=== PATIENT | female | born 1955 | race African-American/Black ===

== ENCOUNTER 2018-01-26 07:42 | Emergency (ER) | payer MEDICAID, SELFPAY ==
[2018-01-26 07:47] VITALS: BP 123/52; PULSE 59; RESP 13; TEMP 36.6; BMI 27.9
--- NOTE | 2018-01-26 07:59 | CT_ITS ---
STUDY: CT BRAIN WITHOUT CONTRAST REASON FOR EXAM: Female, 62 years old. Right-sided weakness. RADIATION DOSAGE (If Supplied By Facility): CTDIvol = ( 60.81 ) mGy, DLP = ( 998.67 ) mGycm TECHNIQUE: Transaxial CT imaging of the brain was performed without administration of intravenous contrast material. Individualized dose optimization techniques were used for this CT. COMPARISON: None. FINDINGS: Normal soft tissue structures. Normal calvarium. Normal size ventricles and extra-axial spaces for the patient's age. There are areas of decreased attenuation within the white matter tracts of the supratentorial brain, consistent with microvascular disease changes. I cannot exclude periventricular white matter nodular densities. A repeat CT scan following intravenous contrast administration is suggested. Decreased attenuation in the insular cortex of both temporal lobes. Normal brainstem. Normal cerebellum. There is no intracranial hemorrhage. There are no findings of an acute ischemic infarction. Normal visualized paranasal sinuses. CT/Brain/Head without Contrast IMPRESSION: Decreased attenuation in the periventricular white matter. Questionable nodular densities at the lee-white matter junction. A repeat CT scan following IV contrast is recommended. Electronically Signed: Alexandre Tapia MD at 9:29 EST Tel [phone], Service support ,
--- NOTE | 2018-01-26 07:59 | EKG12_ITS ---
Test Reason : NEURO Blood Pressure : / mmHG Vent. Rate : 058 BPM Atrial Rate : 058 BPM P-R Int : 154 ms QRS Dur : 096 ms QT Int : 454 ms P-R-T Axes : 023 -01 011 degrees QTc Int : 445 ms Sinus bradycardia Otherwise normal ECG Confirmed by SIMONE OCONNELL, LAKESHIA ([id number]), acquisitions editor MARY DOVE ([id number] on 01/29/2018 2:24:56 PM Referred By: HATTIE Confirmed By:LAKESHIA NICHOLS MD
--- NOTE | 2018-01-26 08:11 | RAD_ITS ---
STUDY: X-RAY CHEST REASON FOR EXAM: Female, 62 years old. Cough. TECHNIQUE: Single AP portable view of the chest. COMPARISON: None. FINDINGS: EKG electrodes are seen. The lungs are clear and expanded. There is no demonstrated pleural abnormality. Normal size heart. Normal mediastinum and marily. Normal visualized pulmonary arteries. There is atherosclerotic calcification of the aortic arch with tortuosity. Normal visualized thoracic spine. Normal visualized ribs, clavicles, and shoulders. There is no demonstrated abnormality of the visualized soft tissue structures of the upper abdomen. RAD/Chest 1 View IMPRESSION: Normal x-ray examination of the chest. Electronically Signed: Alexandre Tapia MD at 8:24 EST Tel [phone], Service support ,
[2018-01-26 08:21] LABS: Absolute Lymphocyte Count 1.27 X10^3/ul (0.83-4.51); Absolute Neutrophil Count 2.6 X10^3/uL (2.0-7.7); Basophil# 0.05 X10^3/uL; Basophil% 1.2 % (0-1); Eosinophil# 0.14 X10^3/uL; Eosinophils% 3.3 % (0-5); Hematocrit 26.9 % (37-47); Hemoglobin 8.4 g/dl (12.0-15.0); Lymphocyte # 1.27 X10^3/ul (4.0); Mean Corp Hgb Conc 31.2 g/gl (32-36); Mean Corpuscular Hgb 23.1 pg (27.0-32.0); Mean Corpuscular Volume 73.9 fL (81-99); Mean Platelet Vol. 10.8 fl (6.2-12.0); Monocyte# 0.21 X10^3/uL; Neutrophil # 2.55 X10^3/uL (2.7-7.7); Neutrophil % 60.3 % (47-70); POSITIVE COUNT NO; POSITIVE DIFFERENTIAL NO; POSITIVE MORPHOLOGY NO; Platelet Count 292 K/mm3 (150-450); RBC Distribution Width CV 18.5 % (11.6-14.6); RBC Distribution Width SD 47.4 fl (35.1-43.9); Red Blood Count 3.64 M/mm3 (4.2-5.4); White Blood Count 4.2 K/mm3 (4.4-11.0)
[2018-01-26 08:28] VITALS: BP 111/62; PULSE 55; RESP 12; O2SAT 100
[2018-01-26 08:34] LABS: Partial Thromboplast Time 37.2 Seconds (24.1-36.2)
[2018-01-26] MEDS: 0.9% Normal Saline 1,000 ML 100 ML IV (08:34)
[2018-01-26 08:38] LABS: Anion Gap 7 (5-15); BUN 9 mg/dL (7-18); BUN/Creat Ratio 13.3 RATIO (10-20); Calcium,Total 8.6 mg/dL (8.5-10.1); Chloride 107 mmol/L (98-107); Creatinine, Serum 0.68 mg/dL (0.55-1.02); EST Glomerular Filtration Rate 93 mL/min (>60); Est Glom Filt Rate - Afr Amer 112 mL/min (>60); Estimated Creatinine Clearance 78.24 ml/min; Glucose 78 mg/dL (74-106); Potassium 3.7 mmol/L (3.5-5.1); Sodium Level 140 mmol/L (136-145)
[2018-01-26 09:37] VITALS: BP 122/63; PULSE 65; RESP 28; O2SAT 97
--- NOTE | 2018-01-26 09:40 | MRI_ITS ---
STUDY: MRI BRAIN WITHOUT CONTRAST REASON FOR EXAM: Female, 62 years old. Right paresthesias. TECHNIQUE: Standardized multiplanar fat and water weighted pulse sequences were obtained. COMPARISON: None. FINDINGS: There is no restricted diffusion. There is no evidence of chronic blood degradation products on T2 GRE sequence. Normal size of the ventricles and extra-axial spaces for the patient's age. There is severe discrete and confluent T2 and FLAIR hyperintensity within supratentorial white matter bilaterally. Normal bilateral basal ganglia. Normal thalami. There is no extra-axial fluid accumulation. Normal flow voids within the major intracranial circulation suggesting patency by spin echo criteria. Normal sella turcica, pituitary gland, infundibular stalk, optic chiasm and hypothalamus. Normal tectal plate and pineal gland. Normal midbrain, jordan and medulla. Normal cerebellum. Normal basal cisterns. Normal bilateral temporal bones. Normal bilateral internal auditory canals. No demonstrated orbital abnormality, within the constraints of a routine brain study. There is mild nonspecific T2 hyperintensity marginating the right maxillary sinus. There is multifocal T2 hyperintensity within a few right mastoid air cells. There is no paranasal sinus air-fluid level. Normal calvarium and skull base. Normal visualized soft tissue structures. Normal visualized upper cervical spine. MRI/Brain without Contrast IMPRESSION: No restricted diffusion to suggest acute ischemia/edema. No evidence of chronic blood degradation products on the T2 GRE sequence. No mass or mass effect. Severe supratentorial white matter T2 and FLAIR hyperintensities may all simply represent a manifestation of severe chronic small vessel ischemia. However, foci of demyelination secondary to various processes (including autoimmune process or inflammatory process) can also present in this fashion. Consider evaluation with contrast to evaluate for evidence of active demyelinating disease. Nonspecific right maxillary sinus and right mastoid air cell disease. Again, no paranasal sinus air-fluid levels to suggest an acute process. Electronically Signed: Yony Back MD at 13:59 EST , Service support ,
[2018-01-26 11:00] VITALS: BP 112/57; PULSE 83; RESP 13
--- NOTE | 2018-01-26 11:02 | ED.RN ---
Entered to inform pt of time for MRI. Found her sleeping with no distress.
[2018-01-26] MEDS: LORazepam 2 MG/ML Syringe 1 MG IV (11:49)
[2018-01-26 13:34] VITALS: BP 129/67; PULSE 54; RESP 14; O2SAT 100
--- NOTE | 2018-01-26 14:15 | CM.ED ---
Addendum entered by Donna Barnett 01/26/18 14:29: Social Work Note Pt is discharged. Placed call to pt's insurance who states that they cannot provide transport that is not scheduled 2 days prior to the needed transport. Placed call to [facility] van service and spoke with Laureen. The can provide transport between [phone]. Nursing notified. ELLIE Escobar LISW Original Note: Social Work Note Referral from Kevan Bryson RN, stating concerns of homelessness. Face to face with the pt. States that she has an apartment in [place] that she should be able to move into within the next day or two. Reports that she wanted to take a vacation to [place]. She was briefly hospitalized there. States that she intends on going to [facility] [place] [employer]. Explore if there are any friends or family she can stay with and she reports no. Believe that we can get her transportation through insurance upon discharge. Nursing updated. SW to continue to follow and assist as needed. PLAN: [facility] ELLIE Escobar LISW
--- NOTE | 2018-01-26 14:19 | ED.VISSUMM ---
- ER Visit Summary Date of Service: 01/26/18 Chief Complaint: [Paresthesias to right side of body and left leg pain] History of Present Illness: The patient is a 62 F [presents the emergency department with initial complaint of pain in her left foot and leg. Patient states that she was at a bus stop and had a hard time walking on her left foot because of pain. EMS was called and brings patient to the emergency department where she tells nursing staff that she has had numbness to the right side of her body and some weakness. Patient initially stated that the numbness and weakness was new and then later stated that it has actually been going on for at least several weeks. Patient fell 2 weeks ago apparently and fractured her left foot and at the same time hurt her neck. Patient's had recent MRI apparently that showed herniated disks in her neck. Patient is concerned that she might be having a stroke because she does have a history of TIAs and the numbness and the weakness on the right side of her body was more pronounced today. Patient denies any falls or head injuries. Patient apparently was in [place] and was seen on 01 23 there and admitted overnight. Patient was discharged and then came back complaining of pain in her left foot. Patient had x-rays of her foot and had venous Dopplers that were negative for DVT. On 01/22 patient was also seen in [place] at [facility]. Patient had a myriad of different complaints during her visits. Patient is from the [place] area but states that she is currently homeless and staying with friends.] Physical Examination: [HEENT-PERRLA, EOMI. Cranial nerves II through XII grossly intact. TMs clear. Mucous membranes moist. No adenopathy. Cardiovascular-regular rate and rhythm without murmur or ectopy Lungs-clear to auscultation, chest wall stable without crepitus or subcu emphysema Abdomen-normoactive bowel sounds, soft, nontender, no rebound or rigidity, no peritoneal signs. Neuro jzfv-qotbea-fhzl and heel martinez testing within normal limits, negative Romberg, negative pronator drift. NIH stroke scale was a 1 for decreased sensation to the right side. I do not appreciate any focal weakness. Extremities-intact ?4, normal range of motion, normal pulses, atraumatic] Test Results: [CT scan of the brain without contrast showed chronic involutional changes as well as some abnormal findings at the lee/white matter interface and recommended obtaining CT scan with IV contrast. Otherwise nothing acute. EKG obtained arrival shows sinus bradycardia with a rate of 50 bpm with no acute ST segment changes. CBC with differential showed a white blood cell count of 4.2, hemoglobin 8.4, hematocrit 27, platelets 292. Chemistries unremarkable. INR was 1.0. Troponin was less than 0.015.] I reviewed patient's visits by obtaining medical records from patient's visit to [place] as well as [facility]. Emergency Department Course and Treatment: [I discussed case with radiologist who felt that MRI would be reasonable test to evaluate his concerns on CT. An MRI of the brain was obtained and did not show any evidence of restricted diffusion to suggest acute ischemia. Patient had severe supratentorial white matter T2 and flair hyperintensities which may simply represent infestation of severe chronic small vessel ischemia however foci of demyelination secondary to various processes including autoimmune process or inflammatory process also present in this fashion and consider evaluation with contrast to evaluate for evidence of active demyelinating disease.] Treatment Plan: [Patient was advised to follow-up with her primary care physicians and her plan is to go back to [place].] Disposition: [Discharged home in stable condition] Impression: [Left foot pain acute on chronic Paresthesias-etiology uncertain] This note was generated with Br[employer] dictation software. It may contain incorrect words, spelling, and punctuation that were not noted in review of the chart prior to signing ED Disposition - Plan for ED Patient: Chief Complaint: Neuro S/Sx Referrals: Care Physician,No Primary [Primary Care Provider] -
--- NOTE | 2018-01-26 14:25 | ED.DCSUM_ITS ---
- ER Visit Summary Date of Service: 01/26/18 Chief Complaint: [Paresthesias to right side of body and left leg pain] History of Present Illness: The patient is a 62 F [presents the emergency department with initial complaint of pain in her left foot and leg. Patient states that she was at a bus stop and had a hard time walking on her left foot because of pain. EMS was called and brings patient to the emergency department where she tells nursing staff that she has had numbness to the right side of her body and some weakness. Patient initially stated that the numbness and weakness was new and then later stated that it has actually been going on for at least several weeks. Patient fell 2 weeks ago apparently and fractured her left foot and at the same time hurt her neck. Patient's had recent MRI apparently that showed herniated disks in her neck. Patient is concerned that she might be having a stroke because she does have a history of TIAs and the numbness and the weakness on the right side of her body was more pronounced today. Patient denies any falls or head injuries. Patient apparently was in [place] and was seen on 01 23 there and admitted overnight. Patient was discharged and then came back complaining of pain in her left foot. Patient had x-rays of her foot and had venous Dopplers that were negative for DVT. On 01/22 patient was also seen in [place] at [facility]. Patient had a myriad of different complaints during her visits. Patient is from the [place] area but states that she is currently homeless and staying with friends.] Physical Examination: [HEENT-PERRLA, EOMI. Cranial nerves II through XII grossly intact. TMs clear. Mucous membranes moist. No adenopathy. Cardiovascular-regular rate and rhythm without murmur or ectopy Lungs-clear to auscultation, chest wall stable without crepitus or subcu emphysema Abdomen-normoactive bowel sounds, soft, nontender, no rebound or rigidity, no peritoneal signs. Neuro pfco-esgebe-diwv and heel martinez testing within normal limits, negative Romberg, negative pronator drift. NIH stroke scale was a 1 for decreased sensation to the right side. I do not appreciate any focal weakness. Extremities-intact ?4, normal range of motion, normal pulses, atraumatic] Test Results: [CT scan of the brain without contrast showed chronic involutional changes as well as some abnormal findings at the lee/white matter interface and recommended obtaining CT scan with IV contrast. Otherwise nothing acute. EKG obtained arrival shows sinus bradycardia with a rate of 50 bpm with no acute ST segment changes. CBC with differential showed a white blood cell count of 4.2, hemoglobin 8.4, hematocrit 27, platelets 292. Chemistries unremarkable. INR was 1.0. Troponin was less than 0.015.] I reviewed patient's visits by obtaining medical records from patient's visit to [place] as well as [facility]. Emergency Department Course and Treatment: [I discussed case with radiologist who felt that MRI would be reasonable test to evaluate his concerns on CT. An MRI of the brain was obtained and did not show any evidence of restricted diffusion to suggest acute ischemia. Patient had severe supratentorial white matter T2 and flair hyperintensities which may simply represent infestation of severe chronic small vessel ischemia however foci of demyelination secondary to various processes including autoimmune process or inflammatory process also present in this fashion and consider evaluation with contrast to evaluate for evidence of active demyelinating disease.] Treatment Plan: [Patient was advised to follow-up with her primary care physicians and her plan is to go back to [place].] Disposition: [Discharged home in stable condition] Impression: [Left foot pain acute on chronic Paresthesias-etiology uncertain] This note was generated with [employer] dictation software. It may contain incorrect words, spelling, and punctuation that were not noted in review of the chart prior to signing ED Disposition - Plan for ED Patient: Chief Complaint: Neuro S/Sx Referrals: Care Physician,No Primary [Primary Care Provider] -
--- NOTE | 2018-01-26 14:25 | ED.DEP ---
ED Disposition - Plan for ED Patient: Chief Complaint: Neuro S/Sx Instructions: ED Paraesthesias Prescriptions: Ibuprofen [Motrin] 600 mg PO TID PRN PRN #20 tab PRN Reason: Pain Referrals: Care Physician,No Primary [Primary Care Provider] - 3-5 Days
[2018-01-26 14:38] VITALS: BP 113/88; PULSE 71; RESP 16; O2SAT 100
--- NOTE | 2018-01-26 14:39 | ED.RN ---
Pt christian heated meal in ED and ride is enroute to transport pt to [facility]. Pt refused several offers to help dress.
== END 2018-01-26 14:41 | disposition home or self-care (01) ==
LOC: ED 08:04
PROVIDERS: Emergency Provider Emergency Medicine
DX: M79.672 Pain in left foot (principal); G89.29 Other chronic pain; R20.2 Paresthesia of skin; M06.9 Rheumatoid arthritis, unspecified; G47.30 Sleep apnea, unspecified; Z72.0 Tobacco use; Z79.82 Long term (current) use of aspirin; Z79.899 Other long term (current) drug therapy; Z86.73 Personal history of transient ischemic attack (TIA), and cerebral infarction without residual deficits; Z86.711 Personal history of pulmonary embolism
CPT/HCPCS: 70450; 70551; 71045; 80048; 84484; 85025; 85610; 85730; 93005; 96361; 96374; 96375; 99285; J7030; A4216

== ENCOUNTER 2018-02-02 00:12 | Emergency (ER) | payer MEDICAID, SELFPAY ==
[2018-02-02 00:14] VITALS: BP 125/76; PULSE 85; RESP 17; TEMP 36.9; O2SAT 99; BMI 29.5
--- NOTE | 2018-02-02 00:39 | EKG12_ITS ---
Test Reason : N/V Blood Pressure : / mmHG Vent. Rate : 083 BPM Atrial Rate : 083 BPM P-R Int : 148 ms QRS Dur : 082 ms QT Int : 378 ms P-R-T Axes : 045 -15 036 degrees QTc Int : 444 ms Normal sinus rhythm Normal ECG Confirmed by SIMONE OCONNELL, LAKESHIA ([id number]), communications editor MARY DOVE ([id number]) on 02/05/2018 9:59:44 AM Referred By: Confirmed By:LAKESHIA NICHOLS MD
[2018-02-02] MEDS: Ondansetron 4 MG/2 ML Vial IV (00:48)
[2018-02-02] MEDS: 0.9% Normal Saline 1,000 ML 1000 ML IV (00:48)
[2018-02-02 00:57] LABS: Absolute Lymphocyte Count 2.27 X10^3/ul (0.83-4.51); Absolute Neutrophil Count 2.8 X10^3/uL (2.0-7.7); Basophil# 0.05 X10^3/uL; Basophil% 0.9 % (0-1); Differential Indicated SCAN CRITERIA MET; Eosinophil# 0.13 X10^3/uL; Eosinophils% 2.3 % (0-5); Hematocrit 24.8 % (37-47); Hemoglobin 7.7 g/dl (12.0-15.0); Lymphocyte # 2.27 X10^3/ul (4.0); Lymphocyte % 39.4 % (19-41); Mean Corpuscular Hgb 22.8 pg (27.0-32.0); Mean Corpuscular Volume 73.4 fL (81-99); Monocyte# 0.47 X10^3/uL; Monocyte% 8.2 % (0-10); Neutrophil # 2.83 X10^3/uL (2.7-7.7); POSITIVE COUNT NO; POSITIVE DIFFERENTIAL NO; POSITIVE MORPHOLOGY YES; Platelet Count 241 K/mm3 (150-450); RBC Distribution Width CV 17.5 % (11.6-14.6); RBC Distribution Width SD 47.6 fl (35.1-43.9); Red Blood Count 3.38 M/mm3 (4.2-5.4); White Blood Count 5.8 K/mm3 (4.4-11.0)
[2018-02-02 00:59] LABS: Anion Gap 4 (5-15); BUN 14 mg/dL (7-18); BUN/Creat Ratio 12.2 RATIO (10-20); Calcium,Total 8.3 mg/dL (8.5-10.1); Chloride 106 mmol/L (98-107); Creatinine, Serum 1.15 mg/dL (0.55-1.02); EST Glomerular Filtration Rate 50 mL/min (>60); Est Glom Filt Rate - Afr Amer 61 mL/min (>60); Estimated Creatinine Clearance 42.68 ml/min; Glucose 115 mg/dL (74-106); Lipase 308 U/L (73-393); Potassium 4.1 mmol/L (3.5-5.1); Sodium Level 138 mmol/L (136-145)
--- NOTE | 2018-02-02 01:09 | ED.VISSUMM ---
- ER Visit Summary Date of Service: 02/02/18 Chief Complaint: Vomiting History of Present Illness: The patient is a 62 F presenting with vomiting. She states this started 1 hour prior to arrival. She had 4 episodes of emesis. She states she ate beef with gravy for dinner. She is unsure if other people that ate the same food became ill. She is currently staying at the [facility]. She denies blood in her emesis. Denies diarrhea. Denies fever. Denies abdominal pain. Denies other complaints. Physical Examination: Vitals are stable. Patient is afebrile. Alert no acute distress. HEENT exam is unremarkable. Neck is supple. Lungs are clear and equal bilaterally. Heart is regular rate and rhythm. Abdomen is soft nontender nondistended. No guarding or rebound. Extremities are unremarkable. Skin is warm and dry. No focal neurologic deficit. Remainder of exam is unremarkable. Emergency Department Course and Treatment: Patient was given IV fluids, Zofran. EKG is sinus rate of 83 with no acute ischemic changes. CBC shows hemoglobin 7.7. Patient has a history of chronic anemia. Chemistries unremarkable other than creatinine 1.15. Lipase is normal. On reevaluation, patient is feeling improved. Her abdomen continues to be soft and nontender with no rebound or guarding. She is able to tolerate p.o. in the emergency department. Advised to follow-up with primary care physician. Advised to return to the ED for worsening complaints. Disposition: Discharge home Impression: Vomiting, resolved This note was generated with Cokonnect dictation software. It may contain incorrect words, spelling, and punctuation that were not noted in review of the chart prior to signing ED Disposition - Plan for ED Patient: Chief Complaint: Nausea/Vomiting Instructions: ED Nausea Vomiting Prescriptions: Ondansetron [Zofran Odt] 4 mg PO Q8H PRN PRN #10 tablet PRN Reason: Nausea Referrals: Kandis Liu [NON-STAFF] -
[2018-02-02 01:27] LABS: Differential Comment SCANNED; Hypochromasia 2+; Platelet Estimate ADEQUATE (ADEQ); Target Cells 1+
[2018-02-02 02:45] VITALS: BP 139/72; PULSE 77; RESP 17; O2SAT 98
--- NOTE | 2018-02-02 03:18 | ED.DEP ---
ED Disposition - Plan for ED Patient: Chief Complaint: Nausea/Vomiting Instructions: ED Nausea Vomiting Prescriptions: Ondansetron [Zofran Odt] 4 mg PO Q8H PRN PRN #10 tablet PRN Reason: Nausea Referrals: Kandis Liu [NON-STAFF] -
[2018-02-02 05:58] VITALS: BP 141/89; PULSE 79; RESP 16; O2SAT 100
--- OUTSIDE RECORDS SUMMARY | 2018-03-21 03:50 | XMS RPT_ITS | Summary of Care ---
:1955 Author Organization [facility] Address [address] [place] [address] Care Team Providers Name Role Phone Unavailable Primary Care Provider Unavailable Encounter Details Date Type Department Care Team Description 01/23/2018 Hospital Encounter [facility] [address] [facility] [address] [place] [address] [phone] [place] [address] Social History Tobacco Use Types Packs/Day Years Used Date Never Assessed Sex Assigned at Date Recorded Not on file as of this encounter Plan of Treatment Not on fileas of this encounter Procedures Procedure Name Priority Date/Time Associated Comments Diagnosis [facility] - ED CARDIAC STAT 01/23/2018 11:40 Results for this TROPONIN-I PM EST procedure are in the results section. D-DIMER, QUANTITATIVE STAT 01/23/2018 11:40 Results for this PM EST procedure are in the results section. CBC AND DIFFERENTIAL STAT 01/23/2018 11:40 Results for this PM EST procedure are in the results section. LIPASE STAT 01/23/2018 11:40 Results for this PM EST procedure are in the results section. COMPREHENSIVE STAT 01/23/2018 11:40 Results for this METABOLIC PANEL PM EST procedure are in the results section. URINALYSIS STAT 01/23/2018 11:00 Results for this PM EST procedure are in the results section. in this encounter Results Lipase (01/23/2018 11:40 PM) Lipase 246 73 - 393 U/L [facility] Specimen Blood Performing Organization Address City/State/Zipcode Phone Number [facility] [address] [place] [address] Comprehensive Metabolic Panel (01/23/2018 11:40 PM) Glucose 88 70 - 99 mg/dL [facility] Comment: HOSPITAL This test result might be falsely depressed or falsely elevated on samples drawn from patients taking Sulfasalazine and Sulfapyridine. Venipuncture should occur prior to taking either of these drugs. BUN 13 8 - 25 mg/dL [facility] Creatinine 0.60 0.60 - 1.20 mg/dL [facility] eGFR >=60 ml/min/1.73sq.m [facility] Comment: [facility] Non- GFR Calc eGFR is an estimated Glomerular Filtration Rate based on the value of the patient's serum creatinine. In outpatients, eGFR should be used as a helpful tool in screening for CKD. In inpatients or patients with acute renal failure, eGFR represents the GFR at the moment of the draw and should be used with caution. eGFR >=60Comment: ml/min/1.73sq.m [facility] Chilean GFR Calc [facility]OSPITAL Calcium 8.5 8.4 - 10.2 mg/dL [facility] Sodium 136 135 - 145 mmol/L [facility] Potassium 3.9 3.5 - 5.1 mmol/L [facility] Chloride 106 98 - 108 mmol/L [facility] CO2 25 21 - 32 mmol/L [facility] AST 164 (H) 0 - 45 U/L [facility] Comment: [facility] This test result might be falsely depressed or falsely elevated on samples drawn from patients taking Sulfasalazine and Sulfapyridine. Venipuncture should occur prior to taking either of these drugs. ALT 127 (H) 14 - 65 U/L [facility] Comment: [facility] This test result might be falsely depressed or falsely elevated on samples drawn from patients taking Sulfasalazine and Sulfapyridine. Venipuncture should occur prior to taking either of these drugs. Alkaline Phosphatase 610 (H) 40 - 150 U/L [facility] Bilirubin, Total 1.1 0.3 - 1.2 mg/dL [facility] Total Protein 9.2 (H) 6.0 - 8.0 g/dL [facility] Albumin 2.5 (L) 3.2 - 5.2 g/dL [facility] Specimen Blood Performing Organization Address City/State/Zipcode Phone Number [facility] [address] [place] [address] ED Cardiac Troponin-I (01/23/2018 11:40 PM) ED Cardiac Troponin-I < 15 <45 ng/L [facility] Comment: HOSPITAL Elevation of troponin indicates some degree of myocardial necrosis but unless there is a significant rise and/or fall (if elevated) identified, it unlikely that an acute event has taken place Samples from patients routinely receiving high dose biotin therapy (100-300 mg/day) may show falsely decreased results. Please correlate clinically. Specimen Blood Performing Organization Address City/State/Zipcode Phone Number [facility] [address] [place] [address] CBC AND DIFFERENTIAL (01/23/2018 11:40 PM) WBC 6.1 3.4 - 10.6 K/[facility] RBC 3.30 (L) 3.7 - 5.0 M/[facility] Hemoglobin 7.7 (L) 11.6 - 15.4 g/dL [facility] Hematocrit 24.7 (L) 34.4 - 44.8 % [facility] MCV 74.8 (L) 82.6 - 98.9 [facility] MCH 23.2 (L) 27.9 - 33.9 pg [facility] MCHC 31.0 (L) 33.1 - 35.1 g/dL [facility] RDW 18.6 (H) 10.0 - 14.4 % [facility] Platelets 220 162 - 402 [facility] MPV 10.9 (H) 7.0 - 10.6 [facility] Absolute Neutrophils 3.5 1.2 - 6.9 [facility] Absolute Lymphocytes 2.0 1.0 - 3.7 [facility] Absolute Monocytes 0.5 0.1 - 0.6 [facility] Absolute Eosinophils 0.2 0 - 0.5 [facility] Absolute Basophils 0.0 0 - 0.2 [facility] Segmented Neut 57.0Comment: Manual % [facility] differential performed. HOSPITAL Lymphocytes 32.0 % [facility] Monocytes 8.0 % [facility] Eosinophils 3.0 % [facility] Basophils 0.0 % [facility] Anisocytosis 1+ (A) None Seen [facility] Microcytosis 2+ (A) None Seen [facility] Hypochromasia 3+ (A) None Seen [facility] Target Cells 2+ (A) None Seen [facility] Specimen Blood Performing Organization Address [facility] Phone Number [facility] [address] [place] [address] D-DIMER, QUANTITATIVE (01/23/2018 11:40 PM) D-Dimer 1.80 (H) <0.5 mcg/ml (FEU) [facility] Comment: HOSPITAL This test is intended for use in conjunction with a clinical pretest probability (PTP) assessment model to exclude pulmonary embolism (PE) and deep vein thrombosis (DVT) in outpatients suspected of PE or DVT. Specimen Blood Performing Organization Address [facility] Phone Number [facility] [address] [place] [address] URINALYSIS (01/23/2018 11:00 PM) Color, Urine Yellow [facility] Character Hazy [facility] Specific [place] 1.014 1.003 - 1.029 [facility] pH, Urine 7.0 4.5 - 8.0 [facility] Glucose, Urine Negative NEG;NEGATIVE mg/dL [facility] Ketones, Urine Negative NEG;NEGATIVE mg/dL [facility] Protein, Urine Negative NEG;NEGATIVE mg/dL [facility] Blood, Urine Negative NEG;NEGATIVE [facility] Nitrite, Urine Negative NEG;NEGATIVE [facility] Bilirubin, Urine Negative NEG;NEGATIVE [facility] Urobilinogen, Urine NormalComment: mg/dL [facility] Urobilinogen, Urine [facility]OSPITAL Reference Range: <2.0 mg/dL Leukocyte Esterase, Trace (A) Negative [facility] WBCs, Urine 1 0 - 5 /HPF [facility] Squamous Epithelial 2 0 - 40 /HPF [facility] Specimen Urine Performing Organization Address [facility] Cent[facility] Phone Number [facility] [address] [place] [address] in this encounter
--- OUTSIDE RECORDS SUMMARY | 2018-03-21 03:52 | XMS RPT_ITS ---
:1955 Author Organization OHIP Support Name Relationship Address Phone D Unavailable Unavailable Unavailable OLDSS, GUANAKITO Unavailable Unavailable + MORALES, MARIVEL Unavailable Unavailable + D Unavailable Unavailable Unavailable OLDSS, GUANAKITO Unavailable Unavailable + MORALES, MARIVEL Unavailable Unavailable + D Unavailable Unavailable Unavailable OLDSS, GUANAKITO Unavailable Unavailable + MORALES, MARIVEL Unavailable Unavailable + D Unavailable Unavailable Unavailable OLDSS, GUANAKITO Unavailable Unavailable + MORALES, MARIVEL Unavailable Unavailable + OLDS, GUANAKITO Unavailable Unavailable + OLDS MORALES, CELINA Unavailable Unavailable + OLDS, GUANAKITO Unavailable Unavailable + OLDS MORALES, CELINA Unavailable Unavailable + OLDS, GUANAKITO Unavailable Unavailable + MORALES, CELINA Unavailable Unavailable + OLDS, GUANAKITO Unavailable Unavailable + MORALES, CELINA Unavailable Unavailable + OLDS, GUANAKITO Unavailable Unavailable + MORALES, CELINA Unavailable Unavailable + OLDS, GUANAKITO Unavailable Unavailable + MORALES, CELINA Unavailable Unavailable + OLDS, GUANAKITO Unavailable Unavailable + MORALES, CELINA Unavailable Unavailable + OLDS, GUANAKITO Unavailable Unavailable + MORALES, CELINA Unavailable Unavailable + OLDS, GUANAKITO Unavailable Unavailable + NIELSEN, CELINA Unavailable Unavailable + OLDS, GUANAKITO Unavailable Unavailable + NIELSEN, CELINA Unavailable Unavailable + OLDS, GUANAKITO Unavailable Unavailable + NIELSEN, CELINA Unavailable Unavailable + OLDS, GUANAKITO Unavailable Unavailable + NIELSEN, CELINA Unavailable Unavailable + OLDS, GUANAKITO Unavailable Unavailable + NIELSEN, CELINA Unavailable Unavailable + OLDS, GUANAKITO Unavailable Unavailable + NIELSEN, CELINA Unavailable Unavailable + OLDS, GUANAKITO Unavailable Unavailable + NIELSEN, CELINA Unavailable Unavailable + OLDS, GUANAKITO Unavailable [address] [place] [address] + OLDS, GUANAKITO Unavailable Unavailable + NIELSEN, CELINA Unavailable Unavailable + OLDS, GUANAKITO Unavailable Unavailable + NIELSEN, CELINA Unavailable Unavailable + OLDS, GUANAKITO Unavailable Unavailable + NIELSEN, CELINA Unavailable Unavailable + OLDS, GUANAKITO Unavailable Unavailable + NIELSEN, CELINA Unavailable Unavailable + OLDS, GUANAKITO Unavailable Unavailable + NIELSEN, CELINA Unavailable Unavailable + OLDS, GUANAKITO Unavailable Unavailable + NIELSEN, CELINA Unavailable Unavailable + OLDS, GUANAKITO Unavailable Unavailable + NIELSEN, CELINA Unavailable Unavailable + OLDS, GUANAKITO Unavailable Unavailable + NIELSEN, CELINA Unavailable Unavailable + OLDS, GUANAKITO Unavailable Unavailable + NIELSEN, CELINA Unavailable Unavailable + OLDS, GUANAKITO Unavailable Unavailable + NIELSEN, CELINA Unavailable Unavailable + OLDS, GUANAKITO Unavailable Unavailable + NIELSEN, CELINA Unavailable Unavailable + OLDS, GUANAKITO Unavailable Unavailable + NIELSEN, CELINA Unavailable Unavailable + OLDS, GUANAKITO Unavailable Unavailable + NIELSEN, CELINA Unavailable Unavailable + OLDS, GUANAKITO Unavailable Unavailable + NIELSEN, CELINA Unavailable Unavailable + OLDS, GUANAKITO Unavailable Unavailable + NIELSEN, CELINA Unavailable Unavailable + OLDS, GUANAKITO Unavailable Unavailable + NIELSEN, CELINA Unavailable Unavailable + OLDS, GUANAKITO Unavailable Unavailable + NIELSEN, CELINA Unavailable Unavailable + OLDS, GUANAKITO Unavailable Unavailable + NIELSEN, CELINA Unavailable Unavailable + OLDS, GUANAKITO Unavailable Unavailable + NIELSEN, CELNIA Unavailable Unavailable + OLDS, GUANAKITO Unavailable Unavailable + NIELSEN, CELINA Unavailable Unavailable + OLDS, GUANAKITO Unavailable Unavailable + NIELSEN, CELINA Unavailable Unavailable + OLDS, GUANAKITO Unavailable Unavailable + NIELSEN, CELINA Unavailable Unavailable + OLDS, GUANAKITO Unavailable Unavailable + NIELSEN, CELINA Unavailable Unavailable + OLDS, GUANAKITO Unavailable Unavailable + NIELSEN, CELINA Unavailable Unavailable + OLDS, GUANAKITO Unavailable Unavailable + NIELSEN, CELINA Unavailable Unavailable + OLDS, GUANAKITO Unavailable Unavailable + NIELSEN, CELINA Unavailable Unavailable + OLDS, GUANAKITO Unavailable Unavailable + NIELSEN, CELINA Unavailable Unavailable + OLDS, GUANAKITO Unavailable Unavailable + NIELSEN, CELINA Unavailable Unavailable + OLDS, GUANAKITO Unavailable Unavailable + NIELSEN, CELINA Unavailable Unavailable + OLDS, GUANAKITO Unavailable Unavailable + NIELSEN, CELINA Unavailable Unavailable + OLDS, GUANAKITO Unavailable Unavailable + NIELSEN, CELINA Unavailable Unavailable + OLDS, GUANAKITO Unavailable Unavailable + NIELSEN, CELINA Unavailable Unavailable + OLDS, GUANAKITO Unavailable Unavailable + NIELSEN, CELINA Unavailable Unavailable + OLDS, GUANAKITO Unavailable Unavailable + NIELSEN, CELINA Unavailable Unavailable + OLDS, GUANAKITO Unavailable Unavailable + NIELSEN, CELINA Unavailable Unavailable + OLDS, GUANAKITO Unavailable Unavailable + NIELSEN, CELINA Unavailable Unavailable + OLDS, GUANAKITO Unavailable Unavailable + NIELSEN, CELINA Unavailable Unavailable + OLDS, GUANAKITO Unavailable Unavailable + NIELSEN, CELINA Unavailable Unavailable + OLDS, GUANAKITO Unavailable Unavailable + NIELSEN, CELINA Unavailable Unavailable + OLDS, GUANAKITO Unavailable Unavailable + NIELSEN, CELINA Unavailable Unavailable + OLDS, GUANAKITO Unavailable Unavailable + NIELSEN, CELINA Unavailable Unavailable + OLDS, GUANAKITO Unavailable Unavailable + NIELSEN, CELINA Unavailable Unavailable + OLDS, GUANAKITO Unavailable Unavailable + NIELSEN, CELINA Unavailable Unavailable + OLDS, GUANAKITO Unavailable Unavailable + NIELSEN, CELINA Unavailable Unavailable + OLDS, GUANAKITO Unavailable Unavailable + NIELSEN, CELINA Unavailable Unavailable + OLDS, GUANAKITO Unavailable Unavailable + NIELSEN, CELINA Unavailable Unavailable + OLDS, GUANAKITO Unavailable Unavailable + NIELSEN, CELINA Unavailable Unavailable + OLDS, GUANAKITO Unavailable Unavailable + NIELSEN, CELINA Unavailable Unavailable + OLDS, GUANAKITO Unavailable Unavailable + NIELSEN, CELINA Unavailable Unavailable + OLDS, GUANAKITO Unavailable Unavailable + NIELSEN, CELINA Unavailable Unavailable + OLDS, GUANAKITO Unavailable [address] [place] [address] + OLDS, GUANAKITO Unavailable Unavailable + NIELSEN, CELINA Unavailable Unavailable + OLDS, GUANAKITO Unavailable Unavailable + NIELSEN, CELINA Unavailable Unavailable + OLDS, GUANAKITO Unavailable Unavailable + NIELSEN, CELINA Unavailable Unavailable + OLDS, GUANAKITO Unavailable Unavailable + NIELSEN, CELINA Unavailable Unavailable + OLDS, GUANAKITO Unavailable Unavailable + NIELSEN, CELINA Unavailable Unavailable + OLDS, GUANAKITO Unavailable Unavailable + NIELSEN, CELINA Unavailable Unavailable + OLDS, GUANAKITO Unavailable Unavailable + NIELSEN, CELINA Unavailable Unavailable + OLDS, GUANAKITO Unavailable Unavailable + NIELSEN, CELINA Unavailable Unavailable + OLDS, GUANAKITO Unavailable Unavailable + NIELSEN, CELINA Unavailable Unavailable + OLDS, GUANAKITO Unavailable Unavailable + NIELSEN, CELINA Unavailable Unavailable + OLDS, GUANAKITO Unavailable Unavailable + NIELSEN, CELINA Unavailable Unavailable + OLDS, GUANAKITO Unavailable Unavailable + NIELSEN, CELINA Unavailable Unavailable + OLDS, GUANAKITO Unavailable Unavailable Unavailable OLDS, GUANAKITO Unavailable Unavailable Unavailable OLDS, GUANAKITO Unavailable Unavailable + NIELSEN, CELINA Unavailable Unavailable + OLDS, GUANAKITO Unavailable Unavailable Unavailable OLDS, GUANAKITO Unavailable Unavailable Unavailable OLDS, GUANAKITO Unavailable Unavailable Unavailable OLDS, GUANAKITO Unavailable Unavailable Unavailable OLDS, GUANAKITO Unavailable Unavailable Unavailable OLDS, GUANAKITO Unavailable Unavailable Unavailable OLDS, GUANAKITO Unavailable Unavailable Unavailable OLDS, GUANAKITO Unavailable Unavailable Unavailable OLDS, GUANAKITO Unavailable Unavailable Unavailable OLDS, GUANAKITO Unavailable Unavailable Unavailable OLDS, GUANAKITO Unavailable Unavailable Unavailable OLDS, GUANAKITO Unavailable Unavailable + OLDS NIELSEN, CELINA Unavailable Unavailable + OLDS, GUANAKITO Unavailable Unavailable + OLDS NIELSEN, CELINA Unavailable Unavailable + OLDS, GUANAKITO Unavailable Unavailable + OLDS NIELSEN, CELINA Unavailable Unavailable + OLDS, GUANAKITO Unavailable Unavailable + OLDS NIELSEN, CELINA Unavailable Unavailable + OLDS, GUANAKITO Unavailable Unavailable + OLDS NIELSEN, CELINA Unavailable Unavailable + Care Team Providers Name Role Phone Delgado, Dr. Manfred Potter Attending Unavailable Atwater, Dr. Manfred Potter Admitting Unavailable Mireya, Dr. Amber Sampson Admitting Unavailable Mireya, Dr. Amber Sampson Attending Unavailable Chris, Dr. Douglas Núñez Attending Unavailable Chris, Dr. Douglas Núñez Admitting Unavailable Chris, Dr. Douglas Núñez Attending Unavailable Chris, Dr. Douglas Núñez Admitting Unavailable Marker, Dr. Adeline Leo Admitting Unavailable Marker, Dr. Adeline Leo Attending Unavailable Creasap, Dr. Clint Coates Admitting Unavailable Creasap, Dr. Clint Coates Attending Unavailable Ximena, Dr. Lowry Admitting Unavailable Ximena, Dr. Lowry Attending Unavailable Primay Care Physicia, No Primary Care Unavailable Lashell Lynn Attending Unavailable UngTiny lira Attending Unavailable Primay Care Physicia, No Primary Care Unavailable Primay Care Physicia, No Primary Care Unavailable Saulo Covington Attending Unavailable Primay Care Physicia, No Primary Care Unavailable Leroy Luevano Attending Unavailable WE[place] E[place]ADA Attending Unavailable [place] Attending Unavailable HAI LION Attending Unavailable PROVIDER, UNKNOWN Admitting Unavailable EDUARDO NORTON Attending Unavailable NON EPICCARE, PROVIDER Primary Care Unavailable PROVIDER, UNKNOWN Admitting Unavailable HUBER DELA CRUZ Attending Unavailable NON EPICCARE, PROVIDER Primary Care Unavailable PROVIDER, UNKNOWN Admitting Unavailable PROVIDER, UNKNOWN Attending Unavailable NON EPICCARE, PROVIDER Primary Care Unavailable PROVIDER, UNKNOWN Admitting Unavailable NON EPICCARE, PROVIDER Primary Care Unavailable KORIN RIVAS Attending Unavailable PROVIDER, UNKNOWN Admitting Unavailable PROVIDER, UNKNOWN Attending Unavailable NON EPICCARE, PROVIDER Primary Care Unavailable PROVIDER, UNKNOWN Admitting Unavailable NON EPICCARE, PROVIDER Primary Care Unavailable WAQAS LOUIS Attending Unavailable PROVIDER, UNKNOWN Admitting Unavailable NON EPICCARE, PROVIDER Primary Care Unavailable BRENTON CHAVEZ Attending Unavailable NON EPICCARE, PROVIDER Primary Care Unavailable STEPHIE HERNANDEZ Admitting Unavailable STEPHIE HERNANDEZ Attending Unavailable TAMIE MCKINNEY Referring Unavailable PROVIDER, UNKNOWN Admitting Unavailable PROVIDER, UNKNOWN Attending Unavailable NON EPICCARE, PROVIDER Primary Care Unavailable PROVIDER, UNKNOWN Admitting Unavailable NON EPICCARE, PROVIDER Primary Care Unavailable YOSSI JOSEPH Attending Unavailable PROVIDER, UNKNOWN Admitting Unavailable NON EPICCARE, PROVIDER Primary Care Unavailable JACKIE PECK Attending Unavailable PROVIDER, UNKNOWN Admitting Unavailable PROVIDER, UNKNOWN Attending Unavailable NON EPICCARE, PROVIDER Primary Care Unavailable PROVIDER, UNKNOWN Admitting Unavailable NON EPICCARE, PROVIDER Primary Care Unavailable OBDULIA VELASQUEZ Attending Unavailable PROVIDER, UNKNOWN Admitting Unavailable PROVIDER, UNKNOWN Attending Unavailable NON EPICCARE, PROVIDER Primary Care Unavailable PROVIDER, UNKNOWN Admitting Unavailable PROVIDER, UNKNOWN Attending Unavailable NON EPICCARE, PROVIDER Primary Care Unavailable PROVIDER, UNKNOWN Admitting Unavailable NON EPICCARE, PROVIDER Primary Care Unavailable VICENTA CARTWRIGHT Attending Unavailable PROVIDER, UNKNOWN Admitting Unavailable PROVIDER, UNKNOWN Attending Unavailable NON EPICCARE, PROVIDER Primary Care Unavailable PROVIDER, UNKNOWN Admitting Unavailable PROVIDER, UNKNOWN Attending Unavailable NON EPICCARE, PROVIDER Primary Care Unavailable PROVIDER, UNKNOWN Admitting Unavailable NON EPICCARE, PROVIDER Primary Care Unavailable YOSSI JOSEPH Attending Unavailable PROVIDER, UNKNOWN Admitting Unavailable PROVIDER, UNKNOWN Attending Unavailable NON EPICCARE, PROVIDER Primary Care Unavailable PROVIDER, UNKNOWN Admitting Unavailable PROVIDER, UNKNOWN Attending Unavailable NON EPICCARE, PROVIDER Primary Care Unavailable PROVIDER, UNKNOWN Admitting Unavailable NON EPICCARE, PROVIDER Primary Care Unavailable EDUARDO NORTON Attending Unavailable PROVIDER, UNKNOWN Admitting Unavailable PROVIDER, UNKNOWN Attending Unavailable NON EPICCARE, PROVIDER Primary Care Unavailable PROVIDER, UNKNOWN Admitting Unavailable PROVIDER, UNKNOWN Attending Unavailable NON EPICCARE, PROVIDER Primary Care Unavailable PROVIDER, UNKNOWN Admitting Unavailable NON EPICCARE, PROVIDER Primary Care Unavailable SHANNA BARTH Attending Unavailable PROVIDER, UNKNOWN Admitting Unavailable PROVIDER, UNKNOWN Attending Unavailable NON EPICCARE, PROVIDER Primary Care Unavailable PROVIDER, UNKNOWN Admitting Unavailable NON EPICCARE, PROVIDER Primary Care Unavailable JANAE CRAIN Attending Unavailable PROVIDER, UNKNOWN Admitting Unavailable NON EPICCARE, PROVIDER Primary Care Unavailable ROWENA SYKES Attending Unavailable PROVIDER, UNKNOWN Admitting Unavailable NON EPICCARE, PROVIDER Primary Care Unavailable ZOEY AVERY Attending Unavailable PROVIDER, UNKNOWN Admitting Unavailable NON EPICCARE, PROVIDER Primary Care Unavailable NICO NOBLES Attending Unavailable PROVIDER, UNKNOWN Admitting Unavailable PROVIDER, UNKNOWN Attending Unavailable NON EPICCARE, PROVIDER Primary Care Unavailable PROVIDER, UNKNOWN Admitting Unavailable PROVIDER, UNKNOWN Attending Unavailable NON EPICCARE, PROVIDER Primary Care Unavailable PROVIDER, UNKNOWN Admitting Unavailable NON EPICCARE, PROVIDER Primary Care Unavailable ARIANNA BOWLES Attending Unavailable PROVIDER, UNKNOWN Admitting Unavailable PROVIDER, UNKNOWN Attending Unavailable NON EPICCARE, PROVIDER Primary Care Unavailable PROVIDER, UNKNOWN Admitting Unavailable PROVIDER, UNKNOWN Attending Unavailable NON EPICCARE, PROVIDER Primary Care Unavailable PROVIDER, UNKNOWN Admitting Unavailable NON EPICCARE, PROVIDER Primary Care Unavailable NICO NOBLES Attending Unavailable CONSULT, IP GASTROENTEROLOGY Consulting Unavailable PROVIDER, UNKNOWN Admitting Unavailable PROVIDER, UNKNOWN Attending Unavailable NON EPICCARE, PROVIDER Primary Care Unavailable NON EPICCARE, PROVIDER Primary Care Unavailable KIRBY AZAR Admitting Unavailable SAMM KNOX Attending Unavailable CONSULT, IP GASTROENTEROLOGY Consulting Unavailable PROVIDER, UNKNOWN Admitting Unavailable PROVIDER, UNKNOWN Attending Unavailable NON EPICCARE, PROVIDER Primary Care Unavailable PROVIDER, UNKNOWN Admitting Unavailable PROVIDER, UNKNOWN Attending Unavailable NON EPICCARE, PROVIDER Primary Care Unavailable PROVIDER, UNKNOWN Admitting Unavailable NON EPICCARE, PROVIDER Primary Care Unavailable KORIN RIVAS Attending Unavailable PROVIDER, UNKNOWN Admitting Unavailable NON EPICCARE, PROVIDER Primary Care Unavailable SARITA LINARES Attending Unavailable PROVIDER, UNKNOWN Admitting Unavailable NON EPICCARE, PROVIDER Primary Care Unavailable SHANNA BARTH Attending Unavailable PROVIDER, UNKNOWN Admitting Unavailable NON EPICCARE, PROVIDER Primary Care Unavailable VICENTA CARTWRIGHT Attending Unavailable PROVIDER, UNKNOWN Admitting Unavailable NON EPICCARE, PROVIDER Primary Care Unavailable ROWENA SYKES Attending Unavailable PROVIDER, UNKNOWN Admitting Unavailable NON EPICCARE, PROVIDER Primary Care Unavailable TAMIE MCKINNEY Attending Unavailable PROVIDER, UNKNOWN Admitting Unavailable PROVIDER, UNKNOWN Attending Unavailable NON EPICCARE, PROVIDER Primary Care Unavailable PROVIDER, UNKNOWN Admitting Unavailable NON EPICCARE, PROVIDER Primary Care Unavailable VICENTA CARTWRIGHT Attending Unavailable PROVIDER, UNKNOWN Admitting Unavailable NON EPICCARE, PROVIDER Primary Care Unavailable ZOEY AVERY Attending Unavailable PROVIDER, UNKNOWN Admitting Unavailable PROVIDER, UNKNOWN Attending Unavailable NON EPICCARE, PROVIDER Primary Care Unavailable PROVIDER, UNKNOWN Admitting Unavailable NON EPICCARE, PROVIDER Primary Care Unavailable EDUARDO NORTON Attending Unavailable PROVIDER, UNKNOWN Admitting Unavailable NON EPICCARE, PROVIDER Primary Care Unavailable VICENTA ARECHIGA Attending Unavailable PROVIDER, UNKNOWN Admitting Unavailable PROVIDER, UNKNOWN Attending Unavailable NON EPICCARE, PROVIDER Primary Care Unavailable PROVIDER, UNKNOWN Admitting Unavailable NON EPICCARE, PROVIDER Primary Care Unavailable KAHLIL KONG Attending Unavailable PROVIDER, UNKNOWN Admitting Unavailable PROVIDER, UNKNOWN Attending Unavailable NON EPICCARE, PROVIDER Primary Care Unavailable PROVIDER, UNKNOWN Admitting Unavailable NON EPICCARE, PROVIDER Primary Care Unavailable KIRBY AZAR Attending Unavailable PROVIDER, UNKNOWN Admitting Unavailable PROVIDER, UNKNOWN Attending Unavailable NON EPICCARE, PROVIDER Primary Care Unavailable PROVIDER, UNKNOWN Admitting Unavailable NON EPICCARE, PROVIDER Primary Care Unavailable BRENTON CHAVEZ Attending Unavailable NON EPICCARE, PROVIDER Primary Care Unavailable ZACKARY ALVARADO Admitting Unavailable SCREEN, IP POSITIVE NUTRITION Consulting Unavailable ASHLEY BOONE Attending Unavailable ZACKARY ALVARADO Referring Unavailable REQUEST, IP PHYSICAL THERAPY SERVICE Consulting Unavailable REQUEST, IP OCCUPATIONAL THERAPY SERVICE Consulting Unavailable PROVIDER, UNKNOWN Admitting Unavailable PROVIDER, UNKNOWN Attending Unavailable NON EPICCARE, PROVIDER Primary Care Unavailable PROVIDER, UNKNOWN Admitting Unavailable PROVIDER, UNKNOWN Attending Unavailable NON EPICCARE, PROVIDER Primary Care Unavailable PROVIDER, UNKNOWN Admitting Unavailable PROVIDER, UNKNOWN Attending Unavailable NON EPICCARE, PROVIDER Primary Care Unavailable PROVIDER, UNKNOWN Admitting Unavailable PROVIDER, UNKNOWN Attending Unavailable NON EPICCARE, PROVIDER Primary Care Unavailable PROVIDER, UNKNOWN Admitting Unavailable PROVIDER, UNKNOWN Attending Unavailable NON EPICCARE, PROVIDER Primary Care Unavailable PROVIDER, UNKNOWN Admitting Unavailable NON EPICCARE, PROVIDER Primary Care Unavailable JACKIE PECK Attending Unavailable PROVIDER, UNKNOWN Admitting Unavailable PROVIDER, UNKNOWN Attending Unavailable NON EPICCARE, PROVIDER Primary Care Unavailable PROVIDER, UNKNOWN Admitting Unavailable NON EPICCARE, PROVIDER Primary Care Unavailable SARITA DESIR Attending Unavailable PROVIDER, UNKNOWN Admitting Unavailable VICENTA CARTWRIGHT Attending Unavailable NON EPICCARE, PROVIDER Primary Care Unavailable PROVIDER, UNKNOWN Admitting Unavailable NON EPICCARE, PROVIDER Primary Care Unavailable CRYSATL STEVENSON Attending Unavailable PROVIDER, UNKNOWN Admitting Unavailable PROVIDER, UNKNOWN Attending Unavailable NON EPICCARE, PROVIDER Primary Care Unavailable PROVIDER, UNKNOWN Admitting Unavailable NON EPICCARE, PROVIDER Primary Care Unavailable ZOEY AVERY Attending Unavailable PROVIDER, UNKNOWN Admitting Unavailable NON EPICCARE, PROVIDER Primary Care Unavailable ZOEY AVERY Attending Unavailable PROVIDER, UNKNOWN Admitting Unavailable NON EPICCARE, PROVIDER Primary Care Unavailable JACKIE PECK Attending Unavailable PROVIDER, UNKNOWN Admitting Unavailable NON EPICCARE, PROVIDER Primary Care Unavailable KAHLIL KONG Attending Unavailable PROVIDER, UNKNOWN Admitting Unavailable NON EPICCARE, PROVIDER Primary Care Unavailable BRENTON CHAVEZ Attending Unavailable PROVIDER, UNKNOWN Admitting Unavailable PROVIDER, UNKNOWN Attending Unavailable NON EPICCARE, PROVIDER Primary Care Unavailable PROVIDER, UNKNOWN Admitting Unavailable NON EPICCARE, PROVIDER Primary Care Unavailable ROWENA SYKES Attending Unavailable PROVIDER, UNKNOWN Admitting Unavailable NON EPICCARE, PROVIDER Primary Care Unavailable VICENTA ARECHIGA Attending Unavailable PROVIDER, UNKNOWN Admitting Unavailable PROVIDER, UNKNOWN Attending Unavailable NON EPICCARE, PROVIDER Primary Care Unavailable PROVIDER, UNKNOWN Admitting Unavailable NON EPICCARE, PROVIDER Primary Care Unavailable SHANNA BARTH Attending Unavailable PROVIDER, UNKNOWN Admitting Unavailable PROVIDER, UNKNOWN Attending Unavailable NON EPICCARE, PROVIDER Primary Care Unavailable PROVIDER, UNKNOWN Admitting Unavailable PROVIDER, UNKNOWN Attending Unavailable NON EPICCARE, PROVIDER Primary Care Unavailable PROVIDER, UNKNOWN Admitting Unavailable NON EPICCARE, PROVIDER Primary Care Unavailable CRYSTAL STEVENSON Attending Unavailable PROVIDER, UNKNOWN Admitting Unavailable NON EPICCARE, PROVIDER Primary Care Unavailable TAB, SHANNA Attending Unavailable PROVIDER, UNKNOWN Admitting Unavailable NON EPICCARE, PROVIDER Primary Care Unavailable TAB, RAHI Attending Unavailable PROVIDER, UNKNOWN Admitting Unavailable NON EPICCARE, PROVIDER Primary Care Unavailable BRANDO GRAHAM Attending Unavailable PROVIDER, UNKNOWN Admitting Unavailable PROVIDER, UNKNOWN Attending Unavailable NON EPICCARE, PROVIDER Primary Care Unavailable PROVIDER, UNKNOWN Admitting Unavailable NON EPICCARE, PROVIDER Primary Care Unavailable SARITA DESIR Attending Unavailable PROVIDER, UNKNOWN Admitting Unavailable NON EPICCARE, PROVIDER Primary Care Unavailable EDUARDO NORTON Attending Unavailable Yuri Sanchez Attending Unavailable Unavailable, Family Physician Primary Care Unavailable Unavailable, Family Physician Consulting Unavailable Unavailable, Family Physician Primary Care Unavailable Unavailable, Family Physician Consulting Unavailable Octavia Norton Attending Unavailable PROBLEMS PROBLEMS DATE TYPE CONDITION / CODE ATTENDING STATUS SOURCE 08/27/2017 Active Problem related to JOHNATHANAN, Active [facility] unspecified HAI J Other [place] psychosocial Repository circumstances / Z65.9(ICD-10) 08/27/2017 Active Dizziness and [place] Active [facility] giddiness / T Other [place] R42(ICD-10) Repository PROCEDURES PROCEDURES DATE CODE DESCRIPTION STATUS SOURCE 01/22/2018 ED103(C4) DISCHARGE PATIENT Completed [facility] Repository 01/20/2018 41612(C4) COMPLETE BLOOD COUNT Completed [facility] Rep[facility] 01/20/2018 93170(C4) BASIC METABOLIC PANEL Completed [facility] 01/20/2018 00452(C4) HEPATIC FUNCTION PANEL Completed [facility] 01/20/2018 48228(C4) LIPASE Completed [facility] Rep[facility] 01/20/2018 ED103(C4) DISCHARGE PATIENT Completed [facility] Rep[facility] 01/19/2018 61474(C4) XR CHEST PA+LAT Completed [facility] Rep[facility] 01/19/2018 ED103(C4) DISCHARGE PATIENT Completed [facility] Rep[facility] 01/17/2018 11582(C4) COMPLETE BLOOD COUNT Completed [facility] 01/17/2018 74221(C4) BASIC METABOLIC PANEL Completed [facility] Rep[facility] 01/16/2018 ED103(C4) DISCHARGE PATIENT Completed [facility] Rep[facility] 01/15/2018 69021(C4) COMPLETE BLOOD COUNT Completed [facility] Rep[facility] 01/15/2018 89947(C4) BASIC METABOLIC PANEL Completed [facility] 01/15/2018 78393(C4) LIPASE Completed [facility] 01/15/2018 66146(C4) URINALYSIS Completed [facility] 01/15/2018 51699(C4) URINALYSIS,AUTO-IN OFFICE Completed [facility] Repository 01/15/2018 84167(C4) POTASSIUM, WHOLE BLOOD Completed [facility] 01/15/2018 [id number](C4 WAM MORPHOLOGY REFLEX Completed [facility] 01/15/2018 ED103(C4) DISCHARGE PATIENT Completed [facility] Rep[facility] 01/13/2018 87620(C4) COMPLETE BLOOD COUNT Completed [facility] 01/13/2018 75458(C4) BASIC METABOLIC PANEL Completed [facility] 01/13/2018 11520(C4) HEPATIC FUNCTION PANEL Completed [facility] 01/13/2018 49431(C4) URINALYSIS Completed [facility] 01/13/2018 27585(C4) URINALYSIS,AUTO-IN OFFICE Completed [facility] Rep[facility] 01/13/2018 40881(C4) I-STAT TROPONIN, ED Completed [facility] Repository 01/13/2018 83338(C4) XR CHEST PA+LAT Completed [facility] Repository 01/13/2018 36910(C4) LIPASE Completed [facility] Repository 01/13/2018 37705(C4) CT ABD/PELVIS ED I/V Completed [facility] SEE W/ CONTRAST System Repository 01/13/2018 [id number](C4) GASTROENTEROLOGY SERVICE Completed [facility] REQUEST System Repository 01/13/2018 09617(C4) EKG 12 LEAD - PERFORM Completed [facility] Repository 01/12/2018 15617(C4) COMPLETE BLOOD COUNT Completed [facility] W/DIFF System Repository 01/12/2018 38975(C4) BASIC METABOLIC PANEL Completed [facility] Repository 01/12/2018 34838(C4) XR CHEST AP OR PA 1 VIEW Completed [facility] Repository 01/12/2018 20353(C4) B TYPE NATRIURETIC Completed [facility] PEPTIDE System Repository 01/12/2018 32564(C4) I-STAT TROPONIN, ED Completed [facility] Repository 01/12/2018 10246(C4) TROPONIN I Completed [facility] Repository 01/12/2018 89696(C4) POTASSIUM, WHOLE BLOOD Completed [facility] Repository 01/12/2018 08089(C4) TROPONIN I Completed [facility] Repository 01/12/2018 44931(C4) EKG 12 LEAD - PERFORM Completed [facility] Repository 01/10/2018 68727(C4) BASIC METABOLIC PANEL Completed [facility] Repository 01/10/2018 73871(C4) HEPATIC FUNCTION PANEL Completed [facility] Repository 01/10/2018 50410(C4) COMPLETE BLOOD COUNT Completed [facility] W/DIFF System Repository 01/10/2018 77654(C4) PROTHROMBIN TIME AND INR Completed [facility] Repository 01/10/2018 48772(C4) URINALYSIS Completed [facility] Repository 01/10/2018 52826(C4) URINALYSIS,AUTO-IN OFFICE Completed [facility] Repository 01/10/2018 ED103(C4) DISCHARGE PATIENT Completed [facility] Repository 01/07/2018 61671(C4) US LEG BILAT VENOUS + Completed [facility] DOPPLER System Repository 01/06/2018 ED103(C4) DISCHARGE PATIENT Completed [facility] Repository 01/06/2018 ED103(C4) DISCHARGE PATIENT Completed [facility] Repository 01/05/2018 ED103(C4) DISCHARGE PATIENT Completed [facility] Repository 01/05/2018 ED103(C4) DISCHARGE PATIENT Completed [facility] Repository 01/03/2018 61071(C4) XR FOOT LEFT Completed [facility] Repository 01/01/2018 ED103(C4) DISCHARGE PATIENT Completed [facility] Repository 12/28/2017 79429(C4) XR FOOT LEFT Completed [facility] Repository 12/28/2017 [id number](C4) APPLY AND MAINTAIN Completed [facility] WALKING BOOT TO FOOT System Repository 12/28/2017 ED103(C4) DISCHARGE PATIENT Completed [facility] Repository 12/27/2017 34015(C4) COMPLETE BLOOD COUNT Completed [facility] W/DIFF System Repository 12/27/2017 26689(C4) BASIC METABOLIC PANEL Completed [facility] Repository 12/27/2017 09021(C4) MAGNESIUM Completed [facility] Repository 12/27/2017 71323(C4) HEPATIC FUNCTION PANEL Completed [facility] Repository 12/27/2017 18994(C4) PROTHROMBIN TIME AND INR Completed [facility] Repository 12/27/2017 59857(C4) I-STAT TROPONIN, ED Completed [facility] Repository 12/27/2017 ED119(C4) BED REQUEST FOR 6C Completed [facility] Repository 12/27/2017 68561(C4) XR CHEST PA+LAT Completed [facility] Repository 12/27/2017 84676(C4) CT HEAD W/O CONTRAST Completed [facility] Repository 12/27/2017 76904(C4) B TYPE NATRIURETIC Completed [facility] PEPTIDE System Repository 12/27/2017 [id number](C4) ADMIT TO FLOOR Completed [facility] Repository 12/27/2017 [id number](C4) MEASURE WEIGHT Completed [facility] Repository 12/27/2017 [id number](C4) RECORD HEIGHT Completed [facility] Repository 12/27/2017 27050(C4) CREATINE KINASE Completed [facility] Repository 12/27/2017 13601(C4) GAMMA GLUTAMYL Completed [facility] TRANSPEPTIDASE System Repository 12/27/2017 [id number](C4) CHECK ORTHOSTATIC VITAL Completed [facility] SIGNS System Repository 12/27/2017 [id number](C4) IP PHYSICAL THERAPY Completed [facility] SERVICE REQUEST System Repository 12/27/2017 [id number](C4) IP OCCUPATIONAL THERAPY Completed [facility] SERVICE REQUEST System Repository 12/27/2017 12138(C4) EKG 12 LEAD - PERFORM Completed [facility] Repository 12/26/2017 97719(C4) HIV1 HIV2 AGAB SCRN Completed [facility] Repository 12/26/2017 ED103(C4) DISCHARGE PATIENT Completed [facility] Repository 12/23/2017 ED103(C4) DISCHARGE PATIENT Completed [facility] Repository 12/20/2017 85872(C4) COMPLETE BLOOD COUNT Completed [facility] W/DIFF System Repository 12/20/2017 80482(C4) BASIC METABOLIC PANEL Completed [facility] Repository 12/20/2017 ED103(C4) DISCHARGE PATIENT Completed [facility] Repository 12/19/2017 04669(C4) XR CHEST PA+LAT Completed [facility] Repository 12/18/2017 70539(C4) URINALYSIS Completed [facility] Repository 12/18/2017 10458(C4) URINALYSIS,AUTO-IN OFFICE Completed [facility] Repository 12/18/2017 ED103(C4) DISCHARGE PATIENT Completed [facility] Repository 12/15/2017 55300(C4) ED RN ADULT CHEST PAIN Completed [facility] Repository 12/15/2017 12694(C4) EKG 12 LEAD - PERFORM Completed [facility] Repository 12/15/2017 [id number](C4) APPLY CONTINUOUS Completed [facility] CARDIORESPIRATORY MONITOR System Repository 12/15/2017 HAD5418(C4) INSERT PERIPHERAL IV Completed [facility] ACCESS System Repository 12/15/2017 TVQ104(C4) NPO Completed [facility] Repository 12/15/2017 72185(C4) COMPLETE BLOOD COUNT Completed [facility] W/DIFF System Repository 12/15/2017 13221(C4) I-STAT TROPONIN, ED Completed [facility] Repository 12/15/2017 64612(C4) XR CHEST PA+LAT Completed [facility] Repository 12/15/2017 46980(C4) BASIC METABOLIC PANEL Completed [facility] Repository 12/15/2017 00250(C4) HEPATIC FUNCTION PANEL Completed [facility] Repository 12/15/2017 91213(C4) LIPASE Completed [facility] Repository 12/15/2017 32219(C4) URINALYSIS Completed [facility] Repository 12/15/2017 57792(C4) URINALYSIS,AUTO-IN OFFICE Completed [facility] Repository 12/15/2017 54301(C4) URINALYSIS,AUTO-IN OFFICE Completed [facility] Repository 12/15/2017 ED103(C4) DISCHARGE PATIENT Completed [facility] Repository 12/13/2017 41965(C4) URINALYSIS Completed [facility] Repository 12/13/2017 31540(C4) URINALYSIS,AUTO-IN OFFICE Completed [facility] Repository 12/05/2017 88118(C4) ED RN ADULT CHEST PAIN Completed [facility] Repository 12/05/2017 84610(C4) EKG 12 LEAD - PERFORM Completed [facility] Repository 12/05/2017 [id number](C4) APPLY CONTINUOUS Completed [facility] CARDIORESPIRATORY MONITOR System Repository 12/05/2017 [id number](C4) INSERT PERIPHERAL IV Completed [facility] ACCESS System Repository 12/05/2017 76442(C4) COMPLETE BLOOD COUNT Completed [facility] W/DIFF System Repository 12/05/2017 38473(C4) BASIC METABOLIC PANEL Completed [facility] Repository 12/05/2017 69481(C4) I-STAT TROPONIN, ED Completed [facility] Repository 12/05/2017 22530(C4) XR CHEST PA+LAT Completed [facility] Repository 12/05/2017 [id number](C4 WAM NRBC REFLEX Completed [facility] ) [facility] Repository 12/05/2017 ED103(C4) DISCHARGE PATIENT Completed [facility] Repository 11/30/2017 48061(C4) INFLUENZA/RSV,RAPID PCR Completed [facility] Repository 11/28/2017 ED103(C4) DISCHARGE PATIENT Completed [facility] Repository 11/26/2017 ED103(C4) DISCHARGE PATIENT Completed [facility] Repository 11/24/2017 ED103(C4) DISCHARGE PATIENT Completed [facility] Repository 11/22/2017 75940(C4) EKG 12 LEAD - PERFORM Completed [facility] Repository 11/22/2017 ED103(C4) DISCHARGE PATIENT Completed [facility] Repository 11/22/2017 96339(C4) EKG 12 LEAD - PERFORM Completed [facility] Repository 11/17/2017 21587(C4) BASIC METABOLIC PANEL Completed [facility] Repository 11/17/2017 18443(C4) HEPATIC FUNCTION PANEL Completed [facility] Repository 11/17/2017 41329(C4) MAGNESIUM Completed [facility] Repository 11/17/2017 69146(C4) LIPASE Completed [facility] Repository 11/17/2017 32194(C4) COMPLETE [facility]LOOD COUNT [facility] 11/17/2017 00738(C4) UR[facility]ALYSIS [facility] 11/17/2017 21693(C4) URINALYSIS,AUTO-IN OFFICE Completed [facility] 11/17/2017 61580(C4) PROTHROMBIN TIME AND INR Completed [facility] Repository 11/17/2017 42065(C4) PARTIAL THROMBOPLASTIN [facility] 11/17/2017 95957(C4) XR CHEST PA+LAT Completed [facility] Repository 11/17/2017 [id number](C4 WAM NRBC REFLEX Completed [facility] [employer] [facility] ) System Repository 11/17/2017 ED119(C4) BED REQUEST FOR 6C Completed [facility] Repository 11/17/2017 YHD046(C4) ADMIT TO FLOOR Completed [facility] Repository 11/17/2017 ACM834(C4) UPDATE TREATMENT TEAM [facility] 11/17/2017 HOS738(C4) UPDATE ATTENDING [facility] Rep[facility] 11/17/2017 [id number](C4) MEASURE WEIGHT [facility] 11/17/2017 [id number](C4) RECORD HEIGHT Completed [facility] Repository 11/17/2017 [id number](C4) MEASURE VITAL SIGNS WITH Completed [facility] PULSE OXIMETRY System Repository 11/17/2017 [id number](C4) NOTIFY MD Completed [facility] Repository 11/17/2017 [id number](C4) INSERT PERIPHERAL IV Completed [facility] ACCESS System Repository 11/17/2017 CODE1(C4) FULL CODE Completed [facility] Repository 11/17/2017 [id number](C4) [id number] Completed [facility] Repository 11/17/2017 [id number](C4) UP AD SPIKE Completed [facility] Repository 11/17/2017 [id number](C4) APPLY Completed [facility] Repository 11/17/2017 [id number](C4) IP GASTROENTEROLOGY Completed [facility] CONSULT System Repository 11/17/2017 YVB906(C4) GASTROENTEROLOGY SERVICE Completed [facility] REQUEST System Repository 11/17/2017 SIC975(C4) DISCHARGE PATIENT Completed [facility] Repository 11/17/2017 UKK728(C4) ADMIT TO FLOOR Completed [facility] Repository 11/13/2017 18636(C4) URINALYSIS Completed [facility] Repository 11/13/2017 72034(C4) URINALYSIS,AUTO-IN OFFICE Completed [facility] Repository 11/13/2017 88942(C4) COMPLETE BLOOD COUNT Completed [facility] W/DIFF System Repository 11/13/2017 32402(C4) BASIC METABOLIC PANEL Completed [facility] Repository 11/13/2017 87261(C4) MAGNESIUM Completed [facility] Repository 11/13/2017 77298(C4) HEPATIC FUNCTION PANEL Completed [facility] Repository 11/13/2017 89128(C4) LIPASE Completed [facility] Repository 11/13/2017 36972(C4) XR ABDOMEN AP Completed [facility] Repository 11/13/2017 24021(C4) SALICYLATE Completed [facility] Repository 11/13/2017 [id number](C4) DISCHARGE PATIENT Completed [facility] Repository 11/13/2017 27261(C4) HAPTOGLOBIN Completed [facility] Repository 11/12/2017 [id number](C4) BED REQUEST FOR THE FLOOR Completed [facility] Repository 11/12/2017 GK3589(C4) BED REQUEST FOR THE FLOOR Completed [facility] Repository 11/12/2017 HFK577(C4) ADMIT TO FLOOR Completed [facility] Repository 11/12/2017 [id number](C4) MEASURE VITAL SIGNS WITH Completed [facility] PULSE OXIMETRY System Repository 11/12/2017 [id number](C4) INSERT PERIPHERAL IV Completed [facility] ACCESS System Repository 11/12/2017 87959(C4) B TYPE NATRIURETIC Completed [facility] PEPTIDE System Repository 11/12/2017 49252(C4) BASIC METABOLIC PANEL Completed [facility] Repository 11/12/2017 93229(C4) COMPLETE BLOOD COUNT Completed [facility] Repository 11/12/2017 19871(C4) HEPATIC FUNCTION PANEL Completed [facility] Repository 11/12/2017 48810(C4) LACTIC ACID Completed [facility] Repository 11/12/2017 52317(C4) POTASSIUM, WHOLE BLOOD Completed [facility] Repository 11/12/2017 MKV998(C4) DISCHARGE PATIENT Completed [facility] Repository 11/11/2017 83214(C4) COMPLETE BLOOD COUNT Completed [facility] W/DIFF System Repository 11/11/2017 07482(C4) BASIC METABOLIC PANEL Completed [facility] Repository 11/11/2017 41744(C4) LIPASE Completed [facility] Repository 11/11/2017 34800(C4) HEPATIC FUNCTION PANEL Completed [facility] Repository 11/11/2017 83816(C4) URINALYSIS Completed [facility] Repository 11/11/2017 34838(C4) URINALYSIS,AUTO-IN OFFICE Completed [facility] Repository 11/11/2017 WWM979(C4) ADMIT TO FLOOR Completed [facility] Repository 11/11/2017 CU9789(C4) BED REQUEST FOR THE FLOOR Completed [facility] Repository 11/11/2017 54818(C4) US LIVER/GALL Completed [facility] BLADDER/PANCREAS System Repository 11/11/2017 02351(C4) ACETAMINOPHEN Completed [facility] Repository 11/11/2017 72961(C4) PROTHROMBIN TIME AND INR Completed [facility] Repository 11/11/2017 79844(C4) GAMMA GLUTAMYL Completed [facility] TRANSPEPTIDASE System Repository 11/11/2017 25729(C4) B TYPE NATRIURETIC Completed [facility] PEPTIDE System Repository 11/11/2017 51780(C4) US HEP PORT SPLEN VEIN + Completed [facility] DOPPLER System Repository 11/11/2017 07024(C4) HEMOGLOBIN A1C Completed [facility] Repository 11/11/2017 58655(C4) FERRITIN Completed [facility] Repository 11/11/2017 66298(C4) IRON AND TIBC Completed [facility] Repository 11/11/2017 38777(C4) LKM IGG ANTIBODY Completed [facility] Repository 11/11/2017 75493(C4) AUTOIMMUNE PANEL Completed [facility] Repository 11/11/2017 39884(C4) ETHANOL, SERUM Completed [facility] Repository 11/11/2017 ZQV392(C4) DISCHARGE PATIENT Completed [facility] Repository 11/06/2017 68434(C4) COMPLETE BLOOD COUNT Completed [facility] W/DIFF System Repository 11/06/2017 57915(C4) BASIC METABOLIC PANEL Completed [facility] Repository 11/06/2017 56914(C4) HEPATIC FUNCTION PANEL Completed [facility] Repository 11/06/2017 ED103(C4) DISCHARGE PATIENT Completed [facility] Repository 11/01/2017 42759(C4) XR KNEE RIGHT AP+LAT Completed [facility] Repository 11/01/2017 ED103(C4) DISCHARGE PATIENT Completed [facility] Repository 11/01/2017 58115(C4) COMPLETE BLOOD COUNT Completed [facility] W/DIFF System Repository 11/01/2017 85003(C4) BASIC METABOLIC PANEL Completed [facility] Repository 11/01/2017 20983(C4) HEPATIC FUNCTION PANEL Completed [facility] Repository 11/01/2017 31579(C4) LIPASE Completed [facility] Repository 11/01/2017 79292(C4) LACTIC ACID Completed [facility] Repository 11/01/2017 46047(C4) URINALYSIS Completed [facility] Repository 11/01/2017 80177(C4) URINALYSIS,AUTO-IN OFFICE Completed [facility] Repository 11/01/2017 03154(C4) POTASSIUM, WHOLE BLOOD Completed [facility] Repository 11/01/2017 ED103(C4) DISCHARGE PATIENT Completed [facility] Repository 10/17/2017 56045(C4) COMPLETE BLOOD COUNT Completed [facility] W/DIFF System Repository 10/17/2017 55998(C4) BASIC METABOLIC PANEL Completed [facility] Repository 10/17/2017 15947(C4) HEPATIC FUNCTION PANEL Completed [facility] Repository 10/17/2017 02031(C4) LIPASE Completed [facility] Repository 10/17/2017 31657(C4) URINALYSIS Completed [facility] Repository 10/17/2017 37202(C4) URINALYSIS,AUTO-IN OFFICE Completed [facility] Repository 10/17/2017 00191(C4) CT ABD/PELVIS ED I/V Completed [facility] SEE W/ CONTRAST System Repository 10/17/2017 MDJ883(C4) GASTROENTEROLOGY SERVICE Completed [facility] REQUEST System Repository 10/13/2017 CTSPZ04(C4) CT T-SPINE/L-SPINE W/O Completed [facility] CONTRAST System Repository 10/13/2017 ED103(C4) DISCHARGE PATIENT Completed [facility] Repository 10/07/2017 82112(C4) COMPLETE BLOOD COUNT Completed [facility] W/DIFF System Repository 10/07/2017 34747(C4) BASIC METABOLIC PANEL Completed [facility] Repository 10/07/2017 52371(C4) PROTHROMBIN TIME AND INR Completed [facility] Repository 10/07/2017 11368(C4) HEPATIC FUNCTION PANEL Completed [facility] Repository 10/07/2017 61802(C4) POTASSIUM, WHOLE BLOOD Completed [facility] Repository 10/07/2017 58754(C4) URINALYSIS Completed [facility] Repository 10/07/2017 57146(C4) URINALYSIS,AUTO-IN OFFICE Completed [facility] Repository 10/07/2017 00558(C4) XR CHEST PA+LAT Completed [facility] Repository 10/07/2017 34162(C4) HEPATITIS A TOTAL Completed [facility] ANTIBODY [facility] Repository 10/07/2017 87075(C4) HEPATITIS B SURFACE Completed [facility] ANTIGEN [facility] Repository 10/07/2017 00131(C4) HEPATITIS B CORE ANTIBODY Completed [facility] Rep[facility] 10/07/2017 16225(C4) HEPATITIS B SURFACE Completed [facility] 10/07/2017 42070(C4) HEPATITIS C ANTIBODY Completed [facility] Repository 10/06/2017 59511(C4) COMPLETE BLOOD COUNT Completed [facility] W/DIFF System Repository 10/06/2017 33108(C4) BASIC METABOLIC PANEL Completed [facility] Repository 10/06/2017 12836(C4) HEPATIC FUNCTION PANEL Completed [facility] Repository 10/06/2017 52886(C4) LIPASE Completed [facility] Repository 10/06/2017 TS(C4) TYPE AND SCREEN Completed [facility] Repository 10/06/2017 47413(C4) CT ABD/PELVIS ED I/V Completed [facility] SEE W/ CONTRAST System Repository 10/06/2017 24808(C4) PROTHROMBIN TIME AND INR Completed [facility] Repository 10/06/2017 34998(C4) PARTIAL THROMBOPLASTIN Completed [facility] TIME System Repository 10/06/2017 751984885(C4 WAM MORPHOLOGY REFLEX Completed [facility] Repository 10/06/2017 66691(C4) POTASSIUM, WHOLE BLOOD Completed [facility] Repository 10/06/2017 24514(C4) HEPATIC FUNCTION PANEL Completed [facility] Repository 10/06/2017 [id number](C4) IP SURGERY GENERAL Completed [facility] CONSULT [facility] Repository 10/05/2017 83786(C4) URINALYSIS Completed [facility] Repository 10/05/2017 56854(C4) URINALYSIS,AUTO-IN OFFICE Completed [facility] Repository 10/05/2017 04025(C4) COMPLETE BLOOD COUNT Completed [facility] W/DIFF System Repository 10/05/2017 63273(C4) BASIC METABOLIC PANEL Completed [facility] Repository 10/05/2017 64834(C4) HEPATIC FUNCTION PANEL Completed [facility] Repository 10/05/2017 15982(C4) LIPASE Completed [facility] Repository 10/05/2017 19096(C4) PROTHROMBIN TIME AND INR Completed [facility] Repository 10/01/2017 18245(C4) XR CHEST PA+LAT Completed [facility] Repository 09/27/2017 ED103(C4) DISCHARGE PATIENT Completed [facility] Repository 09/27/2017 33087(C4) HEPATITIS C ANTIBODY Completed [facility] Repository 09/27/2017 36352(C4) ED RN ADULT CHEST PAIN Completed [facility] Repository 09/27/2017 95616(C4) EKG 12 LEAD - PERFORM Completed [facility] Repository 09/27/2017 [id number](C4) APPLY CONTINUOUS Completed [facility] CARDIORESPIRATORY MONITOR System Repository 09/27/2017 [id number](C4) INSERT PERIPHERAL IV Completed [facility] ACCESS [facility] Repository 09/27/2017 45794(C4) COMPLETE BLOOD COUNT Completed [facility] W/DIFF System Repository 09/27/2017 80633(C4) BASIC METABOLIC PANEL Completed [facility] Repository 09/27/2017 91120(C4) I-STAT TROPONIN, ED Completed [facility] Repository 09/27/2017 43092(C4) XR CHEST PA+LAT Completed [facility] Repository 09/27/2017 57049(C4) HEPATIC FUNCTION PANEL Completed [facility] Repository 09/27/2017 30783(C4) LIPASE Completed [facility] Repository 09/27/2017 73049(C4) HEMOCCULT-IN OFFICE Completed [facility] Repository 09/27/2017 60241(C4) POTASSIUM, WHOLE BLOOD Completed [facility] Repository 09/27/2017 ED119(C4) BED REQUEST FOR 6C Completed [facility] Repository 09/27/2017 OYC811(C4) ADMIT TO FLOOR Completed [facility] Repository 09/27/2017 [id number](C4) MEASURE WEIGHT Completed [facility] Repository 09/27/2017 WWE0822(C4) RECORD HEIGHT Completed [facility] Repository 09/27/2017 53244(C4) TOXICOLOGY SCREEN, Completed [facility] UNCONFIRMED System Repository 09/27/2017 86688(C4) COMPLETE BLOOD COUNT Completed [facility] Repository 09/27/2017 TS(C4) TYPE AND SCREEN Completed [facility] Repository 09/27/2017 05528(C4) PROTHROMBIN TIME AND INR Completed [facility] Repository 09/24/2017 [id number](C4) WOUND CARE ED Completed [facility] Repository 09/24/2017 ED103(C4) DISCHARGE PATIENT Completed [facility] Repository 09/17/2017 ED103(C4) DISCHARGE PATIENT Completed [facility] Repository 09/10/2017 72926(C4) COMPLETE BLOOD COUNT Completed [facility] W/DIFF System Repository 09/10/2017 11780(C4) BASIC METABOLIC PANEL Completed [facility] Repository 09/10/2017 31187(C4) TSH, HIGH SENSITIVITY Completed [facility] Repository 09/10/2017 47956(C4) I-STAT TROPONIN, ED Completed [facility] Repository 09/10/2017 66009(C4) B TYPE NATRIURETIC Completed [facility] PEPTIDE System Repository 09/10/2017 00921(C4) XR CHEST PA+LAT Completed [facility] Repository 09/10/2017 08351(C4) PROTHROMBIN TIME AND INR Completed [facility] Repository 09/10/2017 [id number](C4) FALL PRECAUTIONS Completed [facility] Repository 09/10/2017 42885(C4) EKG 12 LEAD - PERFORM Completed [facility] Repository 09/01/2017 ED103(C4) DISCHARGE PATIENT Completed [facility] Repository 09/01/2017 64256(C4) EKG 12 LEAD - PERFORM Completed [facility] Repository 08/28/2017 86398(C4) GLUCOSE, FINGERSTICK-IN Completed [facility] OFFICE System Repository 08/28/2017 AJG373(C4) FALL PRECAUTIONS Completed [facility] Repository RESULTS RESULTS 12 LEAD ELECTROCARDIOGRAM Observed: 03/01/2018 Status: F Source: HOBBS 1:19 PM [facility] Cardiovascular Services [address] [place] [id number] 12 Lead EKG 02/15/18 1028 MR#: [id number] Acct: [id number] Name: JESSE BLAIR Rep #: [id number] : 1955 62 From: Benson Ziegler MD Attending Dr: Status: DEP ER Ordering Dr: Saulo Covington MD Date: 02/15/18 Location: ED Sex: F AA Admitted: Test Reason : SOB Blood Pressure : / mmHG Vent. Rate : 072 BPM Atrial Rate : 072 BPM P-R Int : 154 ms QRS Dur : 086 ms QT Int : 396 ms P-R-T Axes : 047 -04 026 degrees QTc Int : 433 ms Normal sinus rhythm Normal ECG Confirmed by BENSON ZIEGLER ([id number]), development editor MARY DOVE ([id number]) on 03/01/2018 1:19:18 PM Referred By: MAAME Confirmed By:BENSON ZIEGLER 03/01/18 1319 Date Benson Ziegler MD CC: No Primary Care Physician; Saulo Covington Signed EMERGENCY DEPARTMENT Observed: 02/15/2018 Status: F Source: LEONOR SUMMARY 4:48 PM [facility] Medical Records Department [address] [place] [address] Emergency Department Summary 02/15/18 1352 MR#: [id number] Acct: [id number] Name: JESSE BLIAR Rep #: [id number] : 1955 62 From: Saulo Covington MD PCP: Care Physician, No Primary Status: DEP ER - ER Visit Summary Date of Service: 02/15/18 Chief Complaint: Shortness of breath History of Present Illness: The patient is a 62 F presenting for evaluation secondary to shortness of breath. Patient reports that she has a underlying history of COPD as well as pulmonary emboli. She reports that her most recent pulmonary embolus was a couple months ago, but she is not currently on blood thinners. She reports that they put her on prednisone for her blood clots. Patient states that since yesterday she has been having intermittent episodes where she feels like she cannot breathe. She denies chest pain with this. She does endorse nausea denies fever cough vomiting or diarrhea. Review of systems otherwise negative. Physical Examination: Vital signs are within normal limits, patient is afebrile. General: Patient is well-nourished well-developed and in no acute distress. Head: Normocephalic, atraumatic Eyes: Pupils equal round and reactive bilaterally, extra occular motion intact bialterally ENT: Moist mucous membranes Neck: Supple, no lymphadenopathy, no JVD, no meningismus CVS: Heart regular rate and rhythm, no murmurs, rubs or gallops, radial pulses 2+ bilaterally Resp: Respirations nondistressed, lung sounds clear bilaterally Abdomen: Soft, nontender, nondistended, no palpable masses, normal bowel sounds Back: Nontender Extremities: Nontender, atraumatic, active full range of motion, no peripheral edema Skin: warm, no rashes, no petechia Neuro: Alert and oriented x 4, CN 2-12 intact, no lateralizing neurological defecits Psyc: Normal affect Test Results: EKG demonstrates sinus rhythm [address] segments normal T waves. CBC, chemistry, troponin unremarkable. D-dimer found to be positive. Chest x-ray unremarkable per radiologist. CT angiogram of the chest shows emphysematous changes but no evidence of pulmonary embolus. Emergency Department Course and Treatment: Patient presented secondary to feeling short of breath. Workup was negative as noted above. Patient does have an underlying history of COPD which I believe likely to be the etiology of her shortness of breath. Given the patient's limited access to care, patient was given Decadron for its longer half-life, will be dispensed a albuterol inhaler from the emergency department. She was given the [facility] for follow-up. Patient has been in the emergency department 5 times this month since she moved from [place]. I did contact care management to develop a care plan for the patient Disposition: Discharge Impression: 1. COPD exacerbation This note was generated with INCIDE dictation software. It may contain incorrect words, spelling, and punctuation that were not noted in review of the chart prior to signing ED Disposition - Plan for ED Patient: Disposition: Home or Assisted Living Chief Complaint: Shortness of Breath Diagnosis: COPD exacerbation Instructions: ED COPD Flare Referrals: Kandis Liu [NON-STAFF] - As soon as possible What to do if you have Problems For any increased pain, shortness of breath, bleeding, nausea or vomiting, chest pain, or any unexpected problems, contact your Primary Care Provider. Call [facility] ([phone]) or report to the closest Emergency Room. Call 911 if necessary. 02/15/18 1648 <Electronically signed by Saulo Covington MD> Date Saulo Covington MD Cosigner Signature (If Indicated): Date CC: No Primary Care Physician CTA CHEST W/WO Observed: 02/15/2018 Status: F Source: [place]ONOR CONTRAST 12:25 PM [facility] Imaging Services [address] [place] [address] CTA Chest W/WO Contrast MR#: [id number] Acct: [id number] Name: JESSE BLAIR Rep #: [id number] : 1955 F 62 From: Wallace Beauchamp MD PCP: Care Physician, No Primary Status: REG ER Study: CTA Chest W/WO Contrast Date of Exam: 02/15/18 Exam# [id number] Ordering Dr: Saulo Covington MD STUDY: CTA CHEST REASON FOR EXAM: Female, 62 years old. Shortness of breath. Elevated d-dimer. COPD RADIATION DOSAGE (If Supplied By Facility): CTDIvol = ( 10.26 ) mGy, DLP = ( 265.11 ) mGycm TECHNIQUE: The examination was performed with the intravenous administration of 75 ml of Isovue 300 contrast material. Post-processing of the angiographic images was performed, with multiplanar reformation and 3D reconstruction. Individualized dose optimization techniques were used for this CT. COMPARISON: Chest x-ray. FINDINGS: Normal enhancement of the main pulmonary artery and right and left pulmonary arteries. There is limited enhancement of the bilateral peripheral pulmonary arteries. There is no demonstrated pulmonary embolism. There is atherosclerotic calcification of the aortic arch with tortuosity. There is no demonstrated aortic dissection. Normal heart and pericardium. Normal mediastinum. Normal hilar regions. Normal visualized trachea and bronchi. The lungs are well expanded. There is emphysema in the upper chest. There are mildly increased diffuse interstitial parenchymal markings. Normal pleura. Normal chest wall structures. There are degenerative changes of thoracic spine. There is hepatomegaly with diffuse hepatic enlargement. CT/CTA Chest W/WO Contrast IMPRESSION: CTA chest examination, without a demonstrated pulmonary embolism or arterial dissection. Emphysema and fibrotic densities. Electronically Signed: Wallace Beauchamp MD at 13:34 EST , Service support , CC: No Primary Care Physician; Saulo Covington [employer] Seat Cover Installer: Signed D-DIMER QUANTITATIVE Collected: 02/15/2018 Status: F Source: LEONOR (DVT/PE) 11:50 AM [facility] TYPE CODE TESTS RESULT OUT OF RANGE REFERENCE UNITS LAB L300.8000 0.27-0.49 FEU/ug/m High alert D-DIMER 1.79 QUANT Result Comment: CRITICAL VALUE VERIFIED. CALLED TO MICHELE GARCIA IN ED 02/15/18 1221 Annabelle Rosales. RESULTS READ BACK BY SAME . D-Dimer ELEVATED (>0.49): Additional studies and clinical assessments are indicated to conclude diagnosis of: Deep Vein Thrombosis (DVT) or Pulmonary Embolism (PE) Performed By: #### L300.8000 #### [facility] [address] [place], [address] CBC W/DIFF, AUTOMATED Collected: 02/15/2018 Status: F Source: LEONOR 11:50 AM [facility] TYPE CODE TESTS RESULT OUT OF RANGE REFERENCE UNITS LAB L100.1000 4.4-11.0 K/mm3 Low WBC 3.8 LAB L100.1200 4.2-5.4 M/mm3 Normal RBC 4.60 LAB L100.1300 12.0-15.0 g/dl Low HGB 10.3 LAB L100.1400 37-47 % Low HCT 33.5 LAB L100.1500 81-99 fL Low MCV 72.8 LAB L100.1600 27.0-32.0 pg Low MCH 22.4 LAB L100.1700 32-36 g/gl Low MCHC 30.7 LAB L100.1810 11.6-14.6 % High RDW CV 18.0 LAB L100.1820 35.1-43.9 fl High RDW SD 47.5 LAB L100.1900 150-450 K/mm3 Normal PLT 174 LAB L100.2100 47-70 % Low NEUT% 44.7 LAB L100.2200 19-41 % High LY% 47.0 LAB L100.2300 0-10 % Normal MONO% 5.3 LAB L100.2400 0-5 % Normal EO% 1.6 LAB L100.2500 0-1 % High BASO% 1.1 LAB L100.2550 0.0-0.9 % Normal IM GRAN % 0.300 Result Comment: IG% - Immature Granulocytes (promyelocytes, myelocytes and metamyelocytes) > 1% indicates that a LEFT SHIFT is Present. LAB L100.2620 2.0-7.7 X10 3/uL Low Absolute Neut 1.7 LAB L100.2720 0.83-4.51 X10 3/ul Normal Absolute Lymph 1.78 LAB L100.4500 Normal SMEAR COMMENT COMMENT Result Comment: SLIDE SCANNED - 1+ TARGET CELLS, 1+ HYPOCHROMIA, 1+ LARGE PLTS. Performed By: #### L100.0100 #### [facility] [address] [place], [place], [address] BASIC METABOLIC Collected: 02/15/2018 Status: F Source: HOBBS PROFILE (BMP) 11:50 AM [facility] TYPE CODE TESTS RESULT OUT OF RANGE REFERENCE UNITS LAB L501.0100 74-106 mg/dL Normal GLU 94 Result Comment: Please note revised GLUCOSE reference range effective 2017. LAB L501.1000 7-18 mg/dL Normal BUN 12 LAB L501.1100 0.55-1.02 mg/dL Normal CREAT,SERUM 0.65 Result Comment: The validity of the calculated GFR AND GFRAA in patients over 70 years has not been determined. Clinical correlation is essential. LAB L501.1110 >60 mL/min Normal EST GFR 97 Result Comment: Non- GFR Calc LAB L501.1115 >60 mL/min Normal EST GFR - AA 117 Result Comment: GFR Calc LAB L501.1255 ml/min Normal Estimated CRCL 81.85 LAB L501.1300 10-20 RATIO Normal BUN/CRE 18.4 LAB L501.2200 8.5-10 mg/dL Normal .1 CA 8.5 LAB L501.5300 136-14 mmol/L Normal 5 NA 139 LAB L501.5600 3.5-5. mmol/L Normal 1 K 3.8 LAB L501.5900 98-107 mmol/L Normal CL 106 LAB L501.6100 21.0-3 mmol/L Normal 2.0 CO2 24.0 LAB L501.6200 5-15 Normal GAP 9 Performed By: #### L500.2500, L501.4010 #### [facility] [address] [place], [address] TROPONIN-I Collected: 02/15/2018 Status: F Source: HOBBS 11:50 AM [facility] [place] TYPE CODE TESTS RESULT OUT OF RANGE REFERENCE UNITS LAB L501.4010 <0.045 ng/mL Normal < 0.015 TROPONIN-I Result Comment: TROPONIN-I EXPECTED VALUES <0.045 Negative 0.045 - 0.590 Consistent with Cardiac Damage > OR = 0.600 Critical Value Not every elevated troponin is indicative of WI. These values should be used with clinical judgement in examining the patient's clinical picture for diagnosis. To establish a diagnosis of WI versus myocardial injury, there must be a demonstrated rise and/or fall in the troponin values, in addition to ischemic symptoms, EKG changes, new regional wall motion abnormality, and/or angiographical evidence. PLEASE NOTE: REFERENCE RANGES EDITED 17 Performed By: #### L500.2500, L501.4010 #### [facility] [address] [place], [address] CHEST PA AND LATERAL Observed: 02/15/2018 Status: F Source: HOBBS 10:23 AM [facility] Imaging Services [address] [place] [address] Chest PA and Lateral MR#: [id number] Acct: [id number] Name: JESSE BLAIR Rep #: [id number] : 1955 F 62 From: Brando Michel MD PCP: Care Physician, No Primary Status: REG ER Study: Chest PA and Lateral Date of Exam: 02/15/18 Exam# [id number] Ordering Dr: Saulo Covington MD STUDY: X-RAY CHEST REASON FOR EXAM: Female, 62 years old. Shortness of breath with exertion. TECHNIQUE: Frontal and lateral views of the chest. COMPARISON: January 26, 2018 FINDINGS: There is stable mild hyperexpansion. There is no demonstrated pleural abnormality. Normal size heart. Normal mediastinum and marily. Normal visualized pulmonary arteries. Normal visualized aortic arch and descending thoracic aorta. Normal visualized thoracic spine. Normal visualized ribs, clavicles, and shoulders. There is no demonstrated abnormality of the visualized soft tissue structures of the upper abdomen. RAD/Chest PA and Lateral IMPRESSION: Stable mild hyperexpansion with no acute pathology. Electronically Signed: Brando Michel MD at 11:41 EST , Service support , CC: No Primary Care Physician; Saulo Covington Autom[employer] Seat Cover Installer: Signed DISCHARGE INSTRUCTION Observed: 02/08/2018 Status: F Source: HOBBS 3:20 PM [facility] Medical Records Department [address] [place] [address] Discharge Instruction 02/08/18 1519 MR#: [id number] Acct: [id number] Name: JESSE BLAIR Rep #: [id number] : 1955 62 From: Leroy Luevano MD PCP: Yong Robbins, No Primary Status: REG ER ED Disposition - Plan for ED Patient: Disposition: Home or Assisted Living Chief Complaint: Abd Pain Instructions: ED Constipation Prescriptions: Polyethylene Glycol 3350 [Miralax] 17 gm PO DAILY #20 packet Referrals: Care Physician,No Primary [Primary Care Provider] - What to do if you have Problems For any increased pain, shortness of breath, bleeding, nausea or vomiting, chest pain, or any unexpected problems, contact your Primary Care Provider. Call [facility] ([phone]) or report to the closest Emergency Room. Call 911 if necessary. 02/08/18 1520 <Electronically signed by Leroy Luevano MD> Date Leroy Luevano MD Cosigner Signature (If Indicated): Date CC: No Primary Care Physician EMERGENCY DEPARTMENT Observed: 02/08/2018 Status: F Source: LEONOR SUMMARY 3:19 PM [facility] Medical Records Department [address] [place] [address] Emergency Department Summary 02/08/18 1408 MR#: [id number] Acct: [id number] Name: JESSE BLAIR Rep #: [id number] : 1955 62 From: Leroy Luevano MD PCP: Care Physician, No Primary Status: REG ER - ER Visit Summary Date of Service: 02/08/18 Chief Complaint: Abdominal pain I think my enlarged liver History of Present Illness: The patient is a 62 F who says she has had abdominal pain nausea vomiting that started today. The pain is diffuse and sharp. It does not localize in any specific area. Food makes it worse. She has had multiple episodes of vomiting today. She took antiemetics without any relief. She denies diarrhea. She states that she has a enlarged liver. She does not know the etiology of this. No fevers but she has felt hot and cold. Patient was seen here a couple of days ago for nausea and vomiting. She had a negative workup and was discharged home. Physical Examination: Vital signs reviewed. HEENT exam unremarkable. Her mucous membranes are moist. Heart is regular rate and rhythm without murmurs. Lungs are clear to auscultation. Abdomen is soft with diffuse tenderness. No guarding or rebound tenderness. Extremities reveal no edema. Skin exam normal. Neurologic exam normal. Test Results: Laboratory studies reveal hemoglobin of 7.6 which is baseline. Chloride 109. Total bilirubin 0.72, alkaline phosphatase 571, ALT 87, AST 116 Emergency Department Course and Treatment: She also had a CAT scan which reveals moderate fecal matter. There is also lung scarring. Patient was given morphine and Zofran. Constipation is likely the cause of her symptoms. There is no evidence of any enlarged liver. She does have nonspecific elevation of her liver enzymes. She has already had a cholecystectomy. I will treat her with MiraLAX at home. She will follow-up with her PCP. Treatment Plan: [] Disposition: Discharge Impression: Abdominal pain, constipation This note was generated with INCIDE dictation software. It may contain incorrect words, spelling, and punctuation that were not noted in review of the chart prior to signing ED Disposition - Plan for ED Patient: Chief Complaint: Abd Pain Referrals: Care Physician,No Primary [Primary Care Provider] - What to do if you have Problems For any increased pain, shortness of breath, bleeding, nausea or vomiting, chest pain, or any unexpected problems, contact your Primary Care Provider. Call [facility] ([phone]) or report to the closest Emergency Room. Call 911 if necessary. 02/08/18 1519 <Electronically signed by Leroy Luevano MD> Date Leroy Luevano MD Cosigner Signature (If Indicated): Date CC: No Primary Care Physician CBC W/DIFF, AUTOMATED Collected: 02/08/2018 Status: F Source: LEONOR 2:10 PM [facility] [place] TYPE CODE TESTS RESULT OUT OF RANGE REFERENCE UNITS LAB L100.1000 4.4-11.0 K/mm3 Normal WBC 4.8 LAB L100.1200 4.2-5.4 M/mm3 Low RBC 3.35 LAB L100.1300 12.0-15.0 g/dl Low HGB 7.6 LAB L100.1400 37-47 % Low HCT 24.6 LAB L100.1500 81-99 fL Low MCV 73.4 LAB L100.1600 27.0-32.0 pg Low MCH 22.7 LAB L100.1700 32-36 g/gl Low MCHC 30.9 LAB L100.1810 11.6-14.6 % High RDW CV 17.9 LAB L100.1820 35.1-43.9 fl High RDW SD 48.3 LAB L100.1900 150-450 K/mm3 Normal PLT 273 LAB L100.2000 6.2-12.0 fl Normal MPV 10.4 LAB L100.2100 47-70 % Normal NEUT% 47.1 LAB L100.2200 19-41 % High LY% 43.2 LAB L100.2300 0-10 % Normal MONO% 6.4 LAB L100.2400 0-5 % Normal EO% 2.3 LAB L100.2500 0-1 % Normal BASO% 0.6 LAB L100.2550 0.0-0.9 % Normal IM GRAN % 0.400 Result Comment: IG% - Immature Granulocytes (promyelocytes, myelocytes and metamyelocytes) > 1% indicates that a LEFT SHIFT is Present. LAB L100.2620 2.0-7.7 X10 3/uL Absolute Neut Normal 2.3 LAB L100.2720 0.83-4.51 X10 3/ul Absolute Lymph Normal 2.08 LAB L100.5500 ADEQ PLT EST Normal ADEQUATE LAB L100.7300 ANISO Normal RARE LAB L100.7600 HYPOCHROMASIA Normal 3+ LAB L100.7700 MICROCYTES Normal 1+ LAB L100.8600 TARGET CELLS Normal 2+ Performed By: #### L100.0100 #### [facility] [address] [place], [place], [address] BASIC METABOLIC Collected: 02/08/2018 Status: F Source: HOBBS PROFILE (BMP) 2:10 PM [facility] [place] TYPE CODE TESTS RESULT OUT OF RANGE REFERENCE UNITS LAB L501.0100 74-106 mg/dL High GLU 114 Result Comment: Fasting Glucose result from 100 to 125 mg/dL suggests IMPAIRED HOMEOSTASIS per A.D.A. criteria. Please note revised GLUCOSE reference range effective 2017. LAB L501.1000 7-18 mg/dL Normal BUN 13 LAB L501.1100 0.55-1.02 mg/dL Normal CREAT,SERUM 0.63 Result Comment: The validity of the calculated GFR AND GFRAA in patients over 70 years has not been determined. Clinical correlation is essential. LAB L501.1110 >60 mL/min Normal EST GFR 101 Result Comment: Non- GFR Calc LAB L501.1115 >60 mL/min Normal EST GFR - AA 122 Result Comment: GFR Calc LAB L501.1255 ml/min Normal Estimated CRCL 84.45 LAB L501.1300 10-20 RATIO High BUN/CRE 20.6 LAB L501.2200 8.5-10 mg/dL Low .1 CA 8.1 LAB L501.5300 136-14 mmol/L Normal 5 NA 140 LAB L501.5600 3.5-5. mmol/L Normal 1 K 3.5 LAB L501.5900 98-107 mmol/L High CL 109 LAB L501.6100 21.0-3 mmol/L Normal 2.0 CO2 25.0 LAB L501.6200 5-15 Normal GAP 6 Performed By: #### L500.2500, L500.3400, L501.2450 #### [facility] [address] [facility] [place], [place], [id number] LIVER PROFILE Collected: 02/08/2018 Status: F Source: HOBBS 2:10 PM [facility] [place] TYPE CODE TESTS RESULT OUT OF RANGE REFERENCE UNITS LAB L501.1500 6.4-8.2 g/dL High T PROT 9.3 LAB L501.1800 3.2-5.0 g/dL Low ALB 2.4 LAB L501.1950 2.2-4.2 g/dL High GLOB 6.9 LAB L501.4100 15-37 U/L High AST 116 LAB L501.4305 45-117 U/L High ALK P 571 LAB L501.4405 13-56 U/L High ALT 87 LAB L501.4600 0.20-1.00 mg/dL Normal T BILI 0.90 LAB L501.4700 0.00-0.30 mg/dL High D BILI 0.72 Performed By: #### L500.2500, L500.3400, L501.2450 #### [facility] [address] [place], [address] LIPASE Collected: 02/08/2018 Status: F Source: HOBBS 2:10 PM [facility] [place] TYPE CODE TESTS RESULT OUT OF RANGE REFERENCE UNITS LAB L501.2450 73-393 U/L Normal LIPASE 208 Performed By: #### L500.2500, L500.3400, L501.2450 #### [facility] [address] [place], [address] ABDOMEN/PELVIS WITHOUT Observed: 02/08/2018 Status: F Source: LEONOR CONT 1:49 PM [facility] Imaging Services [address] [place] [address] Abdomen/Pelvis without Cont MR#: [id number] Acct: [id number] Name: JESSE BLAIR Rep #: [id number] : 1955 F 62 From: Alexandre Tapia MD PCP: Care Physician, No Primary Status: REG ER Study: Abdomen/Pelvis without Cont Date of Exam: 02/08/18 Exam# [id number] Ordering Dr: Leroy Luevano MD STUDY: CT ABDOMEN AND PELVIS WITHOUT CONTRAST REASON FOR EXAM: Female, 62 years old. Abdominal pain. RADIATION DOSAGE (If Supplied By Facility): CTDIvol = ( 9.51 ) mGy, DLP = ( 427.63 ) mGycm TECHNIQUE: Transaxial images were obtained from the dome of the diaphragm to the symphysis pubis without oral contrast, and without intravenous contrast. Sagittal and coronal images were reconstructed. Individualized dose optimization techniques were used for this CT. COMPARISON: None. FINDINGS: Minimal increased markings at the lung bases suggestive of atelectasis and/or scarring. Linear reticular nodular density in the peripheral aspect of the right middle lobe suggestive of focal scarring. The visualized portions of the heart are within normal limits. Normal liver. There are surgical clips in the gallbladder fossa consistent with a prior cholecystectomy. Normal spleen. Normal pancreas. Normal bilateral adrenal glands. Punctate calculus in the lower pole calyx of the right kidney. There is a 2 mm nonobstructive calculus in the lower pole calyx of the left kidney. Normal visualized stomach. Normal small intestine. Moderate amount of fecal material is seen in the colon. The appendix is visualized and appears normal. There is scattered atherosclerotic calcification of the abdominal aorta, without a demonstrated aneurysm. Normal inferior vena cava. Normal retroperitoneum. Normal urinary bladder. Normal abdominal wall. Loss of height of the superior endplate of the L1 vertebrae. CT/Abdomen/Pelvis without Cont IMPRESSION: Moderate amount of fecal material is seen in the colon. Findings suggestive of scarring in both lower lobes. Electronically Signed: Alexandre Tapia MD at 14:47 EST Tel [phone], Service support , CC: No Primary Care Physician; Leroy Luevano MD Automobile Seat Cover Installer: Signed 12 LEAD ELECTROCARDIOGRAM Observed: 02/05/2018 Status: F Source: LEONOR 10:00 AM [facility] Cardiovascular Services [address] [place] [address] 12 Lead EKG 02/02/18 0048 MR#: [id number] Acct: [id number] Name: JESSE BLAIR Rep #: [id number] : 1955 62 From: Jeanmarie Virgen MD Attending Dr: Status: DEP ER Ordering Dr: Lashell Lynn MD Date: 02/02/18 Location: ED Sex: F AA Admitted: Test Reason : N/V Blood Pressure : / mmHG Vent. Rate : 083 BPM Atrial Rate : 083 BPM P-R Int : 148 ms QRS Dur : 082 ms QT Int : 378 ms P-R-T Axes : 045 -15 036 degrees QTc Int : 444 ms Normal sinus rhythm Normal ECG Confirmed by JEANMARIE VIRGEN MD ([id number]), development editor MARY DOVE ([id number]) on 02/05/2018 9:59:44 AM Referred By: Confirmed By:JEANMARIE VIRGEN MD 02/05/18 0959 Date Jeanmarie Virgen MD CC: No Primary Care Physician; Lashell Lynn MD Signed EMERGENCY DEPARTMENT Observed: 02/02/2018 Status: F Source: LEONOR SUMMARY 3:48 AM [facility] Medical Records Department [address] [place] [address] Emergency Department Summary 02/02/18 0109 MR#: [id number] Acct: [id number] Name: JESSE BLAIR Rep #: [id number] : 1955 62 From: Lashell Lynn MD PCP: Care Physician, No Primary Status: REG ER - ER Visit Summary Date of Service: 02/02/18 Chief Complaint: Vomiting History of Present Illness: The patient is a 62 F presenting with vomiting. She states this started 1 hour prior to arrival. She had 4 episodes of emesis. She states she ate beef with gravy for dinner. She is unsure if other people that ate the same food became ill. She is currently staying at the [facility]. She denies blood in her emesis. Denies diarrhea. Denies fever. Denies abdominal pain. Denies other complaints. Physical Examination: Vitals are stable. Patient is afebrile. Alert no acute distress. HEENT exam is unremarkable. Neck is supple. Lungs are clear and equal bilaterally. Heart is regular rate and rhythm. Abdomen is soft nontender nondistended. No guarding or rebound. Extremities are unremarkable. Skin is warm and dry. No focal neurologic deficit. Remainder of exam is unremarkable. Emergency Department Course and Treatment: Patient was given IV fluids, Zofran. EKG is sinus rate of 83 with no acute ischemic changes. CBC shows hemoglobin 7.7. Patient has a history of chronic anemia. Chemistries unremarkable other than creatinine 1.15. Lipase is normal. On reevaluation, patient is feeling improved. Her abdomen continues to be soft and nontender with no rebound or guarding. She is able to tolerate p.o. in the emergency department. Advised to follow-up with primary care physician. Advised to return to the ED for worsening complaints. Disposition: Discharge home Impression: Vomiting, resolved This note was generated with INCIDE dictation software. It may contain incorrect words, spelling, and punctuation that were not noted in review of the chart prior to signing ED Disposition - Plan for ED Patient: Chief Complaint: Nausea/Vomiting Instructions: ED Nausea Vomiting Prescriptions: Ondansetron [Zofran Odt] 4 mg PO Q8H PRN PRN #10 tablet PRN Reason: Nausea Referrals: Kandis Liu [NON-STAFF] - What to do if you have Problems For any increased pain, shortness of breath, bleeding, nausea or vomiting, chest pain, or any unexpected problems, contact your Primary Care Provider. Call [facility] ([phone]) or report to the closest Emergency Room. Call 911 if necessary. 02/02/18347 <Electronically signed by Lashell Lynn MD> Date Lashell Lynn MD Cosigner Signature (If Indicated): Date CC: No Primary Care Physician DISCHARGE INSTRUCTION Observed: 02/02/2018 Status: F Source: LEONOR 3:20 AM [facility] Medical Records Department [address] [place] [address] [place] [address] Discharge Instruction 02/02/18317 MR#: [id number] Acct: [id number] Name: JESSE BLAIR Rep #: [id number] : 1955 62 From: Lashell Lynn MD PCP: Care Physician, No Primary Status: REG ER ED Disposition - Plan for ED Patient: Chief Complaint: Nausea/Vomiting Instructions: ED Nausea Vomiting Prescriptions: Ondansetron [Zofran Odt] 4 mg PO Q8H PRN PRN #10 tablet PRN Reason: Nausea Referrals: Kandis Liu [NON-STAFF] - What to do if you have Problems For any increased pain, shortness of breath, bleeding, nausea or vomiting, chest pain, or any unexpected problems, contact your Primary Care Provider. Call [facility] ([phone]) or report to the closest Emergency Room. Call 911 if necessary. 02/02/18319 <Electronically signed by Lashell Lynn MD> Date Lashell Lynn MD Cosigner Signature (If Indicated): Date CC: No Primary Care Physician CBC W/DIFF, AUTOMATED Collected: 02/02/2018 Status: F Source: LEONOR 12:20 AM [facility] TYPE CODE TESTS RESULT OUT OF RANGE REFERENCE UNITS LAB L100.1000 4.4-11.0 K/mm3 Normal WBC 5.8 LAB L100.1200 4.2-5.4 M/mm3 Low RBC 3.38 LAB L100.1300 12.0-15.0 g/dl Low HGB 7.7 LAB L100.1400 37-47 % Low HCT 24.8 LAB L100.1500 81-99 fL Low MCV 73.4 LAB L100.1600 27.0-32.0 pg Low MCH 22.8 LAB L100.1700 32-36 g/gl Low MCHC 31.0 LAB L100.1810 11.6-14.6 % High RDW CV 17.5 LAB L100.1820 35.1-43.9 fl High RDW SD 47.6 LAB L100.1900 150-450 K/mm3 Normal PLT 241 LAB L100.2000 6.2-12.0 fl Normal MPV 11.0 LAB L100.2100 47-70 % Normal NEUT% 49.0 LAB L100.2200 19-41 % Normal LY% 39.4 LAB L100.2300 0-10 % Normal MONO% 8.2 LAB L100.2400 0-5 % Normal EO% 2.3 LAB L100.2500 0-1 % Normal BASO% 0.9 LAB L100.2550 0.0-0.9 % Normal IM GRAN % 0.200 Result Comment: IG% - Immature Granulocytes (promyelocytes, myelocytes and metamyelocytes) > 1% indicates that a LEFT SHIFT is Present. LAB L100.2620 2.0-7.7 X10 3/uL Normal Absolute Neut 2.8 LAB L100.2720 0.83-4.51 X10 3/ul Normal Absolute Lymph 2.27 LAB L100.4500 Normal SMEAR COMMENT SCANNED Result Comment: RARE LARGE PLATELETS NOTED LAB L100.5500 ADEQ PLT EST Normal ADEQUATE LAB L100.7600 HYPOCHROMASIA 2+ Normal LAB L100.8600 TARGET CELLS 1+ Normal Performed By: #### L100.0100 #### [facility] [address] [facility] [place], [place], [address] BASIC METABOLIC Collected: 02/02/2018 Status: F Source: HOBBS PROFILE (BMP) 12:20 AM [facility] [place] TYPE CODE TESTS RESULT OUT OF RANGE REFERENCE UNITS LAB L501.0100 74-106 mg/dL High GLU 115 Result Comment: Fasting Glucose result from 100 to 125 mg/dL suggests IMPAIRED HOMEOSTASIS per A.D.A. criteria. Please note revised GLUCOSE reference range effective 2017. LAB L501.1000 7-18 mg/dL Normal BUN 14 LAB L501.1100 0.55-1.02 mg/dL High CREAT,SERUM 1.15 Result Comment: The validity of the calculated GFR AND GFRAA in patients over 70 years has not been determined. Clinical correlation is essential. LAB L501.1110 >60 mL/min Low EST GFR 50 Result Comment: Non- GFR Calc LAB L501.1115 >60 mL/min Normal EST GFR - AA 61 Result Comment: GFR Calc LAB L501.1255 ml/min Normal Estimated CRCL 42.68 LAB L501.1300 10-20 RATIO Normal BUN/CRE 12.2 LAB L501.2200 8.5-10 mg/dL Low .1 CA 8.3 LAB L501.5300 136-14 mmol/L Normal 5 NA 138 LAB L501.5600 3.5-5. mmol/L Normal 1 K 4.1 LAB L501.5900 98-107 mmol/L Normal CL 106 LAB L501.6100 21.0-3 mmol/L Normal 2.0 CO2 28.0 LAB L501.6200 5-15 Low GAP 4 Performed By: #### L500.2500, L501.2450 #### [facility] [address] [place], [place], [address] LIPASE Collected: 02/02/2018 Status: F Source: HOBBS 12:20 AM [facility] [place] TYPE CODE TESTS RESULT OUT OF RANGE REFERENCE UNITS LAB L501.2450 73-393 U/L Normal LIPASE 308 Performed By: #### L500.2500, L501.2450 #### [facility] [address] [place], [address] 12 LEAD ELECTROCARDIOGRAM Observed: 01/29/2018 Status: F Source: LEONOR 2:25 PM [facility] Cardiovascular Services [address] [place] [address] 12 Lead EKG 01/26/18 0834 MR#: [id number] Acct: [id number] Name: JESSE BLAIR Rep #: [id number] : 1955 62 From: Jeanmarie Virgen MD Attending Dr: Status: DEP ER Ordering Dr: Tiny Herrera DO Date: 01/26/18 Location: ED Sex: F AA Admitted: Test Reason : NEURO Blood Pressure : / mmHG Vent. Rate : 058 BPM Atrial Rate : 058 BPM P-R Int : 154 ms QRS Dur : 096 ms QT Int : 454 ms P-R-T Axes : 023 -01 011 degrees QTc Int : 445 ms Sinus bradycardia Otherwise normal ECG Confirmed by SIMONE OCONNELL, JEANMARIE ([id number]), development editor MARY DOVE ([id number]) on 01/29/2018 2:24:56 PM Referred By: HATTIE Confirmed By:JEANMARIE VIRGEN MD 01/29/181424 Date Jeanmarie Virgen MD CC: No Primary Care Physician; Tiny Herrera DO Signed DISCHARGE INSTRUCTION Observed: 01/26/2018 Status: F Source: LEONOR 2:27 PM [facility] Medical Records Department [address] [place] [address] Discharge Instruction 01/26/18 1425 MR#: [id number] Acct: [id number] Name: JESSE BLAIR Rep #: [id number] : 1955 62 From: Tiny Herrera DO PCP: Care Physician, No Primary Status: REG ER ED Disposition - Plan for ED Patient: Chief Complaint: Neuro S/Sx Instructions: ED Paraesthesias Prescriptions: Ibuprofen [Motrin] 600 mg PO TID PRN PRN #20 tab PRN Reason: Pain Referrals: Care Physician,No Primary [Primary Care Provider] - 3-5 Days What to do if you have Problems For any increased pain, shortness of breath, bleeding, nausea or vomiting, chest pain, or any unexpected problems, contact your Primary Care Provider. Call [facility] ([phone]) or report to the closest Emergency Room. Call 911 if necessary. 01/26/18 1427 <Electronically signed by Tiny Herrera DO> Date Tiny Herrera DO Cosigner Signature (If Indicated): Date CC: No Primary Care Physician EMERGENCY DEPARTMENT Observed: 01/26/2018 Status: F Source: HOBBS SUMMARY 2:25 PM [facility] Medical Records Department [address] [place] [address] Emergency Department Summary 01/26/18 1419 MR#: [id number] Acct: [id number] Name: JESSE BLAIR Rep #: [id number] : 1955 62 From: Tiny Herrera DO PCP: Care Physician, No Primary Status: REG ER - ER Visit Summary Date of Service: 01/26/18 Chief Complaint: [Paresthesias to right side of body and left leg pain] History of Present Illness: The patient is a 62 F [presents the emergency department with initial complaint of pain in her left foot and leg. Patient states that she was at a bus stop and had a hard time walking on her left foot because of pain. EMS was called and brings patient to the emergency department where she tells nursing staff that she has had numbness to the right side of her body and some weakness. Patient initially stated that the numbness and weakness was new and then later stated that it has actually been going on for at least several weeks. Patient fell 2 weeks ago apparently and fractured her left foot and at the same time hurt her neck. Patient's had recent MRI apparently that showed herniated disks in her neck. Patient is concerned that she might be having a stroke because she does have a history of TIAs and the numbness and the weakness on the right side of her body was more pronounced today. Patient denies any falls or head injuries. Patient apparently was in [place] and was seen on 01 23 there and admitted overnight. Patient was discharged and then came back complaining of pain in her left foot. Patient had x-rays of her foot and had venous Dopplers that were negative for DVT. On 01/22 patient was also seen in [place] at [facility]. Patient had a myriad of different complaints during her visits. Patient is from the [place] area but states that she is currently homeless and staying with friends.] Physical Examination: [HESOFIA-PERRLA, EOMI. Cranial nerves II through XII grossly intact. TMs clear. Mucous membranes moist. No adenopathy. Cardiovascular-regular rate and rhythm without murmur or ectopy Lungs-clear to auscultation, chest wall stable without crepitus or subcu emphysema Abdomen-normoactive bowel sounds, soft, nontender, no rebound or rigidity, no peritoneal signs. Neuro rwgb-dbjyrj-dfkj and heel martinez testing within normal limits, negative Romberg, negative pronator drift. NIH stroke scale was a 1 for decreased sensation to the right side. I do not appreciate any focal weakness. Extremities-intact 4, normal range of motion, normal pulses, atraumatic] Test Results: [CT scan of the brain without contrast showed chronic involutional changes as well as some abnormal findings at the lee/white matter interface and recommended obtaining CT scan with IV contrast. Otherwise nothing acute. EKG obtained arrival shows sinus bradycardia with a rate of 50 bpm with no acute ST segment changes. CBC with differential showed a white blood cell count of 4.2, hemoglobin 8.4, hematocrit 27, platelets 292. Chemistries unremarkable. INR was 1.0. Troponin was less than 0.015.] I reviewed patient's visits by obtaining medical records from patient's visit to [place] as well as [facility]. Emergency Department Course and Treatment: [I discussed case with radiologist who felt that MRI would be reasonable test to evaluate his concerns on CT. An MRI of the brain was obtained and did not show any evidence of restricted diffusion to suggest acute ischemia. Patient had severe supratentorial white matter T2 and flair hyperintensities which may simply represent infestation of severe chronic small vessel ischemia however foci of demyelination secondary to various processes including autoimmune process or inflammatory process also present in this fashion and consider evaluation with contrast to evaluate for evidence of active demyelinating disease.] Treatment Plan: [Patient was advised to follow-up with her primary care physicians and her plan is to go back to [place].] Disposition: [Discharged home in stable condition] Impression: [Left foot pain acute on chronic Paresthesias-etiology uncertain] This note was generated with [employer] software. It may contain incorrect words, spelling, and punctuation that were not noted in review of the chart prior to signing ED Disposition - Plan for ED Patient: Chief Complaint: Neuro S/Sx Referrals: Care Physician,No Primary [Primary Care Provider] - What to do if you have Problems For any increased pain, shortness of breath, bleeding, nausea or vomiting, chest pain, or any unexpected problems, contact your Primary Care Provider. Call [facility] ([phone]) or report to the closest Emergency Room. Call 911 if necessary. 01/26/18 1425 <Electronically signed by Tiny Herrera DO> Date Tiny Herrera DO Cosigner Signature (If Indicated): Date CC: No Primary Care Physician BRAIN WITHOUT Observed: 01/26/2018 Status: F Source: LEONOR CONTRAST 9:41 AM [facility] [place] Imaging Services [address] [place] [address] Brain without Contrast MR#: [id number] Acct: [id number] Name: JESSE BLAIR Rep #: [id number] : 1955 F 62 From: Yony Back MD PCP: Care Physician, No Primary Status: REG ER Study: Brain without Contrast Date of Exam: 01/26/18 Exam# [id number] Ordering Dr: Tiny Herrera DO STUDY: MRI BRAIN WITHOUT CONTRAST REASON FOR EXAM: Female, 62 years old. Right paresthesias. TECHNIQUE: Standardized multiplanar fat and water weighted pulse sequences were obtained. COMPARISON: None. FINDINGS: There is no restricted diffusion. There is no evidence of chronic blood degradation products on T2 GRE sequence. Normal size of the ventricles and extra-axial spaces for the patient's age. There is severe discrete and confluent T2 and FLAIR hyperintensity within supratentorial white matter bilaterally. Normal bilateral basal ganglia. Normal thalami. There is no extra-axial fluid accumulation. Normal flow voids within the major intracranial circulation suggesting patency by spin echo criteria. Normal sella turcica, pituitary gland, infundibular stalk, optic chiasm and hypothalamus. Normal tectal plate and pineal gland. Normal midbrain, jordan and medulla. Normal cerebellum. Normal basal cisterns. Normal bilateral temporal bones. Normal bilateral internal auditory canals. No demonstrated orbital abnormality, within the constraints of a routine brain study. There is mild nonspecific T2 hyperintensity marginating the right maxillary sinus. There is multifocal T2 hyperintensity within a few right mastoid air cells. There is no paranasal sinus air- fluid level. Normal calvarium and skull base. Normal visualized soft tissue structures. Normal visualized upper cervical spine. MRI/Brain without Contrast IMPRESSION: No restricted diffusion to suggest acute ischemia/edema. No evidence of chronic blood degradation products on the T2 GRE sequence. No mass or mass effect. Severe supratentorial white matter T2 and FLAIR hyperintensities may all simply represent a manifestation of severe chronic small vessel ischemia. However, foci of demyelination secondary to various processes (including autoimmune process or inflammatory process) can also present in this fashion. Consider evaluation with contrast to evaluate for evidence of active demyelinating disease. Nonspecific right maxillary sinus and right mastoid air cell disease. Again, no paranasal sinus air-fluid levels to suggest an acute process. Electronically Signed: Yony Back MD at 13:59 EST , Service support , CC: No Primary Care Physician; Tiny Herrera DO Automobile Seat Cover Installer: Signed CBC W/DIFF, AUTOMATED Collected: 01/26/2018 Status: F Source: LEONOR 8:12 AM [facility] [place] TYPE CODE TESTS RESULT OUT OF RANGE REFERENCE UNITS LAB L100.1000 4.4-11.0 K/mm3 Low WBC 4.2 LAB L100.1200 4.2-5.4 M/mm3 Low RBC 3.64 LAB L100.1300 12.0-15.0 g/dl Low HGB 8.4 LAB L100.1400 37-47 % Low HCT 26.9 LAB L100.1500 81-99 fL Low MCV 73.9 LAB L100.1600 27.0-32.0 pg Low MCH 23.1 LAB L100.1700 32-36 g/gl Low MCHC 31.2 LAB L100.1810 11.6-14.6 % High RDW CV 18.5 LAB L100.1820 35.1-43.9 fl High RDW SD 47.4 LAB L100.1900 150-450 K/mm3 Normal PLT 292 LAB L100.2000 6.2-12.0 fl Normal MPV 10.8 LAB L100.2100 47-70 % Normal NEUT% 60.3 LAB L100.2200 19-41 % Normal LY% 30.0 LAB L100.2300 0-10 % Normal MONO% 5.0 LAB L100.2400 0-5 % Normal EO% 3.3 LAB L100.2500 0-1 % High BASO% 1.2 LAB L100.2550 0.0-0.9 % Normal IM GRAN % 0.200 Result Comment: IG% - Immature Granulocytes (promyelocytes, myelocytes and metamyelocytes) > 1% indicates that a LEFT SHIFT is Present. LAB L100.2620 2.0-7.7 X10 3/uL Normal Absolute Neut 2.6 LAB L100.2720 0.83-4.51 X10 3/ul Normal Absolute Lymph 1.27 Performed By: #### L100.0100 #### [facility] [address] [place], [place], [address] BASIC METABOLIC Collected: 01/26/2018 Status: F Source: LEONOR PROFILE (BMP) 8:12 AM [facility] [place] TYPE CODE TESTS RESULT OUT OF RANGE REFERENCE UNITS LAB L501.0100 74-106 mg/dL Normal GLU 78 Result Comment: Please note revised GLUCOSE reference range effective 2017. LAB L501.1000 7-18 mg/dL Normal BUN 9 LAB L501.1100 0.55-1.02 mg/dL Normal CREAT,SERUM 0.68 Result Comment: The validity of the calculated GFR AND GFRAA in patients over 70 years has not been determined. Clinical correlation is essential. LAB L501.1110 >60 mL/min Normal EST GFR 93 Result Comment: Non- GFR Calc LAB L501.1115 >60 mL/min Normal EST GFR - AA 112 Result Comment: GFR Calc LAB L501.1255 ml/min Normal Estimated CRCL 78.24 LAB L501.1300 10-20 RATIO Normal BUN/CRE 13.3 LAB L501.2200 8.5-10 mg/dL Normal .1 CA 8.6 LAB L501.5300 136-14 mmol/L Normal 5 NA 140 LAB L501.5600 3.5-5. mmol/L Normal 1 K 3.7 LAB L501.5900 98-107 mmol/L Normal CL 107 LAB L501.6100 21.0-3 mmol/L Normal 2.0 CO2 26.0 LAB L501.6200 5-15 Normal GAP 7 Performed By: #### L500.2500, L501.4010 #### [facility] [address] [place], [address] TROPONIN-I Collected: 01/26/2018 Status: F Source: LEONOR 8:12 AM [facility] [place] TYPE CODE TESTS RESULT OUT OF RANGE REFERENCE UNITS LAB L501.4010 <0.045 ng/mL Normal < 0.015 TROPONIN-I Result Comment: TROPONIN-I EXPECTED VALUES <0.045 Negative 0.045 - 0.590 Consistent with Cardiac Damage > OR = 0.600 Critical Value Not every elevated troponin is indicative of WI. These values should be used with clinical judgement in examining the patient's clinical picture for diagnosis. To establish a diagnosis of WI versus myocardial injury, there must be a demonstrated rise and/or fall in the troponin values, in addition to ischemic symptoms, EKG changes, new regional wall motion abnormality, and/or angiographical evidence. PLEASE NOTE: REFERENCE RANGES EDITED 17 Performed By: #### L500.2500, L501.4010 #### [facility] [address] [place], [address] PROTHROMBIN TIME W/INR Collected: 01/26/2018 Status: F Source: HOBBS 8:12 AM [facility] [place] TYPE CODE TESTS RESULT OUT OF RANGE REFERENCE UNITS LAB L300.4150 11.7-14.9 SECONDS Normal PROTIME 13.0 LAB L300.4200 Normal INR 1.0 Performed By: #### L300.3900, L300.4310 #### [facility] [address] [place], [address] PARTIAL THROMBOPLAST Collected: 01/26/2018 Status: F Source: HOBBS TIME 8:12 AM [facility] [place] TYPE CODE TESTS RESULT OUT OF REFERENCE UNITS RANGE LAB L300.4310 24.1-36.2 Seconds High PTT 37.2 Performed By: #### L300.3900, L300.4310 #### [facility] [address] [place], [address] CHEST 1 VIEW Observed: 01/26/2018 Status: F Source: HOBBS 8:01 AM [facility] [place] Imaging Services [address] [place] [address] Chest 1 View MR#: [id number] Acct: [id number] Name: JESSE BLAIR Rep #: [id number] : 1955 F 62 From: Alexandre Tapia MD PCP: Care Physician, No Primary Status: REG ER Study: Chest 1 View Date of Exam: 01/26/18 Exam# [id number] Ordering Dr: Tiny Herrera DO STUDY: X-RAY CHEST REASON FOR EXAM: Female, 62 years old. Cough. TECHNIQUE: Single AP portable view of the chest. COMPARISON: None. FINDINGS: EKG electrodes are seen. The lungs are clear and expanded. There is no demonstrated pleural abnormality. Normal size heart. Normal mediastinum and marily. Normal visualized pulmonary arteries. There is atherosclerotic calcification of the aortic arch with tortuosity. Normal visualized thoracic spine. Normal visualized ribs, clavicles, and shoulders. There is no demonstrated abnormality of the visualized soft tissue structures of the upper abdomen. RAD/Chest 1 View IMPRESSION: Normal x-ray examination of the chest. Electronically Signed: Alexandre Tapia MD at 8:24 EST Tel [phone], Service support , CC: No Primary Care Physician; Tiny Herrera DO Automobile Seat Cover Installer: Signed BRAIN/HEAD WITHOUT Observed: 01/26/2018 Status: F Source: LEONOR CONTRAST 8:01 AM [facility] [place] Imaging Services [address] [place] [address] Brain/Head without Contrast MR#: [id number] Acct: [id number] Name: JESSE BLAIR Rep #: [id number] : 1955 F 62 From: Alexandre Tapia MD PCP: Care Physician, No Primary Status: REG ER Study: Brain/Head without Contrast Date of Exam: 01/26/18 Exam# [id number] Ordering Dr: Tiny Herrera DO STUDY: CT BRAIN WITHOUT CONTRAST REASON FOR EXAM: Female, 62 years old. Right-sided weakness. RADIATION DOSAGE (If Supplied By Facility): CTDIvol = ( 60.81 ) mGy, DLP = ( 998.67 ) mGycm TECHNIQUE: Transaxial CT imaging of the brain was performed without administration of intravenous contrast material. Individualized dose optimization techniques were used for this CT. COMPARISON: None. FINDINGS: Normal soft tissue structures. Normal calvarium. Normal size ventricles and extra-axial spaces for the patient's age. There are areas of decreased attenuation within the white matter tracts of the supratentorial brain, consistent with microvascular disease changes. I cannot exclude periventricular white matter nodular densities. A repeat CT scan following intravenous contrast administration is suggested. Decreased attenuation in the insular cortex of both temporal lobes. Normal brainstem. Normal cerebellum. There is no intracranial hemorrhage. There are no findings of an acute ischemic infarction. Normal visualized paranasal sinuses. CT/Brain/Head without Contrast IMPRESSION: Decreased attenuation in the periventricular white matter. Questionable nodular densities at the lee-white matter junction. A repeat CT scan following IV contrast is recommended. Electronically Signed: Alexandre Tapia MD at 9:29 EST Tel [phone], Service support , CC: No Primary Care Physician; Tiny Herrera DO Automobile Seat Cover Installer: Signed FOOT Observed: 01/24/2018 Status: F Source: [facility] 4:33 PM [facility] REPOSITORY Final Report Accession No: [id number] Performed: Jan 24 2018 4:33PM Examination: LEFT FOOT EXAM: FOOT LEFT REASON FOR EXAM: Female, 62 years, Pain/No Trauma. TECHNIQUE: 3 views of the left foot are performed. COMPARISON: 01/23/2018. 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 No definite bony erosion to the distal first metatarsal. Postoperative changes are seen in the subtalar joint. There is pes planus. Degenerative changes seen within the calcaneal cuboid joint. IMPRESSION: Operative changes of great toe amputation. No definite findings to suggest osteomyelitis. Again, as recommended on yesterday's examination, there is a high clinical suspicion of osteomyelitis, an MRI or nuclear medicine bone scan can be performed. Interpreting Physician: KORIN VICKERS D.O. Trans: n/a : cc: PARTIAL THROMBOPLASTIN Collected: 01/24/2018 Status: F Source: [facility] TIME 5:51 AM [facility] REPOSITORY TYPE CODE TESTS RESULT OUT OF REFERENCE UNITS RANGE LAB PTT 23.0-34.0 Seconds Partial Normal Thromboplastin Time 34 Result Comment: Suggested therapeutic range for PTT is 68-104 sec. Performed By: #### PT, PTT #### Unless otherwise noted, all testing performed by [address] [address] CLIA: [id number] Wine Pasteurizer: Eduardo Philip M.D. PROTIME Collected: 01/24/2018 Status: F Source: [facility] 5:51 AM [facility] TYPE CODE TESTS RESULT OUT OF RANGE REFERENCE UNITS LAB PT. 11.8-14.3 Seconds Normal Protime 12.6 LAB INR Normal INR 0.98 Result Comment: The [employer] recommended therapeutic range for Warfarin (Coumadin) therapy goals: PROPHYLAXIS/TREATMENT of: INR Venous Thrombosis, Pulmonary Embolism 2.0-3.0 Prevention of VTE (Orthopedic Surgery) 2.0-3.0 Atrial Fibrillation 2.0-3.0 Myocardial Infarction 2.0-3.0 Mechanical Prosthetic Heart Valves (Aortic position) 2.0-3.0 Mechanical Prosthetic Heart Valves (Mitral Position) 2.5-3.5 [employer] evidence-based clinical practice guidelines. CHEST. 2012 (9th ed) Performed By: #### PT, PTT #### Unless otherwise noted, all testing performed by [address] [address] CLIA: [id number] Wine Pasteurizer: Eduardo Philip M.D. CT ABDO,PELVIS IV Observed: 01/24/2018 Status: F Source: [facility] CONTRAST ONLY 1:30 AM [facility] REPOSITORY Final Report Accession No: [id number] Performed: Jan 24 2018 1:30AM Examination: CT ABDO,PELVIS IV CONTRAST ONLY CLINICAL HISTORY: Shortness of breath. Abdominal pain. CT PULMONARY ANGIOGRAM, ENHANCED CT SCAN OF THE ABDOMEN AND PELVIS: 01/24/2018. COMPARISON: Portable chest 01/23/2018. TECHNIQUE: 3 mm axial images from thoracic inlet through ischial tuberosities following the administration of intravenous contrast were obtained. No oral contrast was utilized. Sagittal and coronal MIP (maximum intensity projection) images were also obtained. Dose reduction techniques were achieved by using automated exposure control and/or adjustment of mA and/or kV according to patient size and/or use of iterative reconstruction technique. FINDINGS: CT CHEST: There are no filling defects within the visualized superior vena cava, main, left, right pulmonary arteries, lobar, segmental branches. Visualized thyroid, great vessels, aorta seem normal except for mild atherosclerotic changes of the aorta. The pericardium, cardiomediastinal structures are normal. There is no significant axillary, hilar, or mediastinal adenopathy. Images on lung windows demonstrate there are mild emphysematous changes. There are some dependent atelectatic changes at both lung bases. CT ABDOMEN: Liver, spleen, pancreas, adrenal glands, kidneys appear normal. The abdominal aorta is mildly atherosclerotic. There is no aneurysm. The patient has undergone previous cholecystectomy. There are no abnormally dilated loops of small or large bowel. CT PELVIS: Normal appendix is not seen with confidence. There are scattered diverticula throughout colon. The bladder, uterus, and ovaries appear normal. There is no pelvic or retroperitoneal adenopathy. No focal fluid collections. Bone window images demonstrate there is probably a Schmorl's node along the superior endplate of L1. IMPRESSION: 1. No convincing evidence to suggest pulmonary embolic disease. 2. No dissection, aneurysm of the thoracic or the abdominal aorta. 3. Except for minimal emphysematous changes as well as the dependent atelectatic changes the lung bases no acute process involving the lungs. 4. Previous cholecystectomy. 5. Diverticulosis without diverticulitis. 6. No acute process in the abdomen or pelvis to explain patient's symptoms. Interpreting Physician: PERNELL FISHER M.D. Trans: cwion : cc: CT CHEST PE PROTOCOL Observed: 01/24/2018 Status: F Source: [facility] 1:29 AM [facility] REPOSITORY Final Report Accession No: [id number] Performed: Jan 24 2018 1:29AM Examination: CT CHEST PE PROTOCOL CLINICAL HISTORY: Shortness of breath. Abdominal pain. CT PULMONARY ANGIOGRAM, ENHANCED CT SCAN OF THE ABDOMEN AND PELVIS: 01/24/2018. COMPARISON: Portable chest 01/23/2018. TECHNIQUE: 3 mm axial images from thoracic inlet through ischial tuberosities following the administration of intravenous contrast were obtained. No oral contrast was utilized. Sagittal and coronal MIP (maximum intensity projection) images were also obtained. Dose reduction techniques were achieved by using automated exposure control and/or adjustment of mA and/or kV according to patient size and/or use of iterative reconstruction technique. FINDINGS: CT CHEST: There are no filling defects within the visualized superior vena cava, main, left, right pulmonary arteries, lobar, segmental branches. Visualized thyroid, great vessels, aorta seem normal except for mild atherosclerotic changes of the aorta. The pericardium, cardiomediastinal structures are normal. There is no significant axillary, hilar, or mediastinal adenopathy. Images on lung windows demonstrate there are mild emphysematous changes. There are some dependent atelectatic changes at both lung bases. CT ABDOMEN: Liver, spleen, pancreas, adrenal glands, kidneys appear normal. The abdominal aorta is mildly atherosclerotic. There is no aneurysm. The patient has undergone previous cholecystectomy. There are no abnormally dilated loops of small or large bowel. CT PELVIS: Normal appendix is not seen with confidence. There are scattered diverticula throughout colon. The bladder, uterus, and ovaries appear normal. There is no pelvic or retroperitoneal adenopathy. No focal fluid collections. Bone window images demonstrate there is probably a Schmorl's node along the superior endplate of L1. IMPRESSION: 1. No convincing evidence to suggest pulmonary embolic disease. 2. No dissection, aneurysm of the thoracic or the abdominal aorta. 3. Except for minimal emphysematous changes as well as the dependent atelectatic changes the lung bases no acute process involving the lungs. 4. Previous cholecystectomy. 5. Diverticulosis without diverticulitis. 6. No acute process in the abdomen or pelvis to explain patient's symptoms. Interpreting Physician: PERNELL FISHER M.D. Trans: cwion : cc: D-DIMER Collected: 01/23/2018 Status: F Source: [facility] 11:40 PM [facility] REPOSITORY TYPE CODE TESTS RESULT OUT OF REFERENCE UNITS RANGE LAB DDIMR < .5 mcg/ml (FEU) High D-Dimer 1.80 Result Comment: This test is intended for use in conjunction with a clinical pretest probability (PTP) assessment model to exclude pulmonary embolism (PE) and deep vein thrombosis (DVT) in outpatients suspected of PE or DVT. Performed By: #### EDCTNI, CBCDIF, CMET, DDIMR, LIPASE #### Unless otherwise noted, all testing performed by [facility] [address] [place], [place] [address] CLIA: [id number] Wine Pasteurizer: Eduardo Philip M.D. CBC WITH DIFF Collected: 01/23/2018 Status: F Source: [facility] 11:40 PM [facility] REPOSITORY TYPE CODE TESTS RESULT OUT OF RANGE REFERENCE UNITS LAB WBC 3.4-10.6 K/mcL WBC Normal 6.1 LAB RBC 3.7-5.0 M/mcL Low RBC 3.30 LAB HGB 11.6-15.4 g/dL Low Hemoglobin 7.7 LAB HCT 34.4-44.8 % Low Hematocrit 24.7 LAB MCV 82.6-98.9 FL Low MCV 74.8 LAB MCH 27.9-33.9 pg Low MCH 23.2 LAB MCHC 33.1-35.1 g/dL Low MCHC 31.0 LAB RDW 10.0-14.4 % High RDW 18.6 LAB PLT 162-402 K/mcL Platelet Normal Count 220 LAB MPV 7.0-10.6 FL High MPV 10.9 LAB NEUT# 1.2-6.9 K/mcL Normal Neutrophil # 3.5 LAB LYMPH# 1.0-3.7 K/mcL Normal Lymphocyte # 2.0 LAB MONO# 0.1-0.6 K/mcL Monocyte Normal # 0.5 LAB EOS# 0-0.5 K/mcL Normal Eosinophil # 0.2 LAB BASO# 0-0.2 K/mcL Basophil Normal # 0.0 LAB SEGNEU% % Normal Segmented Neut % 57.0 Result Comment: Manual differential performed. LAB LYMP% % Normal Lymphocyte% 32.0 LAB MO% % Normal Monocyte % 8.0 LAB EO% % Normal Eosinophil % 3.0 LAB BA% % Normal Basophil % 0.0 LAB ANISO None Seen Abnormal Anisocytosis 1+ LAB MICRO None Seen Abnormal Microcytosis 2+ LAB HYPO None Seen Abnormal Hypochromasia 3+ LAB TARGET None Seen Abnormal Target Cells 2+ Performed By: #### EDCTNI, CBCDIF, CMET, DDIMR, LIPASE #### Unless otherwise noted, all testing performed by [place] [address] CLIA: [id number] Wine Pasteurizer: Eduardo Philip M.D. ED CARDIAC TROPONIN-I Collected: 01/23/2018 Status: F Source: [facility] 11:40 PM [facility] REPOSITORY TYPE CODE TESTS RESULT OUT OF RANGE REFERENCE UNITS LAB EDCTNI < 45 ng/L Normal ED Cardiac < 15 Troponin-I Result Comment: Elevation of troponin indicates some degree of myocardial necrosis but unless there is a significant rise and/or fall (if elevated) identified, it unlikely that an acute event has taken place Samples from patients routinely receiving high dose biotin therapy (100-300 mg/day) may show falsely decreased results. Please correlate clinically. Performed By: #### EDCTNI, CBCDIF, CMET, DDIMR, LIPASE #### Unless otherwise noted, all testing performed by [address] [address] CLIA: [id number] Wine Pasteurizer: Eduardo Philip M.D. COMPREHENSIVE METABOLIC Collected: 01/23/2018 Status: F Source: [facility] 11:40 PM [facility] REPOSITORY TYPE CODE TESTS RESULT OUT OF RANGE REFERENCE UNITS LAB GLU 70-99 mg/dL Normal Glucose 88 Result Comment: This test result might be falsely depressed or falsely elevated on samples drawn from patients taking Sulfasalazine and Sulfapyridine. Venipuncture should occur prior to taking either of these drugs. LAB BUN 8-25 mg/dL Normal BUN 13 LAB CREA 0.60-1.20 mg/dL Normal Creatinine 0.60 LAB eGFR ml/min/1.73s Normal q.m eGFR,NonAfrican-A merican >=60 Result Comment: Non- GFR Calc eGFR is an estimated Glomerular Filtration Rate based on the value of the patient's serum creatinine. In outpatients, eGFR should be used as a helpful tool in screening for CKD. In inpatients or patients with acute renal failure, eGFR represents the GFR at the moment of the draw and should be used with caution. LAB eGFRB ml/min/1.73sq.m eGFR, Normal -Syrian >=60 Result Comment: GFR Calc LAB CALCM 8.4-10.2 mg/dL Calcium Normal 8.5 LAB NA 135-145 mmol/L Sodium Normal 136 LAB K 3.5-5.1 mmol/L Normal Potassium 3.9 LAB CL 98-108 mmol/L Chloride Normal 106 LAB CO2 21-32 mmol/L CO2 Normal 25 LAB AST 0-45 U/L High AST (SGOT) 164 Result Comment: This test result might be falsely depressed or falsely elevated on samples drawn from patients taking Sulfasalazine and Sulfapyridine. Venipuncture should occur prior to taking either of these drugs. LAB ALT 14-65 U/L High ALT (SGPT) 127 Result Comment: This test result might be falsely depressed or falsely elevated on samples drawn from patients taking Sulfasalazine and Sulfapyridine. Venipuncture should occur prior to taking either of these drugs. LAB ALKP 40-150 U/L High Alkaline Phosphatase 610 LAB BILIT 0.3-1.2 mg/dL Normal Bilirubin,Total 1.1 LAB PROT 6.0-8.0 g/dL High Protein, Total 9.2 LAB ALB 3.2-5.2 g/dL Low Albumin 2.5 Performed By: #### EDCTNI, CBCDIF, CMET, DDIMR, LIPASE #### Unless otherwise noted, all testing performed by [place] [address] CLIA: [id number] Wine Pasteurizer: Eduardo Philip M.D. LIPASE Collected: 01/23/2018 Status: F Source: [facility] 11:40 PM [facility] REPOSITORY TYPE CODE TESTS RESULT OUT OF RANGE REFERENCE UNITS LAB LIPASE 73-393 U/L Normal Lipase 246 Performed By: #### EDCTNI, CBCDIF, CMET, DDIMR, LIPASE #### Unless otherwise noted, all testing performed by [place] [address] CLIA: [id number] Wine Pasteurizer: Eduardo Philip M.D. FOOT Observed: 01/23/2018 Status: F Source: [facility] 11:26 PM [facility] REPOSITORY Final Report Accession No: [id number] Performed: Jan 23 2018 11:26PM Examination: LEFT FOOT IMAGES REVIEWED: FOOT LEFT COMPARISON: None available. CLINICAL INDICATION: Left foot pain and edema. FINDINGS/IMPRESSION: Status post resection of the first phalanges. Possible subtle cortical irregularity in the medial aspect of the first distal phalanx, however no significant bony erosive/destructive change adjacent to an area of deep ulceration to definitely suggest osteomyelitis. If continued clinical concern, MRI could be obtained. Marked diffuse soft tissue swelling, worst about the dorsal aspect of the foot. No definite soft tissue gas collection. Diffuse osteopenia. Flatfoot deformity with suggestion of subtalar fusion/coalition. Moderate degenerative changes of the calcaneocuboid joint. Interpreting Physician: JOHN LAND M.D. Trans: n/a : cc: CHEST (ONE VIEW Observed: 01/23/2018 Status: F Source: [facility] ONLY) 11:26 PM [facility] REPOSITORY Final Report Accession No: [id number] Performed: Jan 23 2018 11:26PM Examination: CHEST (ONE VIEW ONLY) IMAGES REVIEWED: CHEST (ONE VIEW ONLY) COMPARISON: Chest radiographs dated 07/27/2017. CLINICAL INDICATION: Edema. FINDINGS: The cardiac silhouette is stable in size. There appears to be mild central vascular congestion. There is no significant pneumothorax or pleural effusion. No acute osseous abnormality is seen. IMPRESSION: There appears to be mild central vascular congestion with otherwise clear lungs. Interpreting Physician: DARVIN MOISE M.D. Trans: lcoope : cc: URINALYSIS, ROUTINE Collected: 01/23/2018 Status: F Source: [facility] 11:00 PM [facility] REPOSITORY TYPE CODE TESTS RESULT OUT OF RANGE REFERENCE UNITS LAB COLOR Normal Color, Urine Yellow LAB CHAUR Normal Character Hazy LAB SPGRUR 1.003-1.029 Normal Specific 1.014 Stella,Urine LAB PHUR 4.5-8.0 Normal pH,Urine 7.0 LAB GLUCUR NEG;NEGATIVE mg/dL Normal Glucose,Urine Negative LAB KETUR NEG;NEGATIVE mg/dL Normal Ketone,Urine Negative LAB PROTUR NEG;NEGATIVE mg/dL Normal Protein,Urine Negative LAB BLDUR NEG;NEGATIVE Normal Blood,Urine Negative LAB NITUR NEG;NEGATIVE Normal Nitrite,Urine Negative LAB BILIUR NEG;NEGATIVE Normal Bilirubin,Urin Negative e LAB UROUR mg/dL Unknown Urobilinogen,U Normal rine Result Comment: Urobilinogen, Urine Reference Range: <2.0 mg/dL LAB LEUESTUR Negative Leuk.Esterase,Urine Abnormal Trace LAB WBCUR 0-5 /HPF Normal WBC,Urine 1 LAB SQEPI 0-40 /HPF Normal Squamous Epithelial 2 Performed By: #### UA #### Unless otherwise noted, all testing performed by [facility] [address] [place], [place] [address] CLIA: [id number] Wine Pasteurizer: Eduardo Philip M.D. COMPLETE BLOOD COUNT Collected: 01/20/2018 Status: F Source: THE [facility] W/DIFF 8:47 PM SYSTEM REPOSITORY TYPE CODE TESTS RESULT OUT OF RANGE REFERENCE UNITS LAB WBC 4.5-11.5 K/uL WBC 5.2 LAB RBC 4.00-5.20 M/uL Low RBC 3.61 LAB HGB 12.0-15.0 g/dL Low HGB 8.4 LAB HCT 36.0-46.0 % Low HCT 27.2 LAB MCV 80-100 fL Low MCV 75 LAB MCH 26.0-34.0 pg Low MCH 23.3 LAB MCHC 32.0-35.9 g/dL Low MCHC 30.9 LAB PLT 150-400 K/uL PLT 233 LAB RDW 11.5-14.5 % High RDW-CV 18.1 LAB MPV 8.5-11.5 MPV Result Comment: Not Measured LAB CPnT 31.0-76.0 % NEUTROPHILS 53.6 LAB CPIY 24.0-44.0 % LYMPHOCYTES 36.1 LAB CPmO 2.0-11.0 % MONOCYTES 6.2 LAB CPeO 0.1-4.0 % EOSINOPHIL 2.9 LAB CPbA <=1.9 % BASOPHILS 1.2 LAB nt 1.50-8.00 K/uL NEUTROPHIL # 2.76 LAB ly 1.00-4.80 K/uL LYMPHOCYTES # 1.86 LAB mo 0.20-1.00 K/uL MONOCYTE # 0.32 LAB eo 0.00-0.70 K/uL EOSINOPHIL # 0.15 LAB ba 0.00-0.20 K/uL BASOPHIL # 0.06 Performed By: #### CBCD #### S [facility] LAB[facility] [address] [place] [address], BASIC METABOLIC PANEL Collected: 01/20/2018 Status: F Source: [facility] 8:47 PM SYSTEM REPOSITORY TYPE CODE TESTS RESULT OUT OF REFERENCE UNITS RANGE LAB GLU 80-116 mg/dL GLU 97 LAB NA3 135-148 mmol/L NA 136 LAB POT 3.3-5.3 mmol/L K 4.2 LAB CO2 21-30 mmol/L CO2 25 LAB CHLOR 97-111 mmol/L CL 106 LAB BUN 8-22 mg/dL BUN 11 LAB CREAT 0.50-1.10 mg/dL CREAT 0.59 LAB CA 8.4-10.4 mg/dL CA 8.9 LAB ANION GAP 5-13 ANION GAP 9 LAB eGFR >=60 mL/min/1.73 sqm ESTIMATED GFR 112 (CKD-EPI) Performed By: #### CH8, LIP, HEPATIC #### [facility] [email or web address]] PATHOLOGY LABORATORY [address] [place] [address], LIPASE Collected: 01/20/2018 Status: F Source: [facility] 8:47 PM SYSTEM REPOSITORY TYPE CODE TESTS RESULT OUT OF RANGE REFERENCE UNITS LAB LIP <128 IU/L LIP 81 Performed By: #### CH8, LIP, HEPATIC #### [facility] [email or web address]] PATHOLOGY LABORATORY [address] [place] [address], HEPATIC FUNCTION Collected: 01/20/2018 Status: F Source: [facility] PANEL 8:47 PM SYSTEM REPOSITORY TYPE CODE TESTS RESULT OUT OF REFERENCE UNITS RANGE LAB ALB 3.4-5.1 g/dL Low ALB 2.9 LAB DBILI 0.10-0.30 mg/dL High DBIL 0.60 LAB TBILI 0.1-1.5 mg/dL TBIL 1.2 LAB ALKPHOS 40-200 IU/L High ALK 553 LAB ALT2 7-40 IU/L High ALT 118 LAB AST2 7-40 IU/L High AST 156 LAB tp 5.7-8.1 g/dL High TP 9.0 Performed By: #### CH8, LIP, HEPATIC #### [facility] [address] [place] [address], XR CHEST PA+LAT Observed: 01/19/2018 Status: F [facility] 8:41 PM SYSTEM REPOSITORY EXAMINATION: XR CHEST 2 VIEW PA+LATED CLINICAL HISTORY: Cough TECHNOLOGISTS NOTE: COMPARISON: January 13, 2018 FINDINGS: Cardiomediastinal silhouette: Normal heart size. Partially calcified aortic knob. Trachea: No deviation Lungs/Pleura: Stable increased interstitial lung markings, likely chronic changes. No focal pulmonary consolidation, effusion or pneumothorax. Musculoskeletal: Unremarkable IMPRESSION: No acute findings, or significant interval change. MACRO: None BASIC METABOLIC PANEL Collected: 01/17/2018 Status: F Source: THE [facility] 8:15 PM SYSTEM REPOSITORY TYPE CODE TESTS RESULT OUT OF REFERENCE UNITS RANGE LAB GLU 80-116 mg/dL GLU 109 LAB NA3 135-148 mmol/L Low NA 134 LAB POT 3.3-5.3 mmol/L K 3.9 LAB CO2 21-30 mmol/L CO2 24 LAB CHLOR 97-111 mmol/L CL 105 LAB BUN 8-22 mg/dL BUN 9 LAB CREAT 0.50-1.10 mg/dL CREAT 0.59 LAB CA 8.4-10.4 mg/dL CA 8.4 LAB ANION GAP 5-13 ANION GAP 9 LAB eGFR >=60 mL/min/1.73 sqm ESTIMATED GFR 112 (CKD-EPI) Performed By: #### CH8 #### [facility] [address] [place] [address], COMPLETE BLOOD COUNT Collected: 01/17/2018 Status: F [facility]: [facility] 8:15 PM SYSTEM REPOSITORY TYPE CODE TESTS RESULT OUT OF RANGE REFERENCE UNITS LAB WBC 4.5-11.5 K/uL WBC 4.9 LAB RBC 4.00-5.20 M/uL Low RBC 3.47 LAB HGB 12.0-15.0 g/dL Low HGB 8.3 LAB HCT 36.0-46.0 % Low HCT 25.5 LAB MCV 80-100 fL Low MCV 74 LAB MCH 26.0-34.0 pg Low MCH 23.9 LAB MCHC 32.0-35.9 g/dL MCHC 32.5 LAB PLT 150-400 K/uL PLT 231 LAB RDW 11.5-14.5 % High RDW-CV 17.8 LAB MPV 8.5-11.5 MPV Result Comment: Not Measured Performed By: #### CBC #### [facility] [address] [place] [address], URINALYSIS,AUTO-IN OFFICE Collected: Status: F Source: THE 01/15/2018 9:42 PM [facility] REPOSITORY Order Comment: TEST PERFORMED AT: [facility] [address] [place] [address] [place] [address] TYPE CODE TESTS RESULT OUT OF RANGE REFERENCE UNITS LAB Color, Urine COLOR, POC Yellow LAB CLARITY CLARITY, POC Clear LAB Ph,urine 5.0-8.0 PH, URINE POC 7.0 LAB SPECIFIC GRAVITY 1.005 - 1.030 SPECIFIC 1.020 GRAVITY, POC LAB PROTEIN Negative PROTEIN, Negative URINE POC LAB GLUCOSE Negative GLUCOSE, Negative URINE POC LAB KETONES Negative Abnormal KETONES, Trace URINE POC LAB BILIRUBIN Negative BILIRUBIN, Negative URINE POC LAB UROBILINOGEN 0.2 - 1.0 Abnormal UROBILINOGEN, 2.0 URINE POC LAB BLOOD Negative BLOOD, URINE Negative POC LAB LEUKOCYTES Negative Abnormal LEUKOCYTES, Small URINE POC LAB NITRITES Negative NITRITES, Negative URINE POC Performed By: #### [id number] #### [facility] Path[facility] [address] [place] [address] POTASSIUM, WHOLE BLOOD Collected: 01/15/2018 Status: F Source: THE 9:04 PM [facility] REPOSITORY TYPE CODE TESTS RESULT OUT OF REFERENCE UNITS RANGE LAB POTWB 3.3-5.3 mmol/L 4.6 POTASSIUM, WHOLE BLOOD Performed By: #### CR K #### [facility] [address] [place] [address], LIPASE Collected: 01/15/2018 Status: F Source: [facility] 8:11 PM SYSTEM REPOSITORY TYPE CODE TESTS RESULT OUT OF RANGE REFERENCE UNITS LAB LIP <128 IU/L LIP 68 Performed By: #### LIP, CH8 #### S [facility] [address] [place] [address], BASIC METABOLIC PANEL Collected: 01/15/2018 Status: F Source: [facility] 8:11 PM SYSTEM REPOSITORY TYPE CODE TESTS RESULT OUT OF RANGE REFERENCE UNITS LAB GLU 80-116 mg/dL GLU 97 LAB NA3 135-148 mmol/L Low NA 132 LAB POT 3.3-5.3 mmol/L High Alert K 8.1 Result Comment: Hemolysis present LAB CO2 21-30 mmol/L CO2 22 LAB CHLOR 97-111 mmol/L CL 104 LAB BUN 8-22 mg/dL BUN 14 LAB CREAT 0.50-1.10 mg/dL CREAT 0.53 LAB CA 8.4-10.4 mg/dL Low CA 8.3 LAB ANION GAP 5-13 ANION High GAP 14 LAB eGFR >=60 mL/min/1.73sq m ESTIMATED GFR (CKD-EPI) 116 Performed By: #### LIP, CH8 #### [facility] [address] [place], [address] COMPLETE BLOOD COUNT Collected: 01/15/2018 Status: F Source: THE [facility] W/DIFF 8:11 PM SYSTEM REPOSITORY TYPE CODE TESTS RESULT OUT OF RANGE REFERENCE UNITS LAB WBC 4.5-11.5 K/uL WBC 5.3 LAB RBC 4.00-5.20 M/uL Low RBC 3.62 LAB HGB 12.0-15.0 g/dL Low HGB 8.3 LAB HCT 36.0-46.0 % Low HCT 27.0 LAB MCV 80-100 fL Low MCV 75 LAB MCH 26.0-34.0 pg Low MCH 22.9 LAB MCHC 32.0-35.9 g/dL Low MCHC 30.7 LAB PLT 150-400 K/uL PLT 228 LAB RDW 11.5-14.5 % High RDW-CV 18.4 LAB MPV 8.5-11.5 MPV Result Comment: Not Measured LAB CPnT 31.0-76.0 % NEUTROPHILS 50.9 LAB CPIY 24.0-44.0 % LYMPHOCYTES 38.6 LAB CPmO 2.0-11.0 % MONOCYTES 5.7 LAB CPeO 0.1-4.0 % EOSINOPHIL High 4.2 LAB CPbA <=1.9 % BASOPHILS 0.6 LAB nt 1.50-8.00 K/uL NEUTROPHIL # 2.70 LAB ly 1.00-4.80 K/uL LYMPHOCYTES # 2.04 LAB mo 0.20-1.00 K/uL MONOCYTE # 0.30 LAB eo 0.00-0.70 K/uL EOSINOPHIL # 0.22 LAB ba 0.00-0.20 K/uL BASOPHIL # 0.03 LAB Uq LARGE PLATELETS Present LAB QJ RBC MORPHOLOGY See Below LAB cn ANISOCYTOSIS Slight LAB bp MICROCYTOSIS Slight LAB HY HYPOCHROMASIA Moderate LAB POLYC POLYCHROMASIA Slight LAB bw SPHEROCYTES Few LAB by TARGET CELLS Moderate Performed By: #### CBCD #### [facility] [address] [place] [address], URINALYSIS Collected: 01/15/2018 Status: F Source: THE 8:11 PM [facility] SYSTEM REPOSITORY Order Comment: A negative leukocyte esterase AND negative nitrite test or absence of pyuria (urine WBC count <= 5-10) make a UTI (urinary tract infection) very unlikely in a non-neutropenic adult (<=5% likelihood in many studies). A positive leukocyte esterase, nitrite and/or pyuria is a nonspecific result. This can be seen in conditions other than a UTI e.g. asymptomatic bacteriuria, gynecologic infections, sexually transmitted infections, and noninfectious conditions (positive predictive value for UTI around 50%) TYPE CODE TESTS RESULT OUT OF RANGE REFERENCE UNITS LAB UCOLOR Yellow U COLOR Janet LAB UAPP Clear U APPEAR Hazy LAB U PH 5.0-8.0 U PH 6.0 LAB USG U SG 1.025 LAB UPROTEIN Negative mg/dL U Abnormal PROTEIN 30 LAB U BLOOD Negative U BLOOD Negative LAB URINBILI Negative U BILI Negative LAB U UROBILI 0.1 - 1.0 mg/dL U Abnormal UROBILI 4.0 LAB UKETONE Negative mg/dL U KETONE Negative LAB U LEUK Negative U Abnormal LEUK Moderate LAB UNITR Negative U NITRITE Negative LAB UGLU Negative mg/dL GLUCOSE, URINE Negative LAB U WBC 0-2 /HPF U WBC Abnormal 3-5 LAB U RBC 0-2 /HPF U RBC 0-2 LAB U BACTERIA /HPF U BACTERIA Few LAB ay 0-10 /HPF Abnormal SQUAMOUS 11-30 EPITHELIAL LAB U HY CAST /HPF U HY CAST 0-2 Performed By: #### UAC #### [facility] [address] [place] [address], URINALYSIS,AUTO-IN OFFICE Collected: Status: F Source: THE 01/13/2018 11:02 PM [facility] SYSTEM REPOSITORY Order Comment: TEST PERFORMED AT: Emergency [facility] [address] [place] [address] [place], [place] [address] TYPE CODE TESTS RESULT OUT OF RANGE REFERENCE UNITS LAB Color, Urine COLOR, POC Yellow LAB CLARITY CLARITY, POC Clear LAB Ph,urine 5.0-8.0 PH, URINE POC 7.5 LAB SPECIFIC GRAVITY 1.005 - 1.030 SPECIFIC 1.020 GRAVITY, POC LAB PROTEIN Negative PROTEIN, Negative URINE POC LAB GLUCOSE Negative Abnormal GLUCOSE, 100 URINE POC LAB KETONES Negative KETONES, Negative URINE POC LAB BILIRUBIN Negative BILIRUBIN, Negative URINE POC LAB UROBILINOGEN 0.2 - 1.0 UROBILINOGEN, 1.0 URINE POC LAB BLOOD Negative BLOOD, URINE Negative POC LAB LEUKOCYTES Negative LEUKOCYTES, Negative URINE POC LAB NITRITES Negative NITRITES, Negative URINE POC Performed By: #### [id number] #### [facility] [address] [facility] [address] [place], [place] [address] XR CHEST PA+LAT Observed: 01/13/2018 Status: F [facility] REPOSITORY EXAMINATION: XR CHEST 2 VIEW PA+LATED CLINICAL HISTORY: Chest pain TECHNOLOGISTS NOTE: COMPARISON: Chest radiograph 01/12/2018 FINDINGS: Cardiomediastinal silhouette: Calcifications within the aortic arch. Trachea: No deviation Lungs/Pleura: No focal pulmonary consolidation, effusion or pneumothorax. Musculoskeletal: Unremarkable IMPRESSION: No significant interval change to suggest an acute cardiopulmonary process. MACRO: None CT ABD/PELVIS ED I/V Observed: 01/13/2018 Status: F Source: THE SEE W/ CONTRAST 10:03 PM [facility] REPOSITORY EXAMINATION: CT ABD/PELVIS ED I/V SEE W/ED CLINICAL HISTORY: diffuse abd pain. hx cirrhosis and enlarged liver TECHNOLOGISTS NOTE: COMPARISON: CT abdomen and pelvis 10/18/2017 TECHNIQUE: Contiguous axial images were obtained through the abdomen and pelvis from the level of the diaphragmatic domes through the pubic symphysis following bolus administration of intravenous contrast. MPR sagittal and coronal reconstructions were obtained from the axial data. Before infusion of intravenous contrast, radiology personnel investigated the possibility of an allergic history and of any history of reaction to iodinated contrast material. Contrast Protocol: Omnipaque 350 [>or =100lb] 100 ml [<100 lb] 1 ml per 1 lb. INTRA-PROCEDURE MEDS: Contrast Agent [id number] 100ml Bottle 100 milliliter 01/13/2018 INTRAVENOUS FINDINGS: Included images of the lower thorax: Linear opacities in the lung bases suggestive of scarring and atelectasis. Hepatobiliary: Mild biliary dilation evident. Status post cholecystectomy. Pancreas: Unremarkable. Spleen: Unremarkable. Adrenal Glands: Unremarkable. Kidneys, ureters, and bladder: No hydroureteronephrosis. 2 mm nonobstructing left renal calculus. The bladder is distended. Abdominal and pelvic vasculature: Calcified atherosclerotic disease involving the aorta and its major branches. 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 Moderate amount of stool within the colon most pronounced in the cecum. The appendix is within normal limits Peritoneum and retroperitoneum: No free fluid or free air is noted. Lymph Nodes: Scattered lymph nodes most pronounced in the evi hepatis and portacaval region. Female Uterus and adnexa: Unremarkable. Visualized musculoskeletal structures: Multilevel degenerative changes. Schmorl's node at L1. IMPRESSION: Distended bladder. Suggest correlation with liver laboratory values and if clinical concern persists further evaluation with ultrasound. MACRO: None LIPASE Collected: 01/13/2018 Status: F Source: THE [facility] 7:34 PM SYSTEM REPOSITORY TYPE CODE TESTS RESULT OUT OF RANGE REFERENCE UNITS LAB LIP <128 IU/L LIP 68 Performed By: #### LIP #### [facility] [address] [place] [address], BASIC METABOLIC PANEL Collected: 01/13/2018 Status: F Source: THE [facility] 7:03 PM SYSTEM REPOSITORY TYPE CODE TESTS RESULT OUT OF REFERENCE UNITS RANGE LAB GLU 80-116 mg/dL Low GLU 76 LAB NA3 135-148 mmol/L Low NA 134 LAB POT 3.3-5.3 mmol/L K 4.6 LAB CO2 21-30 mmol/L CO2 24 LAB CHLOR 97-111 mmol/L CL 105 LAB BUN 8-22 mg/dL BUN 11 LAB CREAT 0.50-1.10 mg/dL CREAT 0.62 LAB CA 8.4-10.4 mg/dL CA 9.0 LAB ANION GAP 5-13 ANION GAP 10 LAB eGFR >=60 mL/min/1.73 sqm ESTIMATED GFR 110 (CKD-EPI) Performed By: #### CH8, HEPATIC #### [facility] [address] [place] [address], HEPATIC FUNCTION Collected: 01/13/2018 Status: F Source: THE [facility] PANEL 7:03 PM SYSTEM REPOSITORY TYPE CODE TESTS RESULT OUT OF REFERENCE UNITS RANGE LAB ALB 3.4-5.1 g/dL Low ALB 2.8 LAB DBILI 0.10-0.30 mg/dL High DBIL 0.70 LAB TBILI 0.1-1.5 mg/dL TBIL 1.2 LAB ALKPHOS 40-200 IU/L High ALK 588 LAB ALT2 7-40 IU/L High ALT 122 LAB AST2 7-40 IU/L High AST 161 LAB tp 5.7-8.1 g/dL High TP 8.9 Performed By: #### CH8, HEPATIC #### [facility] [address] [place] [address], COMPLETE BLOOD COUNT Collected: 01/13/2018 Status: F Source: THE [facility] 7:03 PM SYSTEM REPOSITORY TYPE CODE TESTS RESULT OUT OF RANGE REFERENCE UNITS LAB WBC 4.5-11.5 K/uL WBC 5.2 LAB RBC 4.00-5.20 M/uL Low RBC 3.82 LAB HGB 12.0-15.0 g/dL Low HGB 8.8 LAB HCT 36.0-46.0 % Low HCT 28.9 LAB MCV 80-100 fL Low MCV 76 LAB MCH 26.0-34.0 pg Low MCH 23.0 LAB MCHC 32.0-35.9 g/dL Low MCHC 30.4 LAB PLT 150-400 K/uL PLT 182 LAB RDW 11.5-14.5 % High RDW-CV 18.2 LAB MPV 8.5-11.5 MPV Result Comment: Not Measured Performed By: #### CBC #### [facility] [address] [place] [address], URINALYSIS Collected: 01/13/2018 Status: F Source: THE 7:03 PM [facility] SYSTEM REPOSITORY Order Comment: A negative leukocyte esterase AND negative nitrite test or absence of pyuria (urine WBC count <= 5-10) make a UTI (urinary tract infection) very unlikely in a non-neutropenic adult (<=5% likelihood in many studies). A positive leukocyte esterase, nitrite and/or pyuria is a nonspecific result. This can be seen in conditions other than a UTI e.g. asymptomatic bacteriuria, gynecologic infections, sexually transmitted infections, and noninfectious conditions (positive predictive value for UTI around 50%) TYPE CODE TESTS RESULT OUT OF RANGE REFERENCE UNITS LAB UCOLOR Yellow U COLOR Yellow LAB UAPP Clear U APPEAR Clear LAB U PH 5.0-8.0 U PH 7.0 LAB USG U SG 1.020 LAB UPROTEIN Negative mg/dL U PROTEIN Negative LAB U BLOOD Negative U BLOOD Negative LAB URINBILI Negative U BILI Negative LAB U UROBILI 0.1 - 1.0 mg/dL Abnormal U UROBILI 4.0 LAB UKETONE Negative mg/dL U KETONE Negative LAB U LEUK Negative U LEUK Negative LAB UNITR Negative U NITRITE Negative LAB UGLU Negative mg/dL GLUCOSE, Negative URINE Performed By: #### UAC #### [facility] [address] [place] [address], TROPONIN I Collected: 01/13/2018 Status: F Source: [facility] [employer] 1:21 AM SYSTEM REPOSITORY TYPE CODE TESTS RESULT OUT OF RANGE REFERENCE UNITS LAB TROP I <0.120 ng/mL TROP I 0.010 Result Comment: NPV: 96-99% of patients with cTnI values < 0.04 ng/mL were associated with conditions other than myocardial infarction (non-[place]). PPV: 65-73% of patients with cTnI values >= 0.04 ng/mL were diagnosed with [place]. Performed By: #### TROP I #### [facility] [address] [place] [address], POTASSIUM, WHOLE BLOOD Collected: 01/12/2018 Status: F Source: THE 11:13 PM [facility] SYSTEM REPOSITORY TYPE CODE TESTS RESULT OUT OF REFERENCE UNITS RANGE LAB POTWB 3.3-5.3 mmol/L 4.1 POTASSIUM, WHOLE BLOOD Performed By: #### CR K #### [facility] [address] [place] [address], XR CHEST AP OR PA Observed: 01/12/2018 Status: F Source: [facility] [employer] 1 VIEW 9:09 PM SYSTEM REPOSITORY EXAMINATION: XR CHEST 1 VIEW AP OR PA 01/12/2018 9:09 PM CLINICAL HISTORY: eval for fluid overload TECHNOLOGISTS NOTE: COMPARISON: Chest radiograph 12/27/17 FINDINGS: Lines, tubes, and devices: None Lungs and pleura: No consolidation, effusion or pneumothorax. Cardiomediastinal silhouette: Normal cardiomediastinal silhouette Musculoskeletal: Unremarkable IMPRESSION: No significant interval change to suggest an acute cardiopulmonary process. MACRO: None BASIC METABOLIC PANEL Collected: 01/12/2018 Status: F Source: [facility] [employer] 8:36 PM SYSTEM REPOSITORY TYPE CODE TESTS RESULT OUT OF RANGE REFERENCE UNITS LAB GLU 80-116 mg/dL GLU 108 LAB NA3 135-148 mmol/L NA 135 LAB POT 3.3-5.3 mmol/L K 4.4 Result Comment: Hemolysis present LAB CO2 21-30 mmol/L CO2 23 LAB CHLOR 97-111 mmol/L CL 106 LAB BUN 8-22 mg/dL BUN 16 LAB CREAT 0.50-1.10 mg/dL CREAT 0.71 LAB CA 8.4-10.4 mg/dL CA 8.6 LAB ANION GAP 5-13 ANION GAP 10 LAB eGFR >=60 mL/min/1.73sq m ESTIMATED GFR (CKD-EPI) 104 Performed By: #### CH8, TROP I #### [facility] [address] [place] [address], [id number] COMPLETE BLOOD COUNT Collected: 01/12/2018 Status: F Source: [facility] W/DIFF 8:36 PM SYSTEM REPOSITORY TYPE CODE TESTS RESULT OUT OF RANGE REFERENCE UNITS LAB WBC 4.5-11.5 K/uL WBC 5.0 LAB RBC 4.00-5.20 M/uL Low RBC 3.49 LAB HGB 12.0-15.0 g/dL Low HGB 8.1 LAB HCT 36.0-46.0 % Low HCT 25.9 LAB MCV 80-100 fL Low MCV 74 LAB MCH 26.0-34.0 pg Low MCH 23.2 LAB MCHC 32.0-35.9 g/dL Low MCHC 31.3 LAB PLT 150-400 K/uL PLT 207 LAB RDW 11.5-14.5 % High RDW-CV 17.9 LAB MPV 8.5-11.5 MPV Result Comment: Not Measured LAB CPnT 31.0-76.0 % NEUTROPHILS 51.0 LAB CPIY 24.0-44.0 % LYMPHOCYTES 36.9 LAB CPmO 2.0-11.0 % MONOCYTES 7.5 LAB CPeO 0.1-4.0 % EOSINOPHIL 3.8 LAB CPbA <=1.9 % BASOPHILS 0.8 LAB nt 1.50-8.00 K/uL NEUTROPHIL # 2.53 LAB ly 1.00-4.80 K/uL LYMPHOCYTES # 1.83 LAB mo 0.20-1.00 K/uL MONOCYTE # 0.37 LAB eo 0.00-0.70 K/uL EOSINOPHIL # 0.19 LAB ba 0.00-0.20 K/uL BASOPHIL # 0.04 Performed By: #### CBCD #### [facility] [address] [place] [address], B TYPE NATRIURETIC Collected: 01/12/2018 Status: F Source: THE [facility] 8:36 PM [facility] SYSTEM REPOSITORY TYPE CODE TESTS RESULT OUT OF RANGE REFERENCE UNITS LAB BNP <100.0 pg/mL BNP 70.0 Performed By: #### BPL #### [facility] [address] [place] [address], TROPONIN I Collected: 01/12/2018 Status: F Source: THE [facility] 8:36 PM SYSTEM REPOSITORY TYPE CODE TESTS RESULT OUT OF RANGE REFERENCE UNITS LAB TROP I <0.120 ng/mL TROP I 0.003 Result Comment: NPV: 96-99% of patients with cTnI values < 0.04 ng/mL were associated with conditions other than myocardial infarction (non-[place]). PPV: 65-73% of patients with cTnI values >= 0.04 ng/mL were diagnosed with [place]. Performed By: #### CH8, TROP I #### [email or web address] [address] [place] [address], URINALYSIS,AUTO-IN OFFICE Collected: Status: F Source: THE 01/10/2018 10:27 PM [facility] SYSTEM REPOSITORY Order Comment: TEST PERFORMED AT: [facility] [address] [place] [id number] TYPE CODE TESTS RESULT OUT OF RANGE REFERENCE UNITS LAB Color, Urine COLOR, POC Yellow LAB CLARITY CLARITY, POC Clear LAB Ph,urine 5.0-8.0 PH, URINE POC 6.0 LAB SPECIFIC GRAVITY 1.005 - 1.030 SPECIFIC 1.010 GRAVITY, POC LAB PROTEIN Negative PROTEIN, Negative URINE POC LAB GLUCOSE Negative GLUCOSE, Negative URINE POC LAB KETONES Negative KETONES, Negative URINE POC LAB BILIRUBIN Negative BILIRUBIN, Negative URINE POC LAB UROBILINOGEN 0.2 - 1.0 UROBILINOGEN, 1.0 URINE POC LAB BLOOD Negative BLOOD, URINE Negative POC LAB LEUKOCYTES Negative Abnormal LEUKOCYTES, Small URINE POC LAB NITRITES Negative NITRITES, Negative URINE POC Performed By: #### [id number] #### [facility] [address] [place] [address] PROTHROMBIN TIME AND Collected: 01/10/2018 Status: F Source: THE INR 9:22 PM [facility] SYSTEM REPOSITORY TYPE CODE TESTS RESULT OUT OF REFERENCE UNITS RANGE LAB PT PAT 10.0-12.6 sec PROTIME 11.1 LAB INR 0.90-1.10 INR 0.98 Performed By: #### PT #### [facility] [address] [place] [address], URINALYSIS Collected: 01/10/2018 Status: F Source: THE 9:22 PM [facility] SYSTEM REPOSITORY Order Comment: A negative leukocyte esterase AND negative nitrite test or absence of pyuria (urine WBC count <= 5-10) make a UTI (urinary tract infection) very unlikely in a non-neutropenic adult (<=5% likelihood in many studies). A positive leukocyte esterase, nitrite and/or pyuria is a nonspecific result. This can be seen in conditions other than a UTI e.g. asymptomatic bacteriuria, gynecologic infections, sexually transmitted infections, and noninfectious conditions (positive predictive value for UTI around 50%) TYPE CODE TESTS RESULT OUT OF RANGE REFERENCE UNITS LAB UCOLOR Yellow U COLOR Yellow LAB UAPP Clear U APPEAR Hazy LAB U PH 5.0-8.0 U PH 6.0 LAB USG U SG 1.012 LAB UPROTEIN Negative mg/dL U PROTEIN Negative LAB U BLOOD Negative U BLOOD Negative LAB URINBILI Negative U BILI Negative LAB U UROBILI 0.1 - 1.0 mg/dL U Abnormal UROBILI 2.0 LAB UKETONE Negative mg/dL U KETONE Negative LAB U LEUK Negative U Abnormal LEUK Small LAB UNITR Negative U NITRITE Negative LAB UGLU Negative mg/dL GLUCOSE, URINE Negative LAB U WBC 0-2 /HPF U WBC Abnormal 3-5 LAB U RBC 0-2 /HPF U RBC 0-2 LAB U BACTERIA /HPF U BACTERIA Few LAB U MUCOUS U MUCOUS Present LAB ay 0-10 /HPF SQUAMOUS 6-10 EPITHELIAL Performed By: #### UAC #### [facility] [address] [place] [address], BASIC METABOLIC PANEL Collected: 01/10/2018 Status: F Source: THE [facility] 9:22 PM SYSTEM REPOSITORY TYPE CODE TESTS RESULT OUT OF REFERENCE UNITS RANGE LAB GLU 80-116 mg/dL GLU 106 LAB NA3 135-148 mmol/L Low NA 133 LAB POT 3.3-5.3 mmol/L K 4.3 LAB CO2 21-30 mmol/L CO2 22 LAB CHLOR 97-111 mmol/L CL 108 LAB BUN 8-22 mg/dL BUN 12 LAB CREAT 0.50-1.10 mg/dL CREAT 0.65 LAB CA 8.4-10.4 mg/dL CA 8.8 LAB ANION GAP 5-13 ANION GAP 7 LAB eGFR >=60 mL/min/1.73 sqm ESTIMATED GFR 109 (CKD-EPI) Performed By: #### CH8, HEPATIC #### [facility] [address] [place] [address], HEPATIC FUNCTION Collected: 01/10/2018 Status: F Source: THE [facility] PANEL 9:22 PM SYSTEM REPOSITORY TYPE CODE TESTS RESULT OUT OF REFERENCE UNITS RANGE LAB ALB 3.4-5.1 g/dL Low ALB 2.6 LAB DBILI 0.10-0.30 mg/dL High DBIL 0.70 LAB TBILI 0.1-1.5 mg/dL TBIL 1.2 LAB ALKPHOS 40-200 IU/L High ALK 559 LAB ALT2 7-40 IU/L High ALT 115 LAB AST2 7-40 IU/L High AST 159 LAB tp 5.7-8.1 g/dL TP 7.8 Performed By: #### CH8, HEPATIC #### [facility] [address] [place] [address], COMPLETE BLOOD COUNT Collected: 01/10/2018 Status: F Source: THE [facility] W/DIFF 9:22 PM SYSTEM REPOSITORY TYPE CODE TESTS RESULT OUT OF RANGE REFERENCE UNITS LAB WBC 4.5-11.5 K/uL WBC 4.7 LAB RBC 4.00-5.20 M/uL Low RBC 3.41 LAB HGB 12.0-15.0 g/dL Low HGB 8.1 LAB HCT 36.0-46.0 % Low HCT 25.1 LAB MCV 80-100 fL Low MCV 74 LAB MCH 26.0-34.0 pg Low MCH 23.8 LAB MCHC 32.0-35.9 g/dL MCHC 32.3 LAB PLT 150-400 K/uL PLT 236 LAB RDW 11.5-14.5 % High RDW-CV 17.5 LAB MPV 8.5-11.5 MPV Result Comment: Not Measured LAB CPnT 31.0-76.0 % NEUTROPHILS 46.3 LAB CPIY 24.0-44.0 % LYMPHOCYTES 40.8 LAB CPmO 2.0-11.0 % MONOCYTES 6.0 LAB CPeO 0.1-4.0 % EOSINOPHIL High 6.0 LAB CPbA <=1.9 % BASOPHILS 0.9 LAB nt 1.50-8.00 K/uL NEUTROPHIL # 2.17 LAB ly 1.00-4.80 K/uL LYMPHOCYTES # 1.91 LAB mo 0.20-1.00 K/uL MONOCYTE # 0.28 LAB eo 0.00-0.70 K/uL EOSINOPHIL # 0.28 LAB ba 0.00-0.20 K/uL BASOPHIL # 0.04 Performed By: #### CBCD #### [facility] [address] [place] [address], [id number] UA COMPLETE Collected: 01/09/2018 Status: F Source: [facility] 12:10 AM [facility] REPOSITORY Order Comment: CONSERVATION TYPE CODE TESTS RESULT OUT OF RANGE REFERENCE UNITS LAB L600.76576 YELLOW COLOR Abnormal JANET alert LAB L600.26115 CLEAR Normal APPEARANCE CLEAR LAB L600.48581 1.005-1.030 Normal SPEC GRAV 1.029 LAB L600.68049 5.0-8.0 Normal UA PH 5.0 LAB L600.33389 NEGATIVE Normal GLUCOSE NEGATIVE LAB L600.02321 NEGATIVE Normal KETONE NEGATIVE LAB L600.45503 NEGATIVE Abnormal BILIRUBIN 2.0 mg/dL alert LAB L600.43895 NORMAL Abnormal UROBIL 4.0 mg/dL alert LAB L600.62197 NEGATIVE Normal PROTEIN NEGATIVE LAB L600.24340 NEGATIVE Normal BLOOD NEGATIVE LAB L600.27900 mg/dL Normal UA ASC ACID NEGATIVE LAB L600.09291 NEGATIVE Normal NITRITE NEGATIVE LAB L600.51416 NEGATIVE LEUK Abnormal ESTERASE 250 Kevin/uL alert LAB L600.99964 0-5 /HPF WBC Abnormal 6-10 alert LAB L600.69788 0-3 /HPF Normal RBC 0-2 LAB L600.23515 0-10 /HPF EPITH Abnormal CELLS 16-20 alert LAB L600.24953 /LPF Normal MUCUS Trace LAB L600.05072 /HPF Normal CA OXALATE CRY Trace Performed By: #### L600.74851 #### Test performed at: [facility] [address] [address] US LEG BILAT VENOUS Observed: 01/07/2018 Status: F Source: THE [facility] + DOPPLER 9:51 PM SYSTEM REPOSITORY EXAMINATION: US LEG BILAT VENOUS DUPLEXED CLINICAL HISTORY: bilateral leg pain and swelling x1day TECHNOLOGISTS NOTE: rt leg no dvt lt pop fossa echogenic non obstructing strand seen bilat calf vns subvis due to edema COMPARISON: None TECHNIQUE: Ultrasound real time scan with image documentation using a combination of pulse Doppler, color Doppler, and compression B scale techniques, the deep venous system of the bilateral lower extremities were studied from the external iliacs through, to, and including the popliteal and calf veins. FINDINGS: Small amount of echogenic material within the left popliteal vein which is compressible suggestive of chronic deep venous thrombosis. No evidence of deep venous thrombosis is seen in the remainder of the vessels examined bilaterally. Evaluation of the calf vasculature is limited by edema. IMPRESSION: Small amount of echogenic material within the left popliteal vein which is compressible suggestive of chronic deep venous thrombosis. MACRO: None I have reviewed the study and interpretation with the resident and agree with the findings. XR FOOT LEFT Observed: 01/03/2018 Status: F Source: THE [facility] 5:56 PM SYSTEM REPOSITORY EXAMINATION: XR FOOT LEFT 3 VIEWSED CLINICAL HISTORY: recent toe fracture. Someone stepped on foot while wearing post-op shoe and now with pain to all digits and distal metatarsals TECHNOLOGISTS NOTE: COMPARISON: December 28, 2017 FINDINGS: There is evidence of amputation through the first metatarsophalangeal articulation. No significant interval change in position fifth toe. No evidence of recent fracture or dislocation. Slight deformity of proximal phalanx of fifth toe remains unchanged probably from remote trauma. Generalized osteoporosis is noted. Soft tissue swelling of the foot has progressed. IMPRESSION: Progression of soft tissue swelling of the foot. No evidence of recent fracture. MACRO: None XR FOOT LEFT Observed: 12/28/2017 Status: F Source: THE [facility] 11:09 PM SYSTEM REPOSITORY EXAMINATION: XR FOOT LEFT 3 VIEWSED CLINICAL HISTORY: ttp along 4th -5th metatarsals TECHNOLOGISTS NOTE: COMPARISON: None FINDINGS: Minimally displaced fracture at the base of the distal phalanx of the fifth digit with intra-articular extension. Amputation of the phalanges of the first digit. IMPRESSION: Minimally displaced fracture at the base of the distal phalanx of the fifth digit with intra-articular extension. Amputation of the phalanges of the first digit. MACRO: None CT HEAD W/O CONTRAST Observed: 12/27/2017 Status: F Source: THE [facility] 4:23 PM SYSTEM REPOSITORY EXAMINATION: CT HEAD W/OED CLINICAL HISTORY: syncopal episode. hit back of head TECHNOLOGISTS NOTE: COMPARISON: None TECHNIQUE: Thin axial imaging of the head was performed without intravenous contrast. FINDINGS: Acute Findings: No evidence of acute hemorrhage, mass, or infarct. Chronic Changes: There is extensive confluent hypoattenuation in the supratentorial white matter, predominantly in a subcortical distribution. Ventricles and sulci: Mild generalized brain parenchymal volume loss with normal caliber ventricles. Other: The skull, included paranasal sinuses and orbits are unremarkable. IMPRESSION: No acute intracranial injuries. Extensive chronic supratentorial white matter disease. The subcortical-predominant pattern of involvement is atypical for chronic microvascular ischemic disease, and likely the result of other remote insults such as toxic/metabolic injury or demyelination. MACRO: None XR CHEST PA+LAT Observed: 12/27/2017 Status: F Source: THE [facility] 4:21 PM SYSTEM REPOSITORY EXAMINATION: XR CHEST 2 VIEW PA+LATED CLINICAL HISTORY: syncopal episode TECHNOLOGISTS NOTE: COMPARISON: 12/19/2017 FINDINGS: Cardiomediastinal silhouette: Within normal limits of size. Atherosclerotic calcifications are present in the vasculature. Trachea: No deviation Lungs/Pleura: There are increased pulmonary markings at the lung bases, similar to the previous exam. No pneumothorax, pleural effusions or pulmonary edema. Musculoskeletal: The osseus structures are unremarkable. IMPRESSION: Slightly increased pulmonary markings at the lung bases, similar to the previous exam which may be secondary to atelectasis. Cannot exclude infection. MACRO: None PROTHROMBIN TIME AND Collected: 12/27/2017 Status: F Source: THE INR 3:42 PM [facility] SYSTEM REPOSITORY TYPE CODE TESTS RESULT OUT OF REFERENCE UNITS RANGE LAB PT PAT 10.0-12.6 sec PROTIME 11.1 LAB INR 0.90-1.10 INR 0.98 Performed By: #### PT #### [facility] [address] [place] [address], COMPLETE BLOOD COUNT Collected: 12/27/2017 Status: F Source: THE [facility] W/DIFF 3:42 PM SYSTEM REPOSITORY TYPE CODE TESTS RESULT OUT OF RANGE REFERENCE UNITS LAB WBC 4.5-11.5 K/uL WBC 5.8 LAB RBC 4.00-5.20 M/uL Low RBC 3.58 LAB HGB 12.0-15.0 g/dL Low HGB 8.7 LAB HCT 36.0-46.0 % Low HCT 26.9 LAB MCV 80-100 fL Low MCV 75 LAB MCH 26.0-34.0 pg Low MCH 24.3 LAB MCHC 32.0-35.9 g/dL MCHC 32.3 LAB PLT 150-400 K/uL PLT 268 LAB RDW 11.5-14.5 % High RDW-CV 17.7 LAB MPV 8.5-11.5 MPV Result Comment: Not Measured LAB CPnT 31.0-76.0 % NEUTROPHILS 53.9 LAB CPIY 24.0-44.0 % LYMPHOCYTES 32.9 LAB CPmO 2.0-11.0 % MONOCYTES 4.9 LAB CPeO 0.1-4.0 % EOSINOPHIL High 7.1 LAB CPbA <=1.9 % BASOPHILS 1.2 LAB nt 1.50-8.00 K/uL NEUTROPHIL # 3.10 LAB ly 1.00-4.80 K/uL LYMPHOCYTES # 1.89 LAB mo 0.20-1.00 K/uL MONOCYTE # 0.28 LAB eo 0.00-0.70 K/uL EOSINOPHIL # 0.41 LAB ba 0.00-0.20 K/uL BASOPHIL # 0.07 Performed By: #### CBCD, BPL #### [facility] [address] [place], [place], BASIC METABOLIC PANEL Collected: 12/27/2017 Status: F Source: [facility] 3:42 PM SYSTEM REPOSITORY TYPE CODE TESTS RESULT OUT OF REFERENCE UNITS RANGE LAB GLU 80-116 mg/dL GLU 83 LAB NA3 135-148 mmol/L NA 135 LAB POT 3.3-5.3 mmol/L K 3.5 LAB CO2 21-30 mmol/L CO2 26 LAB CHLOR 97-111 mmol/L CL 105 LAB BUN 8-22 mg/dL BUN 12 LAB CREAT 0.50-1.10 mg/dL CREAT 0.63 LAB CA 8.4-10.4 mg/dL CA 8.7 LAB ANION GAP 5-13 ANION GAP 8 LAB eGFR >=60 mL/min/1.73 sqm ESTIMATED GFR 110 (CKD-EPI) Performed By: #### CH8, HEPATIC, MG, CK, GGT #### [facility] [address] [place] [address], HEPATIC FUNCTION Collected: 12/27/2017 Status: F Source: THE [facility] PANEL 3:42 PM SYSTEM REPOSITORY TYPE CODE TESTS RESULT OUT OF REFERENCE UNITS RANGE LAB ALB 3.4-5.1 g/dL Low ALB 2.8 LAB DBILI 0.10-0.30 mg/dL High DBIL 0.70 LAB TBILI 0.1-1.5 mg/dL TBIL 1.3 LAB ALKPHOS 40-200 IU/L High ALK 618 LAB ALT2 7-40 IU/L High ALT 103 LAB AST2 7-40 IU/L High AST 146 LAB tp 5.7-8.1 g/dL High TP 8.9 Performed By: #### CH8, HEPATIC, MG, CK, GGT #### [facility] [address] [place] [address], MAGNESIUM Collected: 12/27/2017 Status: F Source: [facility] 3:42 PM SYSTEM REPOSITORY TYPE CODE TESTS RESULT OUT OF RANGE REFERENCE UNITS LAB mag 1.6-2.8 mg/dL MG 1.8 Performed By: #### CH8, HEPATIC, MG, CK, GGT #### [facility] [address] [place] [address], B TYPE NATRIURETIC Collected: 12/27/2017 Status: F Source: THE [place] 3:42 PM [facility] REPOSITORY TYPE CODE TESTS RESULT OUT OF RANGE REFERENCE UNITS LAB BNP <100.0 pg/mL BNP 36.0 Performed By: #### CBCD, BPL #### [facility] [address] [place] [address], CREATINE KINASE Collected: 12/27/2017 Status: F [facility] REPOS[facility]ORY TYPE CODE TESTS RESULT OUT OF REFERENCE UNITS RANGE LAB dC 57-374 IU/L CREATINE 93 KINASE Performed By: #### CH8, HEPATIC, MG, CK, GGT #### [facility] [address] [place], [id number] GAMMA GLUTAMYL Collected: 12/27/2017 Status: F Source: THE TRANSPEPTIDASE 3:42 PM [facility] REPOSITORY TYPE CODE TESTS RESULT OUT OF RANGE REFERENCE UNITS LAB GGT 3-30 IU/L High GGT 652 Performed By: #### CH8, HEPATIC, MG, CK, GGT #### [facility] [address] [place], [id number] COMPLETE BLOOD COUNT Collected: 12/20/2017 Status: F Source: THE [facility] W/DIFF 10:33 PM SYSTEM REPOSITORY TYPE CODE TESTS RESULT OUT OF REFERENCE UNITS RANGE LAB WBC 4.5-11.5 K/uL WBC 5.9 LAB RBC 4.00-5.20 M/uL Low RBC 3.31 LAB HGB 12.0-15.0 g/dL Low HGB 8.0 LAB HCT 36.0-46.0 % Low HCT 24.8 LAB MCV 80-100 fL Low MCV 75 LAB MCH 26.0-34.0 pg Low MCH 24.2 LAB MCHC 32.0-35.9 g/dL MCHC 32.3 LAB PLT 150-400 K/uL PLT 284 LAB RDW 11.5-14.5 % RDW-CV High 17.4 LAB MPV 8.5-11.5 fL MPV 10.2 LAB CPnT 31.0-76.0 % NEUTROPHILS 47.1 LAB CPIY 24.0-44.0 % LYMPHOCYTES 42.6 LAB CPmO 2.0-11.0 % MONOCYTES 7.1 LAB CPeO 0.1-4.0 % EOSINOPHIL 2.9 LAB CPbA <=1.9 % BASOPHILS 0.3 LAB nt 1.50-8.00 K/uL NEUTROPHIL # 2.80 LAB ly 1.00-4.80 K/uL LYMPHOCYTES # 2.53 LAB mo 0.20-1.00 K/uL MONOCYTE # 0.42 LAB eo 0.00-0.70 K/uL EOSINOPHIL # 0.17 LAB ba 0.00-0.20 K/uL BASOPHIL # 0.02 Performed By: #### CBCD #### [facility] [address], [place], BASIC METABOLIC PANEL Collected: 12/20/2017 Status: F Source: [facility] 10:33 PM SYSTEM REPOSITORY TYPE CODE TESTS RESULT OUT OF REFERENCE UNITS RANGE LAB GLU 80-116 mg/dL GLU 98 LAB NA3 135-148 mmol/L Low NA 134 LAB POT 3.3-5.3 mmol/L K 4.0 LAB CO2 21-30 mmol/L CO2 22 LAB CHLOR 97-111 mmol/L CL 107 LAB BUN 8-22 mg/dL BUN 15 LAB CREAT 0.50-1.10 mg/dL Low CREAT 0.47 LAB CA 8.4-10.4 mg/dL CA 8.6 LAB ANION GAP 5-13 ANION GAP 9 LAB eGFR >=60 mL/min/1.73 sqm ESTIMATED GFR 121 (CKD-EPI) Performed By: #### CH8 #### [facility] [address] [place] [address], XR CHEST PA+LAT Observed: 12/19/2017 Status: F Source: [facility] 8:23 PM SYSTEM REPOSITORY EXAMINATION: XR CHEST 2 VIEW PA+LATED 12/19/2017 8:23 PM Accession number(s) [id number] December 19, 2017 2009 hours Female 62 years TECHNOLOGISTS NOTE: 2 Additional clinical history obtained: None CLINICAL HISTORY: SOB COMPARISON: December 15, 2017 2057 hours CORRELATION: None Presented on 12/19/2017 9:15 PM EDT FINDINGS: PA and lateral chest radiographs are presented. The trachea, mediastinum and heart appear within normal limits. There is minimal right basilar atelectasis and/or infiltrate. No gross evidence of pneumothorax. Calcifications are seen in the aortic arch. The skeletal structures appear unchanged. IMPRESSION: Minimal right basilar atelectasis and/or infiltrate. Clinical correlation and follow-up suggested. MACRO: None I have reviewed the study and interpretation with the resident and agree with the findings. URINALYSIS,AUTO-IN OFFICE Collected: Status: F Source: THE 12/18/2017 5:29 AM [facility] [employer] SYSTEM REPOSITORY Order Comment: TEST PERFORMED AT: [facility] [address] [place] [address] [place], [place] [address] TYPE CODE TESTS RESULT OUT OF RANGE REFERENCE UNITS LAB Color, Urine COLOR, POC Yellow LAB CLARITY CLARITY, POC Clear LAB Ph,urine 5.0-8.0 PH, URINE POC 5.5 LAB SPECIFIC GRAVITY 1.005 - 1.030 SPECIFIC >=1.030 GRAVITY, POC LAB PROTEIN Negative PROTEIN, Negative URINE POC LAB GLUCOSE Negative GLUCOSE, Negative URINE POC LAB KETONES Negative Abnormal KETONES, Trace URINE POC LAB BILIRUBIN Negative Abnormal BILIRUBIN, Positive URINE POC LAB UROBILINOGEN 0.2 - 1.0 Abnormal UROBILINOGEN, 2.0 URINE POC LAB BLOOD Negative BLOOD, URINE Negative POC LAB LEUKOCYTES Negative LEUKOCYTES, Negative URINE POC LAB NITRITES Negative NITRITES, Negative URINE POC Performed By: #### [id number] #### [facility] [address] [place] [address] URINALYSIS Collected: 12/18/2017 Status: F Source: THE 4:36 AM [employer] SYSTEM REPOSITORY Order Comment: A negative leukocyte esterase AND negative nitrite test or absence of pyuria (urine WBC count <= 5-10) make a UTI (urinary tract infection) very unlikely in a non-neutropenic adult (<=5% likelihood in many studies). A positive leukocyte esterase, nitrite and/or pyuria is a nonspecific result. This can be seen in conditions other than a UTI e.g. asymptomatic bacteriuria, gynecologic infections, sexually transmitted infections, and noninfectious conditions (positive predictive value for UTI around 50%) TYPE CODE TESTS RESULT OUT OF RANGE REFERENCE UNITS LAB UCOLOR Yellow U COLOR Janet LAB UAPP Clear U APPEAR Clear LAB U PH 5.0-8.0 U PH 5.0 LAB USG U SG 1.029 LAB UPROTEIN Negative mg/dL U PROTEIN Negative LAB U BLOOD Negative U BLOOD Negative LAB URINBILI Negative U BILI Negative LAB U UROBILI 0.1 - 1.0 mg/dL Abnormal U UROBILI 4.0 LAB UKETONE Negative mg/dL U KETONE Negative LAB U LEUK Negative U LEUK Negative LAB UNITR Negative U NITRITE Negative LAB UGLU Negative mg/dL GLUCOSE, Negative URINE Performed By: #### UAC #### [facility] [address] [place] [address], URINALYSIS,AUTO-IN OFFICE Collected: Status: F Source: THE 12/16/2017 3:00 AM [employer] SYSTEM REPOSITORY Order Comment: TEST PERFORMED AT: [facility] [address] [place] [address] [place], [place] [address] TYPE CODE TESTS RESULT OUT OF RANGE REFERENCE UNITS LAB Color, Urine COLOR, POC Yellow LAB CLARITY CLARITY, POC Clear LAB Ph,urine 5.0-8.0 PH, URINE POC 7.0 LAB SPECIFIC GRAVITY 1.005 - 1.030 SPECIFIC 1.015 GRAVITY, POC LAB PROTEIN Negative PROTEIN, Negative URINE POC LAB GLUCOSE Negative GLUCOSE, Negative URINE POC LAB KETONES Negative KETONES, Negative URINE POC LAB BILIRUBIN Negative BILIRUBIN, Negative URINE POC LAB UROBILINOGEN 0.2 - 1.0 UROBILINOGEN, 0.2 URINE POC LAB BLOOD Negative BLOOD, URINE Negative POC LAB LEUKOCYTES Negative Abnormal LEUKOCYTES, Trace URINE POC LAB NITRITES Negative NITRITES, Negative URINE POC Performed By: #### [id number] #### [facility] [address] [facility] [address] [place], [place] [address] URINALYSIS Collected: 12/15/2017 Status: F Source: THE 10:04 PM [facility] SYSTEM REPOSITORY Order Comment: A negative leukocyte esterase AND negative nitrite test or absence of pyuria (urine WBC count <= 5-10) make a UTI (urinary tract infection) very unlikely in a non-neutropenic adult (<=5% likelihood in many studies). A positive leukocyte esterase, nitrite and/or pyuria is a nonspecific result. This can be seen in conditions other than a UTI e.g. asymptomatic bacteriuria, gynecologic infections, sexually transmitted infections, and noninfectious conditions (positive predictive value for UTI around 50%) TYPE CODE TESTS RESULT OUT OF RANGE REFERENCE UNITS LAB UCOLOR Yellow U COLOR Yellow LAB UAPP Clear U APPEAR Hazy LAB U PH 5.0-8.0 U PH 7.0 LAB USG U SG 1.005 LAB UPROTEIN Negative mg/dL U PROTEIN Negative LAB U BLOOD Negative U BLOOD Negative LAB URINBILI Negative U BILI Negative LAB U UROBILI 0.1 - 1.0 mg/dL U UROBILI Negative LAB UKETONE Negative mg/dL U KETONE Negative LAB U LEUK Negative U Abnormal LEUK Trace LAB UNITR Negative U NITRITE Negative LAB UGLU Negative mg/dL GLUCOSE, URINE Negative LAB U WBC 0-2 /HPF U WBC 0-2 LAB U RBC 0-2 /HPF U RBC 0-2 LAB U BACTERIA /HPF U BACTERIA Few LAB ay 0-10 /HPF SQUAMOUS 3-5 EPITHELIAL Performed By: #### UAC #### [facility] [address] [place] [address], XR CHEST PA+LAT Observed: 12/15/2017 Status: F Source: THE [employer] 9:07 PM SYSTEM REPOSITORY EXAMINATION: XR CHEST 2 VIEW PA+LATED CLINICAL HISTORY: Chest pain TECHNOLOGISTS NOTE: COMPARISON: Chest radiograph 12/05/2017 FINDINGS: Cardiomediastinal silhouette: Calcifications within the aortic arch. Trachea: No deviation Lungs/Pleura: No focal pulmonary consolidation, effusion or pneumothorax. Musculoskeletal: The osseus structures are unremarkable. IMPRESSION: No acute cardiopulmonary process. MACRO: None BASIC METABOLIC PANEL Collected: 12/15/2017 Status: F Source: THE [employer] 8:40 PM SYSTEM REPOSITORY TYPE CODE TESTS RESULT OUT OF REFERENCE UNITS RANGE LAB GLU 80-116 mg/dL GLU 88 LAB NA3 135-148 mmol/L Low NA 131 LAB POT 3.3-5.3 mmol/L K 4.1 LAB CO2 21-30 mmol/L CO2 23 LAB CHLOR 97-111 mmol/L CL 103 LAB BUN 8-22 mg/dL BUN 8 LAB CREAT 0.50-1.10 mg/dL CREAT 0.58 LAB CA 8.4-10.4 mg/dL CA 8.7 LAB ANION GAP 5-13 ANION GAP 9 LAB eGFR >=60 mL/min/1.73 sqm ESTIMATED GFR 113 (CKD-EPI) Performed By: #### CH8, LIP, HEPATIC #### [facility] [address] [place] [address], LIPASE Collected: 12/15/2017 Status: F Source: THE [employer] 8:40 PM SYSTEM REPOSITORY TYPE CODE TESTS RESULT OUT OF RANGE REFERENCE UNITS LAB LIP <128 IU/L LIP 75 Performed By: #### CH8, LIP, HEPATIC #### [facility] [address] [place] [address], HEPATIC FUNCTION Collected: 12/15/2017 Status: F Source: THE [employer] 8:40 PM SYSTEM REPOSITORY TYPE CODE TESTS RESULT OUT OF REFERENCE UNITS RANGE LAB ALB 3.4-5.1 g/dL Low ALB 3.0 LAB DBILI 0.10-0.30 mg/dL High DBIL 0.80 LAB TBILI 0.1-1.5 mg/dL TBIL 1.5 LAB ALKPHOS 40-200 IU/L High ALK 727 LAB ALT2 7-40 IU/L High ALT 145 LAB AST2 7-40 IU/L High AST 176 LAB tp 5.7-8.1 g/dL High TP 9.5 Performed By: #### CH8, LIP, HEPATIC #### [facility] [address] [place], [address] COMPLETE BLOOD COUNT Collected: 12/15/2017 Status: C Source: [facility] W/DIFF 8:34 PM SYSTEM REPOSITORY TYPE CODE TESTS RESULT OUT OF REFERENCE UNITS RANGE LAB WBC 4.5-11.5 K/uL WBC 5.8 LAB RBC 4.00-5.20 M/uL Low RBC 3.93 LAB HGB 12.0-15.0 g/dL Low HGB 9.6 LAB HCT 36.0-46.0 % Low HCT 29.8 LAB MCV 80-100 fL Low MCV 76 LAB MCH 26.0-34.0 pg Low MCH 24.4 LAB MCHC 32.0-35.9 g/dL MCHC 32.2 LAB PLT 150-400 K/uL PLT 295 LAB RDW 11.5-14.5 % RDW-CV High 17.2 LAB MPV 8.5-11.5 fL MPV High 11.8 LAB CPnT 31.0-76.0 % NEUTROPHILS 49.5 LAB CPIY 24.0-44.0 % LYMPHOCYTES 40.3 LAB CPmO 2.0-11.0 % MONOCYTES 5.7 LAB CPeO 0.1-4.0 % EOSINOPHIL 3.6 LAB CPbA <=1.9 % BASOPHILS 0.9 LAB nt 1.50-8.00 K/uL NEUTROPHIL # 2.89 LAB ly 1.00-4.80 K/uL LYMPHOCYTES # 2.35 LAB mo 0.20-1.00 K/uL MONOCYTE # 0.33 LAB eo 0.00-0.70 K/uL EOSINOPHIL # 0.21 LAB ba 0.00-0.20 K/uL BASOPHIL # 0.05 LAB de AGRANULAR PLATELETS Present Result Comment: This is a corrected result. Previous result on 12/15/2017 at 2132 EDT was <null> LAB QJ RBC MORPHOLOGY See Below Result Comment: This is a corrected result. Previous result on 12/15/2017 at 2132 EDT was <null> LAB HY HYPOCHROMASIA Slight Result Comment: This is a corrected result. Previous result on 12/15/2017 at 213 EDT was <null> LAB POLYC POLYCHROMASIA Slight Result Comment: This is a corrected result. Previous result on 12/15/2017 at 2131 EDT was <null> LAB by [employer] Few Result Comment: This is a corrected result. Previous result on 12/15/2017 at 2131 EDT was <null> Performed By: #### CBCD #### [facility] [address] [place], [address] XR CHEST PA+LAT Observed: 12/05/2017 Status: F Source: THE [employer] 8:05 PM SYSTEM REPOSITORY EXAMINATION: XR CHEST 2 VIEW PA+LATED 12/05/2017 8:05 PM Accession number(s) [id number] December 05, 2017 1957 hours Female 62 years TECHNOLOGISTS NOTE: 2 Additional clinical history obtained: None CLINICAL HISTORY: Chest pain COMPARISON: November 16, 2017 2330 hours CORRELATION: None Presented on 12/05/2017 9:02 PM EDT FINDINGS: PA and lateral chest radiographs are presented. Less rotated to the right. The trachea, mediastinum and heart appear within normal limits. The lungs are clear of acute infiltrates. Minimal atelectasis or scarring remains at the right lower lung field in the region of the right middle lobe. No gross evidence of pneumothorax. Calcifications are seen in the aortic arch. The skeletal structures are grossly intact and unchanged. IMPRESSION: No acute disease. No significant change. MACRO: None I have reviewed the study and interpretation with the resident and agree with the findings. BASIC METABOLIC PANEL Collected: 12/05/2017 Status: F Source: THE [employer] 7:33 PM SYSTEM REPOSITORY TYPE CODE TESTS RESULT OUT OF RANGE REFERENCE UNITS LAB GLU 80-116 mg/dL Low GLU 77 LAB NA3 135-148 mmol/L Low NA 133 LAB POT 3.3-5.3 mmol/L K 4.7 Result Comment: Hemolysis present LAB CO2 21-30 mmol/L CO2 26 LAB CHLOR 97-111 mmol/L CL 103 LAB BUN 8-22 mg/dL BUN 11 LAB CREAT 0.50-1.10 mg/dL CREAT 0.54 LAB CA 8.4-10.4 mg/dL CA 8.9 LAB ANION GAP 5-13 ANION GAP 9 LAB eGFR >=60 mL/min/1.73sq m ESTIMATED GFR (CKD-EPI) 115 Performed By: #### CH8 #### [facility] [address] [place] [address], COMPLETE BLOOD COUNT Collected: 12/05/2017 Status: F Source: [facility] W/DIFF 7:33 PM SYSTEM REPOSITORY TYPE CODE TESTS RESULT OUT OF RANGE REFERENCE UNITS LAB WBC 4.5-11.5 K/uL WBC 6.0 LAB RBC 4.00-5.20 M/uL Low RBC 3.86 LAB HGB 12.0-15.0 g/dL Low HGB 9.4 LAB HCT 36.0-46.0 % Low HCT 29.4 LAB MCV 80-100 fL Low MCV 76 LAB MCH 26.0-34.0 pg Low MCH 24.4 LAB MCHC 32.0-35.9 g/dL MCHC 32.0 LAB PLT 150-400 K/uL PLT 271 LAB RDW 11.5-14.5 % High RDW-CV 17.4 LAB MPV 8.5-11.5 MPV Result Comment: Not Measured LAB CPnT 31.0-76.0 % NEUTROPHILS 57.1 LAB CPIY 24.0-44.0 % LYMPHOCYTES 32.4 LAB CPmO 2.0-11.0 % MONOCYTES 6.5 LAB CPeO 0.1-4.0 % EOSINOPHIL 3.2 LAB CPbA <=1.9 % BASOPHILS 0.8 LAB nt 1.50-8.00 K/uL NEUTROPHIL # 3.43 LAB ly 1.00-4.80 K/uL LYMPHOCYTES # 1.95 LAB mo 0.20-1.00 K/uL MONOCYTE # 0.39 LAB eo 0.00-0.70 K/uL EOSINOPHIL # 0.19 LAB ba 0.00-0.20 K/uL BASOPHIL # 0.05 LAB CPnR NUCLEATED RBC 0 LAB NRBCCNT K/uL NUCLEATED RBC # 0.00 Performed By: #### CBCD #### [facility] [address], [place], INFLUENZA/RSV,RAPID PCR Collected: Status: F Source: THE 11/30/2017 10:59 PM [facility] REPOSIT[facility] Order Comment: A Not Detected result does not preclude Influenza A, Influenza B, or RSV infection and should not be used as the sole basis for treatment or other patient management decisions. Results should be interp reted in conjunction with other laboratory and clinical data. TYPE CODE TESTS RESULT OUT OF REFERENCE UNITS RANGE LAB INFLUENZAA Not Detected INFLUENZA A Not Detected LAB INFLUENZAB Not Detected INFLUENZA B Not Detected LAB RSVV Not Detected RSV Not Detected Performed By: #### FLRSV #### [facility] [address], [place], URINALYSIS,AUTO-IN OFFICE Collected: Status: F Source: THE 11/17/2017 2:19 AM [employer] SYSTEM REPOSITORY Order Comment: TEST PERFORMED AT: [facility] [address] [place] [address] [place] [address] TYPE CODE TESTS RESULT OUT OF RANGE REFERENCE UNITS LAB Color, Urine COLOR, POC Yellow LAB CLARITY CLARITY, POC Clear LAB Ph,urine 5.0-8.0 PH, URINE POC 6.5 LAB SPECIFIC GRAVITY 1.005 - 1.030 SPECIFIC 1.020 GRAVITY, POC LAB PROTEIN Negative PROTEIN, Negative URINE POC LAB GLUCOSE Negative GLUCOSE, Negative URINE POC LAB KETONES Negative KETONES, Negative URINE POC LAB BILIRUBIN Negative BILIRUBIN, Negative URINE POC LAB UROBILINOGEN 0.2 - 1.0 UROBILINOGEN, 1.0 URINE POC LAB BLOOD Negative Abnormal BLOOD, URINE Trace POC LAB LEUKOCYTES Negative Abnormal LEUKOCYTES, Trace URINE POC LAB NITRITES Negative NITRITES, Negative URINE POC Performed By: #### [id number] #### [facility] [address] [place] [address] [place], [place] XR CHEST PA+LAT Observed: 11/16/2017 Status: F Source: THE [employer] 11:36 PM SYSTEM REPOSITORY EXAMINATION: XR CHEST 2 VIEW PA+LATED CLINICAL HISTORY: cough TECHNOLOGISTS NOTE: COMPARISON: Multiple prior studies, the most recent of which are dated October 07, 2017, October 18, 2017 FINDINGS: Mild atherosclerotic vascular calcification is seen. The cardiac silhouette is unremarkable. Mild atelectasis is noted in the right lung base. No confluent infiltrate, pleural effusion, or pneumothorax. The osseous structures are unchanged. Surgical clips overlie the right upper quadrant.. IMPRESSION: Mild atelectasis in the right lung base. MACRO: None PROTHROMBIN TIME AND Collected: 11/16/2017 Status: F Source: THE INR 10:56 PM [facility] REPOSITORY TYPE CODE TESTS RESULT OUT OF REFERENCE UNITS RANGE LAB PT PAT 10.0-12.6 sec PROTIME 11.0 LAB INR 0.90-1.10 INR 0.97 Performed By: #### PT, APTT #### [facility] [address], [place], PARTIAL THROMBOPLASTIN Collected: 11/16/2017 Status: F Source: THE TIME 10:56 PM [facility] RE[facility] TYPE CODE TESTS RESULT OUT OF RANGE REFERENCE UNITS LAB APTT 24-37 sec APTT 34 Performed By: #### PT, APTT #### [facility] [address], [place], COMPLETE BLOOD COUNT Collected: 11/16/2017 Status: F Source: [facility] W/DIFF 10:56 PM SYSTEM REPOSITORY TYPE CODE TESTS RESULT OUT OF REFERENCE UNITS RANGE LAB WBC 4.5-11.5 K/uL WBC 5.8 LAB RBC 4.00-5.20 M/uL RBC Low 3.35 LAB HGB 12.0-15.0 g/dL HGB Low 8.3 LAB HCT 36.0-46.0 % HCT Low 25.5 LAB MCV 80-100 fL MCV Low 76 LAB MCH 26.0-34.0 pg MCH Low 24.8 LAB MCHC 32.0-35.9 g/dL MCHC 32.5 LAB PLT 150-400 K/uL PLT 291 LAB RDW 11.5-14.5 % RDW-CV High 18.8 LAB MPV 8.5-11.5 fL MPV High 12.0 LAB CPnT 31.0-76.0 % NEUTROPHILS 51.0 LAB CPIY 24.0-44.0 % LYMPHOCYTES 38.4 LAB CPmO 2.0-11.0 % MONOCYTES 7.0 LAB CPeO 0.1-4.0 % EOSINOPHIL 3.1 LAB CPbA <=1.9 % BASOPHILS 0.5 LAB nt 1.50-8.00 K/uL NEUTROPHIL # 2.98 LAB ly 1.00-4.80 K/uL LYMPHOCYTES # 2.24 LAB mo 0.20-1.00 K/uL MONOCYTE # 0.41 LAB eo 0.00-0.70 K/uL EOSINOPHIL # 0.18 LAB ba 0.00-0.20 K/uL BASOPHIL # 0.03 LAB CPnR NUCLEATED RBC 0 LAB NRBCCNT K/uL NUCLEATED RBC # 0.00 Performed By: #### CBCD #### [facility] [address] [place] [address], BASIC METABOLIC PANEL Collected: 11/16/2017 Status: F Source: [facility] 10:56 PM SYSTEM REPOSITORY TYPE CODE TESTS RESULT OUT OF RANGE REFERENCE UNITS LAB GLU 80-116 mg/dL High GLU 117 LAB NA3 135-148 mmol/L NA 137 LAB POT 3.3-5.3 mmol/L High K 5.5 Result Comment: Hemolysis present LAB CO2 21-30 mmol/L CO2 24 LAB CHLOR 97-111 mmol/L CL 107 LAB BUN 8-22 mg/dL BUN 8 LAB CREAT 0.50-1.10 mg/dL CREAT 0.56 LAB CA 8.4-10.4 mg/dL CA 8.6 LAB ANION GAP 5-13 ANION GAP 12 LAB eGFR >=60 mL/min/1.73sq m ESTIMATED GFR (CKD-EPI) 114 Performed By: #### CH8, HEPATIC, LIP, MG #### [facility] [address] [place] [address], HEPATIC FUNCTION Collected: 11/16/2017 Status: F Source: [facility] PANEL 10:56 PM SYSTEM REPOSITORY TYPE CODE TESTS RESULT OUT OF REFERENCE UNITS RANGE LAB ALB 3.4-5.1 g/dL Low ALB 2.9 LAB DBILI 0.10-0.30 mg/dL High DBIL 1.20 LAB TBILI 0.1-1.5 mg/dL High TBIL 2.4 LAB ALKPHOS 40-200 IU/L High ALK 664 LAB ALT2 7-40 IU/L High ALT 116 LAB AST2 7-40 IU/L High AST 160 Result Comment: Hemolysis present LAB tp 5.7-8.1 g/dL TP 8.1 Performed By: #### CH8, HEPATIC, LIP, MG #### [facility] [address] [place] [address], LIPASE Collected: 11/16/2017 Status: F Source: [facility] 10:56 PM SYSTEM REPOSITORY TYPE CODE TESTS RESULT OUT OF RANGE REFERENCE UNITS LAB LIP <128 IU/L LIP 67 Performed By: #### CH8, HEPATIC, LIP, MG #### [facility] [address], [place], MAGNESIUM Collected: 11/16/2017 Status: F Source: [facility] 10:56 PM SYSTEM REPOSITORY TYPE CODE TESTS RESULT OUT OF RANGE REFERENCE UNITS LAB mag 1.6-2.8 mg/dL MG 2.1 Result Comment: Hemolysis present Performed By: #### CH8, HEPATIC, LIP, MG #### [facility] [address], [place], URINALYSIS Collected: 11/16/2017 Status: F Source: THE 10:56 PM [facility] SYSTEM REPOSITORY Order Comment: A negative leukocyte esterase AND negative nitrite test or absence of pyuria (urine WBC count <= 5-10) make a UTI (urinary tract infection) very unlikely in a non-neutropenic adult (<=5% likelihood in many studies). A positive leukocyte esterase, nitrite and/or pyuria is a nonspecific result. This can be seen in conditions other than a UTI e.g. asymptomatic bacteriuria, gynecologic infections, sexually transmitted infections, and noninfectious conditions (positive predictive value for UTI around 50%) TYPE CODE TESTS RESULT OUT OF RANGE REFERENCE UNITS LAB UCOLOR Yellow U COLOR Yellow LAB UAPP Clear U APPEAR Hazy LAB U PH 5.0-8.0 U PH 6.0 LAB USG U SG 1.014 LAB UPROTEIN Negative mg/dL U PROTEIN Negative LAB U BLOOD Negative U BLOOD Negative LAB URINBILI Negative U BILI Negative LAB U UROBILI 0.1 - 1.0 mg/dL U Abnormal UROBILI 4.0 LAB UKETONE Negative mg/dL U KETONE Negative LAB U LEUK Negative U Abnormal LEUK Trace LAB UNITR Negative U NITRITE Negative LAB UGLU Negative mg/dL GLUCOSE, URINE Negative LAB U WBC 0-2 /HPF U WBC 0-2 LAB U RBC 0-2 /HPF U RBC Abnormal 3-5 LAB U BACTERIA /HPF U BACTERIA Few LAB ay 0-10 /HPF SQUAMOUS 0-2 EPITHELIAL Performed By: #### UAC #### [facility] [address], [place], XR ABDOMEN AP Observed: 11/14/2017 Status: F Source: [facility] 5:27 AM SYSTEM REPOSITORY EXAMINATION: XR ABDOMEN 1 VIEW APED CLINICAL HISTORY: Abdominal Pain/Constipation TECHNOLOGISTS NOTE: COMPARISON: CT abdomen and pelvis October 18, 2017 FINDINGS: Stool is present throughout the most of the colon including a large amount of stool in the descending and sigmoid colon. No abnormally dilated small bowel loops are visible. No pneumatosis is identified. Right upper quadrant cholecystectomy clips are noted. The osseous structures are unremarkable. Pelvic phleboliths are present. The lung bases are clear. IMPRESSION: Moderate to large amount stool in the colon suspicious for constipation. MACRO: None I have reviewed the study and interpretation with the resident and agree with the findings. COMPLETE BLOOD COUNT Collected: 11/14/2017 Status: F Source: [facility] W/DIFF 3:11 AM SYSTEM REPOSITORY TYPE CODE TESTS RESULT OUT OF REFERENCE UNITS RANGE LAB WBC 4.5-11.5 K/uL WBC 6.0 LAB RBC 4.00-5.20 M/uL Low RBC 3.69 LAB HGB 12.0-15.0 g/dL Low HGB 9.0 LAB HCT 36.0-46.0 % Low HCT 28.3 LAB MCV 80-100 fL Low MCV 77 LAB MCH 26.0-34.0 pg Low MCH 24.4 LAB MCHC 32.0-35.9 g/dL Low MCHC 31.8 LAB PLT 150-400 K/uL PLT 332 LAB RDW 11.5-14.5 % RDW-CV High 18.1 LAB MPV 8.5-11.5 fL MPV 11.1 LAB CPnT 31.0-76.0 % NEUTROPHILS 44.4 LAB CPIY 24.0-44.0 % LYMPHOCYTES 43.9 LAB CPmO 2.0-11.0 % MONOCYTES 7.0 LAB CPeO 0.1-4.0 % EOSINOPHIL 3.7 LAB CPbA <=1.9 % BASOPHILS 1.0 LAB nt 1.50-8.00 K/uL NEUTROPHIL # 2.68 LAB ly 1.00-4.80 K/uL LYMPHOCYTES # 2.64 LAB mo 0.20-1.00 K/uL MONOCYTE # 0.42 LAB eo 0.00-0.70 K/uL EOSINOPHIL # 0.22 LAB ba 0.00-0.20 K/uL BASOPHIL # 0.06 Performed By: #### CBCD #### [facility] [address] [place] [address], [id number] BASIC METABOLIC PANEL Collected: 11/14/2017 Status: F [facility] 3[facility]11 AM SYSTEM REPOSITORY TYPE CODE TESTS RESULT OUT OF REFERENCE UNITS RANGE LAB GLU 80-116 mg/dL GLU 93 LAB NA3 135-148 mmol/L NA 135 LAB POT 3.3-5.3 mmol/L K 4.0 LAB CO2 21-30 mmol/L CO2 25 LAB CHLOR 97-111 mmol/L CL 107 LAB BUN 8-22 mg/dL BUN 9 LAB CREAT 0.50-1.10 mg/dL Low CREAT 0.47 LAB CA 8.4-10.4 mg/dL CA 9.1 LAB ANION GAP 5-13 ANION GAP 7 LAB eGFR >=60 mL/min/1.73 sqm ESTIMATED GFR 121 (CKD-EPI) Performed By: #### CH8, LIP, HEPATIC, MG #### [facility] [address] [place] [address], LIPASE Collected: 11/14/2017 Status: F Source: [facility] 3:11 AM SYSTEM REPOSITORY TYPE CODE TESTS RESULT OUT OF RANGE REFERENCE UNITS LAB LIP <128 IU/L LIP 68 Performed By: #### CH8, LIP, HEPATIC, MG #### [facility] [address] [place] [address], HEPATIC FUNCTION Collected: 11/14/2017 Status: F Source: [facility] PANEL 3:11 AM SYSTEM REPOSITORY TYPE CODE TESTS RESULT OUT OF REFERENCE UNITS RANGE LAB ALB 3.4-5.1 g/dL Low ALB 3.0 LAB DBILI 0.10-0.30 mg/dL High DBIL 1.10 LAB TBILI 0.1-1.5 mg/dL High TBIL 2.0 LAB ALKPHOS 40-200 IU/L High ALK 766 LAB ALT2 7-40 IU/L High ALT 117 LAB AST2 7-40 IU/L High AST 153 LAB tp 5.7-8.1 g/dL High TP 8.2 Performed By: #### CH8, LIP, HEPATIC, MG #### [facility] [address] [place] [address], MAGNESIUM Collected: 11/14/2017 Status: F [facility] SYSTEM REPOSITORY TYPE CODE TESTS RESULT OUT OF RANGE REFERENCE UNITS LAB mag 1.6-2.8 mg/dL MG 2.0 Performed By: #### CH8, LIP, HEPATIC, MG #### [facility] [address] [place] [address], URINALYSIS,AUTO-IN OFFICE Collected: Status: F Source: THE 11/14/2017 3:08 AM [facility] [employer] SYSTEM REPOSITORY Order Comment: TEST PERFORMED AT: [facility] [address] [place] [id number] TYPE CODE TESTS RESULT OUT OF REFERENCE UNITS RANGE LAB Color, Urine COLOR, POC Yellow LAB CLARITY CLARITY, POC Clear LAB Ph,urine 5.0-8.0 PH, URINE POC 7.0 LAB SPECIFIC GRAVITY 1.005 - 1.030 SPECIFIC 1.015 GRAVITY, POC LAB PROTEIN Negative PROTEIN, Negative URINE POC LAB GLUCOSE Negative GLUCOSE, Negative URINE POC LAB KETONES Negative KETONES, Negative URINE POC LAB BILIRUBIN Negative BILIRUBIN, Negative URINE POC LAB UROBILINOGEN 0.2 - 1.0 UROBILINOGEN, 1.0 URINE POC LAB BLOOD Negative BLOOD, URINE Negative POC LAB LEUKOCYTES Negative LEUKOCYTES, Negative URINE POC LAB NITRITES Negative NITRITES, Negative URINE POC Performed By: #### [id number] #### [facility] Pathology [address] [place] [address] URINALYSIS Collected: 11/14/2017 Status: F Source: THE 12:11 AM [facility] SYSTEM REPOSITORY Order Comment: A negative leukocyte esterase AND negative nitrite test or absence of pyuria (urine WBC count <= 5-10) make a UTI (urinary tract infection) very unlikely in a non-neutropenic adult (<=5% likelihood in many studies). A positive leukocyte esterase, nitrite and/or pyuria is a nonspecific result. This can be seen in conditions other than a UTI e.g. asymptomatic bacteriuria, gynecologic infections, sexually transmitted infections, and noninfectious conditions (positive predictive value for UTI around 50%) TYPE CODE TESTS RESULT OUT OF RANGE REFERENCE UNITS LAB UCOLOR Yellow U COLOR Yellow LAB UAPP Clear U APPEAR Clear LAB U PH 5.0-8.0 U PH 7.0 LAB USG U SG 1.012 LAB UPROTEIN Negative mg/dL U PROTEIN Negative LAB U BLOOD Negative U BLOOD Negative LAB URINBILI Negative U BILI Negative LAB U UROBILI 0.1 - 1.0 mg/dL Abnormal U UROBILI 4.0 LAB UKETONE Negative mg/dL U KETONE Negative LAB U LEUK Negative U LEUK Negative LAB UNITR Negative U NITRITE Negative LAB UGLU Negative mg/dL GLUCOSE, Negative URINE Performed By: #### UAC #### [facility] [address] [place] [address], POTASSIUM, WHOLE BLOOD Collected: 11/13/2017 Status: F Source: THE 1:09 AM [facility] REPOSITORY TYPE CODE TESTS RESULT OUT OF REFERENCE UNITS RANGE LAB POTWB 3.3-5.3 mmol/L 4.4 POTASSIUM, WHOLE BLOOD Performed By: #### CR K #### [facility] [address] [place] [address], LACTIC ACID Collected: 11/13/2017 Status: F Source: [facility] 12:00 AM SYSTEM REPOSITORY TYPE CODE TESTS RESULT OUT OF RANGE REFERENCE UNITS LAB CR LACT 0.5-2.0 mmol/L CR LACT 1.3 Performed By: #### LACT #### [facility] [[email or web address]] PATHOLOGY LABORATORY [address] [place] [address], HEPATIC FUNCTION Collected: 11/13/2017 Status: F Source: [facility] PANEL 12:00 AM SYSTEM REPOSITORY TYPE CODE TESTS RESULT OUT OF REFERENCE UNITS RANGE LAB ALB 3.4-5.1 g/dL Low ALB 3.2 LAB DBILI 0.10-0.30 mg/dL High DBIL 1.60 LAB TBILI 0.1-1.5 mg/dL High TBIL 3.7 LAB ALKPHOS 40-200 IU/L High ALK 816 LAB ALT2 7-40 IU/L High ALT 125 LAB AST2 7-40 IU/L High AST 183 Result Comment: Hemolysis present LAB tp 5.7-8.1 g/dL High TP 8.2 Performed By: #### HEPATIC, CH8 #### [facility] [[email or web address]] PATHOLOGY LABORATORY [address] [place] [address], BASIC METABOLIC PANEL Collected: 11/13/2017 Status: F Source: [facility] 12:00 AM SYSTEM REPOSITORY TYPE CODE TESTS RESULT OUT OF RANGE REFERENCE UNITS LAB GLU 80-116 mg/dL GLU 98 LAB NA3 135-148 mmol/L Low NA 132 LAB POT 3.3-5.3 mmol/L High Alert K 6.4 Result Comment: Hemolysis present LAB CO2 21-30 mmol/L CO2 25 LAB CHLOR 97-111 mmol/L CL 101 LAB BUN 8-22 mg/dL BUN 14 LAB CREAT 0.50-1.10 mg/dL CREAT 0.64 LAB CA 8.4-10.4 mg/dL CA 8.9 LAB ANION GAP 5-13 ANION GAP 12 LAB eGFR >=60 mL/min/1.73sq m ESTIMATED GFR (CKD-EPI) 109 Performed By: #### HEPATIC, CH8 #### [facility] [[email or web address]] PATHOLOGY LABORATORY [address] [place] [address], COMPLETE BLOOD COUNT Collected: 11/13/2017 Status: F Source: [facility] 12:00 AM SYSTEM REPOSITORY TYPE CODE TESTS RESULT OUT OF RANGE REFERENCE UNITS LAB WBC 4.5-11.5 K/uL WBC 5.7 LAB RBC 4.00-5.20 M/uL Low RBC 3.58 LAB HGB 12.0-15.0 g/dL Low HGB 8.7 LAB HCT 36.0-46.0 % Low HCT 27.1 LAB MCV 80-100 fL Low MCV 76 LAB MCH 26.0-34.0 pg Low MCH 24.3 LAB MCHC 32.0-35.9 g/dL MCHC 32.1 LAB PLT 150-400 K/uL PLT 296 LAB RDW 11.5-14.5 % High RDW-CV 19.0 LAB MPV 8.5-11.5 MPV Result Comment: Not Measured Performed By: #### CBC #### [facility] [address] [place] [address], B TYPE NATRIURETIC Collected: 11/13/2017 Status: F Source: THE [place] 12:00 AM [facility] REPOS[facility] TYPE CODE TESTS RESULT OUT OF RANGE REFERENCE UNITS LAB BNP <100.0 pg/mL BNP 36.0 Performed By: #### BPL #### [facility] [address] [place] [address], SMOOTH MUSC ATB Collected: 11/12/2017 Status: F Source: [facility] SCRN AND TITR 1:53 AM SYSTEM REPOSITORY Order Comment: Negative SMA test does not exclude the possibility of chronic liver disease. . I certify that I personally conducted the diagnostic evaluation of the above specimen(s) and have rendered the final diagnosis(es). TYPE CODE TESTS RESULT OUT OF REFERENCE UNITS RANGE LAB 0f Negative ANTI-SMA Negative SCREEN Performed By: #### SM MU S/T #### [facility] [address] [place] [address], AUTOIMMUNE PANEL Collected: 11/12/2017 Status: F Source: THE 1:53 AM [facility] SYSTEM REPOSITORY Order Comment: All antibody levels for systemic autoimmune disease are below pre-established cutoffs. MDSS outputs of Negative or No Association do not rule out autoimmune disease. Patients with Rheumatoid Arthritis may result in an SLE association from MDSS, thus MDSS associations from patients with RA should be interpreted with caution. TYPE CODE TESTS RESULT OUT OF REFERENCE UNITS RANGE LAB PIOTR SCRN Negative PIOTR Negative SCREEN Performed By: #### piotr #### [facility] [address] [place] [address], LKM IGG ANTIBODY Collected: 11/12/2017 Status: F Source: [facility] 1:53 AM SYSTEM REPOSITORY Order Comment: Resulting Agency Address Site ID: G Name: [facility] Address: [address] [place] [address] Director: TEREZA L[address] MD, PHD TYPE CODE TESTS RESULT OUT OF REFERENCE UNITS RANGE LAB LKM AB <=20.0 U LKM-1 ANTIBODY <=20.0 (IGG) Result Comment: Reference Range: <=20.0 Negative 20.1-24.9 Equivocal >=25.0 Positive Anti-liver/kidney microsomal antibodies (Anti-LKM-1) were previously tested by indirect immunofluorescence (IF) using rodent liver/kidney substrate. Identification of a specific antibody target as cytochrome P450 IID6 has led to the current recombinant based EDI. Antibodies to this cytochrome are present in approximately 70% of patients with autoimmune hepatitis type 2. This antibody is also present in approximately 10% of patients with hepatitis C infection. Performed By: #### LKM AB #### [facility] US HEP PORT SPLEN Observed: 11/12/2017 Status: F [facility]: [facility] VEIN + DOPPLER 12:52 AM SYSTEM REPOSITORY EXAMINATION: US HEP PORT SPLEN VEIN + DOPPLERED CLINICAL HISTORY: deranged LFT, to rule out portal/hepatic vein thrombosis COMPARISON: November 11, 2017, CT abdomen pelvis October 18, 2017 TECHNIQUE: Ultrasound real time scan with image documentation with color and spectral Doppler evaluation of the hepatic, splenic, portal veins, and the hepatic artery was performed. FINDINGS: The portal splenic confluence, main portal vein, right portal vein, and left portal vein demonstrates normal hepatopedal flow. The left hepatic, middle hepatic, and right hepatic veins demonstrate normal hepatopedal fugal flow. The hepatic artery has normal brisk upstroke and hepatopedal flow. Normal flow is seen in the splenic artery and vein. No thrombus is seen within the visualized vessels. The spleen is normal in size. IMPRESSION: Normal directional flow of the portal veins, hepatic veins, hepatic artery, portal splenic confluence, splenic artery, and splenic vein. No evidence of thrombosis is present. MACRO: None I have reviewed the study and interpretation with the resident and agree with the findings. US LIVER/GALL Observed: 11/11/2017 Status: F Source: THE BLADDER/PANCREAS 11:09 PM [employer] SYSTEM REPOSITORY EXAMINATION: US LIVER/GALL BLADDER/PANCREASED CLINICAL HISTORY: RUQ abd pain, abnormal LFTs right upper quadrant, liver function tests TECHNOLOGISTS NOTE: liver- 17cm, smooth contour, slightly echogenic, oval areas seen in evi hep, ?LN s/p scott x 2015 cbd wnl panc wnl no ff COMPARISON: None TECHNIQUE: Ultrasound real time scan with image documentation of the right upper quadrant including the liver, gallbladder, and pancreas was performed. FINDINGS: Liver Size: Normal. Craniocaudal length: 16.9 cm Echogenicity: Diffuse increased echogenicity of the hepatic parenchyma which can be seen in the setting of a primary hepatocellular process most commonly steatosis. Surface nodularity: None Mass (size and location): None. Bile ducts Intrahepatic ducts: No biliary dilatation. Common bile duct: Normal caliber. Diameter 0.4 mm Gallbladder: Status post cholecystectomy. Pancreas Obscured by bowel gas. Other findings: Lymph nodes most pronounced in the evi hepatis. IMPRESSION: Diffuse increased echogenicity of the hepatic parenchyma which can be seen in the setting of a primary hepatocellular process most commonly steatosis Lymph nodes most pronounced in the region of the evi hepatis. MACRO: None I have reviewed the study and interpretation with the resident and agree with the findings. PROTHROMBIN TIME AND Collected: 11/11/2017 Status: F Source: THE INR 10:51 PM [facility] SYSTEM REPOSITORY TYPE CODE TESTS RESULT OUT OF REFERENCE UNITS RANGE LAB PT PAT 10.0-12.6 sec PROTIME 11.3 LAB INR 0.90-1.10 INR 1.00 Performed By: #### PT #### [facility] [address] [place] [address], [id number] URINALYSIS,AUTO-IN OFFICE Collected: Status: F Source: THE 11/11/2017 9:51 PM [facility] SYSTEM REPOSITORY Order Comment: TEST PERFORMED AT: Emergency Department POC Laboratory [address] [place] [address] TYPE CODE TESTS RESULT OUT OF RANGE REFERENCE UNITS LAB Color, Urine COLOR, POC Yellow LAB CLARITY CLARITY, POC Clear LAB Ph,urine 5.0-8.0 PH, URINE POC 7.0 LAB SPECIFIC GRAVITY 1.005 - 1.030 SPECIFIC 1.020 GRAVITY, POC LAB PROTEIN Negative PROTEIN, Negative URINE POC LAB GLUCOSE Negative GLUCOSE, Negative URINE POC LAB KETONES Negative KETONES, Negative URINE POC LAB BILIRUBIN Negative BILIRUBIN, Negative URINE POC LAB UROBILINOGEN 0.2 - 1.0 UROBILINOGEN, 1.0 URINE POC LAB BLOOD Negative BLOOD, URINE Negative POC LAB LEUKOCYTES Negative Abnormal LEUKOCYTES, Trace URINE POC LAB NITRITES Negative NITRITES, Negative URINE POC Performed By: #### [id number] #### [facility] [address] [place] [address] COMPLETE BLOOD COUNT Collected: 11/11/2017 Status: F Source: [facility] W/DIFF 8:27 PM SYSTEM REPOSITORY TYPE CODE TESTS RESULT OUT OF REFERENCE UNITS RANGE LAB WBC 4.5-11.5 K/uL WBC 5.6 LAB RBC 4.00-5.20 M/uL Low RBC 3.56 LAB HGB 12.0-15.0 g/dL Low HGB 8.9 LAB HCT 36.0-46.0 % Low HCT 26.9 LAB MCV 80-100 fL Low MCV 76 LAB MCH 26.0-34.0 pg Low MCH 25.0 LAB MCHC 32.0-35.9 g/dL MCHC 33.1 LAB PLT 150-400 K/uL PLT 346 LAB RDW 11.5-14.5 % RDW-CV High 17.8 LAB MPV 8.5-11.5 fL MPV 11.5 LAB CPnT 31.0-76.0 % NEUTROPHILS 54.8 LAB CPIY 24.0-44.0 % LYMPHOCYTES 33.9 LAB CPmO 2.0-11.0 % MONOCYTES 5.9 LAB CPeO 0.1-4.0 % EOSINOPHIL High 4.3 LAB CPbA <=1.9 % BASOPHILS 1.1 LAB nt 1.50-8.00 K/uL NEUTROPHIL # 3.08 LAB ly 1.00-4.80 K/uL LYMPHOCYTES # 1.90 LAB mo 0.20-1.00 K/uL MONOCYTE # 0.33 LAB eo 0.00-0.70 K/uL EOSINOPHIL # 0.24 LAB ba 0.00-0.20 K/uL BASOPHIL # 0.06 Performed By: #### CBCD #### [facility] [address] [place] [address], LIPASE Collected: 11/11/2017 Status: F Source: [facility] 8:27 PM SYSTEM REPOSITORY TYPE CODE TESTS RESULT OUT OF RANGE REFERENCE UNITS LAB LIP <128 IU/L LIP 71 Performed By: #### LIP, HEPATIC, CH8, ACETA, GGT, FETIBC, NITIN #### [facility] PATH[facility] LABORATORY [address] [place] [address], HEPATIC FUNCTION Collected: 11/11/2017 Status: F [facility]: [facility] PANEL 8:27 PM SYSTEM REPOSITORY TYPE CODE TESTS RESULT OUT OF REFERENCE UNITS RANGE LAB ALB 3.4-5.1 g/dL Low ALB 3.0 LAB DBILI 0.10-0.30 mg/dL High DBIL 1.20 LAB TBILI 0.1-1.5 mg/dL High TBIL 2.0 LAB ALKPHOS 40-200 IU/L High ALK 785 LAB ALT2 7-40 IU/L High ALT 113 LAB AST2 7-40 IU/L High AST 142 LAB tp 5.7-8.1 g/dL High TP 8.7 Performed By: #### LIP, HEPATIC, CH8, ACETA, GGT, FETIBC, NITIN #### [facility] [address] [place] [address], BASIC METABOLIC PANEL Collected: 11/11/2017 Status: F Source: [facility] 8:27 PM SYSTEM REPOSITORY TYPE CODE TESTS RESULT OUT OF REFERENCE UNITS RANGE LAB GLU 80-116 mg/dL GLU 95 LAB NA3 135-148 mmol/L Low NA 130 LAB POT 3.3-5.3 mmol/L K 4.0 LAB CO2 21-30 mmol/L CO2 25 LAB CHLOR 97-111 mmol/L CL 102 LAB BUN 8-22 mg/dL BUN 14 LAB CREAT 0.50-1.10 mg/dL CREAT 0.55 LAB CA 8.4-10.4 mg/dL CA 9.0 LAB ANION GAP 5-13 ANION GAP 7 LAB eGFR >=60 mL/min/1.73 sqm ESTIMATED GFR 115 (CKD-EPI) Performed By: #### LIP, HEPATIC, CH8, ACETA, GGT, FETIBC, NITIN #### [facility] [address] [place] [address], [id number] URINALYSIS Collected: 11/11/2017 Status: F Source: THE 8:27 PM [facility] SYSTEM REPOSITORY Order Comment: A negative leukocyte esterase AND negative nitrite test or absence of pyuria (urine WBC count <= 5-10) make a UTI (urinary tract infection) very unlikely in a non-neutropenic adult (<=5% likelihood in many studies). A positive leukocyte esterase, nitrite and/or pyuria is a nonspecific result. This can be seen in conditions other than a UTI e.g. asymptomatic bacteriuria, gynecologic infections, sexually transmitted infections, and noninfectious conditions (positive predictive value for UTI around 50%) TYPE CODE TESTS RESULT OUT OF RANGE REFERENCE UNITS LAB UCOLOR Yellow U COLOR Yellow LAB UAPP Clear U APPEAR Hazy LAB U PH 5.0-8.0 U PH 6.0 LAB USG U SG 1.013 LAB UPROTEIN Negative mg/dL U PROTEIN Negative LAB U BLOOD Negative U BLOOD Negative LAB URINBILI Negative U BILI Negative LAB U UROBILI 0.1 - 1.0 mg/dL U Abnormal UROBILI 4.0 LAB UKETONE Negative mg/dL U KETONE Negative LAB U LEUK Negative U Abnormal LEUK Trace LAB UNITR Negative U NITRITE Negative LAB UGLU Negative mg/dL GLUCOSE, URINE Negative LAB U WBC 0-2 /HPF U WBC 0-2 LAB U RBC 0-2 /HPF U RBC 0-2 LAB U BACTERIA /HPF U BACTERIA Few LAB ay 0-10 /HPF SQUAMOUS 3-5 EPITHELIAL Performed By: #### UAC #### [facility] [address], [place], ACETAMINOPHEN Collected: 11/11/2017 Status: F Source: THE 8:27 PM [facility]POS[facility] TYPE CODE TESTS RESULT OUT OF REFERENCE UNITS RANGE LAB ACETA 10-20 ug/mL ACETA < 10 Performed By: #### LIP, HEPATIC, CH8, ACETA, GGT, FETIBC, NITIN #### [facility] [address] [place] [address], GAMMA GLUTAMYL Collected: 11/11/2017 Status: F Source: THE [facility] 8:27 PM [facility] REPOSIT[facility] TYPE CODE TESTS RESULT OUT OF RANGE REFERENCE UNITS LAB GGT 3-30 IU/L High GGT 970 Performed By: #### LIP, HEPATIC, CH8, ACETA, GGT, FETIBC, NITIN #### [facility] [address] [place] [address], IRON AND TIBC Collected: 11/11/2017 Status: F Source: [facility] 8:27 PM SYSTEM REPOSITORY TYPE CODE TESTS RESULT OUT OF REFERENCE UNITS RANGE LAB FE 45-160 ug/dL Low FE CORRECT PRD 44 LAB %SAT 20-55 % Low % SAT CORRECT 8 PRD LAB TIBC 250-410 ug/mL High TIBC CORRECT 556 PRD LAB TRANSFER 210-375 mg/dL High TRANSFER 397 CORRECT PRD Performed By: #### LIP, HEPATIC, CH8, ACETA, GGT, FETIBC, NITIN #### [facility] [address] [place] [address], FERRITIN Collected: 11/11/2017 Status: F Source: [facility] 8:27 PM SYSTEM REPOSITORY TYPE CODE TESTS RESULT OUT OF RANGE REFERENCE UNITS LAB NITIN 10.3-219.0 ng/mL NITIN 17.2 Performed By: #### LIP, HEPATIC, CH8, ACETA, GGT, FETIBC, NITIN #### [facility] [address] [place] [address], ETHANOL, SERUM Collected: 11/11/2017 Status: F Source: [facility] 8:27 PM SYSTEM REPOSITORY TYPE CODE TESTS RESULT OUT OF REFERENCE UNITS RANGE LAB ETHANOL None Detected mg/dL ETHANOL < 5 Performed By: #### ETOH #### [facility] [address] [place] [address], HEMOGLOBIN A1C Collected: 11/11/2017 Status: F Source: THE 8:27 PM [facility] REPOS[facility] Order Comment: HbA1c of 5.7-6.4% have increased risk for diabetes and CV(Source :ADA 2014 Standard of Medical Care in Diabetes) TYPE CODE TESTS RESULT OUT OF REFERENCE UNITS RANGE LAB HB A1C 4.0-5.6 % HB A1C 4.8 LAB EAG mg/dL ESTIMATED 91 AVERAGE GLUCOSE Performed By: #### HB A1C #### [facility] [address] [place] [address], [id number] COMPLETE BLOOD COUNT Collected: 11/06/2017 Status: F Source: [facility] W/DIFF 12:57 AM SYSTEM REPOSITORY TYPE CODE TESTS RESULT OUT OF REFERENCE UNITS RANGE LAB WBC 4.5-11.5 K/uL WBC 6.4 LAB RBC 4.00-5.20 M/uL Low RBC 3.73 LAB HGB 12.0-15.0 g/dL Low HGB 9.3 LAB HCT 36.0-46.0 % Low HCT 28.4 LAB MCV 80-100 fL Low MCV 76 LAB MCH 26.0-34.0 pg Low MCH 24.9 LAB MCHC 32.0-35.9 g/dL MCHC 32.7 LAB PLT 150-400 K/uL PLT 314 LAB RDW 11.5-14.5 % RDW-CV High 18.3 LAB MPV 8.5-11.5 fL MPV 11.3 LAB CPnT 31.0-76.0 % NEUTROPHILS 45.0 LAB CPIY 24.0-44.0 % LYMPHOCYTES 43.0 LAB CPmO 2.0-11.0 % MONOCYTES 7.2 LAB CPeO 0.1-4.0 % EOSINOPHIL 3.9 LAB CPbA <=1.9 % BASOPHILS 0.9 LAB nt 1.50-8.00 K/uL NEUTROPHIL # 2.86 LAB ly 1.00-4.80 K/uL LYMPHOCYTES # 2.74 LAB mo 0.20-1.00 K/uL MONOCYTE # 0.46 LAB eo 0.00-0.70 K/uL EOSINOPHIL # 0.25 LAB ba 0.00-0.20 K/uL BASOPHIL # 0.06 Performed By: #### CBCD #### [facility] [address] [place] [address], [id number] BASIC METABOLIC PANEL Collected: 11/06/2017 Status: F Source: [facility] 12:57 AM SYSTEM REPOSITORY TYPE CODE TESTS RESULT OUT OF REFERENCE UNITS RANGE LAB GLU 80-116 mg/dL GLU High 119 LAB NA3 135-148 mmol/L NA 136 LAB POT 3.3-5.3 mmol/L K 4.1 LAB CO2 21-30 mmol/L CO2 23 LAB CHLOR 97-111 mmol/L CL 106 LAB BUN 8-22 mg/dL BUN 15 LAB CREAT 0.50-1.10 mg/dL CREAT 0.58 LAB CA 8.4-10.4 mg/dL CA 9.2 LAB ANION GAP 5-13 ANION GAP 11 LAB eGFR >=60 mL/min/1.73 sqm ESTIMATED GFR 113 (CKD-EPI) Performed By: #### CH8, HEPATIC #### [facility] [address] [place] [address], HEPATIC FUNCTION Collected: 11/06/2017 Status: F Source: [facility] PANEL 12:57 AM SYSTEM REPOSITORY TYPE CODE TESTS RESULT OUT OF REFERENCE UNITS RANGE LAB ALB 3.4-5.1 g/dL Low ALB 3.1 LAB DBILI 0.10-0.30 mg/dL High DBIL 1.00 LAB TBILI 0.1-1.5 mg/dL High TBIL 1.7 LAB ALKPHOS 40-200 IU/L High ALK 766 LAB ALT2 7-40 IU/L High ALT 111 LAB AST2 7-40 IU/L High AST 145 LAB tp 5.7-8.1 g/dL High TP 8.8 Performed By: #### CH8, HEPATIC #### [facility] [address] [place] [address], XR KNEE RIGHT Observed: 11/02/2017 Status: F Source: [facility] AP+LAT 12:55 AM SYSTEM REPOSITORY EXAMINATION: XR KNEE RIGHT AP+LATED CLINICAL HISTORY: fall knee pain TECHNOLOGISTS NOTE: COMPARISON: None FINDINGS: There is a nondisplaced posterior tibial plateau fracture which is only seen on the AP view of the right knee. No other fracture or dislocation is identified. The soft tissues are otherwise unremarkable. IMPRESSION: Posterior tibial plateau fracture which is only seen on the AP view of the right knee.. MACRO: None I have reviewed the study and interpretation with the resident and agree with the findings. POTASSIUM, WHOLE BLOOD Collected: 11/01/2017 Status: F Source: THE 3:50 AM [facility] TYPE CODE TESTS RESULT OUT OF REFERENCE UNITS RANGE LAB POTWB 3.3-5.3 mmol/L 4.1 POTASSIUM, WHOLE BLOOD Performed By: #### CR K #### [facility] [address] [place] [address], LACTIC ACID Collected: 11/01/2017 Status: F Source: [facility] 1:20 AM SYSTEM REPOSITORY TYPE CODE TESTS RESULT OUT OF RANGE REFERENCE UNITS LAB CR LACT 0.5-2.0 mmol/L CR LACT 1.3 Performed By: #### LACT #### [facility] [address] [place] [address], BASIC METABOLIC PANEL Collected: 11/01/2017 Status: F Source: [facility] 1:20 AM SYSTEM REPOSITORY TYPE CODE TESTS RESULT OUT OF RANGE REFERENCE UNITS LAB GLU 80-116 mg/dL GLU 105 LAB NA3 135-148 mmol/L Low NA 133 LAB POT 3.3-5.3 mmol/L High K 6.1 Result Comment: Hemolysis present LAB CO2 21-30 mmol/L CO2 26 LAB CHLOR 97-111 mmol/L CL 103 LAB BUN 8-22 mg/dL BUN 14 LAB CREAT 0.50-1.10 mg/dL CREAT 0.58 LAB CA 8.4-10.4 mg/dL CA 9.1 LAB ANION GAP 5-13 ANION GAP 10 LAB eGFR >=60 mL/min/1.73sq m ESTIMATED GFR (CKD-EPI) 113 Performed By: #### CH8, LIP, HEPATIC #### [facility] [address] [place] [address], LIPASE Collected: 11/01/2017 Status: F Source: [facility] 1:20 AM SYSTEM REPOSITORY TYPE CODE TESTS RESULT OUT OF RANGE REFERENCE UNITS LAB LIP <128 IU/L LIP 67 Performed By: #### CH8, LIP, HEPATIC #### [facility] [address] [place] [address], HEPATIC FUNCTION Collected: 11/01/2017 Status: F Source: [facility] PANEL 1:20 AM SYSTEM REPOSITORY TYPE CODE TESTS RESULT OUT OF REFERENCE UNITS RANGE LAB ALB 3.4-5.1 g/dL Low ALB 3.1 LAB DBILI 0.10-0.30 mg/dL High DBIL 1.30 LAB TBILI 0.1-1.5 mg/dL High TBIL 2.5 LAB ALKPHOS 40-200 IU/L High ALK 718 LAB ALT2 7-40 IU/L High ALT 107 LAB AST2 7-40 IU/L High AST 163 Result Comment: Hemolysis present LAB tp 5.7-8.1 g/dL High TP 8.4 Performed By: #### CH8, LIP, HEPATIC #### [facility] [address] [place], [id number] COMPLETE BLOOD COUNT Collected: 11/01/2017 Status: F Source: THE [facility] W/DIFF 1:20 AM SYSTEM REPOSITORY TYPE CODE TESTS RESULT OUT OF RANGE REFERENCE UNITS LAB WBC 4.5-11.5 K/uL WBC 5.4 LAB RBC 4.00-5.20 M/uL Low RBC 3.75 LAB HGB 12.0-15.0 g/dL Low HGB 9.3 LAB HCT 36.0-46.0 % Low HCT 27.8 LAB MCV 80-100 fL Low MCV 74 LAB MCH 26.0-34.0 pg Low MCH 24.8 LAB MCHC 32.0-35.9 g/dL MCHC 33.5 LAB PLT 150-400 PLT Result Comment: Platelet clumps preclude quanitation. Platelet estimate appears adequate. LAB RDW 11.5-14.5 % High RDW-CV 19.3 LAB MPV 8.5-11.5 MPV Result Comment: Not Measured LAB CPnT 31.0-76.0 % NEUTROPHILS 51.8 LAB CPIY 24.0-44.0 % LYMPHOCYTES 36.6 LAB CPmO 2.0-11.0 % MONOCYTES 5.2 LAB CPeO 0.1-4.0 % EOSINOPHIL High 4.9 LAB CPbA <=1.9 % BASOPHILS 1.5 LAB nt 1.50-8.00 K/uL NEUTROPHIL # 2.78 LAB ly 1.00-4.80 K/uL LYMPHOCYTES # 1.96 LAB mo 0.20-1.00 K/uL MONOCYTE # 0.28 LAB eo 0.00-0.70 K/uL EOSINOPHIL # 0.26 LAB ba 0.00-0.20 K/uL BASOPHIL # 0.08 Performed By: #### CBCD #### [facility] [address] [place], [phone] EKG Observed: 10/21/2017 Status: F Source: [facility] 6:08 AM [facility] Acquired on 10/21/2017 0257 Vent. Rate : 063 BPM Atrial Rate : 063 BPM P-R Int : 164 ms QRS Dur : 092 ms QT Int : 422 ms P-R-T Axes : 047 -01 012 degrees QTc Int : 431 ms Normal sinus rhythm Normal ECG No previous ECGs available Confirmed by PERRI OCONNELL, PATRICK Leo ([id number]) on 10/21/2017 9:52:53 PM Referred By: Confirmed By:PATRICK RAYO MD [id number] 2017 [facility] PT NAME: JESSE BLAIR MR#: [id number] [address] [place] [address] ACCT: [id number] : 53 EKG REPORT UA COMPLETE Collected: 10/21/2017 Status: F Source: [facility] 4:45 AM [facility]POSIT[facility] Order Comment: CONSERVATION TYPE CODE TESTS RESULT OUT OF RANGE REFERENCE UNITS LAB L600.23913 YELLOW Normal COLOR YELLOW LAB L600.24057 CLEAR Normal APPEARANCE CLEAR LAB L600.29333 1.005-1.030 Low SPEC GRAV 1.004 LAB L600.41904 5.0-8.0 Normal UA PH 6.0 LAB L600.26859 NEGATIVE Normal GLUCOSE NEGATIVE LAB L600.57513 NEGATIVE Normal KETONE NEGATIVE LAB L600.28490 NEGATIVE Normal BILIRUBIN NEGATIVE LAB L600.62823 NORMAL Normal UROBIL NORMAL LAB L600.69722 NEGATIVE Normal PROTEIN NEGATIVE LAB L600.69240 NEGATIVE Normal BLOOD NEGATIVE LAB L600.52315 mg/dL Normal UA ASC ACID NEGATIVE LAB L600.57448 NEGATIVE Normal NITRITE NEGATIVE LAB L600.87851 NEGATIVE LEUK ABNORMAL ESTERASE 25 Kevin/uL LAB L600.03812 0-5 /HPF Normal WBC 3-5 LAB L600.76977 0-3 /HPF Normal RBC 0-2 LAB L600.07662 0-10 /HPF Normal EPITH CELLS 3-5 Performed By: #### L600.76290 #### Test performed at: [address] [address] CBC W/DIFF Collected: 10/21/2017 Status: F Source: [facility] 4:19 AM [facility] REPOSITORY Order Comment: CONSERVATION TYPE CODE TESTS RESULT OUT OF RANGE REFERENCE UNITS LAB L200.12098 3.9-11.0 K/uL WBC Normal 4.6 LAB L200.87011 3.5-5.5 M/uL RBC Normal 3.76 LAB L200.00685 12.0-15.0 g/dL Low HGB 9.3 LAB L200.22200 36.0-48.0 % Low HCT 28.3 LAB L200.90928 79.0-98.0 fL Low MCV 75.3 LAB L200.47326 25.4-34.6 pg Low MCH 24.7 LAB L200.78105 31.5-36.5 g/dL MCHC Normal 32.9 LAB L200.10863 11.5-14.5 % High RDW 18.8 LAB L200.72940 140-440 K/uL PLT Normal 248 LAB L200.95810 8.7-12.4 fL MPV Normal 10.5 LAB L200.05411 % NEUTROPHILS Normal % 39.1 LAB L200.10393 % IG % Normal 0.2 LAB L200.92016 % LYMPH % Normal 44.5 LAB L200.55026 % MONOCYTE % Normal 10.8 LAB L200.43152 % EOSINOPHIL Normal % 4.3 LAB L200.99564 % BASOPHIL % Normal 1.1 LAB L200.31104 1.4-6.6 K/uL NEUTROPHIL Normal ABS 1.8 LAB L200.62865 0-0.05 K/uL IG ABS Normal 0.01 LAB L200.70835 1.2-3.5 K/uL LYMPH ABS Normal 2.1 LAB L200.35861 0.0-1.0 K/uL MONO ABS Normal 0.5 LAB L200.77449 0.0-0.5 K/uL EOS ABS Normal 0.2 LAB L200.16276 0.0-0.2 K/uL BASO ABS Normal 0.1 LAB L200.94091 0-0.2 /100 WBC NRBC % Normal 0.0 LAB L200.52603 0-0.012 K/uL NRBC # Normal 0.000 Performed By: #### L200.32788 #### Test performed at: [address] [address] COMP META PANEL Collected: 10/21/2017 Status: F Source: [facility] 4:19 AM [facility] REPOSITORY Order Comment: CONSERVATION TYPE CODE TESTS RESULT OUT OF RANGE REFERENCE UNITS LAB L500.25127 136-145 mmol/L Normal NA 141 LAB L500.68934 3.5-5.1 mmol/L Normal K 4.0 LAB L500.25645 98-107 mmol/L High CL 109 LAB L500.22898 21-32 mmol/L Normal CO2 24 LAB L500.62844 74-106 mg/dL Normal GLU 80 LAB L500.54085 7-18 mg/dL Normal BUN 14 LAB L500.96840 0.550-1.020 mg/dL Low CREAT 0.520 LAB L500.52084 6.4-8.2 gm/dL High TP 8.8 LAB L500.77535 3.4-5.0 gm/dL Low ALB 2.8 LAB L500.67089 8.5-10.1 mg/dL Normal CA 8.9 LAB L500.71135 0.2-1.0 mg/dL High BILI 1.4 TOTAL LAB L500.38539 15-37 U/L High AST 177 LAB L500.22704 13-61 U/L High ALT 129 LAB L500.13044 45-117 U/L High ALK PHOS 787 TOTAL Performed By: #### L500.14208, L500.95009 #### Test performed at: [address] [address] GFR ESTIMATE Collected: 10/21/2017 Status: F Source: [facility] 4:19 AM [facility] REPOSITORY Order Comment: CONSERVATION TYPE CODE TESTS RESULT OUT OF RANGE REFERENCE UNITS LAB L500.75548 > 60 Normal IF non-AFR > 60 AMER LAB L500.55420 > 60 Normal IF > 60 AMER Result Comment: eGFR (Estimated GFR) Units of measure:mL/min/1.73 meters sq. *CALCULATION REVISED 12/12/2014;IDMS-traceable MDRD equation eGFR is derived from the reexpressed MDRD Study equation using the following parameters: serum creatinine, age, gender and race. An eGFR<60 mL/min/1.73m2 for >3 months is consistent with chronic kidney disease. Refer to KDOQI guidelines for clinical interpretation. Performed By: #### L500.80987, L500.23071 #### Test performed at: [place] [address] PORTABLE CHEST Observed: 10/21/2017 Status: F Source: [facility] 3:20 AM [facility] REPOSITORY STUDY: PORTABLE CHEST; 10/21/2017 3:31 am INDICATION: left sided pain. COMPARISON: None. ACCESSION NUMBER(S): [id number] ORDERING CLINICIAN: Yuri Sanchez FINDINGS: The cardiac silhouette is normal in size. Atherosclerotic calcification in the aortic arch. No evidence of pneumonia. Mild basilar subsegmental atelectasis. No significant pleural effusion. No pneumothorax. IMPRESSION: No evidence of acute cardiopulmonary process. CT ABDOMEN/PELVIS WO Observed: 10/21/2017 Status: F Source: [facility] CONT 3:20 AM [facility] REPOSITORY STUDY: CT ABDOMEN/PELVIS WO CONT; 10/21/2017 3:51 am INDICATION: left sided pain. COMPARISON: 01/06/2014 ACCESSION NUMBER(S): [id number] ORDERING CLINICIAN: Yuri Sanchez TECHNIQUE: Axial noncontrast CT images of the abdomen and pelvis with coronal and sagittal reconstructed images. FINDINGS: No significant interval change. LOWER CHEST: Bibasilar atelectasis/scar. BONES: No acute osseous abnormality. Old mild compression fracture of the superior endplate of L1 vertebra. ABDOMINAL WALL: There is mild subcutaneous stranding/edema and a tiny calcification in the right buttock suggestive of injection granuloma. ABDOMEN: Lack of intravenous contrast limits evaluation of vessels and solid organs. LIVER: There is inferior extension of the liver measuring approximately 18.7 cm in craniocaudal dimension suggestive of a Lavinia's lobe rather than hepatomegaly. BILE DUCTS: Normal caliber. GALLBLADDER: Cholecystectomy. PANCREAS: Within normal limits. SPLEEN: Within normal limits. ADRENALS: Within normal limits. KIDNEYS, URETERS, URINARY BLADDER: Tiny nonobstructing left renal stone. Otherwise, within normal limits. VESSELS: No aortic aneurysm. RETROPERITONEUM: No pathologically enlarged lymph nodes. PELVIS: REPRODUCTIVE ORGANS: No visualized pelvic mass or significant free pelvic fluid. BOWEL: No dilated bowel. There is radiopaque material in a normal-sized non-inflamed appendix suggestive of residual contrast or appendicoliths. The small bowel is predominantly in the right side of the peritoneal cavity whereas the colon is predominantly on the left, a finding sometimes seen in intestinal nonrotation or malrotation. There are colonic diverticuli without definite CT evidence of acute diverticulitis. There is significant stool. PERITONEUM: No ascites or free air, no fluid collection. IMPRESSION: No acute abdominal or pelvic process. CT ABD/PELVIS ED I/V Observed: 10/18/2017 Status: F Source: THE SEE W/ CONTRAST 12:50 AM [facility] SYSTEM REPOSITORY EXAMINATION CT ABD/PELVIS ED I/V SEE W//ED CLINICAL HISTORY LLQ pain Technologist Notes COMPARISON CT October 06, 2017 TECHNIQUE Contiguous axial images were obtained through the abdomen and pelvis from the level of the diaphragmatic domes through the pubic symphysis following bolus administration of intravenous contrast. MPR sagittal and coronal reconstructions were obtained from the axial data. Before infusion of intravenous contrast, radiology personnel investigated the possibility of an allergic history and of any history of reaction to iodinated contrast material. Comments: None INTRA-PROCEDURE MEDICATION Contrast Agent [id number] 100ml Bottle 100 milliliter 10/18/2017 INTRAVENOUS FINDINGS Included images of the lower thorax: Moderate dependent atelectasis. Mild emphysema again seen. No pleural effusions. Hepatobiliary: Unremarkable liver without biliary dilation evident. Status post cholecystectomy. Pancreas: Unremarkable. Spleen: Unremarkable. Adrenal glands: Unremarkable. Kidneys: Punctate nonobstructing left renal calculus. Too small to characterize hypodense foci in both kidneys, most likely cysts. Ureters and bladder: No calculi are noted. Bladder is moderately distended. Abdominal aorta and proximal major branches: Mild atherosclerotic calcifications of the infrarenal aorta and common iliac arteries. No AAA. 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 No evidence of obstruction. The appendix is in the left lower quadrant and appears otherwise within normal limits. Colonic diverticula are present, without evidence of diverticulitis. Moderately stool filled colon. Peritoneum and retroperitoneum: No free fluid or free air is noted. Lymph nodes: Mildly enlarged gastrohepatic and portacaval lymph nodes again seen, most likely reactive. No adenopathy is otherwise detected. Solid pelvic viscera: CT is suboptimal for evaluation without mass identified. Visualized musculoskeletal structures: Mild degenerative changes of the spine and prominent Schmorl's node along the superior endplate of L1 again noted. IMPRESSION 1. 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 Appendix is seen in the left lower quadrant without evidence of appendicitis. 2. Moderate stool throughout the colon, correlate clinically for constipation. Colonic diverticula are present, without evidence of diverticulitis. 3. No evidence of mechanical bowel obstruction, free fluid, or free air. 4. Other stable chronic and likely incidental findings as noted above. MACRO NONE BASIC METABOLIC PANEL Collected: 10/17/2017 Status: F [facility]: [facility] 11:18 PM SYSTEM REPOSITORY TYPE CODE TESTS RESULT OUT OF REFERENCE UNITS RANGE LAB GLU 80-116 mg/dL GLU 94 LAB NA3 135-148 mmol/L NA 136 LAB POT 3.3-5.3 mmol/L K 4.0 LAB CO2 21-30 mmol/L CO2 27 LAB CHLOR 97-111 mmol/L CL 104 LAB BUN 8-22 mg/dL BUN 13 LAB CREAT 0.50-1.10 mg/dL CREAT 0.58 LAB CA 8.4-10.4 mg/dL CA 9.1 LAB ANION GAP 5-13 ANION GAP 9 LAB eGFR >=60 mL/min/1.73 sqm ESTIMATED GFR 113 (CKD-EPI) Performed By: #### CH8, LIP, HEPATIC #### [facility] [address] [place] [address], [id number] LIPASE Collected: 10/17/2017 Status: F Source: [facility] 11:18 PM SYSTEM REPOSITORY TYPE CODE TESTS RESULT OUT OF RANGE REFERENCE UNITS LAB LIP <128 IU/L LIP 53 Performed By: #### CH8, LIP, HEPATIC #### [facility] [address], [place], HEPATIC FUNCTION Collected: 10/17/2017 Status: F Source: [facility] PANEL 11:18 PM SYSTEM REPOSITORY TYPE CODE TESTS RESULT OUT OF REFERENCE UNITS RANGE LAB ALB 3.4-5.1 g/dL Low ALB 2.9 LAB DBILI 0.10-0.30 mg/dL High DBIL 0.80 LAB TBILI 0.1-1.5 mg/dL TBIL 1.5 LAB ALKPHOS 40-200 IU/L High ALK 707 LAB ALT2 7-40 IU/L High ALT 101 LAB AST2 7-40 IU/L High AST 134 LAB tp 5.7-8.1 g/dL TP 7.6 Performed By: #### CH8, LIP, HEPATIC #### [facility] [address], [place], COMPLETE BLOOD COUNT Collected: 10/17/2017 Status: F Source: [facility] W/DIFF 11:18 PM SYSTEM REPOSITORY TYPE CODE TESTS RESULT OUT OF REFERENCE UNITS RANGE LAB WBC 4.5-11.5 K/uL WBC 4.8 LAB RBC 4.00-5.20 M/uL Low RBC 3.53 LAB HGB 12.0-15.0 g/dL Low HGB 8.7 LAB HCT 36.0-46.0 % Low HCT 27.3 LAB MCV 80-100 fL Low MCV 77 LAB MCH 26.0-34.0 pg Low MCH 24.6 LAB MCHC 32.0-35.9 g/dL Low MCHC 31.9 LAB PLT 150-400 K/uL PLT 277 LAB RDW 11.5-14.5 % RDW-CV High 18.6 LAB MPV 8.5-11.5 fL MPV 11.0 LAB CPnT 31.0-76.0 % NEUTROPHILS 49.6 LAB CPIY 24.0-44.0 % LYMPHOCYTES 38.9 LAB CPmO 2.0-11.0 % MONOCYTES 6.8 LAB CPeO 0.1-4.0 % EOSINOPHIL High 4.1 LAB CPbA <=1.9 % BASOPHILS 0.6 LAB nt 1.50-8.00 K/uL NEUTROPHIL # 2.39 LAB ly 1.00-4.80 K/uL LYMPHOCYTES # 1.88 LAB mo 0.20-1.00 K/uL MONOCYTE # 0.33 LAB eo 0.00-0.70 K/uL EOSINOPHIL # 0.20 LAB ba 0.00-0.20 K/uL BASOPHIL # 0.03 Performed By: #### CBCD #### [facility] [email or web address] [address] [place] [address], CT T-SPINE/L-SPINE W/O Observed: 10/13/2017 Status: F Source: THE CONTRAST 6:48 AM [employer] [facility] REPOSITORY EXAMINATION CT T-SPINE/L-SPINE W/O/ED CLINICAL HISTORY fall, diffuse midline ttp Technologist Notes COMPARISON None TECHNIQUE Thin axial images were obtained through the thoracolumbar region without intravenous contrast. 2D sagittal and coronal reconstructions were obtained from the axial data. Comments: Standard Protocol FINDINGS No fracture or bony destructive process is seen. Facet joints are intact. Paraspinal soft tissues are unremarkable. Reconstructions demonstrate normal height and alignment of vertebral bodies. Large Schmorl's node at the L1. calcified nonobstructive left renal calculus. IMPRESSION No fracture or subluxation of the thoracic or lumbosacral spine. MACRO NONE HEPATITIS B SURFACE Collected: 10/07/2017 Status: F Source: THE [facility] ANTIBODY 7:42 AM SYSTEM REPOSITORY Order Comment: Nonreactive: Samples < 7.5 mIU/mL Reactive: Samples >/= 10.0 mIU/mL The accepted criteria for immunity to HBV is anti-HBs activity >/= 10 mIU/mL, as defined by the WHO International Reference Preparation. TYPE CODE TESTS RESULT OUT OF RANGE REFERENCE UNITS LAB ANTI-HBS mIU/mL ANTI-HBS < 3.1 Performed By: #### ANTI-HBS, HBSAG, HEP A TOT, CORE #### [facility] [address] [place] [address], HEPATITIS B SURFACE Collected: 10/07/2017 Status: F Source: THE [facility] ANTIGEN 7:42 AM SYSTEM REPOSITORY TYPE CODE TESTS RESULT OUT OF REFERENCE UNITS RANGE LAB HBSAG Non-Reactive HBSAG Non-Reactive Performed By: #### ANTI-HBS, HBSAG, HEP A TOT, CORE #### [facility] [email or web address] PATH[facility]ORY [address] [place] [address], HEPATITIS A TOTAL Collected: 10/07/2017 Status: F Source: THE [facility] ANTIBODY 7:42 AM SYSTEM REPOSITORY TYPE CODE TESTS RESULT OUT OF REFERENCE UNITS RANGE LAB HEP A TOT Nonreactive Nonreactive HEP A TOT Performed By: #### ANTI-HBS, HBSAG, HEP A TOT, CORE #### [facility] [address], [place], HEPATITIS B CORE Collected: 10/07/2017 Status: F Source: [facility] ANTIBODY 7:42 AM SYSTEM REPOSITORY TYPE CODE TESTS RESULT OUT OF REFERENCE UNITS RANGE LAB CORE Nonreactive Nonreactive CORE Performed By: #### ANTI-HBS, HBSAG, HEP A TOT, CORE #### [facility] [address], [place], HEPATITIS C ANTIBODY Collected: 10/07/2017 Status: F Source: [facility] 7:42 AM SYSTEM REPOSITORY TYPE CODE TESTS RESULT OUT OF REFERENCE UNITS RANGE LAB HCV Nonreactive Nonreactive HCV Performed By: #### HCV #### [facility] [address] [place] [address], XR CHEST PA+LAT Observed: 10/07/2017 Status: F [facility] AM [facility] REPOSITORY EXAMINATION XR CHEST 2 VIEW PA+LAT/ED CLINICAL HISTORY cough rule out pneumonia Technologist Notes COMPARISON CT abdomen/ pelvis from the prior day ; XR chest October 01, 2017 ; XR chest September 26, 2017 ; XR chest September 10, 2017 FINDINGS The cardiomediastinal silhouette and pulmonary vasculature are within normal limits. The trachea is midline. Coarsening of the pulmonary interstitium in the lung bases is likely secondary to chronic lung changes. No acute focal pulmonary consolidation, pleural effusion or pneumothorax is identified. There is atherosclerotic calcification of the aortic arch. The osseous structures are unremarkable. Surgical clips are noted in the right upper abdomen. IMPRESSION No acute cardiopulmonary abnormality. MACRO NONE I have reviewed the study and interpretation with the resident and agree with the findings. POTASSIUM, WHOLE BLOOD Collected: 10/07/2017 Status: F Source: THE 5:37 AM [employer] SYSTEM REPOSITORY TYPE CODE TESTS RESULT OUT OF REFERENCE UNITS RANGE LAB POTWB 3.3-5.3 mmol/L 3.6 POTASSIUM, WHOLE BLOOD Performed By: #### CR K #### [facility] [address] [place] [address], PROTHROMBIN TIME AND Collected: 10/07/2017 Status: F Source: THE INR 5:37 AM [facility] SYSTEM REPOSITORY TYPE CODE TESTS RESULT OUT OF REFERENCE UNITS RANGE LAB PT PAT 10.0-12.6 sec PROTIME 11.2 LAB INR 0.90-1.10 INR 0.99 Performed By: #### PT #### [facility] [address] [place], [id number] COMPLETE BLOOD COUNT Collected: 10/07/2017 Status: F Source: [facility] W/DIFF 5:37 AM SYSTEM REPOSITORY TYPE CODE TESTS RESULT OUT OF REFERENCE UNITS RANGE LAB WBC 4.5-11.5 K/uL WBC 5.7 LAB RBC 4.00-5.20 M/uL Low RBC 3.82 LAB HGB 12.0-15.0 g/dL Low HGB 9.6 LAB HCT 36.0-46.0 % Low HCT 29.4 LAB MCV 80-100 fL Low MCV 77 LAB MCH 26.0-34.0 pg Low MCH 25.1 LAB MCHC 32.0-35.9 g/dL MCHC 32.7 LAB PLT 150-400 K/uL PLT 295 LAB RDW 11.5-14.5 % RDW-CV High 18.8 LAB MPV 8.5-11.5 fL MPV 11.1 LAB CPnT 31.0-76.0 % NEUTROPHILS 42.6 LAB CPIY 24.0-44.0 % LYMPHOCYTES High 45.4 LAB CPmO 2.0-11.0 % MONOCYTES 7.9 LAB CPeO 0.1-4.0 % EOSINOPHIL 3.1 LAB CPbA <=1.9 % BASOPHILS 1.0 LAB nt 1.50-8.00 K/uL NEUTROPHIL # 2.44 LAB ly 1.00-4.80 K/uL LYMPHOCYTES # 2.60 LAB mo 0.20-1.00 K/uL MONOCYTE # 0.45 LAB eo 0.00-0.70 K/uL EOSINOPHIL # 0.18 LAB ba 0.00-0.20 K/uL BASOPHIL # 0.06 Performed By: #### CBCD #### [facility] [address] [place], [id number] BASIC METABOLIC PANEL Collected: 10/07/2017 Status: F [facility]: [facility] 5:[facility] AM SYSTEM REPOSITORY TYPE CODE TESTS RESULT OUT OF REFERENCE UNITS RANGE LAB GLU 80-116 mg/dL GLU 90 LAB NA3 135-148 mmol/L NA 137 LAB POT 3.3-5.3 mmol/L K 3.8 LAB CO2 21-30 mmol/L CO2 23 LAB CHLOR 97-111 mmol/L CL 106 LAB BUN 8-22 mg/dL BUN 12 LAB CREAT 0.50-1.10 mg/dL CREAT 0.63 LAB CA 8.4-10.4 mg/dL CA 9.2 LAB ANION GAP 5-13 ANION GAP 12 LAB eGFR >=60 mL/min/1.73 sqm ESTIMATED GFR 110 (CKD-EPI) Performed By: #### CH8, HEPATIC #### [facility] [address] [place] [address], HEPATIC FUNCTION Collected: 10/07/2017 Status: F Source: THE [facility] PANEL 5:37 AM SYSTEM REPOSITORY TYPE CODE TESTS RESULT OUT OF REFERENCE UNITS RANGE LAB ALB 3.4-5.1 g/dL Low ALB 3.3 LAB DBILI 0.10-0.30 mg/dL High DBIL 1.10 LAB TBILI 0.1-1.5 mg/dL High TBIL 1.9 LAB ALKPHOS 40-200 IU/L High ALK 763 LAB ALT2 7-40 IU/L High ALT 108 LAB AST2 7-40 IU/L High AST 157 LAB tp 5.7-8.1 g/dL High TP 9.2 Performed By: #### CH8, HEPATIC #### [facility] [address] [place] [address], POTASSIUM, WHOLE BLOOD Collected: 10/06/2017 Status: F Source: THE 7:47 AM [facility] REPOSITORY TYPE CODE TESTS RESULT OUT OF REFERENCE UNITS RANGE LAB POTWB 3.3-5.3 mmol/L 4.4 POTASSIUM, WHOLE BLOOD Performed By: #### CR K #### [facility] [address] [place] [address], HEPATIC FUNCTION Collected: 10/06/2017 Status: F Source: THE [facility] PANEL 7:47 AM SYSTEM REPOSITORY TYPE CODE TESTS RESULT OUT OF REFERENCE UNITS RANGE LAB ALB 3.4-5.1 g/dL Low ALB 3.0 LAB DBILI 0.10-0.30 mg/dL High DBIL 1.00 LAB TBILI 0.1-1.5 mg/dL High TBIL 2.0 LAB ALKPHOS 40-200 IU/L High ALK 692 LAB ALT2 7-40 IU/L High ALT 102 LAB AST2 7-40 IU/L High AST 153 Result Comment: Hemolysis present LAB tp 5.7-8.1 g/dL TP 7.9 Performed By: #### HEPATIC #### [facility] [address] [place] [address], PROTHROMBIN TIME AND Collected: 10/06/2017 Status: F Source: THE INR 7:28 AM [facility] REPOSITORY TYPE CODE TESTS RESULT OUT OF REFERENCE UNITS RANGE LAB PT PAT 10.0-12.6 sec PROTIME 11.0 LAB INR 0.90-1.10 INR 0.97 Performed By: #### PT, APTT #### S [facility] [address] [place] [address], PARTIAL THROMBOPLASTIN Collected: 10/06/2017 Status: F Source: THE TIME 7:28 AM [facility] REPOSITORY TYPE CODE TESTS RESULT OUT OF RANGE REFERENCE UNITS LAB APTT 24-37 sec Low APTT 20 Performed By: #### PT, APTT #### S [facility] [address] [place] [address], CT ABD/PELVIS ED I/V Observed: 10/06/2017 Status: F Source: THE SEE W/ CONTRAST 7:20 AM [facility] REPOSITORY EXAMINATION CT ABD/PELVIS ED I/V SEE W//ED CLINICAL HISTORY LLQ pain rule out diverticulitus Technologist Notes COMPARISON None TECHNIQUE Contiguous axial images were obtained through the abdomen and pelvis from the level of the diaphragmatic domes through the pubic symphysis following bolus administration of intravenous contrast. MPR sagittal and coronal reconstructions were obtained from the axial data. Before infusion of intravenous contrast, radiology personnel investigated the possibility of an allergic history and of any history of reaction to iodinated contrast material. Comments: None INTRA-PROCEDURE MEDICATION FINDINGS Included images of the lower thorax: There is dependent atelectasis. There is mild paraseptal emphysema in the right lower lobe. Hepatobiliary: Unremarkable liver without biliary dilation evident. Status post cholecystectomy. Pancreas: Unremarkable. Spleen: Unremarkable. Adrenal glands: Unremarkable. Kidneys: There is a punctate nonobstructing left renal calculus. Too small to characterize hypodense foci in both kidneys are likely cysts. Ureters and bladder: No calculi are noted. Abdominal aorta and proximal major branches: There are mild atherosclerotic calcifications of the infrarenal aorta and the bilateral common iliac arteries. No aneurysm. Bowel: The duodenum does not cross the midline and large bowel is predominately in the left side which is sales representative electric service of malrotation. No evidence of obstruction. The appendix is in the left lower quadrant. There is diverticulosis in the colon. No evidence of diverticulitis. Peritoneum and retroperitoneum: No free fluid or free air is noted. Lymph nodes: Mildly enlarged gastrohepatic and portacaval lymph nodes, both measuring 1.5 cm, are most likely reactive. No adenopathy otherwise. Solid pelvic viscera: CT is suboptimal for evaluation without mass identified. Visualized musculoskeletal structures: There are mild degenerative changes in the lumbar lower thoracic vertebrae. Schmorl's node seen in L1. IMPRESSION 1. No etiology of left lower quadrant pain is evident. 2. The normal appendix is in the left lower quadrant secondary to malrotation of the bowel. 3. Prominent upper abdominal lymph nodes which are most likely reactive, correlation with hepatic viral markers is recommend. MACRO NONE I have reviewed the study and interpretation with the resident and agree with the findings. LIPASE Collected: 10/06/2017 Status: F Source: [facility] 5:47 AM SYSTEM REPOSITORY TYPE CODE TESTS RESULT OUT OF RANGE REFERENCE UNITS LAB LIP <128 IU/L LIP 64 Performed By: #### LIP, HEPATIC, CH8 #### [facility] [address] [place] [address], [id number] HEPATIC FUNCTION Collected: 10/06/2017 Status: F Source: [facility] PANEL 5:47 AM SYSTEM REPOSITORY TYPE CODE TESTS RESULT OUT OF REFERENCE UNITS RANGE LAB ALB 3.4-5.1 g/dL Low ALB 3.2 LAB DBILI 0.10-0.30 mg/dL High DBIL 1.70 LAB TBILI 0.1-1.5 mg/dL High TBIL 3.8 LAB ALKPHOS 40-200 IU/L High ALK 841 LAB ALT2 7-40 IU/L High ALT 120 LAB AST2 7-40 IU/L High AST 205 Result Comment: Hemolysis present LAB tp 5.7-8.1 g/dL High TP 9.2 Performed By: #### LIP, HEPATIC, CH8 #### [facility] [address], [place], BASIC METABOLIC PANEL Collected: 10/06/2017 Status: F Source: [facility] 5:47 AM SYSTEM REPOSITORY TYPE CODE TESTS RESULT OUT OF RANGE REFERENCE UNITS LAB GLU 80-116 mg/dL GLU 82 LAB NA3 135-148 mmol/L Low NA 133 LAB POT 3.3-5.3 mmol/L High Alert K 7.0 Result Comment: Hemolysis present LAB CO2 21-30 mmol/L CO2 24 LAB CHLOR 97-111 mmol/L CL 103 LAB BUN 8-22 mg/dL BUN 14 LAB CREAT 0.50-1.10 mg/dL CREAT 0.54 LAB CA 8.4-10.4 mg/dL CA 9.2 LAB ANION GAP 5-13 ANION GAP 13 LAB eGFR >=60 mL/min/1.73sq m ESTIMATED GFR (CKD-EPI) 115 Performed By: #### LIP, HEPATIC, CH8 #### S [facility] [address] [place] [address], COMPLETE BLOOD COUNT Collected: 10/06/2017 Status: F Source: [facility] W/DIFF 5:47 AM SYSTEM REPOSITORY TYPE CODE TESTS RESULT OUT OF REFERENCE UNITS RANGE LAB WBC 4.5-11.5 K/uL WBC 4.9 LAB RBC 4.00-5.20 M/uL RBC 4.21 LAB HGB 12.0-15.0 g/dL HGB Low 10.5 LAB HCT 36.0-46.0 % HCT Low 32.1 LAB MCV 80-100 fL MCV Low 76 LAB MCH 26.0-34.0 pg MCH Low 24.9 LAB MCHC 32.0-35.9 g/dL MCHC 32.7 LAB PLT 150-400 K/uL PLT 298 LAB RDW 11.5-14.5 % RDW-CV High 18.9 LAB MPV 8.5-11.5 fL MPV High 11.6 LAB CPnT 31.0-76.0 % NEUTROPHILS 42.7 LAB CPIY 24.0-44.0 % LYMPHOCYTES High 47.0 LAB CPmO 2.0-11.0 % MONOCYTES 6.2 LAB CPeO 0.1-4.0 % EOSINOPHIL 3.1 LAB CPbA <=1.9 % BASOPHILS 1.0 LAB nt 1.50-8.00 K/uL NEUTROPHIL # 2.08 LAB ly 1.00-4.80 K/uL LYMPHOCYTES # 2.29 LAB mo 0.20-1.00 K/uL MONOCYTE # 0.30 LAB eo 0.00-0.70 K/uL EOSINOPHIL # 0.15 LAB ba 0.00-0.20 K/uL BASOPHIL # 0.05 LAB QJ RBC MORPHOLOGY See Below LAB bp MICROCYTOSIS Slight LAB HY HYPOCHROMASIA Slight LAB bu FRAGMENTED RBC Few LAB by [employer] CELLS Few Performed By: #### CBCD #### [facility] [address] [place] [address], TYPE AND SCREEN Collected: 10/06/2017 Status: C Source: [facility] 5:47 AM SYSTEM REPOSITORY TYPE CODE TESTS RESULT OUT OF REFERENCE UNITS RANGE LAB I ABORH B ABO Positive RH TYPE LAB ABSC INT ABSC Negative INT Performed By: #### TS #### [facility] [address] [place] [address], XR CHEST PA+LAT Observed: 10/01/2017 Status: F [facility] SYSTEM REPOSITORY EXAMINATION XR CHEST 2 VIEW PA+LAT/ED CLINICAL HISTORY cough Technologist Notes COMPARISON Chest radiograph 09/26/2017. FINDINGS Coarse lung markings suggesting chronic lung changes. Unremarkable cardiopericardial silhouette. Calcifications within the aortic arch IMPRESSION No significant change to suggest an acute cardiopulmonary abnormality. MACRO NONE PROTHROMBIN TIME AND Collected: 09/27/2017 Status: F Source: THE INR 2:19 AM [facility] SYSTEM REPOSITORY TYPE CODE TESTS RESULT OUT OF REFERENCE UNITS RANGE LAB PT PAT 10.0-12.6 sec PROTIME 10.8 LAB INR 0.90-1.10 INR 0.96 Performed By: #### PT #### [facility] [address] [place] [address], TYPE AND SCREEN Collected: 09/27/2017 Status: F Source: [facility] 2:19 AM SYSTEM REPOSITORY TYPE CODE TESTS RESULT OUT OF REFERENCE UNITS RANGE LAB I ABORH B ABO Positive RH TYPE LAB ABSC INT ABSC Negative INT Performed By: #### TS #### [facility] [address] [place] [address], COMPLETE BLOOD COUNT Collected: 09/27/2017 Status: F Source: [facility] 2:18 AM SYSTEM REPOSITORY TYPE CODE TESTS RESULT OUT OF RANGE REFERENCE UNITS LAB WBC 4.5-11.5 K/uL WBC 5.6 LAB RBC 4.00-5.20 M/uL Low RBC 3.51 LAB HGB 12.0-15.0 g/dL Low HGB 8.7 LAB HCT 36.0-46.0 % Low HCT 26.9 LAB MCV 80-100 fL Low MCV 77 LAB MCH 26.0-34.0 pg Low MCH 24.8 LAB MCHC 32.0-35.9 g/dL MCHC 32.3 LAB PLT 150-400 K/uL PLT 285 LAB RDW 11.5-14.5 % High RDW-CV 19.1 LAB MPV 8.5-11.5 MPV Result Comment: Not Measured Performed By: #### CBC #### [facility] [address] [place] [address], XR CHEST PA+LAT Observed: 09/26/2017 Status: F Source: [facility] 10:05 PM SYSTEM REPOSITORY EXAMINATION XR CHEST 2 VIEW PA+LAT/ED CLINICAL HISTORY near syncope Technologist Notes COMPARISON September 10, 2017 FINDINGS Frontal and lateral views of the chest were obtained. Cardiomediastinal silhouette is within normal limits. Trachea is nondisplaced. Lungs show slight relative increase in the degree of opacity over the right lower lobe region, nonspecific but could represent developing infiltrate or atelectasis. No sizeable pleural effusion or pneumothorax. Pulmonary vasculature is within normal limits. Bony thorax appears grossly intact. IMPRESSION Slightly increased opacity over the right lower lobe, could represent developing infiltrate or atelectasis. MACRO NONE POTASSIUM, WHOLE BLOOD Collected: 09/26/2017 Status: F Source: THE 9:34 PM [facility] SYSTEM REPOSITORY TYPE CODE TESTS RESULT OUT OF REFERENCE UNITS RANGE LAB POTWB 3.3-5.3 mmol/L 4.2 POTASSIUM, WHOLE BLOOD Performed By: #### CR K #### [facility] [address], [place], BASIC METABOLIC PANEL Collected: 09/26/2017 Status: F [facility]: [facility] 8[facility] PM SYSTEM REPOSITORY TYPE CODE TESTS RESULT OUT OF RANGE REFERENCE UNITS LAB GLU 80-116 mg/dL GLU 116 LAB NA3 135-148 mmol/L NA 135 LAB POT 3.3-5.3 mmol/L K 4.5 Result Comment: Hemolysis present LAB CO2 21-30 mmol/L CO2 22 LAB CHLOR 97-111 mmol/L CL 103 LAB BUN 8-22 mg/dL BUN 14 LAB CREAT 0.50-1.10 mg/dL CREAT 0.75 LAB CA 8.4-10.4 mg/dL CA 8.7 LAB ANION GAP 5-13 ANION High GAP 15 LAB eGFR >=60 mL/min/1.73sq m ESTIMATED GFR (CKD-EPI) 97 Performed By: #### CH8 #### [facility] [address] [place], [address] COMPLETE BLOOD COUNT Collected: 09/26/2017 Status: F Source: THE [employer] [facility] 8:55 PM SYSTEM REPOSITORY TYPE CODE TESTS RESULT OUT OF REFERENCE UNITS RANGE LAB WBC 4.5-11.5 K/uL WBC 6.2 LAB RBC 4.00-5.20 M/uL Low RBC 3.16 LAB HGB 12.0-15.0 g/dL Low HGB 7.8 LAB HCT 36.0-46.0 % Low HCT 23.9 LAB MCV 80-100 fL Low MCV 76 LAB MCH 26.0-34.0 pg Low MCH 24.7 LAB MCHC 32.0-35.9 g/dL MCHC 32.6 LAB PLT 150-400 K/uL PLT 263 LAB RDW 11.5-14.5 % RDW-CV High 18.5 LAB MPV 8.5-11.5 fL MPV High 11.7 LAB CPnT 31.0-76.0 % NEUTROPHILS 48.6 LAB CPIY 24.0-44.0 % LYMPHOCYTES 39.6 LAB CPmO 2.0-11.0 % MONOCYTES 7.6 LAB CPeO 0.1-4.0 % EOSINOPHIL 3.2 LAB CPbA <=1.9 % BASOPHILS 1.0 LAB nt 1.50-8.00 K/uL NEUTROPHIL # 2.99 LAB ly 1.00-4.80 K/uL LYMPHOCYTES # 2.44 LAB mo 0.20-1.00 K/uL MONOCYTE # 0.47 LAB eo 0.00-0.70 K/uL EOSINOPHIL # 0.20 LAB ba 0.00-0.20 K/uL BASOPHIL # 0.06 Performed By: #### CBCD #### [facility] [address] [place] [address], HEPATITIS C ANTIBODY Collected: 09/26/2017 Status: F Source: [facility] 8:50 PM SYSTEM REPOSITORY TYPE CODE TESTS RESULT OUT OF REFERENCE UNITS RANGE LAB HCV Nonreactive Nonreactive HCV Performed By: #### LIP, HEPATIC, HCV #### [facility] [address] [place] [address], LIPASE Collected: 09/26/2017 Status: F Source: [facility] 8:50 PM SYSTEM REPOSITORY TYPE CODE TESTS RESULT OUT OF RANGE REFERENCE UNITS LAB LIP <128 IU/L LIP 52 Performed By: #### LIP, HEPATIC, HCV #### [facility] [address] [place] [address], HEPATIC FUNCTION Collected: 09/26/2017 Status: F Source: [facility] PANEL 8:50 PM SYSTEM REPOSITORY TYPE CODE TESTS RESULT OUT OF REFERENCE UNITS RANGE LAB ALB 3.4-5.1 g/dL Low ALB 2.7 LAB DBILI 0.10-0.30 mg/dL High DBIL 1.10 LAB TBILI 0.1-1.5 mg/dL High TBIL 2.0 LAB ALKPHOS 40-200 IU/L High ALK 703 LAB ALT2 7-40 IU/L High ALT 96 LAB AST2 7-40 IU/L High AST 158 Result Comment: Hemolysis present LAB tp 5.7-8.1 g/dL TP 7.6 Performed By: #### LIP, HEPATIC, HCV #### [facility] [address] [place] [address], XR CHEST PA+LAT Observed: 09/10/2017 Status: F [facility] PM SYSTEM REPOSITORY EXAMINATION XR CHEST 2 VIEW PA+LAT/ED CLINICAL HISTORY shortness of breath Technologist Notes COMPARISON None FINDINGS The cardiomediastinal silhouette and pulmonary vasculature are normal. Atherosclerotic calcification of the thoracic aorta. The lungs are well expanded and clear. No pleural effusion or pneumothorax is identified. Degenerative changes of the thoracic spine are present. Cholecystectomy clips are noted. IMPRESSION Unremarkable exam. MACRO NONE I have reviewed the study and interpretation with the resident and agree with the findings. PROTHROMBIN TIME AND Collected: 09/10/2017 Status: F Source: THE INR 2:04 PM [facility] SYSTEM REPOSITORY TYPE CODE TESTS RESULT OUT OF REFERENCE UNITS RANGE LAB PT PAT 10.0-12.6 sec PROTIME 11.2 LAB INR 0.90-1.10 INR 0.99 Performed By: #### PT #### [facility] [address] [place] [address], BASIC METABOLIC PANEL Collected: 09/10/2017 Status: F Source: [facility] 2:04 PM SYSTEM REPOSITORY TYPE CODE TESTS RESULT OUT OF REFERENCE UNITS RANGE LAB GLU 80-116 mg/dL GLU 95 LAB NA3 135-148 mmol/L NA 136 LAB POT 3.3-5.3 mmol/L K 3.8 LAB CO2 21-30 mmol/L CO2 23 LAB CHLOR 97-111 mmol/L CL 107 LAB BUN 8-22 mg/dL BUN 9 LAB CREAT 0.50-1.10 mg/dL CREAT 0.56 LAB CA 8.4-10.4 mg/dL CA 8.9 LAB ANION GAP 5-13 ANION GAP 10 LAB eGFR >=60 mL/min/1.73 sqm ESTIMATED GFR 114 (CKD-EPI) Performed By: #### CH8, TSH HS #### [facility] [address] [place] [address], TSH, HIGH SENSITIVITY Collected: 09/10/2017 Status: F Source: THE 2:04 PM [facility] SYSTEM REPOSITORY TYPE CODE TESTS RESULT OUT OF RANGE REFERENCE UNITS LAB TSH HS 0.450-5.330 uIU/mL TSH HS 0.850 Result Comment: Referance range for women as applicable: First Trimester: 0. 050 to 3.700 uIU/mL Second Trimester: 0. 310 to 4.350 uIU/mL Third Trimester: 0. 410 to 5.180 uIU/mL Performed By: #### CH8, TSH HS #### [facility] [address] [place] [address], COMPLETE BLOOD COUNT Collected: 09/10/2017 Status: F [facility] 2:04 PM SYSTEM REPOSITORY TYPE CODE TESTS RESULT OUT OF REFERENCE UNITS RANGE LAB WBC 4.5-11.5 K/uL Low WBC 4.4 LAB RBC 4.00-5.20 M/uL Low RBC 3.60 LAB HGB 12.0-15.0 g/dL Low HGB 9.0 LAB HCT 36.0-46.0 % Low HCT 27.8 LAB MCV 80-100 fL Low MCV 77 LAB MCH 26.0-34.0 pg Low MCH 25.0 LAB MCHC 32.0-35.9 g/dL MCHC 32.4 LAB PLT 150-400 K/uL PLT 274 LAB RDW 11.5-14.5 % RDW-CV High 18.9 LAB MPV 8.5-11.5 fL MPV High 12.2 LAB CPnT 31.0-76.0 % NEUTROPHILS 49.6 LAB CPIY 24.0-44.0 % LYMPHOCYTES 40.5 LAB CPmO 2.0-11.0 % MONOCYTES 6.1 LAB CPeO 0.1-4.0 % EOSINOPHIL 2.9 LAB CPbA <=1.9 % BASOPHILS 0.9 LAB nt 1.50-8.00 K/uL NEUTROPHIL # 2.19 LAB ly 1.00-4.80 K/uL LYMPHOCYTES # 1.79 LAB mo 0.20-1.00 K/uL MONOCYTE # 0.27 LAB eo 0.00-0.70 K/uL EOSINOPHIL # 0.13 LAB ba 0.00-0.20 K/uL BASOPHIL # 0.04 Performed By: #### CBCD #### [facility] [address] [place] [address], B TYPE NATRIURETIC Collected: 09/10/2017 Status: F Source: THE [place] 2:04 PM [facility] REPOSITORY TYPE CODE TESTS RESULT OUT OF RANGE REFERENCE UNITS LAB BNP <100.0 pg/mL High BNP 160.0 Performed By: #### BPL #### [facility] [address] [place] [address], GLUCOSE, FINGERSTICK-IN Collected: 08/27/2017 Status: F Source: THE OFFICE 11:34 PM [facility] REPOSITORY TYPE CODE TESTS RESULT OUT OF RANGE REFERENCE UNITS LAB Chinese 80-116 mg/dL GLUCOSE, 106 POC Performed By: #### [id number] #### NURSING GLUCOSE PROGRAM [address] [place] [address], [id number] ED NOTE Observed: 08/27/2017 Status: COMPLETED Source: [facility] 9:11 PM CLINIC OTHER CAMPUS REPOSITORY HNO ID: [id number] Author: Vilma (Rn) Sunny Martinez RN Service: Nursing Author Type: Registered Nurse Type: ED Notes Filed: 08/27/2017 9:11 PM Note Text: Pt received written and verbal discharge instructions. All questions answered Pt verbalized understanding. Instructed pt to follow up with PCP or follow-up DR. No acute distress noted. Instructed to come back to Emergency Room if symptoms worsen. Pt verbalized understanding. All belongings with patient. Pt ambulated with steady gait out of ED. ED PROV NOTE Observed: 08/27/2017 Status: COMPLETED Source: [facility] 8:54 PM [facility]INIC OTHER CAMPUS REPOSITORY HNO ID: [id number] Author: Hai Lion DO Service: Emergency Medicine Author Type: Physician Type: ED Provider Notes Filed: 08/28/2017 3:05 AM Note Text: ED Provider Note Patient Name: Jesse Blair SERVICE DATE: 08/27/17 History Patient presents with: Dizziness 62 YO F presents to ED for social reasons. stuck in [facility] after running out of money to catch a bus to [place]. Now in ED for third time today. Was complaining of dizziness, which is a chronic issue. Mediations are in suitcase at [facility]. No other complaints. History provided by: Patient PAST MEDICAL HISTORY Diagnosis Date - Chronic obstructive pulmonary disease (COPD) (HCC) - Osteoarthritis No past surgical history on file. No family history on file. Social History Social History Main Topics - Smoking status: Current Every Day Smoker Packs/day: 1.00 Types: Cigarettes - Smokeless tobacco: Never Used - Alcohol use Yes Comment: socially - Drug use: No - Sexual activity: Not on file ALLERGIES Allergen Reactions - Asa [Aspirin] Other: See Comments Pt states I get seizures Review of Systems Constitutional: Negative for activity change, chills, diaphoresis and fever. HENT: Negative for dental problem, ear pain and sore throat. Eyes: Negative for photophobia, pain and visual disturbance. Respiratory: Negative for cough, chest tightness, shortness of breath and wheezing. Cardiovascular: Negative for chest pain. Gastrointestinal: Negative for abdominal pain, diarrhea, nausea and vomiting. Genitourinary: Negative for difficulty urinating, dysuria, flank pain, frequency and urgency. Musculoskeletal: Negative for arthralgias, back pain, myalgias, neck pain and neck stiffness. Skin: Negative for color change and rash. Neurological: Positive for dizziness. Negative for seizures, syncope, weakness, light-headedness, numbness and headaches. Hematological: Negative for adenopathy. Psychiatric/Behavioral: Negative for agitation, behavioral problems, confusion and suicidal ideas. The patient is not nervous/anxious. All other systems reviewed and are negative. Physical Exam BP 110/82 Pulse 73 Temp (Src) 97.8 (Oral) Resp 18 SpO2 99% Physical Exam Constitutional: She is oriented to person, place, and time. She appears well-developed and well-nourished. No distress. HENT: Head: Normocephalic and atraumatic. Right Ear: External ear normal. Left Ear: External ear normal. Mouth/Throat: Oropharynx is clear and moist. Eyes: Conjunctivae and EOM are normal. Pupils are equal, round, and reactive to light. Right eye exhibits no discharge. Left eye exhibits no discharge. No scleral icterus. Neck: Normal range of motion. Neck supple. No tracheal deviation present. Cardiovascular: Normal rate, regular rhythm and normal heart sounds. No murmur heard. Pulmonary/Chest: Effort normal and breath sounds normal. No respiratory distress. Abdominal: Soft. Bowel sounds are normal. She exhibits no distension and no mass. There is no tenderness. There is no rebound and no guarding. Musculoskeletal: Normal range of motion. She exhibits no edema or tenderness. Neurological: She is alert and oriented to person, place, and time. She has normal strength. No cranial nerve deficit or sensory deficit. Coordination and gait normal. GCS eye subscore is 4. GCS verbal subscore is 5. GCS motor subscore is 6. Skin: Skin is warm and dry. No rash noted. Psychiatric: She has a normal mood and affect. Her behavior is normal. Nursing note and vitals reviewed. Diagnostic Testing ED Labs Ordered and Reviewed - No data to display Procedures Medical Decision Making MDM No active medical issues at this time. Visit secondary to poor social situation. Given street card. Referred back to primary care physician for follow up. Patient advised to return for repeat evaluation with any concerns. Patient agreeable with plan and verbalized understanding. Discharged home in stable condition. ED Course / Clinical Impression Clinical Impressions as of Aug 27 2053 Poor social situation Dizziness Plan SIGNATURE: DO Hai Barnes DO 08/28/17 0305 ED NOTE Observed: 08/27/2017 Status: COMPLETED Source: [facility] 8:45 PM [facility]INIC OTHER CAMPUS REPOSITORY HNO ID: [id number] Author: Jean Claude (Rn) RADHA Rodrigues Service: (none) Author Type: Registered Nurse Type: ED Notes Filed: 08/27/2017 8:54 PM Note Text: Pt came to the ED, of note, her third separate time to [facility] ED today, stating she got stuck en route from [place] to (???) [place] and is looking for help, I'm stuck in [place]. ED PROV NOTE Observed: 08/27/2017 Status: COMPLETED Source: [facility] 5:26 PM CLINIC OTHER CAMPUS REPOSITORY HNO ID: [id number] Author: West Estrada MD Service: Emergency Medicine Author Type: Physician Type: ED Provider Notes Filed: 08/29/2017 1:39 PM Note Text: ED Provider Note Patient Name: Jesse Blair SERVICE DATE: 08/27/17 History Patient presents with: Dizziness 62 yof with history of vertigo presents with dizziness and weakness. She is from out of town. She was seen in our ED earlier today for same, evaluated and discharged. She states her dizziness has worsened and she feels weak. She states she is unable to ambulate now. She describes her 'dizziness' as burning sensation in her eyes. She then endorses both light headedness and spinning sensation when asked. She denies N/V, blurry vision, headache, neck pain, chest pain or palpations. She states she has a history of vertigo and is on medication for it, but her medications is elsewhere at the moment. She denies focal numbness or weakness, just states she is generally weak. No back pain. No bowel or bladder incontinence or retention. No IVDU. No fevers or chills. PAST MEDICAL HISTORY Diagnosis Date - Chronic obstructive pulmonary disease (COPD) (HCC) - Osteoarthritis No past surgical history on file. No family history on file. Social History Social History Main Topics - Smoking status: Current Every Day Smoker Packs/day: 1.00 Types: Cigarettes - Smokeless tobacco: Never Used - Alcohol use Yes Comment: socially - Drug use: No - Sexual activity: Not on file ALLERGIES Allergen Reactions - Asa [Aspirin] Other: See Comments Pt states I get seizures Review of Systems Constitutional: Negative for chills, fatigue and fever. HENT: Negative for congestion, rhinorrhea and sore throat. Eyes: Positive for pain (burning?). Negative for redness and visual disturbance. Respiratory: Negative for cough and shortness of breath. Cardiovascular: Negative for chest pain. Gastrointestinal: Negative for abdominal pain, blood in stool, constipation, diarrhea, nausea and vomiting. Endocrine: Negative for polyuria. Genitourinary: Negative for dysuria, pelvic pain, vaginal bleeding and vaginal discharge. Musculoskeletal: Negative for back pain and joint swelling. Skin: Negative for rash and wound. Allergic/Immunologic: Negative for immunocompromised state. Neurological: Positive for dizziness and weakness. Negative for numbness. Hematological: Does not bruise/bleed easily. Psychiatric/Behavioral: Negative. Physical Exam BP 118/60 Pulse 82 Temp (Src) 98 (Oral) Resp 16 Ht 5' 6 (1.68m) Wt 153 lb (69.4kg) SpO2 100% BMI 24.71 kg/(m2). Physical Exam Constitutional: She is oriented to person, place, and time. She appears well-developed and well-nourished. No distress. HENT: Head: Normocephalic and atraumatic. Mouth/Throat: Oropharynx is clear and moist. Eyes: Conjunctivae and EOM are normal. Pupils are equal, round, and reactive to light. Neck: Normal range of motion. Neck supple. No JVD present. No tracheal deviation present. Cardiovascular: Normal rate, regular rhythm and normal heart sounds. No murmur heard. Pulmonary/Chest: Effort normal and breath sounds normal. No respiratory distress. She has no wheezes. Abdominal: Soft. Bowel sounds are normal. She exhibits no distension. There is no tenderness. Musculoskeletal: Normal range of motion. She exhibits no edema or tenderness. Neurological: She is alert and oriented to person, place, and time. She displays normal reflexes. No cranial nerve deficit or sensory deficit. She exhibits normal muscle tone. Coordination normal. Symmetric neuro exam. No dysmetria. She refuses to walk. She attempts to pull herself up using arms and hands, then states I can't walk. Skin: Skin is warm and dry. No rash noted. No erythema. Psychiatric: She has a normal mood and affect. Her behavior is normal. Diagnostic Testing ED Labs Ordered and Reviewed - No data to display Procedures Medical Decision Making MDM Patient with hx of vertigo per pt, seen earlier for dizziness and discharged after lab work and CT brain unremarkable. Currently stating she cannot walk. Her exam is non focal and symmetric. She is moving all extremities equally. However she refuses to even stand up and states she cannot walk. It appeared to me she was giving poor effort. I will give her meclizine as she has this hx of vertigo. Additionally based on hx of physical, doubt epidural abscess and cuada equina. Non focal exam, doubt stroke. Neg tox Screen. This seems to be a social issue and patient is unable to get back to [place] area where she is from. She is giving different stories re how she got here and what her plan is. I asked social work to see her. They corroborate this story, she was asking for assistance to get back to [place], she was asked to get off a bus going there as she did not have ticket or money. As I passed the room to see another patient while she was talking to social work, she got up from the chair and was walking and talking with social work. I asked her about this and she tells me Why are you coming at me like this? I am not faking, I am not trying to stay in your hospital. She then told nurse she wants to leave AMA. She received screening exam, stable vitals, feels she is safe for discharge. Malingering vs secondary gain? Dc with f/u information. She was given street card by social work ED Course / Clinical Impression Clinical Impressions as of Aug 29 1325 Dizziness Plan The patient was DISCHARGED: Counseled patient regarding suspected diagnosis AND need for follow-up. Discharged home with verbal and written instructions. They were instructed to return as needed for persistent or worsening symptoms or any new concerns. Condition at time of disposition: stable SIGNATURE: MD West Oswald MD 08/29/17 1339 ED NOTE Observed: 08/27/2017 Status: COMPLETED Source: [facility] 5:25 PM CLINIC OTHER CAMPUS REPOSITORY HNO ID: [id number] Author: Maria Del Rosario (Rn) RADHA Schuster Service: Nursing Author Type: Registered Nurse Type: ED Notes Filed: 08/27/2017 5:36 PM Note Text: Pt states I just need my paperwork; I am leaving AMA. Spoke to Dr. Estrada and medications do not need to be given because patient is standing and walking in hallway. Pt received written and verbal discharge instructions. Instructed pt to follow up with PCP or follow-up DR. No acute distress noted. Instructed to come back to Emergency Room if symptoms worsen. Pt verbalized understanding. All belongings with patient. Pt ambulated with steady gait out of ED. ED NOTE Observed: 08/27/2017 Status: COMPLETED Source: [facility] 4:00 PM [facility] REPOSITORY HNO ID: [id number] Author: Maria Del Rosario ChavezRn) Landen RN Service: Nursing Author Type: Registered Nurse Type: ED Notes Filed: 08/27/2017 5:38 PM Note Text: Pt sitting in RW with no complaints at this time. Comfort measures offered. No distress noted, safety maintained. ED NOTE Observed: 08/27/2017 Status: COMPLETED Source: [facility] 3:00 PM [facility] HNO ID: [id number] Author: Maria Del Rosario ChavezRn) Landen RN Service: Nursing Author Type: Registered Nurse Type: ED Notes Filed: 08/27/2017 5:38 PM Note Text: Pt sitting in RW with no complaints at this time. Comfort measures offered. No distress noted, safety maintained. ED NOTE Observed: 08/27/2017 Status: COMPLETED Source: [facility] 2:13 PM [facility] REPOSITORY HNO ID: [id number] Author: Yury ChavezRn) Michele RN Service: (none) Author Type: Registered Nurse Type: ED Notes Filed: 08/27/2017 2:20 PM Note Text: Pt c/o dizziness, pt was at the ed this morning, brain CT, and blood work all w/in normal range, no other symptoms noted by pt. ED NOTE Observed: 08/27/2017 Status: COMPLETED Source: [facility] 9:39 AM [facility] REPOSITORY HNO ID: [id number] Author: Amy ChavezRn) RADHA Angeles Service: (none) Author Type: Registered Nurse Type: ED Notes Filed: 08/27/2017 9:40 AM Note Text: Reviewed all discharge instructions with patient. Patient verbalized understanding of all discharge instructions including the need for follow up. Gait steady, no respiratory distress noted. ED NOTE Observed: 08/27/2017 Status: COMPLETED Source: [facility] 9:39 AM [facility]IN[facility] OTHER CAMPUS REPOSITORY HNO ID: [id number] Author: Amy (Rn) RADHA Angeles Service: (none) Author Type: Registered Nurse Type: ED Notes Filed: 08/27/2017 9:39 AM Note Text: Clean catch urine specimen obtained and sent. TOXICOLOGY SCREEN,UR Collected: 08/27/2017 Status: F Source: [facility] 9:39 AM [facility]INIC OTHER CAMPUS REPOSITORY TYPE CODE TESTS RESULT OUT OF REFERENCE UNITS RANGE LAB UPCP2 Negative Negative Phencyclidin e, Urine Result Comment: Cutoff threshold at 25 ng/mL. LAB [id number] Negative Benzodiazepines, Ur Negative Result Comment: Cutoff threshold at 200 ng/mL. LAB UCOC2 Negative Cocaine, Negative Urine Result Comment: Cutoff threshold at 300 ng/mL. LAB UAMPH2 Negative Amphetamines, Urine Negative Result Comment: Cutoff threshold at 1000 ng/mL. LAB UTHC2 Negative Cannabinoids, Urine Negative Result Comment: Cutoff threshold at 50 ng/mL. LAB UOPI2 Negative Opiates, Negative Urine Result Comment: Cutoff threshold at 300 ng/mL. LAB UBARB2 Negative Barbiturates, Urine Negative Result Comment: Cutoff threshold at 200 ng/mL. LAB UETOH <11 mg/dL <11 Ethanol, Urine LAB UOXYC Negative Oxycodone, Negative Urine Result Comment: Cutoff threshold at 100 ng/mL. Comment: Immunoassay screen only. Cross reactivity with other substances can occur with immunoassay screening. Detection of any drug(s) in this urine toxicology panel is presumptive only. These tests are for med ical purposes only and should not be used for compliance monitoring, legal, or forensic use. Samples should be within normal physiological conditions (e.g. pH). This assay does not include adulteration/specimen validity testing. In clinical settings, confirmatory testing is at the practitioner's discretion [1]. If clinically indicated, confirmation by high specificity, quantitative methodology, which includes adulteration/spec imen validity testing, may be requested on the same specimen through Client Services ([phone]) if contacted within 48 hours of initial testing. [1]Substance Abuse and Mental Health Services Administration (2012). Clinical Drug Testing in Primary Care Technical Assistance Publication Series 32. Department of Health and Human Services, [place], p.10. Performed By: #### UTOX2 #### [place] [address] URINALYSIS WITH Collected: 08/27/2017 Status: F Source: [place] MICROSCOPIC 9:39 AM [facility] OTHER CAMPUS REPOSITORY TYPE CODE TESTS RESULT OUT OF RANGE REFERENCE UNITS LAB UCOL Yellow Color Yellow LAB [facility] Clear Clarity Abnormal Hazy Alert LAB UGLUC Negative mg/dL Glucose, Urine Negative LAB UBIL Negative Bilirubin, Urine Negative LAB UKET Negative Ketones, Urine Negative LAB USPG 1.005-1.030 Specific Stella, Ur 1.020 LAB UHGB Negative Hemoglobin/Blood, Negative Ur LAB UPH 4.5-8.0 pH 6.0 LAB UPROT Negative mg/dL Protein, Urine Negative LAB UUROB 0.2-1.0 High Urobilinogen 2.0 LAB UNITR Negative Nitrites Negative LAB ULKEST Negative Leukest Negative LAB UWBC 0-5 /HPF WBC 0-5 LAB URBC 0-3 /HPF RBC 0-3 LAB UBACT 0 /HPF Bacteria Abnormal Present Alert LAB UEPI /HPF Epithelial Cells SEE COMMENT Result Comment: 0-2 LAB AMORI Amorphous Few Crystal LAB UCAST 0 /LPF Cast SEE COMMENT Result Comment: 0 Performed By: #### UAWMIC #### [facility] [address] [address] ED NOTE Observed: 08/27/2017 Status: COMPLETED Source: [place] 9:00 AM [facility] REPOSITORY HNO ID: [id number] Author: Amy ChavezRn) RADHA [place] Service: (none) Author Type: Registered Nurse Type: ED Notes Filed: 08/27/2017 9:02 AM Note Text: Pt updated on all plans of care including the need for an urine specimen. Side rails up times 2 for safety. Call light with in reach. Pt falls asleep easily during conversation. ED NOTE Observed: 08/27/2017 Status: COMPLETED Source: [place] 8:40 AM [facility] OTHER [place] REPOSITORY HNO ID: [id number] Author: Amy ChavezRn) Bridgette, RADHA Service: (none) Author Type: Registered Nurse Type: ED Notes Filed: 08/27/2017 9:02 AM Note Text: Pt resting, eyes closed. Respirations even non labored. CT BRAIN WO IVCON Observed: 08/27/2017 Status: F Source: [place] 8:38 AM [facility] OTHER CAMPUS REPOSITORY * * *Final Report* * * DATE OF EXAM: Aug 27 2017 8:38AM BELEN 0504 - CT BRAIN WO IVCON / PROCEDURE REASON: Ataxia, stroke suspected * * * * Physician Interpretation * * * * EXAMINATION: CT BRAIN WO IVCON CLINICAL HISTORY: Ataxia, stroke suspected TECHNIQUE: Serial axial images without IV contrast were obtained from the vertex to the foramen magnum. MQ: CTBWO_3 CT Dose-Length Product (DLP): 605 mGy*cm CT Dose Reduction Employed: No dose reduction techniques were required COMPARISON: None. RESULT: Post-operative change: None. Acute change: No evidence of an acute infarct or other acute parenchymal process. Hemorrhage: No evidence of acute intracranial hemorrhage. Mass Lesion / Mass Effect: There is no evidence of an intracranial mass or extraaxial fluid collection. No significant mass effect. Chronic change: Patchy areas of decreased attenuation in the supratentorial white matter, a nonspecific finding, most likely microvascular ischemic changes.. Parenchyma: There is no significant volume loss. The brain parenchyma is otherwise within normal limits for age. Ventricles: The ventricles are within normal limits of size and configuration for age. Paranasal sinuses and skull base: The visualized paranasal sinuses are grossly clear. The skull base and imaged soft tissues are unremarkable. IMPRESSION: No acute intracranial process seen. Chronic changes. 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 XR CHEST 2V FRONTAL/LAT Observed: 08/27/2017 Status: F Source: [place] 7:59 AM [facility] OTHER CAMPUS REPOSITORY * * *Final Report* * * DATE OF EXAM: Aug 27 2017 7:59AM LUX 5291 - XR CHEST 2V FRONTAL/LAT / PROCEDURE REASON: Fatigue and malaise * * * * Physician Interpretation * * * * EXAMINATION: CHEST RADIOGRAPH (2 VIEW FRONTAL and LATERAL) Clinical History: Fatigue and malaise MQ: XC2_5 Comparison: None RESULT: Lines, tubes, and devices: None. Lungs and pleura: No consolidation. No lung mass. No pleural effusion. Cardiomediastinal silhouette: Normal cardiomediastinal silhouette. Other: . IMPRESSION: No acute radiographic abnormality. Automobile Seat Cover Installer: PSCB Transcribe Date/Time: Aug 27 2017 8:02A Dictated by : TO JENSEN MD This examination was interpreted and the report reviewed and electronically signed by: TO JENSEN MD on Aug 27 2017 8:03AM EST [id number] ED NOTE Observed: 08/27/2017 Status: COMPLETED Source: [place] 7:56 AM [facility] REPOSITORY HNO ID: [id number] Author: Amy ChavezRn) RADHA nAgeles Service: (none) Author Type: Registered Nurse Type: ED Notes Filed: 08/27/2017 7:56 AM Note Text: Patient has an ID Band on , has an Allergy Band on, is in the bed/cart with Side Rails up x2 and has the Call Minor within reach. Pt oriented to ED room and routine. ED NOTE Observed: 08/27/2017 Status: COMPLETED Source: [place] 7:55 AM [facility] REPOSITORY HNO ID: [id number] Author: Amy Escalante) RADHA [place] Service: (none) Author Type: Registered Nurse Type: ED Notes Filed: 08/27/2017 7:56 AM Note Text: Patient returned to the Emergency Department. pt was instructed to remove pants. Pt doesn't wish to remove her pants. Pt checked by security. ED NOTE Observed: 08/27/2017 Status: COMPLETED Source: [place] 7:51 AM [facility] REPOSITORY HNO ID: [id number] Author: Amy Escalante) RADHA [place] Service: (none) Author Type: Registered Nurse Type: ED Notes Filed: 08/27/2017 7:51 AM Note Text: Pt not in room at this time. CBC AND DIFFERENTIAL Collected: 08/27/2017 Status: F Source: [place] 7:33 AM [facility] REPOSITORY TYPE CODE TESTS RESULT OUT OF REFERENCE UNITS RANGE LAB WBC 3.70-11.00 k/uL WBC 5.73 LAB RBC 3.90-5.20 m/uL Low RBC 3.71 LAB HGB 11.5-15.5 g/dL Low Hemoglobin 9.7 LAB HCT 36.0-46.0 % Low Hematocrit 28.5 LAB MCV 80.0-100.0 fL Low MCV 76.8 LAB MCH 26.0-34.0 pG MCH 26.1 LAB MCHC 30.5-36.0 g/dL MCHC 34.0 LAB RDWCV 11.5-15.0 % RDW-CV High 18.7 LAB PLTCT 150-400 k/uL Platelet Count 310 LAB MPV 9.0-12.7 fL MPV 12.3 LAB NEUTS % Neut% 51.2 LAB AANEUT 1.45-7.50 k/uL Abs Neut 2.94 LAB LYMPHS % Lymph% 37.0 LAB AALYMP 1.00-4.00 k/uL Abs Lymph 2.12 LAB MONOS % [place]% 7.2 LAB AAMONO <0.87 k/uL Abs [place] 0.41 LAB EOS % Eosin% 3.7 LAB AAEOS <0.46 k/uL Abs Eosin 0.21 LAB BASOS % Baso% 0.9 LAB AABASO <0.11 k/uL Abs Baso 0.05 LAB ANRBC 0 /100 WBC NRBCs 0.0 Performed By: #### CBCDIF, [facility] #### [place] [id number] BASIC METABOLIC PANL Collected: 08/27/2017 Status: F Source: [place] 7:33 AM [facility]IC OTHER CAMPUS REPOSITORY TYPE CODE TESTS RESULT OUT OF REFERENCE UNITS RANGE LAB GLU 74-99 mg/dL Glucose 93 LAB BUN 7-21 mg/dL BUN 11 LAB CRET 0.58-0.96 mg/dL Low Creatinine 0.41 LAB NA 136-144 mmol/L Sodium 137 LAB K 3.7-5.1 mmol/L Low Potassium 3.6 LAB CL 97-105 mmol/L Chloride 103 LAB CO2 22-30 mmol/L Low CO2 21 LAB AGAP 9-18 mmol/L Anion Gap 13 LAB CA 8.5-10.2 mg/dL Calcium, Total 9.2 LAB GFRAA >60 eGFR- >60 Amer. LAB GFRNAA >60 . eGFR-All Other Races >60 Performed By: #### CBCDIF, BMP #### [place] [address] TROPONIN T Collected: 08/27/2017 Status: F Source: [place] 7:33 AM [facility]INIC OTHER [place] REPOSITORY TYPE CODE TESTS RESULT OUT OF REFERENCE UNITS RANGE LAB TROPT 0.000-0.029 ng/mL Troponin T <0.010 Performed By: #### EMMANUEL, CKCKMB #### [place] [address] CK, TOTAL AND CKMB Collected: 08/27/2017 Status: F Source: [place] 7:33 AM [facility] OTHER [place] REPOSITORY TYPE CODE TESTS RESULT OUT OF REFERENCE UNITS RANGE LAB CK 42-196 U/L 98 CK LAB MB <4.3 ng/mL MB 3.8 LAB CKMBRI 0.0-4.0 % CK CK MB MB % not % reported with CK <100 U/L. Performed By: #### EMMANUEL, CKCKMB #### [place] [address] ED NOTE Observed: 08/27/2017 Status: COMPLETED Source: [place] 6:55 AM [facility] REPOSITORY HNO ID: [id number] Author: Jessy ChavezRnCarson Desir RN Service: Emergency Medicine Author Type: Registered Nurse Type: ED Notes Filed: 08/27/2017 6:56 AM Note Text: Patient to ED c/o vertigo. Patient states she was seen yesterday and prescribed meclizine. Patient states she did not get the prescription filled. Patient denies any change since yesterday. No other complaints at this time. ED PROV NOTE Observed: 08/27/2017 Status: COMPLETED Source: [place] 6:55 AM [facility] OTHER [place] REPOSITORY HNO ID: [id number] Author: West Estrada MD Service: Emergency Medicine Author Type: Physician Type: ED Provider Notes Filed: 09/01/2017 10:51 PM Note Text: ED Provider Note Patient Name: Jesse Blair SERVICE DATE: 08/27/17 History Patient presents with: Dizziness HPI Jsese Blair is a 62 year old female who presents to the ED with a chief complaint of dizziness. Patient reports a medical history of vertigo, but has not been taking her meclizine as prescribed. 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 My vertigo is acting up. Walden like I was going to pass out. Patient endorses photosensitivity, and fatigue. Denies chest pain, new or worsening shortness of breath (history of COPD), cough, recent sickness or sick contacts, weakness, ataxia, hitting her head, fever, chills, nausea, and vomiting. PAST MEDICAL HISTORY Diagnosis Date - Chronic obstructive pulmonary disease (COPD) ([facility]) - Osteoarthritis No past surgical history on file. No family history on file. Social History Social History Main Topics - Smoking status: Current Every Day Smoker Packs/day: 1.00 Types: Cigarettes - Smokeless tobacco: Never Used - Alcohol use Yes Comment: socially - Drug use: No - Sexual activity: Not on file ALLERGIES Allergen Reactions - Asa [Aspirin] Other: See Comments Pt states I get seizures Review of Systems Constitutional: Positive for fatigue. Negative for fever. HENT: Negative for congestion. Respiratory: Positive for shortness of breath (history of COPD, reports no change). Negative for cough, chest tightness, wheezing and stridor. Cardiovascular: Negative for chest pain, palpitations and leg swelling. Gastrointestinal: Negative for abdominal pain, diarrhea, nausea and vomiting. Genitourinary: Negative for dysuria. Musculoskeletal: Negative for arthralgias and neck stiffness. Skin: Negative for rash. Allergic/Immunologic: Negative for immunocompromised state. Neurological: Positive for dizziness and light-headedness. Negative for speech difficulty, weakness, numbness and headaches. Psychiatric/Behavioral: Negative for confusion. Physical Exam BP 136/62 Pulse 83 Temp (Src) 97.8 (Oral) Resp 16 Ht 5' 6 (1.68m) Wt 153 lb (69.4kg) SpO2 98% BMI 24.71 kg/(m2). Physical Exam Constitutional: She is oriented to person, place, and time. She appears well-developed and well-nourished. No distress. HENT: Head: Normocephalic. Eyes: Pupils are equal, round, and reactive to light. Neck: Normal range of motion. Neck supple. Cardiovascular: Normal rate, regular rhythm, normal heart sounds and intact distal pulses. Exam reveals no gallop and no friction rub. No murmur heard. Pulmonary/Chest: Effort normal and breath sounds normal. No respiratory distress. She has no wheezes. She has no rales. Abdominal: Soft. Bowel sounds are normal. She exhibits no distension and no mass. There is no tenderness. There is no guarding. Musculoskeletal: Normal range of motion. Neurological: She is alert and oriented to person, place, and time. She displays no atrophy and no tremor. No cranial nerve deficit or sensory deficit. She exhibits normal muscle tone. She displays no seizure activity. Coordination normal. GCS eye subscore is 4. GCS verbal subscore is 5. GCS motor subscore is 6. -Cranial nerves II-XII grossly intact. -No facial asymmetry, Palate elevation symmetric. Shoulder shrug 5/5 and symmetric. Tongue midline, normal sensation to light touch -5/5 strength, symmetric in B/L UE and LE, no ataxia with finger to nose, speech is clear. Patient unable to do heel to martinez i'm tired and old. -Motor and sensory exam nonfocal. -Moves all extremities. -speech clear. Skin: Skin is warm and dry. Capillary refill takes less than 2 seconds. She is not diaphoretic. Psychiatric: She has a normal mood and affect. Nursing note and vitals reviewed. Diagnostic Testing ED Labs Ordered and Reviewed - No data to display Procedures Medical Decision Making MDM Patient is afebrile Patient is well-appearing and nontoxic Vital signs within normal limits Medical records reviewed Labs: CBC, BMP, troponin, CK total, CK-MB, UA, EKG Imaging: CT T brain, chest x-ray Meds: Medications NaCl 0.9% 1,000 mL iv bolus (not administered) Differential diagnosis: Electrolyte abnormalities, dehydration, vertigo (referral or central), stroke, TIA, arrhythmia, ACS, pneumonia, UTI, infection ED Course / Clinical Impression ED Course as of Aug 28 907 Others' Documentation [facility] Aug 27, 2017 0717 ED EKG INTERPRETATION: Normal sinus rhythm at 73 beats per minute Normal axis Normal intervals Normal ST-T segments No change compared to prior EKG's [IH] ED Course User Index [IH] West Estrada MD Clinical Impressions as of Aug 28 907 Dizziness Reevaluation: Patient hemodynamically stable, afebrile, in no acute distress, resting comfortably in bed. Patient is a difficult historian with a history that does not make much sense.Her symptoms seem to be nonspecific. I believe she is describing a presyncope/dizziness type picture, rather than true vertigo. Patient reports that she has these symptoms of Lightheadedness and flashes of lights, vertigo all the time. Patient reports that she has been diagnosed with vertigo (prescribed meclizine but not filled) and the flashes of light maker her want to pass out. When asked why today, what changed; she reports that she feels like she is going to pass out. Neuro exam is benign. Glucose within normal limits. CBC and BMP unremarkable, cardiac enzymes are normal, nonischemic EKG, CT brain shows no acute intracranial process. Based on patient presentation, lab results, and CT imaging I feel the patient is clear for discharge. Most likely diagnosis is dizziness/nonspecific. Encouraged patient to follow up with PCP. Return to ED if symptoms worsen or if new concerns or symptoms develop. Patient expressed understanding and is agreeable to the stated plan. No barriers of communication were apparent and all questions were answered. The patient and/or family: -Had results of all testing diagnosis explained to them -Were given both verbal and written discharge instructions -Were instructed of the importance of close follow-up Plan The patient was DISCHARGED: Counseled patient regarding lab results AND radiology results AND suspected diagnosis AND need for follow- up. Discharged home with verbal and written instructions. They were instructed to return as needed for persistent or worsening symptoms or any new concerns. Condition at time of disposition: stable SIGNATURE: ROSE Mccall (Pa) 08/27/17 0908 Attending Note I have personally performed a face to face assessment of the patient and have reviewed the PA/DECKHAND OYSTER DREDGE note. My mendez findings include: 62-year-old female with a history of vertigo presenting complaining of dizziness however she describes more vague symptoms, burning of eyes. Her exam is essentially unremarkable, she has no correlation deficits. Her neuro exam is symmetric and normal. CT, EKG, and workup was done. She ambulated without any difficulty. I doubt stroke. Her dizziness had essentially improved and was not given any medications. She was discharged to follow-up. She is out of town, at this time no issues raised by the patient regarding discharge. She is given follow- up in the area if she is staying. Signature: West Estrada MD Date: 09/01/2017 Time: 10:51 PM West Estrada MD 09/01/17 5501 EKG (AK,AV,EU,FV,HL,DEBORAH,MM,SP) Observed: Status: F Source: [place] 08/27/2017 6:55 AM CLINIC OTHER CAMPUS REPOSITORY NAME : JESSE BLAIR PID : [id number] : 1955 Gender : Female Race : ORD : [id number] Procedure Date : Aug 27 2017 06:55:59 Edit Date : Aug 28 2017 07:36:34 Diagnosis:SINUS RHYTHM Normal ECG Confirmed by MD ESTRADA IBRAHIM ([id number]), development editor LORRAINE LIVINGSTON ([id number]) on 08/28/2017 7:36:27 AM Ventricular Rate : 73 BPM Atrial Rate : 72 BPM P-R Interval : 164 ms QRS Duration : 94 ms Q-T Interval : 408 ms QTC Calculation(Bezet) : 450 ms P Jenkins : 56 degrees R Jenkins : -8 degrees T Jenkins : 23 degrees Test Reason : Arrhythmia Location : 502 : LUED 4 Overread By : MD NATALIE,WEST Edited By : LORRAINE LIVINGSTON Referred By : , Acquired by : MG, CHEST PA AND LATERAL Observed: 07/27/2017 Status: F Source: [facility] 9:06 PM [facility] REPOSITORY Final Report Accession No: [id number] Performed: Jul 27 2017 9:06PM Examination: CHEST PA AND LATERAL CHEST 2 VIEWS COMPARISON: None. HISTORY: Short of breath. FINDINGS: The lungs are clear of infiltrates. The cardiomediastinal silhouette is borderline prominent. There is pulmonary venous hypertension with no oswaldo pulmonary edema. No pleural fluid is identified. There are no consolidating infiltrates to suggest pneumonia. There is calcification and mild tortuosity of the thoracic aortic arch. Degenerative osseous changes are seen. IMPRESSION: Cardiac prominence with pulmonary venous hypertension, however, no pulmonary edema. Interpreting Physician: ROWENA PALMA M.D. Trans: lwolfe : cc: ALLERGIES ALLERGIES DATE TYPE / NAME / CODE REACTION SEVERITY SOURCE CODE 02/08/2018 Drug aspirin/[id number]( Other Unknown Leonor Allergy/41 RXNORM) [place] [id number]( Hospital OMED CT) Repository 09/10/2017 DRUG EPINEPHRINE ANAPHYLACTIC [facility]/ System [id number]( Repository OMED CT) 08/27/2017 DRUG ASPIRIN [facility]41 System [id number]( Repository OMED CT) 08/27/2017 DRUG ASPIRIN OTHER: SEE C [facility]/ Other [place] [id number]( Repository OMED CT) 01/03/2016 Environ/42 ENVIRONMENTAL [facility] [id number]( System OMED CT) Repository 01/01/2016 DRUG POLLEN EXTRACT The [place] [address] System [id number]( Repository OMED CT) ENCOUNTERS ENCOUNTERS ADMIT/DISCHARGE ACCOUNT NUMBER ADMITTING ENCOUNTER LOCATION SOURCE CLASS 02/15/2018/02/16/20 [id number] Emergency [address] ding:ED Repository 02/08/2018/02/09/20 [id number] Emergency [address] ding:ED Repository 02/02/2018/02/03/20 [id number] Emergency [facility] ding:ED Repository 01/26/2018/01/27/20 [id number] Emergency [address] ding:ED Repository 01/24/2018/01/25/[id number] Ximena Emergency [place] [address] [place]ence lding:[facility]E [facility] [place] [id number]: Repository A1E A1ED12 01/23/2018/01/25/[id number] Jayashree Emergency [place] [address] [place] lding:[address] [facility] [place] [id number]: Repository A1E A1ED15 01/22/2018/01/24/20 [id number] Unknown Emergency [facility] [address] [facility] Repository 01/20/2018/01/21/20 [id number] Unknown Emergency [facility] [address] [facility] Repository 01/19/2018/01/20/20 [id number] Unknown Emergency [facility] [address] [facility] Repository 01/19/2018 [id number] Unknown Ambulatory [facility] Repository 01/17/2018/01/18/20 [id number] Unknown Emergency [facility] [address] [facility] Repository 01/16/2018/01/17/20 [id number] Unknown Emergency [facility] [address] [facility] Repository 01/15/2018/01/16/20 [id number] Unknown Emergency [facility] [address] [facility] Repository 01/13/2018/01/15/20 [id number] Unknown Emergency [facility] [address] [facility] Repository 01/13/2018 [id number] Unknown Ambulatory [facility] Repository 01/13/2018 [id number] Unknown Ambulatory [facility] Repository 01/12/2018/01/14/20 [id number] Unknown Emergency [facility] [address] [facility] Repository 01/12/2018 [id number] Unknown Ambulatory [facility] Repository 01/10/2018/01/12/20 [id number] Unknown Emergency [facility] [address] [facility] Repository 01/08/2018/01/10/20 [id number] Emergency [address] Repository ng:G.ED 01/07/2018/01/08/20 [id number] Unknown Emergency [facility] [facility] Repository 01/07/2018 [id number] Unknown Ambulatory [facility] Repository 01/06/2018/01/08/20 [id number] Unknown Emergency [facility] [address] [facility] Repository 01/06/2018/01/07/20 [id number] Unknown Emergency [facility] [address] [facility] Repository 01/05/2018/01/07/20 [id number] Unknown Emergency [facility] [address] [facility] Repository 01/05/2018/01/06/20 [id number] Unknown Emergency [facility] [address] [facility] Repository 01/03/2018/01/04/20 [id number] Unknown Emergency [facility] [address] [facility] Repository 01/03/2018 [id number] Unknown Ambulatory [facility] Repository 01/01/2018/01/02/20 [id number] Unknown Emergency [facility] [address] [facility] Repository 12/30/2017/12/31/19 [id number] Unknown Emergency [facility] [address] [facility] Repository 12/28/2017/12/30/19 [id number] Unknown Emergency [facility] [address] [facility] Repository 12/28/2017 [id number] Unknown Ambulatory [facility] Repository 12/28/2017 [id number] Unknown Ambulatory [facility] Repository 12/28/2017 [id number] Unknown Ambulatory [facility] Repository 12/28/2017 [id number] Unknown Ambulatory [facility] Repository 12/27/2017/12/29/19 [id number] CHRISTIANO, [facility]patient [facility] ZACKARY Encounter [facility] om: [id number]: System 02 Repository 12/27/2017 [id number] Unknown Ambulatory [facility] Repository 12/27/2017 [id number] Unknown Ambulatory [facility] Repository 12/26/2017/12/27/19 [id number] Unknown Emergency [facility] Repository 12/23/2017/12/24/19 [id number] Unknown Emergency [facility] Repository 12/23/2017 [id number] Unknown Ambulatory [facility] Repository 12/21/2017 [id number] Unknown Ambulatory [facility] Repository 12/20/2017/12/22/19 [id number] Unknown Emergency [facility] Repository 12/19/2017/12/20/19 [id number] Unknown Emergency [facility] Repository 12/19/2017 [id number] Unknown Ambulatory [facility] Repository 12/18/2017/12/19/19 [id number] Unknown Emergency [facility] Repository 12/15/2017/12/17/19 [id number] Unknown Emergency [facility] Repository 12/15/2017 [id number] Unknown Ambulatory [facility] Repository 12/13/2017/12/15/19 [id number] Unknown Emergency [facility] Repository 12/05/2017/12/06/19 [id number] Unknown Emergency [facility] Repository 12/05/2017 [id number] Unknown Ambulatory [facility] Repository 11/30/2017/12/02/19 [id number] Unknown Emergency [facility] Repository 11/28/2017/11/29/19 [id number] Unknown Emergency [facility] Repository 11/26/2017/11/27/19 [id number] Unknown Emergency [facility] Repository 11/24/2017/11/25/19 [id number] Unknown Emergency [facility] Repository 11/22/2017/11/23/19 [id number] Unknown Emergency [facility] Repository 11/17/2017/11/18/19 [id number] NISSA, Inpatient [facility] IKRBY Encounter [facility] om: P127Ebl: System 02 Repository 11/17/2017 [id number] Unknown Ambulatory [facility] Repository 11/16/2017 [id number] Unknown Ambulatory [facility] Rep[facility] 11/14/2017 [id number] Unknown Ambulatory [facility] Repository 11/13/2017/11/15/19 [id number] Unknown Emergency [facility] Repository 11/13/2017 [id number] Unknown Ambulatory [facility] Repository 11/13/2017 [id number] Unknown Ambulatory [facility] Repository 11/12/2017/11/14/19 [id number] Unknown Emergency [facility] Repository 11/12/2017 [id number] Unknown Ambulatory [facility] Repository 11/12/2017 [id number] Unknown Ambulatory [facility] Repository 11/11/2017/11/13/19 [id number] Unknown Emergency [facility] Repository 11/06/2017/11/07/19 [id number] Unknown Emergency [facility] Repository 11/01/2017/11/03/19 [id number] Unknown Emergency [facility] Repository 11/01/2017/11/02/19 [id number] Unknown Emergency [facility] Repository 10/21/2017/10/22/19 [id number] Emergency [address] Repository ng:G.ED 10/21/2017 [id number] Ambulatory [address] [place] [address] Repository 10/17/2017/10/19/19 [id number] Unknown Emergency [facility] Rep[facility] 10/17/2017 [id number] Unknown [facility]ulatory [facility] Repository 10/13/2017/10/14/19 [id number] Unknown Emergency [facility] Repository 10/13/2017 [id number] Unknown Ambulatory [facility] Rep[facility] 10/13/2017 [id number] Unknown Ambulatory [facility] Repository 10/07/2017/10/08/19 [id number] Unknown Emergency [facility] Repository 10/07/2017 [id number] Unknown [facility]ulatory [facility] Rep[facility] 10/07/2017 [id number] Unknown [facility]ulatory [facility] Repository 10/06/2017/10/07/19 [id number] Unknown Emergency [facility] Repository 10/06/2017 [id number] Unknown [facility]ulatory [facility] Rep[facility] 10/06/2017 [id number] Unknown [facility]ulatory [facility] Repository 10/05/2017/10/06/19 [id number] Unknown Emergency [facility] Repository 10/05/2017 [id number] Unknown [facility]ulatory [facility] Rep[facility] 10/05/2017 [id number] Unknown [facility]ulatory [facility] Repository 10/01/2017/10/03/19 [id number] Unknown Emergency [facility] Repository 10/01/2017 [id number] Unknown [facility]ulatory [facility] Repository 09/27/2017/09/29/19 [id number] Unknown Emergency [facility] Repository 09/27/2017/09/28/19 [id number] MARY, Inpatient [facility] STEPHIE Bhatti Encounter [facility] om: P014Rsm: System 01 Repository 09/26/2017 [id number] Unknown Ambulatory [facility] Repository 09/24/2017/09/25/19 [id number] Unknown Emergency [facility] Repository 09/17/2017/09/18/19 [id number] Unknown Emergency [facility] Repository 09/10/2017/09/11/19 [id number] Unknown Emergency [facility] Repository 09/10/2017 [id number] Unknown Ambulatory [facility] Repository 09/01/2017/09/02/19 [id number] Unknown Emergency [facility] Repository 09/01/2017 [id number] Unknown Ambulatory [facility] Repository 08/28/2017/08/29/19 [id number] Unknown Emergency [facility] Repository 08/27/2017/08/28/19 [id number] Emergency [address] Repository 08/27/2017/08/28/[id number] Repository 08/27/2017/08/28/[id number] Repository 08/04/2017/08/05/[id number] Jean-Claude Emergency [place] [address] Adeline Leo lding:[address]: [address] X0XNTvy: Repository [facility] A1ED04 07/31/2017/08/01/[id number] Karli Perez [facility] 18 Douglas Núñez lding:[address]: [address] B6DRDgd: Repository [facility] A1ED04 07/31/2017/08/01/[id number] Chris Emergency [facility] 18 Douglas Núñez lding:[address]: Hospitals A1E Y3UKKyp: Repository A1E A1ED04 07/27/2017/07/28/[id number] Mireya Emergency [place] [address] Amber Sampson lding:[address] and [facility] DeptRoom: [place] [address]E S3WMJur: Repository A1E A1ED41 07/27/2017/07/28/[id number] Delgado Emergency [facility] 18 Manfred Pottre lding:[address] and [facility] DeptRoom: [place] [address] P0UJKqa: Repository A1E A1ED19 PAYERS PAYERS ENCOUNTER GUARANTOR PAYER SUBSCRIBER SOURCE 02/15/2018 JESSE MARTI Primary JESSE MARTI [facility] [place] Insurance:MOLINAPolic OLDSB: [facility], y Number: [id number] [place]ository [place] [address]Tck: [id number] Date:0984-76-41IO BOX () [address] [place] [address] 66089PY: 02/15/2018 Secondary NOT GIVENUNK [facility] Insurance:SELF PAY Hospital INSURANCEPolicy Repository Number: Effective Date:2018-02-15 02/08/2018 JESSE Aleman JESSE MARTI [facility] [id number] [place] Insurance:MOLINAPolic OLDSDOB: [facility], y Number: [id number] [place]ository [place] [address]Son: [id number] Date:4111-31-00JU BOX () [address] [place] [address] 77729ZD: 02/08/2018 Secondary NOT GIVENUNK [facility] Insurance:SELF PAY Hospital INSURANCEPolicy Repository Number: Effective Date:2018-02-08 02/02/2018 JESSE TINAJEROB: [facility] [place] Insurance:MOLINAPolic [id number] [facility], y Number: Repository [place] [address]Gwm: [id number] Date:7894-79-06NO BOX () [address] [place] [address] 04216WD: 02/02/2018 Secondary NOT GIVENUNK [facility] Insurance:SELF PAY Hospital INSURANCEPolicy Repository Number: Effective Date:2018-02-02 01/26/2018 JESSE A Primary JESSE A [facility] [id number] [place] Insurance:[facility] [id number], Number: Repository [place] [address]Sme: [id number] Date:7280-00-86LY BOX () [address] [place] [address] 30989YX: 01/26/2018 Secondary NOT GIVENUNK [facility] Insurance:SELF PAY Hospital INSURANCEPoly Repository Number: Effective Date:2018-01-26 01/24/2018 Primary JESSE A JOHNNIEDOB: [facility] Insurance:Petty [id number] [place] and [address] Number: [place] Repository [id number] [address]Pfg: (216) Date:Plan [phone] () Name:[facility] ClaimsPO [address] [place] [address] 78847AK: 01/23/2018 Primary JESSE A JOHNNIEDOB: [facility] Insurance:Petty [id number] [place] [address] Number: [place] Repository [id number] 100[address]Oui: (216) Date:Plan [phone] () Name:HealthAkio ClaimsPO [address] [place] [address] 23204LP: 01/22/2018 JESSE JOHNNIEDOB: Primary JESSE OLDSDOB: [facility] Insurance:PETTY [id number] System Repository [place] MEDICAIDPolicy [address] [place] [place], Number: [place] [address]Cxs: [id number] 23621Fku: (216) Date:2017-08-23P.O [phone] (HP) (HP) [address] [place] [address] 06111GK: 01/20/2018 JESSE OLDSDOB: Primary JESSE OLDSDOB: [facility] Insurance:PETTY [id number] System Repository [place] MEDICAIDPolicy [address] [place], Number: [place] [address]Ynj: [id number]: (216) Date:2017-08-23P.O [phone] (HP) (HP) [address] [place] [address] 33000YU: 01/19/2018 JESSE OLDSDOB: Primary JESSE OLDSDOB: [facility] Insurance:PETTY [id number] System Repository [place] MEDICAIDPolicy [address] [place], Number: [place] [address]Vnr: [id number] 75815Czu: (216) Date:2017-08-23P.O [phone] (HP) (HP) [address] [place] [address] 02837LA: 01/19/2018 JESSE OLDSDOB: Primary JESSE OLDSDOB: [facility] Insurance:PETTY [id number] System Repository [place] MEDICAIDPolicy [address] [place], Number: [place] [address]Itg: [id number]: (216) Date:2017-08-23P.O [phone] (HP) (HP) [address] [place] [address] 30298MA: 01/17/2018 JESSE OLDSDOB: Primary JESSE OLDSDOB: [facility] Insurance:PETTY [id number] System Repository [place] MEDICAIDPolicy [address] [place], Number: [place] [address]Wtt: [id number] 611[address]Una: (216) Date:2017-08-23P.O [phone] (HP) (HP) [address] [place] [address] 83798YM: 01/16/2018 JESSE OLDSDOB: Primary JESSE OLDSDOB: [facility] Insurance:[employer] [id number] System Repository [place] MEDICAIDPolicy [address] [place], Number: [place] [address]Giy: [id number] 565[address]Cec: (216) Date:2017-08-23P.O [phone] (HP) () [address] [place] [address] 42635HG: 01/15/2018 JESSE OLDSDOB: Primary JESSE OLDSDOB: [facility] Insurance:[employer] [id number] System Repository [place] MEDICAIDPolicy [address] [place] [place], Number: [place] [address]Mru: [id number] 812[address]Bgb: (216) Date:2017-08-23P.O [phone] (HP) () [address] [place] [address] 94944EG: 01/13/2018 JESSE OLDSDOB: Primary JESSE OLDSDOB: [facility] Insurance:[employer] [id number] System Repository [place] MEDICAIDPolicy [address] [place] [place], Number: [place] [address]Tne: [id number] 57[address]Jbc: (216) Date:2017-08-23P.O [phone] (HP) (HP) [address] [place] [address] 88877GF: 01/13/2018 JESSE OLDSDOB: Primary JESSE OLDSDOB: [facility] Insurance:[employer] [id number] System Repository [place] MEDICAIDPolicy [address] [place], Number: [place] [address]Zsf: [id number] 577[address]Jqc: (216) Date:2017-08-23P.O [phone] (HP) (HP) [address] [place] [address] 57157HX: 01/13/2018 JESSE OLDSDOB: Primary JESSE OLDSDOB: [facility] Insurance:[employer] [id number] System Repository [place] [facility] Centericy [address] [place] [place], Number: [place] [address]Jvh: [id number] 45[address]Mbw: (216) Date:2017-08-23P.O [phone] (HP) () [address] [place] [address] 14718ZD: 01/12/2018 JESSE OLDSDOB: Primary JESSE OLDSDOB: [facility] Insurance:[employer] [id number] System Repository [place] MEDICAIDPolicy [address] [place] [place], Number: [place] [address]Glb: [id number] 00307Zvd: (216 Date:2017-08-23P.O [phone] (HP) () [address] [place] [address] 63875UF: 01/12/2018 JESSE OLDSDOB: Primary JESSE OLDSDOB: [facility] Insurance:[employer] [id number] System Repository [place] MEDICAIDPolicy [address] [place] [place], Number: [place] [address]Lqu: [id number] 29529Qlg: (216) Date:2017-08-23P.O [phone] (HP) (HP) [address] [place] [address] 27157GS: 01/10/2018 JESSE OLDSDOB: Primary JESSE OLDSDOB: [facility] Insurance:OBION [id number] System Repository [place] MEDICAIDPolicy [address] [place], Number: [place] [address]Mgo: [id number] 48[address]Hfz: (216) Date:2017-08-23P.O [phone] (HP) (HP) [address] [place] [address] 12095SH: 01/08/2018 JESSE Denita [id number] Primary JESSE HERNANDEZ [facility] Insurance:[facility] [place]ository [place] [address]Jrd: OPolicy Number: [id number] (HP) Date:[address] [place] [address] 85360BO: 01/07/2018 JESSE OLDSDOB: Primary JESSE OLDSDOB: [facility] Insurance:OBION [id number] System Repository [place] MEDICAIDPolicy [address] [place] [facility], Number: [place] [facility] [address]Lof: [id number] [address]75[address]Eku: (216 Date:2017-08-23P.O [phone] (HP) (HP) [address] [place] [address] 66803LJ: 01/07/2018 JESSE OLDSB: Primary JESSE OLDSDOB: [facility] Insurance:OBION [id number] System Repository [place] MEDICAIDPolicy [address] [place] [facility], Number: [place] [address]Dcq: [id number] 37[address]Wcr: (133) Date:2017-08-23P.O [phone] (HP) (HP) [address] [place] [address] 84829BL: 01/06/2018 JESSE OLDSDOB: Primary JESSE OLDSDOB: [facility] Insurance:[employer] [id number] System Repository [place] MEDICAIDPolicy [address] [place], Number: [place] [address]Vws: [id number] 43989Tlw: (216) Date:2017-08-23P.O [phone] (HP) (HP) [address] [place] [address] 71424OA: 01/06/2018 JESSE OLDSDOB: Primary JESSE OLDSDOB: [facility] Insurance:[employer] [id number] System Repository [place] MEDICAIDPolicy [address], Number: [place] [address]Rly: [id number] 379[address]Irr: (216) Date:2017-08-23P.O [phone] (HP) () [address] [place] [address] 91807EV: 01/05/2018 JESSE OLDSDOB: Primary JESSE OLDSDOB: [facility] Insurance:[employer] [id number] System Repository [place] MEDICAIDPolicy [address] [place] [place], Number: [place] [address]Mpv: [id number] 12948Ueh: 216) Date:2017-08-23P.O [phone] (HP) () [address] [place] [address] 11216ZD: 01/05/2018 JESSE OLDSDOB: Primary JESSE OLDSDOB: [facility] Insurance:[employer] [id number] System Repository [place] MEDICAIDPolicy [address] [place], Number: [place] [address]Dbl: [id number] 534[address]Ona: (216) Date:2017-08-23P.O [phone] (HP) (HP) [address] [place] [address] 66958SI: 01/03/2018 JESSE OLDSDOB: Primary JESSE OLDSDOB: [facility] Insurance:PETTY [id number] System Repository [place] MEDICAIDPolicy [address] [place] [place], Number: [place] [address]Mwr: [id number] 21080Qmy: (216) Date:2017-08-23P.O [phone] (HP) (HP) [address] [place] [address] 09305OF: 01/03/2018 JESSE OLDSDOB: Primary JESSE OLDSDOB: [facility] Insurance:PETTY [id number] System Repository [place] MEDICAIDPolicy [address] [place], Number: [place] [address]Cyk: [id number] 74[address]Sma: (216) Date:2017-08-23P.O [phone] (HP) (HP) [address] [place] [address] 31570SA: 01/01/2018 JESSE OLDSDOB: Primary JESSE OLDSDOB: [facility] Insurance:PETTY [id number] System Repository [place] MEDICAIDPolicy [address] [place], Number: [place] [address]Cfv: [id number] 65466Wsy: 216) Date:2017-08-23P.O [phone] (HP) (HP) [address] [place] [address] 08165DG: 12/30/2017 JESSE OLDSDOB: Primary JESSE OLDSDOB: [facility] Insurance:PETTY [id number] System Repository [place] MEDICAIDPolicy [address] [place] [place], Number: [place] [address]Tmd: [id number] 99166Onu: (216 Date:2017-08-23P.O [phone] (HP) (HP) [address] [place] [address] 35086VG: 12/28/2017 JESSE OLDSDOB: Primary JESSE OLDSDOB: [facility] Insurance:PETTY [id number] System Repository [place] MEDICAIDPolicy [address] [place] [place], Number: [place] [address]Kli: [id number] 49[address]Fsb: (216) Date:2017-08-23P.O [phone] (HP) (HP) [address] [place] [address] 30050ZW: 12/28/2017 JESSE OLDSDOB: Primary JESSE OLDSDOB: [facility] Insurance:PETTY [id number] System Repository [place] MEDICAIDPolicy [address] [place], Number: [place], [place] [address]Zlf: [id number] 40161Lru: (216) Date:2017-08-23P.O [phone] (HP) () [address] [place] [address] 50693AO: 12/28/2017 JESSE OLDSDOB: Primary JESSE OLDSDOB: [facility] Insurance:PETTY [id number] System Repository [place] MEDICAIDPolicy [address] [place] [place], Number: [place] [address]Wrh: [id number] 43[address]Cbu: (216) Date:2017-08-23P.O [phone] (HP) (HP) [address] [place] [address] 75324CV: 12/28/2017 JESSE OLDSDOB: Primary JESSE OLDSDOB: [facility] Insurance:[employer] [id number] System Repository [place] MEDICAIDPolicy [address] [place], Number: [place] [address]Uor: [id number] 03168Oiu: (216) Date:2017-08-23P.O [phone] (HP) (HP) [address] [place] [address] 72196QZ: 12/28/2017 JESSE OLDSDOB: Primary JESSE OLDSDOB: [facility] Insurance:[employer] [id number] System Repository [place] MEDICAIDPolicy [address] [place], Number: [place] [address]Vcg: [id number] 49439Vhv: (216) Date:2017-08-23P.O [phone] (HP) (HP) [address] [place] [address] 76307CL: 12/27/2017 JESSE OLDSDOB: Primary JESSE OLDSDOB: [facility] Insurance:[employer] [id number] System Repository [place] MEDICAIDPolicy [address] [place], Number: [place], [place] [address]Hcp: [id number] 75288Bfc: 216) Date:2017-08-23P.O [phone] (HP) (HP) [address] [place] [address] 92518RE: 12/27/2017 JESSE OLDSDOB: Primary JESSE OLDSDOB: [facility] Insurance:PETTY [id number] System Repository [place] MEDICAIDPolicy [address] [place] [place], Number: [place] [address]Asl: [id number] 95871Dbb: (216) Date:2017-08-23P.O [phone] (HP) (HP) [address] [place] [address] 43048FI: 12/27/2017 JESSE OLDSDOB: Primary JESSE OLDSDOB: [facility] Insurance:PETTY [id number] System Repository [place] [facility] Centericy [address] [place] [place], Number: [place] [address]Pso: [id number] 8[address]Ssq: (216) Date:2017-08-23P.O [phone] (HP) (HP) [address] [place] [address] 99717CB: 12/26/2017 JESSE OLDSDOB: Primary JESSE OLDSDOB: [facility] Insurance:PETTY [id number] System Repository [place] [facility] Centericy [address] [place], Number: [place] [address]Kax: [id number] 55621Inj: (216 Date:2017-08-23P.O [phone] (HP) (HP) [address] [place] [address] 82316CY: 12/23/2017 JESSE OLDSDOB: Primary JESSE OLDSDOB: [facility] Insurance:PETTY [id number] System Repository [place] MEDICAIDPolicy [address] [place] [place], Number: [place] [address]Dls: [id number] 19037Rvf: (216) Date:2017-08-23P.O [phone] (HP) (HP) [address] [place] [address] 70018AT: 12/23/2017 JESSE OLDSDOB: Primary JESSE OLDSDOB: [facility] Insurance:PETTY [id number] System Repository [place] MEDICAIDPolicy [address] [place], Number: [place] [address]Ofn: [id number] 77755Wjt: (216) Date:2017-08-23P.O [phone] (HP) (HP) [address] [place] [address] 85624CS: 12/21/2017 JESSE OLDSDOB: Primary JESSE OLDSDOB: [facility] Insurance:PETTY [id number] System Repository [place] MEDICAIDPolicy [address] [place], Number: [place], [place] [address]Amq: [id number] 02379Fje: (216) Date:2017-08-23P.O [phone] (HP) (HP) [address] [place] [address] 16006WQ: 12/20/2017 JESSE OLDSDOB: Primary JESSE OLDSDOB: [facility] Insurance:PETTY [id number] System Repository [place] MEDICAIDPolicy [address] [place], Number: [place] [address]Uep: [id number] 00078Xiu: (216) Date:2017-08-23P.O [phone] (HP) (HP) [address] [place] [address] 29190HK: 12/19/2017 JESSE OLDSDOB: Primary JESSE OLDSDOB: [facility] Insurance:[id number] [id number] System Repository [employer] [employer] [address] [place], Number: [place], [place] [address]Mjp: [id number] [id number]: (216) Date:2017-08-23.O [phone] (HP) (HP) [address] [place] [address] 96286NU: 12/19/2017 JESSE OLDSDOB: Primary JESSE OLDSDOB: [facility] Insurance:[employer] [id number] System Repository [place] [employer] [address] [place], Number: [place] [address]Quz: [id number]: (216) Date:2017-08-23.O [phone] (HP) () [address] [place] [address] 69376HZ: 12/18/2017 JESSE OLDSDOB: Primary JESSE OLDSDOB: [facility] Insurance:[employer] [id number] System Repository [place] [employer] [address] [place], Number: [place] [address]Ooe: [id number]: (216) Date:2017-08-23P.O [phone] (HP) () [address] [place] [address] 79398ZU: 12/15/2017 JESSE OLDSDOB: Primary JESSE OLDSDOB: [facility] Insurance:[employer] [id number] System Repository [place] MEDICAIDPolicy [address] [place], Number: [place] [address]Vej: [id number] [id number]: (216) Date:2017-08-23P.O [phone] (HP) () [address] [place] [address] 23689OU: 12/15/2017 JESSE OLDSDOB: Primary JESSE OLDSDOB: [facility] Insurance:PETTY [id number] System Repository [facility] [address] [place], Number: [place] [address]Pbr: [id number] [id number]: (216) Date:2017-08-23P.O [phone] (HP) (HP) [address] [place] [address] 48290YT: 12/13/2017 JESSE OLDSDOB: Primary JESSE OLDSDOB: [facility] Insurance:PETTY [id number] System Repository [place] MEDICAIDPolicy [address] [place], Number: [place] [address]Kkm: [id number] 785[address]Wgv: (216) Date:2017-08-23P.O [phone] (HP) (HP) [address] [place] [address] 78962MC: 12/05/2017 JESSE OLDSDOB: Primary JESSE OLDSDOB: [facility] Insurance:PETTY [id number] System Repository [place] MEDICAIDPolicy [address] [place], Number: [place] [address]Joe: [id number] 93147Wfq: (216) Date:2017-08-23P.O [phone] (HP) () [address] [place] [address] 38769XB: 12/05/2017 JESSE OLDSDOB: Primary JESSE OLDSDOB: [facility] Insurance:PETTY [id number] System Repository [place] MEDICAIDPolicy [address] [place], Number: [place] [address]Smq: [id number] 75443Frx: 216) Date:2017-08-23P.O [phone] (HP) (HP) [address] [place] [address] 57418HF: 11/30/2017 JESSE OLDSDOB: Primary JESSE OLDSDOB: [facility] Insurance:PETTY [id number] System Repository [place] MEDICAIDPolicy [address] [place], Number: [place], [place] [address]Qvv: [id number] 45359Dnm: (216) Date:2017-08-23P.O [phone] (HP) (HP) [address] [place] [address] 27936OB: 11/28/2017 JESSE OLDSDOB: Primary JESSE OLDSDOB: [facility] Insurance:PETTY [id number] System Repository [place] MEDICAIDPolicy [address] [place], Number: [place], [place] [address]Lac: [id number] 13704Akb: (216) Date:2017-08-23P.O [phone] (HP) (HP) [address] [place] [address] 71020QW: 11/26/2017 JESSE OLDSDOB: Primary JESSE OLDSDOB: [facility] Insurance:PETTY [id number] System Repository [place] MEDICAIDPolicy [address] [place], Number: [place], [place] [address]Uxj: [id number] 43853Adx: (216) Date:2017-08-23P.O [phone] (HP) (HP) [address] [place] [address] 22471CL: 11/24/2017 JESSE OLDSDOB: Primary JESSE OLDSDOB: [facility] Insurance:PETTY [id number] System Repository [place] MEDICAIDPolicy [address] [place], Number: [place], [place] [address]Zsj: [id number] 04495Npj: 216 Date:2017-08-23.O [phone] (HP) (HP) [address] [place] [address] 90267LK: 11/22/2017 JESSE OLDSDOB: Primary JESSE OLDSDOB: [facility] Insurance:[employer] [id number] System Repository [place] MEDICAIDPolicy [address] [place], Number: [place] [address]Dfg: [id number] 69822Apg: (216) Date:2017-08-23.O [phone] (HP) (HP) [address] [place] [address] 65309VC: 11/17/2017 JESSE OLDSDOB: Primary JESSE OLDSDOB: [facility] Insurance:[employer] [id number] System Repository [place] MEDICAIDPolicy [address] [place], Number: [place] [address]Mrk: [id number] 80932Nqi: (216) Date:2017-08-23.O [phone] (HP) () [address] [place] [address] 98896JT: 11/17/2017 JESSE OLDSDOB: Primary JESSE OLDSDOB: [facility] Insurance:[employer] [id number] System Repository [place] MEDICAIDPolicy [address] [place], Number: [place] [address]Vqz: [id number] 501[address]Cia: (216 Date:2017-08-23P.O [phone] (HP) (HP) [address] [place] [address] 43213DI: 11/16/2017 JESSE OLDSDOB: Primary JESSE OLDSDOB: [facility] Insurance:PETTY [id number] System Repository [place] MEDICAIDPolicy [address] [place], Number: [place] [address]Ilz: [id number] 76493Fus: (216) Date:2017-08-23P.O [phone] (HP) (HP) [address] [place] [address] 72830ZC: 11/14/2017 JESSE OLDSDOB: Primary JESSE OLDSDOB: [facility] Insurance:PETTY [id number] System Repository [place] MEDICAIDPolic [address] [place], Number: [place] [address]Wkm: [id number] 28023Tnt: (216) Date:2017-08-23P.O [phone] (HP) (HP) [address] [place] [address] 24299IG: 11/13/2017 JESSE OLDSDOB: Primary JESSE OLDSDOB: [facility] Insurance:[employer] [id number] System Repository [facility]IDB[facility] Centericy [address] [place], Number: [place] [address]Ktk: [id number] 27481Hjn: (216) Date:2017-08-23P.O [phone] (HP) (HP) [address] [place] [address] 81572JM: 11/13/2017 JESSE OLDSDOB: Primary JESSE OLDSDOB: [facility] Insurance:PETTY [id number] System Repository [place] MEDICAIDPolicy [address] [place], Number: [place], [place] [address]Jyh: [id number] 09566Qhs: (216) Date:2017-08-23.O [phone] (HP) (HP) [address] [place] [address] 75305MT: 11/13/2017 JESSE OLDSDOB: Primary JESSE OLDSDOB: [facility] Insurance:PETTY [id number] System Repository [place] MEDICAIDPolicy [address] [place], Number: [place], [place] [address]Xfg: [id number] 52[address]Gsb: (216) Date:2017-08-23P.O [phone] (HP) (HP) [address] [place] [address] 99580QO: 11/12/2017 JESSE OLDSDOB: Primary JESSE OLDSDOB: [facility] Insurance:[employer] [id number] System Repository [place] MEDICAIDPolicy [address] [place], Number: [place], [place] [address]Oig: [id number] 82711Ggw: (216 Date:2017-08-23P.O [phone] (HP) (HP) [address] [place] [address] 76051EL: 11/12/2017 JESSE OLDSDOB: Primary JESSE OLDSDOB: [facility] Insurance:[employer] [id number] System Repository [place] MEDICAIDPolicy [address] [place], Number: [place] [address]Svt: [id number] 656[address]Qmi: (216 Date:2017-08-23P.O [phone] (HP) (HP) [address] [place] [address] 75278VL: 11/12/2017 JESSE OLDSDOB: Primary JESSE OLDSDOB: [facility] Insurance:[employer] [id number] System Repository [place] MEDICAIDPolicy [address] [place], Number: [place] [address]Grn: [id number] 47885Jli: (216) Date:2017-08-23P.O [phone] (HP) (HP) [address] [place] [address] 02902OV: 11/11/2017 JESSE OLDSDOB: Primary JESSE OLDSDOB: [facility] Insurance:PETTY [id number] System Repository [place] MEDICAIDPolicy [address] [place], Number: [place] [address]Wjm: [id number] 38685Zmu: (216) Date:2017-08-23P.O [phone] (HP) (HP) [address] [place] [address] 90991HD: 11/06/2017 JESSE OLDSDOB: Primary JESSE OLDSDOB: [facility] Insurance:PETTY [id number] System Repository [facility]IDB[facility] Centericy [address] [place], Number: [place] [address]Cpv: [id number] 96830Xrj: (216) Date:2017-08-23.O [phone] (HP) (HP) [address] [place] [address] 04906MF: 11/01/2017 JESSE OLDSDOB: Primary JESSE OLDSDOB: [facility] Insurance:PETTY [id number] System Repository [place] MEDICAIDPolicy [address] [place], Number: [place] [address]Jdp: [id number] 56672Vpb: (216 Date:2017-08-23P.O [phone] (HP) (HP) [address] [place] [address] 32561DU: 11/01/2017 JESSE JOHNNIEDOB: Primary JESSE OLDSDOB: [facility] Insurance:PETTY [id number] System Repository [place] MEDICAIDPolicy 7 [place] [place], Number: [facility] [address]Eqh: [id number] [address]Fta: 216) Date:2017-08-23P.O [phone] (HP) (HP) [address] [place] [address] 21192HF: 10/21/2017 JESSEEDIN ARCHER Primary JESSE HERNANDEZ [facility] Insurance:[facility]ository [place] [address]Bod: HMOPolicy Number: [id number] (HP) Date: [address] [place] [address] 55628FW: 10/21/2017 JESSE TINAJEROB: Primary JESSE TINAJEROB: [place] Insurance:[place] [id number] [facility] Number: [place], [place] [address]Wll: [id number] [place] [address]Ymk: Date:Plan (HP) Name:[facility] Box () [address] [place] [address] 83649UC: 10/17/2017 JESSE TINAJEROB: Primary JESSEEDIN TINAJEROB: [facility] Insurance:OBION [id number] System Repository [place] MEDICAIDPolicy [place], Number: [facility]ITALShahri[facility] [address]Kfw: [id number] 78[address]Saa: (412) Date:2017-08-23P.O [phone] (HP) (HP) [address] [place] [address] 87242WP: 10/17/2017 JESSE OLDSDOB: Primary JESSE OLDSDOB: [facility] Insurance:OBION [id number] System Repository [place] MEDICAIDPolicy [place], Number: [place] [facility] [address]Afy: [id number] 46171Oon: (412) Date:2017-08-23P.O [phone] (HP) (HP) [address] [place] [address] 12610IK: 10/13/2017 JESSE OLDSDOB: Primary JESSE OLDSDOB: [facility] Insurance:OBION [id number] System Repository [place] MEDICAIDPolicy [place], Number: [place] [facility] [address]Ely: [id number] 687[address]Dkt: (412) Date:2017-08-23P.O [phone] (HP) (HP) [address] [place] [address] 24133XY: 10/13/2017 JESSE OLDSDOB: Primary JESSE OLDSDOB: [facility] Insurance:OBION [id number] System Repository [place] MEDICAIDPolicy [place], Number: [place] [facility] [address]Nxc: [id number] 26336Klj: (412) Date:2017-08-23P.O [phone] (HP) (HP) [address] [place] [address] 93544MN: 10/13/2017 JESSE OLDSDOB: Primary JESSE OLDSDOB: [facility] Insurance:OBION [id number] System Repository [place] MEDICAIDPolicy [place], Number: [place] [facility] [address]Vln: [id number] 71527Xvg: (412) Date:2017-08-23P.O [phone] (HP) (HP) [address] [place] [address] 41112NW: 10/07/2017 JESSE OLDSDOB: Primary JESSE OLDSDOB: [facility] Insurance:OBION [id number] System Repository [place] MEDICAIDPolicy [place], Number: [place] [facility] [address]Eon: [id number] 09146Xdl: (412) Date:2017-08-23P.O [phone] (HP) (HP) [address] [place] [address] 33688OD: 10/07/2017 JESSE OLDSDOB: Primary JESSE OLDSDOB: [facility] Insurance:PETTY [id number] System Repository [place] MEDICAIDPolicy [place], Number: [place] [facility] [address]Kce: [id number] 53228Epd: (412) Date:2017-08-23P.O [phone] (HP) (HP) [address] [place] [address] 44652KD: 10/07/2017 JESSE OLDSDOB: Primary JESSE OLDSDOB: [facility] Insurance:OBION [id number] System Repository [place] MEDICAIDPolicy [place], Number: [place] [facility] [address]Qdg: [id number] 44735Mtt: (412) Date:2017-08-23P.O [phone] (HP) (HP) [address] [place] [address] 28214DA: 10/06/2017 JESSE OLDSDOB: Primary JESSE OLDSDOB: [facility] Insurance:OBION [id number] System Repository [place] MEDICAIDPolicy [place], Number: [place] [address]Amq: [id number] 55926Zcs: (412) Date:2017-08-23P.O [phone] (HP) (HP) [address] [place] [address] 01357RA: 10/06/2017 JESSE OLDSDOB: Primary JESSE OLDSDOB: [facility] Insurance:OBION [id number] System Repository [place] MEDICAIDPolicy [place], Number: [place] [address]Ums: [id number] 30456Kge: (412) Date:2017-08-23P.O [phone] (HP) (HP) [address] [place] [address] 18830XH: 10/06/2017 JESSE OLDSDOB: Primary JESSE OLDSDOB: [facility] Insurance:OBION [id number] System Repository [place] MEDICAIDPolicy [place], Number: [place] [address]Rlb: [id number] 85409Vjm: (412) Date:2017-08-23P.O [phone] (HP) (HP) [address] [place] [address] 89650EH: 10/05/2017 JESSE OLDSDOB: Primary JESSE OLDSDOB: [facility] Insurance:OBION [id number] System Repository [place] MEDICAIDPolicy [place], Number: [place] [address]Bzt: [id number] 22583Wkn: (412) Date:2017-08-23P.O [phone] (HP) (HP) [address] [place] [address] 70873XR: 10/05/2017 JESSE OLDSDOB: Primary JESSE OLDSDOB: [facility] Insurance:OBION [id number] System Repository [place] MEDICAIDPolicy [place], Number: [place] [address]Gee: [id number] 25796Bgo: (412) Date:2017-08-23P.O [phone] (HP) (HP) [address] [place] [address] 28341FJ: 10/05/2017 JESSE OLDSDOB: Primary JESSE OLDSDOB: [facility] Insurance:OBION [id number] System Repository [place] MEDICAIDPolicy [place], Number: [place] [facility] [address]Xne: [id number] 24091Tmd: (412) Date:2017-08-23P.O [phone] (HP) (HP) [address] [place] [address] 74124IG: 10/01/2017 JESSE OLDSDOB: Primary JESSE OLDSDOB: [facility] Insurance:OBION [id number] System Repository [place] MEDICAIDPolicy [place], Number: [place] [facility] [address]Qkc: [id number] 74200Dis: (412) Date:2017-08-23P.O [phone] (HP) (HP) [address] [place] [address] 76634SP: 10/01/2017 JESSE OLDSDOB: Primary JESSE OLDSDOB: [facility] Insurance:OBION [id number] System Repository [place] MEDICAIDPolicy [place], Number: [place] [facility] [address]Nmy: [id number] 27667Zyy: (412) Date:2017-08-23P.O [phone] (HP) (HP) [address] [place] [address] 60099LY: 09/27/2017 JESSE OLDSDOB: Primary JESSE OLDSDOB: [facility] Insurance:OBION [id number] System Repository [place] MEDICAIDPolicy [place], Number: [place] [facility] [address]Anh: [id number] 28305Twt: (412) Date:2017-08-23P.O [phone] (HP) (HP) [address] [place] [address] 38938LB: 09/27/2017 JESSE OLDSDOB: Primary JESSE OLDSDOB: [facility] Insurance:OBION [id number] System Repository [place] MEDICAIDPolicy [place], Number: [place] [facility] [address]Okj: [id number] 57605Mxi: (412) Date:2017-08-23P.O [phone] (HP) (HP) [address] [place] [address] 75599FK: 09/26/2017 JESSE OLDSDOB: Primary JESES OLDSDOB: [facility] Insurance:PETTY [id number] System Repository [place] MEDICAIDPolicy [place], Number: [place] [facility] [address]Orl: [id number] 69528Vou: 412) Date:2017-08-23P.O [phone] (HP) (HP) [address] [place] [address] 81188TW: 09/24/2017 JESSE OLDSDOB: Primary JESSE OLDSDOB: [facility] Insurance:OBION [id number] System Repository [place] MEDICAIDPolicy [place], Number: [place] [facility] [address]Dil: [id number] 04156Stn: (412) Date:2017-08-23P.O [phone] (HP) (HP) [address] [place] [address] 07031UR: 09/17/2017 JESSE OLDSDOB: Primary JESSE OLDSDOB: [facility] Insurance:PETTY [id number] System Repository [place] MEDICAIDPolicy [place], Number: [place] [address]Qjh: [id number] 71787Gfa: (412) Date:2017-08-23P.O [id number] (HP) (HP) [address] [place] [address] 27744HE: 09/10/2017 JESSE OLDSDOB: Primary JESSE OLDSDOB: [facility] W Insurance:PETTY [id number] System Repository [address] [facility] W [address] Number: [place] [address]Akx: (412) [id number] 56[address]Lql: (HP) Date:2017-08-23P.O [phone] (HP) [address] [place] [address] 26687DQ: 09/10/2017 JESSE OLDSDOB: Primary JESSE OLDSDOB: [facility] W Insurance:PETTY [id number] System Repository [address] MEDICAIDPolicy [address] Number: [facility] [place] [address]Wfk: (412) [id number] 90913Vey: (HP) Date:2017-08-23P.O [id number] (HP) [address] [place] [address] 96608XB: 09/01/2017 JESSE OLDSDOB: Primary JESSE OLDSDOB: [facility] W Insurance:PETTY [id number] System Repository [address] MEDICAIDPolicy [address] Number: [address] [place] [address] [place] [address]Bth: (412 [id number] 71197Sqm: (HP) Date:2017-08-23P.O [phone] (HP) [address] [place] [address] 65034RO: 09/01/2017 JESSE OLDSDOB: Primary JESSE OLDSDOB: [facility] W Insurance:PETTY [id number] System Repository [address] MEDICAIDPolicy [address] Number: [address] [place] [address]Ghs: (412 [id number] 23[address]Qam: (HP) Date:2017-08-23P.O [phone] (HP) [address] [place] [address] 91367GV: 08/28/2017 JESSE OLDSDOB: Primary JESSE OLDSDOB: [facility] W Insurance:PETTY [id number] System Repository [address] MEDICAIDPolicy [address] Number: [facility]anFRISCOShahriarCON[facility] [place] [address]Smb: (412 [id number] [address]Gos: (HP) Date:2017-08-23P.O [phone] (HP) [address] [place] [address] 86564BH: 08/04/2017 Primary JESSE A OLDSDOB: [facility] Insurance:MedicaidPol [id number] Juan M Number: [facility] [id number] [facility], Repository Date:[place] [address]Mau: Name:[address] [address], [place] (HP) [address]NL: 07/31/2017 Primary JESSE A JOHNNIEDOB: [facility] Insurance:MedicaidPol [id number] [place] Number: [facility] [id number], Repository Date:[place] [address]Htv: Name:Health[address] [address], [place] (HP) [address]BU: 07/31/2017 Primary JESSE A JOHNNIEDOB: [facility] Insurance:MedicaidPol [id number] [place] Number: [facility] [id number] [facility], Repository Date:[place] [address]Kua: Name:Health[address] [address], [place] (HP) [address]RI: 07/27/2017 Primary JESSEEDIN BLAIRDOB: [facility] Insurance:MedicaidPol [id number] [place] Number: [facility] [id number] [facility], Repository Date:[place] [address]Sux: Name:Health[address] [address]Mwgfhcq, [place] (HP) [address]LG: 07/27/2017 Primary JESSE A JOHNNIEDOB: [facility] Insurance:MedicaidPol [id number] [place] Number: [facility] [id number] [facility], Repository Date:[place] [address]Acb: Name:Health[address] [address], [place] (HP) [address]IA:
== END 2018-02-02 05:59 | disposition home or self-care (01) ==
LOC: ED 01:02
PROVIDERS: Emergency Provider Emergency Medicine
DX: R11.2 Nausea with vomiting, unspecified (principal); D64.9 Anemia, unspecified; J44.9 Chronic obstructive pulmonary disease, unspecified; Z72.0 Tobacco use; Z79.899 Other long term (current) drug therapy
CPT/HCPCS: 80048; 83690; 85025; 93005; 96361; 96374; 99285; J7030; A4216; J2405

== ENCOUNTER 2018-02-08 13:32 | Emergency (ER) | payer MEDICAID, SELFPAY ==
[2018-02-08 13:33] VITALS: BP 122/61; PULSE 78; RESP 16; TEMP 36.6; O2SAT 100; BMI 27.4
--- NOTE | 2018-02-08 13:48 | CT_ITS ---
STUDY: CT ABDOMEN AND PELVIS WITHOUT CONTRAST REASON FOR EXAM: Female, 62 years old. Abdominal pain. RADIATION DOSAGE (If Supplied By Facility): CTDIvol = ( 9.51 ) mGy, DLP = ( 427.63 ) mGycm TECHNIQUE: Transaxial images were obtained from the dome of the diaphragm to the symphysis pubis without oral contrast, and without intravenous contrast. Sagittal and coronal images were reconstructed. Individualized dose optimization techniques were used for this CT. COMPARISON: None. FINDINGS: Minimal increased markings at the lung bases suggestive of atelectasis and/or scarring. Linear reticular nodular density in the peripheral aspect of the right middle lobe suggestive of focal scarring. The visualized portions of the heart are within normal limits. Normal liver. There are surgical clips in the gallbladder fossa consistent with a prior cholecystectomy. Normal spleen. Normal pancreas. Normal bilateral adrenal glands. Punctate calculus in the lower pole calyx of the right kidney. There is a 2 mm nonobstructive calculus in the lower pole calyx of the left kidney. Normal visualized stomach. Normal small intestine. Moderate amount of fecal material is seen in the colon. The appendix is visualized and appears normal. There is scattered atherosclerotic calcification of the abdominal aorta, without a demonstrated aneurysm. Normal inferior vena cava. Normal retroperitoneum. Normal urinary bladder. Normal abdominal wall. Loss of height of the superior endplate of the L1 vertebrae. CT/Abdomen/Pelvis without Cont IMPRESSION: Moderate amount of fecal material is seen in the colon. Findings suggestive of scarring in both lower lobes. Electronically Signed: Alexandre Tapia MD at 14:47 EST Tel [phone], Service support ,
[2018-02-08] MEDS: Ondansetron 4 MG/2 ML Vial IV (14:05)
[2018-02-08] MEDS: Morphine 2 MG/ML Syringe IV (14:05)
--- NOTE | 2018-02-08 14:09 | ED.DCSUM_ITS ---
- ER Visit Summary Date of Service: 02/08/18 Chief Complaint: Abdominal pain I think my enlarged liver History of Present Illness: The patient is a 62 F who says she has had abdominal pain nausea vomiting that started today. The pain is diffuse and sharp. It does not localize in any specific area. Food makes it worse. She has had multiple episodes of vomiting today. She took antiemetics without any relief. She denies diarrhea. She states that she has a enlarged liver. She does not know the etiology of this. No fevers but she has felt hot and cold. Patient was seen here a couple of days ago for nausea and vomiting. She had a negative workup and was discharged home. Physical Examination: Vital signs reviewed. HEENT exam unremarkable. Her mucous membranes are moist. Heart is regular rate and rhythm without murmurs. Lungs are clear to auscultation. Abdomen is soft with diffuse tenderness. No guarding or rebound tenderness. Extremities reveal no edema. Skin exam normal. Neurologic exam normal. Test Results: Laboratory studies reveal hemoglobin of 7.6 which is baseline. Chloride 109. Total bilirubin 0.72, alkaline phosphatase 571, ALT 87, AST 116 Emergency Department Course and Treatment: She also had a CAT scan which reveals moderate fecal matter. There is also lung scarring. Patient was given morphine and Zofran. Constipation is likely the cause of her symptoms. There is no evidence of any enlarged liver. She does have nonspecific elevation of her liver enzymes. She has already had a cholecystectomy. I will treat her with MiraLAX at home. She will follow-up with her PCP. Treatment Plan: [] Disposition: Discharge Impression: Abdominal pain, constipation This note was generated with Mojostreet dictation software. It may contain incorrect words, spelling, and punctuation that were not noted in review of the chart prior to signing ED Disposition - Plan for ED Patient: Chief Complaint: Abd Pain Referrals: Care Physician,No Primary [Primary Care Provider] -
[2018-02-08 14:29] LABS: Absolute Lymphocyte Count 2.08 X10^3/ul (0.83-4.51); Absolute Neutrophil Count 2.3 X10^3/uL (2.0-7.7); Basophil# 0.03 X10^3/uL; Basophil% 0.6 % (0-1); Eosinophil# 0.11 X10^3/uL; Eosinophils% 2.3 % (0-5); Hematocrit 24.6 % (37-47); Hemoglobin 7.6 g/dl (12.0-15.0); Lymphocyte # 2.08 X10^3/ul (4.0); Lymphocyte % 43.2 % (19-41); Mean Corp Hgb Conc 30.9 g/gl (32-36); Mean Corpuscular Hgb 22.7 pg (27.0-32.0); Mean Corpuscular Volume 73.4 fL (81-99); Mean Platelet Vol. 10.4 fl (6.2-12.0); Monocyte# 0.31 X10^3/uL; Monocyte% 6.4 % (0-10); Neutrophil # 2.26 X10^3/uL (2.7-7.7); Neutrophil % 47.1 % (47-70); Platelet Count 273 K/mm3 (150-450); RBC Distribution Width CV 17.9 % (11.6-14.6); RBC Distribution Width SD 48.3 fl (35.1-43.9); Red Blood Count 3.35 M/mm3 (4.2-5.4); White Blood Count 4.8 K/mm3 (4.4-11.0)
[2018-02-08 14:30] LABS: Differential Indicated SCAN CRITERIA MET; POSITIVE COUNT NO; POSITIVE DIFFERENTIAL NO; POSITIVE MORPHOLOGY YES
[2018-02-08 14:38] LABS: AST(SGOT) 116 U/L (15-37); Alanine Aminotransfer ALT/SGPT 87 U/L (13-56); Albumin, Serum 2.4 g/dL (3.2-5.0); Alkaline Phosphatase 571 U/L (45-117); Anion Gap 6 (5-15); BUN 13 mg/dL (7-18); BUN/Creat Ratio 20.6 RATIO (10-20); Bilirubin, Direct 0.72 mg/dL (0.00-0.30); Calcium,Total 8.1 mg/dL (8.5-10.1); Chloride 109 mmol/L (98-107); Creatinine, Serum 0.63 mg/dL (0.55-1.02); EST Glomerular Filtration Rate 101 mL/min (>60); Est Glom Filt Rate - Afr Amer 122 mL/min (>60); Estimated Creatinine Clearance 84.45 ml/min; Globulin 6.9 g/dL (2.2-4.2); Glucose 114 mg/dL (74-106); Lipase 208 U/L (73-393); Potassium 3.5 mmol/L (3.5-5.1); Protein, Total 9.3 g/dL (6.4-8.2); Sodium Level 140 mmol/L (136-145)
[2018-02-08 14:56] LABS: Anisocytosis RARE; Hypochromasia 3+; Microcytosis 1+; Platelet Estimate ADEQUATE (ADEQ); Target Cells 2+
--- NOTE | 2018-02-08 15:19 | ED.DEP ---
ED Disposition - Plan for ED Patient: Disposition: Home or Assisted Living Chief Complaint: Abd Pain Instructions: ED Constipation Prescriptions: Polyethylene Glycol 3350 [Miralax] 17 gm PO DAILY #20 packet Referrals: Care Physician,No Primary [Primary Care Provider] -
[2018-02-08 15:27] VITALS: BP 90/75; PULSE 84; RESP 16; O2SAT 97
--- NOTE | 2018-02-08 15:37 | ED.RN ---
[facility] giving ride to pt.
--- NOTE | 2018-02-08 15:39 | CM.ED ---
Social Work Note Call from RN that pt needs a ride back to [facility]. Inform that this typewriter operator automatic will check with van transportation. Placed call to Laureen in [employer] who confirms that they can pick the pt up and transport her back to [facility] at 1600 this date. Notified nursing. Pt to be at ED entrance at 1600 for transport to [facility]. Donna Barnett, BUTTON BREAKER OPERATOR, INSERT CUTTER
--- OUTSIDE RECORDS SUMMARY | 2018-05-13 05:43 | XMS RPT_ITS ---
:1955 Author Organization [facility] Support Name Relationship Address Phone EVELYN BLAIRA Unavailable Unavailable + MORALES, CELINA Unavailable Unavailable + OLDS, GUANAKITO Unavailable Unavailable + MORALES, CELINA Unavailable Unavailable + D Unavailable Unavailable Unavailable OLDSShahriar, GUANAKITO Unavailable Unavailable + NIELSEN, MARIVEL Unavailable Unavailable + D Unavailable Unavailable Unavailable OLDSS, GUANAKITO Unavailable Unavailable + MORALES, MARIVEL Unavailable Unavailable + D Unavailable Unavailable Unavailable OLDSS, GUANAKITO Unavailable Unavailable + NIELSEN, MARIVEL Unavailable Unavailable + D Unavailable Unavailable Unavailable OLDSS, GUANAKITO Unavailable Unavailable + NIELSEN, MARIVEL Unavailable Unavailable + OLDS, GUANAKITO Unavailable [...] Unavailable Unavailable + OLDS, GUANAKITO Unavailable [address] [place] [address] + OLDS, GUANAKITO Unavailable Unavailable + NIELSEN, [...] Unavailable Unavailable + OLDS, GUANAKITO Unavailable [address] [place] [address] + OLDS, GUANAKITO Unavailable Unavailable + NIELSEN, [...] Name Role Phone Delgado, Dr. Manfred Potter Admitting Unavailable Delgado, Dr. Manfred Potter Attending Unavailable Mireya, Dr. Amber Sampson Admitting Unavailable Mireya, Dr. Amber Sampson Attending Unavailable Chris, Dr. Douglas Núñez Attending Unavailable Chris, Dr. Douglas Núñez Admitting Unavailable Chris, Dr. Douglas Núñez Attending Unavailable Chris, Dr. Douglas Núñez Admitting Unavailable Marker, Dr. Adeline Leo Attending Unavailable Marker, Dr. Adeline Leo Admitting Unavailable Creasap, Dr. Clint Coates Admitting Unavailable Crestefanie, Dr. Clint Coates Attending Unavailable Ximena, Dr. Lowry Admitting Unavailable Ximena, Dr. Lowry Attending Unavailable Tiny Herrera Attending Unavailable Primay Care Physicia, No Primary Care Unavailable Primay Care Physicia, No Primary Care Unavailable Lashell Lynn Attending Unavailable Primay Care Physicia, No Primary Care Unavailable Leroy Luevano Attending Unavailable Primay Care Physicia, No Primary Care Unavailable Saulo Covington Attending Unavailable NATALIEWEST SAMAYOA Attending Unavailable NATALIE, WEST Quinones Attending Unavailable HAI LION Attending Unavailable PROVIDER, [...] Unavailable NON EPICCARE, PROVIDER Primary Care Unavailable VIECNTA ARECHIGA Attending Unavailable PROVIDER, UNKNOWN Admitting Unavailable [...] NON EPICCARE, PROVIDER Primary Care Unavailable TAB, HI Attending Unavailable PROVIDER, UNKNOWN Admitting Unavailable NON [...] Unavailable NON EPICCARE, PROVIDER Primary Care Unavailable Yuri Sanchez Attending Unavailable Unavailable, Family Physician Primary Care Unavailable Unavailable, Family Physician Consulting Unavailable Unavailable, Family Physician Primary Care Unavailable Unavailable, Family Physician Consulting Unavailable Octavia Norton Attending Unavailable PROBLEMS PROBLEMS DATE TYPE CONDITION / CODE ATTENDING STATUS SOURCE 08/27/2017 Active Problem related to TISHMAN, Active [facility] unspecified HAI J Other Filer psychosocial Repository circumstances / Z65.9(ICD-10) 08/27/2017 Active Dizziness and NATALIE, DODSON Active [facility] giddiness / T Other Filer R42(ICD-10) Repository PROCEDURES PROCEDURES DATE CODE DESCRIPTION STATUS SOURCE 03/17/2018 [id number](C4) FALL PRECAUTIONS Completed [facility] 03/17/2018 QUK423(C4) PM Completed [facility] 03/17/2018 ED103(C4) DISCHARGE PATIENT Completed [facility] 01/22/2018 ED103(C4) DISCHARGE PATIENT Completed [facility] 01/20/2018 32267(C4) COMPLETE BLOOD COUNT Completed [facility] W[facility]DIFF [facility] Repository 01/20/2018 50824(C4) BASIC METABOLIC PANEL Completed [facility] 01/20/2018 81352(C4) HEPATIC FUNCTION PANEL Completed [facility] 01/20/2018 77456(C4) LIPASE Completed [facility] 01/20/2018 ED103(C4) DISCHARGE PATIENT Completed [facility] 01/19/2018 27209(C4) XR CHEST PA+LAT Completed [facility] 01/19/2018 ED103(C4) DISCHARGE PATIENT Completed [facility] 01/17/2018 24847(C4) COMPLETE BLOOD COUNT Completed [facility] 01/17/2018 23809(C4) BASIC METABOLIC PANEL Completed [facility] 01/16/2018 ED103(C4) DISCHARGE PATIENT Completed [facility] 01/15/2018 08646(C4) COMPLETE BLOOD COUNT Completed [facility]DIFF [facility] Rep[facility] 01/15/2018 31295(C4) BASIC METABOLIC PANEL Completed [facility] 01/15/2018 77075(C4) LIPASE Completed [facility] 01/15/2018 34427(C4) URINALYSIS Completed [facility] 01/15/2018 15389(C4) URINALYSIS,AUTO-IN OFFICE Completed [facility] 01/15/2018 99530(C4) POTASSIUM, WHOLE BLOOD Completed [facility] 01/15/2018 [id number](C4 WAM MORPHOLOGY REFLEX Completed [facility] 01/15/2018 ED103(C4) DISCHARGE PATIENT Completed [facility] 01/13/2018 81189(C4) COMPLETE BLOOD COUNT Completed [facility] 01/13/2018 39785(C4) BASIC METABOLIC PANEL Completed [facility] 01/13/2018 78734(C4) HEPATIC FUNCTION PANEL Completed [facility] 01/13/2018 29642(C4) URINALYSIS Completed [facility] 01/13/2018 74264(C4) URINALYSIS,AUTO-IN OFFICE Completed [facility] 01/13/2018 64838(C4) I-STAT TROPONIN, ED Completed [facility] 01/13/2018 38445(C4) XR CHEST PA+LAT Completed [facility] 01/13/2018 13085(C4) LIPASE Completed [facility] 01/13/2018 12816(C4) CT ABD/PELVIS ED I/V Completed [facility] SEE W/ CONTRAST [facility] Repository 01/13/2018 [id number](C4) GASTROENTEROLOGY SERVICE Completed [facility] REQUEST [facility] Repository 01/13/2018 01429(C4) EKG 12 LEAD - PERFORM Completed [facility] 01/12/2018 21098(C4) COMPLETE BLOOD COUNT Completed [facility] W[facility]DIFF [facility] Repository 01/12/2018 73418(C4) BASIC METABOLIC PANEL Completed [facility] 01/12/2018 22823(C4) XR CHEST AP OR PA 1 VIEW Completed [facility] 01/12/2018 63641(C4) B TYPE NATRIURETIC Completed [facility] PEPTIDE [facility] Repository 01/12/2018 35049(C4) I-STAT TROPONIN, ED Completed [facility] 01/12/2018 85228(C4) TROPONIN I Completed [facility] 01/12/2018 48078(C4) POTASSIUM, WHOLE BLOOD Completed [facility] 01/12/2018 08428(C4) TROPONIN I Completed [facility] 01/12/2018 18612(C4) EKG 12 LEAD - PERFORM Completed [facility] 01/10/2018 33677(C4) BASIC METABOLIC PANEL Completed [facility] 01/10/2018 20208(C4) HEPATIC FUNCTION PANEL Completed [facility] 01/10/2018 99932(C4) COMPLETE BLOOD COUNT Completed [facility]DIFF [facility] 01/10/2018 12234(C4) PROTHROMBIN TIME AND INR Completed [facility] 01/10/2018 29243(C4) URINALYSIS Completed [facility] 01/10/2018 21059(C4) URINALYSIS,AUTO-IN OFFICE Completed [facility] 01/10/2018 ED103(C4) DISCHARGE PATIENT Completed [facility] 01/07/2018 19400(C4) US LEG BILAT VENOUS + Completed [facility] DOPPLER [facility] Repository 01/06/2018 ED103(C4) DISCHARGE PATIENT Completed [facility] 01/06/2018 ED103(C4) DISCHARGE PATIENT Completed [facility] 01/05/2018 ED103(C4) DISCHARGE PATIENT Completed [facility] 01/05/2018 ED103(C4) DISCHARGE PATIENT Completed [facility] 01/03/2018 10858(C4) XR FOOT LEFT Completed [facility] 01/01/2018 ED103(C4) DISCHARGE PATIENT Completed [facility] 12/28/2017 67656(C4) XR FOOT LEFT Completed [facility] 12/28/2017 [id number](C4) APPLY AND MAINTAIN Completed [facility] WALKING BOOT TO FOOT System Repository 12/28/2017 ED103(C4) DISCHARGE PATIENT Completed [facility] 12/27/2017 31579(C4) COMPLETE BLOOD COUNT Completed [facility] W[facility]DIFF [facility] Rep[facility] 12/27/2017 48413(C4) BASIC METABOLIC PANEL Completed [facility] 12/27/2017 71079(C4) MAGNESIUM Completed [facility] 12/27/2017 26510(C4) HEPATIC FUNCTION PANEL Completed [facility] 12/27/2017 17678(C4) PROTHROMBIN TIME AND INR Completed [facility] 12/27/2017 26166(C4) I-STAT TROPONIN, ED Completed [facility] 12/27/2017 ED119(C4) BED REQUEST FOR 6C Completed [facility] 12/27/2017 93165(C4) XR CHEST PA+LAT Completed [facility] 12/27/2017 18946(C4) CT HEAD W/O CONTRAST Completed [facility] 12/27/2017 11948(C4) B TYPE NATRIURETIC Completed [facility] PEPTIDE [facility] Repository 12/27/2017 [id number](C4) ADMIT TO FLOOR Completed [facility] 12/27/2017 [id number](C4) MEASURE WEIGHT Completed [facility] 12/27/2017 CTC7239(C4) RECORD HEIGHT Completed [facility] 12/27/2017 17470(C4) CREATINE KINASE Completed [facility] 12/27/2017 20107(C4) GAMMA GLUTAMYL Completed [facility] TRANSPEPTIDASE System Repository 12/27/2017 [id number](C4) CHECK ORTHOSTATIC VITAL Completed [facility] SIGNS [facility] Repository 12/27/2017 [id number](C4) IP PHYSICAL THERAPY Completed [facility] SERVICE REQUEST [facility] Repository 12/27/2017 [id number](C4) IP OCCUPATIONAL THERAPY Completed [facility] SERV[facility] REQUEST [facility] Repository 12/27/2017 22898(C4) EKG 12 LEAD - PERFORM Completed [facility] 12/26/2017 64499(C4) HIV1 HIV2 AGAB SCRN Completed [facility] 12/26/2017 ED103(C4) DISCHARGE PATIENT Completed [facility] 12/23/2017 ED103(C4) DISCHARGE PATIENT Completed [facility] 12/20/2017 43180(C4) COMPLETE BLOOD COUNT Completed [facility]DIFF [facility] Rep[facility] 12/20/2017 08000(C4) BASIC METABOLIC PANEL Completed [facility] 12/20/2017 ED103(C4) DISCHARGE PATIENT Completed [facility] 12/19/2017 49789(C4) XR CHEST PA+LAT Completed [facility] 12/18/2017 02428(C4) URINALYSIS Completed [facility] 12/18/2017 56227(C4) URINALYSIS,AUTO-IN OFFICE Completed [facility] 12/18/2017 ED103(C4) DISCHARGE PATIENT Completed [facility] 12/15/2017 75648(C4) ED RN ADULT CHEST PAIN Completed [facility] 12/15/2017 84905(C4) EKG 12 LEAD - PERFORM Completed [facility] 12/15/2017 [id number](C4) APPLY CONTINUOUS Completed [facility] CARDIORESPIRATORY MONITOR [facility] Repository 12/15/2017 [id number](C4) INSERT PERIPHERAL IV Completed [facility] ACCESS [facility] Repository 12/15/2017 [id number](C4) NPO Completed [facility] 12/15/2017 88638(C4) COMPLETE BLOOD COUNT Completed [facility] W[facility]DIFF [facility] Rep[facility] 12/15/2017 88563(C4) I-STAT TROPONIN, ED Completed [facility] 12/15/2017 08465(C4) XR CHEST PA+LAT Completed [facility] 12/15/2017 82902(C4) BASIC METABOLIC PANEL Completed [facility] 12/15/2017 69280(C4) HEPATIC FUNCTION PANEL Completed [facility] 12/15/2017 41258(C4) LIPASE Completed [facility] 12/15/2017 35456(C4) URINALYSIS Completed [facility] 12/15/2017 39158(C4) URINALYSIS,AUTO-IN OFFICE Completed [facility] 12/15/2017 29194(C4) URINALYSIS,AUTO-IN OFFICE Completed [facility] 12/15/2017 ED103(C4) DISCHARGE PATIENT Completed [facility] 12/13/2017 08591(C4) URINALYSIS Completed [facility] 12/13/2017 96566(C4) URINALYSIS,AUTO-IN OFFICE Completed [facility] 12/05/2017 62019(C4) ED RN ADULT CHEST PAIN Completed [facility] 12/05/2017 51864(C4) EKG 12 LEAD - PERFORM Completed [facility] 12/05/2017 [id number](C4) APPLY CONTINUOUS Completed [facility] CARDIORESPIRATORY MONITOR [facility] Repository 12/05/2017 [id number](C4) INSERT PERIPHERAL IV Completed [facility] ACCESS [facility] Repository 12/05/2017 20773(C4) COMPLETE BLOOD COUNT Completed [facility] W[facility]DIFF [facility] Rep[facility] 12/05/2017 80837(C4) BASIC METABOLIC PANEL Completed [facility] 12/05/2017 69580(C4) I-STAT TROPONIN, ED Completed [facility] 12/05/2017 14233(C4) XR CHEST PA+LAT Completed [facility] 12/05/2017 624110286(C4 WAM NRBC REFLEX Com[facility] 12/05/2017 ED103(C4) DISCHARGE PATIENT Completed [facility] 11/30/2017 06904(C4) INFLUENZA/RSV,RAPID PCR Completed [facility] 11/28/2017 ED103(C4) DISCHARGE PATIENT Completed [facility] 11/26/2017 ED103(C4) DISCHARGE PATIENT Completed [facility] 11/24/2017 ED103(C4) DISCHARGE PATIENT Completed [facility] 11/22/2017 28659(C4) EKG 12 LEAD - PERFORM Completed [facility] 11/22/2017 ED103(C4) DISCHARGE PATIENT Completed [facility] 11/22/2017 01042(C4) EKG 12 LEAD - PERFORM Completed [facility] 11/17/2017 42628(C4) BASIC METABOLIC PANEL Completed [facility] 11/17/2017 62593(C4) HEPATIC FUNCTION PANEL Completed [facility] 11/17/2017 70413(C4) MAGNESIUM Completed [facility] 11/17/2017 21774(C4) LIPASE Completed [facility] 11/17/2017 56654(C4) COMPLETE BLOOD COUNT Completed [facility] W[facility]DIFF [facility] Rep[facility] 11/17/2017 29827(C4) URINALYSIS Completed [facility] 11/17/2017 69089(C4) URINALYSIS,AUTO-IN OFFICE Completed [facility] 11/17/2017 05982(C4) PROTHROMBIN TIME AND INR Completed [facility] 11/17/2017 30871(C4) PARTIAL THROMBOPLASTIN Completed [facility] TIME [facility] Repository 11/17/2017 66226(C4) XR CHEST PA+LAT Completed [facility] 11/17/2017 [id number](C4 WAM NRBC REFLEX Com[facility] 11/17/2017 ED119(C4) BED REQUEST FOR 6C Completed [facility] 11/17/2017 [id number](C4) ADMIT TO FLOOR Completed [facility] 11/17/2017 IEN483(C4) UPDATE TREATMENT TEAM Completed [facility] RESIDENT [facility] Repository 11/17/2017 VFX416(C4) UPDATE ATTENDING Completed [facility] PH[facility] Repository 11/17/2017 [id number](C4) MEASURE WEIGHT Completed [facility] 11/17/2017 [id number](C4) RECORD HEIGHT Completed [facility] 11/17/2017 [id number](C4) MEASURE VITAL SIGNS WITH Completed [facility] PULSE OXIMETRY System Repository 11/17/2017 [id number](C4) NOTIFY MD Completed [facility] 11/17/2017 [id number](C4) INSERT PERIPHERAL IV Completed [facility] ACCESS [facility] Repository 11/17/2017 CODE1(C4) FULL CODE Completed [facility] 11/17/2017 KEYG353(C4) [id number] Completed [facility] 11/17/2017 [id number](C4) UP AD SPIKE Completed [facility] 11/17/2017 [id number](C4) APPLY Completed [facility] 11/17/2017 [id number](C4) IP GASTROENTEROLOGY Completed [facility] CONSULT [facility] Repository 11/17/2017 CDS632(C4) GASTROENTEROLOGY SERVICE Completed [facility] REQUEST [facility] Repository 11/17/2017 TQS403(C4) DISCHARGE PATIENT Completed [facility] 11/17/2017 [id number](C4) ADMIT TO FLOOR Completed [facility] 11/13/2017 29787(C4) URINALYSIS Completed [facility] 11/13/2017 10903(C4) URINALYSIS,AUTO-IN OFFICE Completed [facility] 11/13/2017 68627(C4) COMPLETE BLOOD COUNT Completed [facility] W/DIFF [facility] Repository 11/13/2017 55859(C4) BASIC METABOLIC PANEL Completed [facility] 11/13/2017 18296(C4) MAGNESIUM Completed [facility] 11/13/2017 80936(C4) HEPATIC FUNCTION PANEL Completed [facility] 11/13/2017 93429(C4) LIPASE Completed [facility] 11/13/2017 45106(C4) XR ABDOMEN AP Completed [facility] 11/13/2017 45664(C4) SALICYLATE Completed [facility] 11/13/2017 [id number](C4) DISCHARGE PATIENT Completed [facility] 11/13/2017 29278(C4) HAPTOGLOBIN Completed [facility] 11/12/2017 [id number](C4) BED REQUEST FOR THE FLOOR Completed [facility] 11/12/2017 [id number](C4) BED REQUEST FOR THE FLOOR Completed [facility] 11/12/2017 VDH038(C4) ADMIT TO FLOOR Completed [facility] 11/12/2017 [id number](C4) MEASURE VITAL SIGNS WITH Completed [facility] PULSE OXIMETRY [facility] Repository 11/12/2017 [id number](C4) INSERT PERIPHERAL IV Completed [facility] ACCESS [facility] Repository 11/12/2017 98875(C4) B TYPE NATRIURETIC Completed [facility] PEPTIDE [facility] Repository 11/12/2017 06093(C4) BASIC METABOLIC PANEL Completed [facility] 11/12/2017 62576(C4) COMPLETE BLOOD COUNT Completed [facility] 11/12/2017 83552(C4) HEPATIC FUNCTION PANEL Completed [facility] 11/12/2017 66165(C4) LACTIC ACID Completed [facility] 11/12/2017 58682(C4) POTASSIUM, WHOLE BLOOD Completed [facility] 11/12/2017 QDK111(C4) DISCHARGE PATIENT Completed [facility] 11/11/2017 41047(C4) COMPLETE BLOOD COUNT Completed [facility] W[facility]DIFF [facility] Rep[facility] 11/11/2017 89813(C4) BASIC METABOLIC PANEL Completed [facility] 11/11/2017 71652(C4) LIPASE Completed [facility] 11/11/2017 65909(C4) HEPATIC FUNCTION PANEL Completed [facility] 11/11/2017 65083(C4) URINALYSIS Completed [facility] 11/11/2017 34082(C4) URINALYSIS,AUTO-IN OFFICE Completed [facility] 11/11/2017 QBP180(C4) ADMIT TO FLOOR Completed [facility] 11/11/2017 BS6195(C4) BED REQUEST FOR THE FLOOR Completed [facility] 11/11/2017 35347(C4) US LIVER/GALL Completed [facility] BLADDER/PANCREAS [facility] Repository 11/11/2017 83701(C4) ACETAMINOPHEN Completed [facility] 11/11/2017 19274(C4) PROTHROMBIN TIME AND INR Completed [facility] 11/11/2017 34404(C4) GAMMA GLUTAMYL Completed [facility] TRANSPEPTIDASE [facility] Repository 11/11/2017 59428(C4) B TYPE NATRIURETIC Completed [facility] PEPTIDE [facility] Repository 11/11/2017 18882(C4) US HEP PORT SPLEN VEIN + Completed [facility] DOPPLER [facility] Repository 11/11/2017 84571(C4) HEMOGLOBIN A1C Completed [facility] 11/11/2017 31966(C4) FERRITIN Completed [facility] 11/11/2017 44315(C4) IRON AND TIBC Completed [facility] 11/11/2017 19337(C4) LKM IGG ANTIBODY Completed [facility] 11/11/2017 77032(C4) AUTOIMMUNE PANEL Completed [facility] 11/11/2017 81990(C4) ETHANOL, SERUM Completed [facility] 11/11/2017 ALZ334(C4) DISCHARGE PATIENT Completed [facility] 11/06/2017 39564(C4) COMPLETE BLOOD COUNT Completed [facility]DIFF [facility] 11/06/2017 70989(C4) BASIC METABOLIC PANEL Completed [facility] 11/06/2017 64499(C4) HEPATIC FUNCTION PANEL Completed [facility] 11/06/2017 ED103(C4) DISCHARGE PATIENT Completed [facility] 11/01/2017 16909(C4) XR KNEE RIGHT AP+LAT Completed [facility] 11/01/2017 ED103(C4) DISCHARGE PATIENT Completed [facility] 11/01/2017 46688(C4) COMPLETE BLOOD COUNT Completed [facility]DIFF [facility] 11/01/2017 46502(C4) BASIC METABOLIC PANEL Completed [facility] 11/01/2017 66593(C4) HEPATIC FUNCTION PANEL Completed [facility] 11/01/2017 71132(C4) LIPASE Completed [facility] 11/01/2017 91251(C4) LACTIC ACID Completed [facility] 11/01/2017 40560(C4) URINALYSIS Completed [facility] 11/01/2017 09174(C4) URINALYSIS,AUTO-IN OFFICE Completed [facility] 11/01/2017 47438(C4) POTASSIUM, WHOLE BLOOD Completed [facility] 11/01/2017 ED103(C4) DISCHARGE PATIENT Completed [facility] 10/17/2017 54714(C4) COMPLETE BLOOD COUNT Completed [facility]DIFF [facility] 10/17/2017 80187(C4) BASIC METABOLIC PANEL Completed [facility] 10/17/2017 56694(C4) HEPATIC FUNCTION PANEL Completed [facility] 10/17/2017 29939(C4) LIPASE Completed [facility] 10/17/2017 34634(C4) URINALYSIS Completed [facility] 10/17/2017 57739(C4) URINALYSIS,AUTO-IN OFFICE Completed [facility] 10/17/2017 33218(C4) CT ABD/PELVIS ED I/V Completed [facility] SEE W/ CONTRAST [facility] Repository 10/17/2017 [id number](C4) GASTROENTEROLOGY SERVICE Completed [facility] REQUEST [facility] Repository 10/13/2017 CTSPZ04(C4) CT T-SPINE/L-SPINE W/O Completed [facility] CONTRAST [facility] Repository 10/13/2017 ED103(C4) DISCHARGE PATIENT Completed [facility] 10/07/2017 66901(C4) COMPLETE BLOOD COUNT Completed [facility] W[facility]DIFF [facility] Rep[facility] 10/07/2017 26370(C4) BASIC METABOLIC PANEL Completed [facility] 10/07/2017 60996(C4) PROTHROMBIN TIME AND INR Completed [facility] 10/07/2017 82374(C4) HEPATIC FUNCTION PANEL Completed [facility] 10/07/2017 07097(C4) POTASSIUM, WHOLE BLOOD Completed [facility] 10/07/2017 58649(C4) URINALYSIS Completed [facility] 10/07/2017 41857(C4) URINALYSIS,AUTO-IN OFFICE Completed [facility] 10/07/2017 94277(C4) XR CHEST PA+LAT Completed [facility] 10/07/2017 77623(C4) HEPATITIS A TOTAL Completed [facility] ANTIBODY [facility] Repository 10/07/2017 64625(C4) HEPATITIS B SURFACE Completed [facility] ANTIGEN [facility] Repository 10/07/2017 76310(C4) HEPATITIS B CORE ANTIBODY Completed [facility] 10/07/2017 16536(C4) HEPATITIS B SURFACE Completed [facility] ANTIBODY [facility] Repository 10/07/2017 85990(C4) HEPATITIS C ANTIBODY Completed [facility] 10/06/2017 27649(C4) COMPLETE BLOOD COUNT Completed [facility] W[facility]DIFF [facility] Rep[facility] 10/06/2017 94732(C4) BASIC METABOLIC PANEL Completed [facility] 10/06/2017 34706(C4) HEPATIC FUNCTION PANEL Completed [facility] 10/06/2017 90252(C4) LIPASE Completed [facility] 10/06/2017 TS(C4) TYPE AND SCREEN Completed [facility] 10/06/2017 88393(C4) CT ABD/PELVIS ED I/V Completed [facility] SEE W/ CONTRAST [facility] Repository 10/06/2017 34880(C4) PROTHROMBIN TIME AND INR Completed [facility] 10/06/2017 95322(C4) PARTIAL THROMBOPLASTIN Completed [facility] 10/06/2017 [id number](C4 WAM MORPHOLOGY REFLEX Completed [facility] 10/06/2017 87087(C4) POTASSIUM, WHOLE BLOOD Completed [facility] 10/06/2017 20292(C4) HEPATIC FUNCTION PANEL Completed [facility] 10/06/2017 AQYXD195(C4) IP SURGERY GENERAL Completed [facility] 10/05/2017 43489(C4) URINALYSIS Completed [facility] 10/05/2017 79417(C4) URINALYSIS,AUTO-IN OFFICE Completed [facility] 10/05/2017 74815(C4) COMPLETE BLOOD COUNT Completed [facility] W[facility]DIFF [facility] 10/05/2017 62231(C4) BASIC METABOLIC PANEL Completed [facility] 10/05/2017 12222(C4) HEPATIC FUNCTION PANEL Completed [facility] 10/05/2017 33669(C4) LIPASE Completed [facility] 10/05/2017 31593(C4) PROTHROMBIN TIME AND INR Completed [facility] 10/01/2017 65267(C4) XR CHEST PA+LAT Completed [facility] 09/27/2017 ED103(C4) DISCHARGE PATIENT Completed [facility] 09/27/2017 94858(C4) HEPATITIS C ANTIBODY Completed [facility] 09/27/2017 96833(C4) ED RN ADULT CHEST PAIN Completed [facility] 09/27/2017 81940(C4) EKG 12 LEAD - PERFORM Completed [facility] 09/27/2017 CVJ9865(C4) APPLY CONTINUOUS Completed [facility] Repository 09/27/2017 KHJ1109(C4) INSERT PERIPHERAL IV Completed [facility] ACCESS [facility] Repository 09/27/2017 41458(C4) COMPLETE BLOOD COUNT Completed [facility] W/DIFF [facility] Repository 09/27/2017 66430(C4) BASIC METABOLIC PANEL Completed [facility] 09/27/2017 57226(C4) I-STAT TROPONIN, ED Completed [facility] 09/27/2017 92094(C4) XR CHEST PA+LAT Completed [facility] 09/27/2017 63728(C4) HEPATIC FUNCTION PANEL Completed [facility] 09/27/2017 66225(C4) LIPASE Completed [facility] 09/27/2017 41601(C4) HEMOCCULT-IN OFFICE Completed [facility] 09/27/2017 92334(C4) POTASSIUM, WHOLE BLOOD Completed [facility] 09/27/2017 ED119(C4) BED REQUEST FOR 6C Completed [facility] 09/27/2017 PWI613(C4) ADMIT TO FLOOR Completed [facility] 09/27/2017 TRX6952(C4) MEASURE WEIGHT Completed [facility] 09/27/2017 ASC8062(C4) RECORD HEIGHT Completed [facility] 09/27/2017 09067(C4) TOXICOLOGY SCREEN, Completed [facility] UNCONFIRMED [facility] Repository 09/27/2017 74872(C4) COMPLETE BLOOD COUNT Completed [facility] 09/27/2017 TS(C4) TYPE AND SCREEN Completed [facility] 09/27/2017 07918(C4) PROTHROMBIN TIME AND INR Completed [facility] 09/24/2017 SUI974(C4) WOUND CARE ED Completed [facility] 09/24/2017 ED103(C4) DISCHARGE PATIENT Completed [facility] 09/17/2017 ED103(C4) DISCHARGE PATIENT Completed [facility] 09/10/2017 02666(C4) COMPLETE BLOOD COUNT Completed [facility]FF [facility] 09/10/2017 70921(C4) BASIC METABOLIC PANEL Completed [facility] 09/10/2017 18754(C4) TSH, HIGH SENSITIVITY Completed [facility] 09/10/2017 01713(C4) I-STAT TROPONIN, ED Completed [facility] 09/10/2017 95893(C4) B TYPE NATRIURETIC Com[facility] 09/10/2017 93437(C4) XR CHEST PA+LAT Completed [facility] 09/10/2017 44609(C4) PROTHROMBIN TIME AND INR Completed [facility] 09/10/2017 BWT363(C4) FALL PRECAUTIONS Completed [facility] 09/10/2017 51161(C4) EKG 12 LEAD - PERFORM Completed [facility] 09/01/2017 ED103(C4) DISCHARGE PATIENT Completed [facility] 09/01/2017 22915(C4) EKG 12 LEAD - PERFORM Completed [facility] 08/28/2017 32043(C4) GLUCOSE, FINGERSTICK-IN Completed [facility] Rep[facility] 08/28/2017 VYC937(C4) FALL PRECAUTIONS Completed [facility] RESULTS RESULTS 12 LEAD ELECTROCARDIOGRAM Observed: 03/01/2018 Status: F Source: [place] 1:19 PM [facility] REPOSITORY [facility] Cardiovascular Services [address] [place] [address] 12 Lead EKG 02/15/18 1028 MR#: [id number] Acct: [id number] Name: JESSE BLAIR Rep #: [id number] : 1955 62 From: Benson Ziegler MD [...] Normal ECG Confirmed by BENSON ZIEGLER ([id number]), subeditor MARY DOVE ([id number]) on 03/01/2018 1:19:18 PM Referred By: MAAME Confirmed By:BENSON ZIEGLER 03/01/18 1319 Date Benson Ziegler MD CC: No Primary Care Physician; Saulo Covington Signed EMERGENCY DEPARTMENT Observed: 02/15/2018 Status: F Source: [place] SUMMARY 4:48 PM [facility] REPOSITORY [facility] Medical Records Department [address] [place] [address] Emergency Department Summary 02/15/18 1352 MR#: [id number] Acct: [id number] Name: JESSE BLAIR Rep #: [id number] : 1955 62 From: Saulo Covington MD [...] the emergency department. [facility] for follow[facility]. Patient has been in the emergency department 5 times this month since she moved from [place]. I did contact care management to develop a care plan for the patient Disposition: Discharge Impression: 1. COPD exacerbation This note was generated with [employer] dictation software. It may contain incorrect words, [...] problems, contact your Primary Care Provider. Call [facility] ([phone]) or report to the closest Emergency Room. Call 911 if necessary. 02/15/18 1648 <Electronically signed by Saulo Covington MD> Date Saulo Covington MD Cosigner Signature (If Indicated): Date CC: No Primary Care Physician CTA CHEST W/WO Observed: 02/15/2018 Status: F Source: [place] CONTRAST 12:25 PM [facility] REPOSITORY [facility] Imaging Services [address] [place] [address] CTA Chest W/WO Contrast MR#: [id number] Acct: [id number] Name: JESSE BLAIR Rep #: [id number] : 1955 F 62 From: Wallace Beauchamp MD PCP: Care Physician, No Primary Status: REG ER Study: CTA Chest W/WO Contrast Date of Exam: 02/15/18 Exam# [id number] Ordering Dr: Saulo Covington MD STUDY: CTA [...] CC: No Primary Care Physician; Saulo Covington C Architect: Signed D-DIMER QUANTITATIVE Collected: 02/15/2018 Status: F Source: [place] (DVT/PE) 11:50 AM [facility] REPOSITORY TYPE CODE TESTS RESULT OUT OF RANGE REFERENCE UNITS LAB L300.8000 0.27-0.49 FEU/ug/m High alert D-DIMER 1.79 QUANT Result Comment: CRITICAL VALUE VERIFIED. CALLED TO LUCITA GARCIA IN ED 02/15/18 1221 Annabelle Rosales. RESULTS READ BACK BY SAME . D-Dimer ELEVATED (>0.49): Additional studies and clinical assessments are indicated to conclude diagnosis of: Deep Vein Thrombosis (DVT) or Pulmonary Embolism (PE) Performed By: #### L300.8000 #### [facility] [place], [address] CBC W/DIFF, AUTOMATED Collected: 02/15/2018 Status: F Source: [place] 11:50 AM [facility] REPOSITORY TYPE CODE TESTS RESULT OUT OF [...] LARGE PLTS. Performed By: #### L100.0100 #### [facility] [address] [facility] [place], [place], [address] BASIC METABOLIC Collected: 02/15/2018 Status: F Source: [place] PROFILE (BMP) 11:50 AM [facility] REPOSITORY TYPE CODE TESTS RESULT OUT OF [...] 9 Performed By: #### L500.2500, L501.4010 #### [facility] [address] [facility] [address] [place], [place], [address] TROPONIN-I Collected: 02/15/2018 Status: F Source: [place] 11:50 AM [facility] REPOSITORY TYPE CODE TESTS RESULT OUT OF RANGE REFERENCE UNITS LAB L501.4010 <0.045 ng/mL Normal < 0.015 TROPONIN-I Result Comment: TROPONIN-I EXPECTED VALUES <0.045 Negative 0.045 - 0.590 Consistent with Cardiac Damage > OR = 0.600 Critical Value Not every elevated troponin is indicative of NC. These values should be used with clinical judgement in examining the patient's clinical picture for diagnosis. To establish a diagnosis of NC versus myocardial injury, there must be a demonstrated rise and/or fall in the troponin values, in addition to ischemic symptoms, EKG changes, new regional wall motion abnormality, and/or angiographical evidence. PLEASE NOTE: REFERENCE RANGES EDITED 17 Performed By: #### L500.2500, L501.4010 #### [facility] [address] [place], [place], [address] CHEST PA AND LATERAL Observed: 02/15/2018 Status: F Source: [place] 10:23 AM [facility] REPOSITORY [facility] Imaging Services [address] [place] [address] Chest PA and Lateral MR#: [id number] Acct: [id number] Name: JESSE BLAIR #: [id number] : 1955 F 62 From: Brando Michel MD PCP: Care Physician, No Primary Status: REG ER Study: Chest PA and Lateral Date of Exam: 02/15/18 Exam# [id number] Ordering Dr: Saulo Covington MD STUDY: X-RAY [...] CC: No Primary Care Physician; Saulo Covington C Architect: Signed DISCHARGE INSTRUCTION Observed: 02/08/2018 Status: F Source: [place] 3:20 PM [facility] REPOSITORY [facility] Medical Records Department [address] [place] [address] Discharge Instruction 02/08/18 1519 MR#: [id number] Acct: [id number] Name: JESSE BLAIR Rep #: [id number] : 1955 62 From: Leroy Luevano MD [...] your Primary Care Provider. Call [facility] ([phone]) or report to the closest Emergency Room. Call 911 if necessary. 02/08/18 1520 <Electronically signed by Leroy Luevano MD> Date Leroy Luevano MD Cosigner Signature (If Indicated): Date CC: No Primary Care Physician EMERGENCY DEPARTMENT Observed: 02/08/2018 Status: F Source: [place] SUMMARY 3:19 PM [facility] REPOSITORY [facility] Medical Records Department [address] [place] [address] Emergency Department Summary 02/08/18 1408 MR#: [id number] Acct: [id number] Name: JESSE BLAIR Rep #: [id number] : 1955 62 From: Leroy Luevano MD [...] pain, constipation This note was generated with [employer] dictation software. It may contain incorrect words, [...] your Primary Care Provider. Call [facility] ([phone]) or report to the closest Emergency Room. Call 911 if necessary. 02/08/18 8698 <Electronically signed by Leroy Luevano MD> Date Leroy Luevano MD Cosigner Signature (If Indicated): Date CC: No Primary Care Physician CBC W/DIFF, AUTOMATED Collected: 02/08/2018 Status: F Source: [place] 2:10 PM [facility] REPOSITORY TYPE CODE TESTS RESULT OUT OF [...] Normal 2+ Performed By: #### L100.0100 #### [facility] [address] [place], [place], [id number] BASIC METABOLIC Collected: 02/08/2018 Status: F Source: [place] PROFILE (BMP) 2:10 PM [facility] REPOSITORY TYPE CODE TESTS RESULT OUT OF [...] Performed By: #### L500.2500, L500.3400, L501.2450 #### [facility] [address] [place], [address] LIVER PROFILE Collected: 02/08/2018 Status: F Source: [place] 2:10 PM [facility] REPOSITORY TYPE CODE TESTS RESULT OUT OF [...] Performed By: #### L500.2500, L500.3400, L501.2450 #### [facility] [address] [place], [address] LIPASE Collected: 02/08/2018 Status: F Source: [place] 2:10 PM [facility] REPOSITORY TYPE CODE TESTS RESULT OUT OF RANGE REFERENCE UNITS LAB L501.2450 73-393 U/L Normal LIPASE 208 Performed By: #### L500.2500, L500.3400, L501.2450 #### [facility] [address] [place], [address] ABDOMEN/PELVIS WITHOUT Observed: 02/08/2018 Status: F Source: [place] CONT 1:49 PM [facility] REPOSITORY [facility] Imaging Services [address] [place] [address] Abdomen/Pelvis without Cont MR#: [id number] Acct: [id number] Name: JESSE BLAIR Rep #: [id number] : 1955 F 62 From: Alexandre Tapia MD PCP: Care Physician, No Primary Status: REG ER Study: Abdomen/Pelvis without Cont Date of Exam: 02/08/18 Exam# [id number] Ordering Dr: Leroy Luevano MD STUDY: CT [...] Alexandre Tapia MD at 14:47 EST Tel [phone], Service support , CC: No Primary Care Physician; Leroy Luevano MD C Architect: Signed 12 LEAD ELECTROCARDIOGRAM Observed: 02/05/2018 Status: F Source: [place] 10:00 AM [facility] REPOSITORY [facility] Cardiovascular Services [address] [place] [address] 12 Lead EKG 02/02/18 0048 MR#: [id number] Acct: [id number] Name: JESSE BLAIR Rep #: [id number] : 1955 62 From: Jeanmarie Virgen MD [...] ECG Confirmed by JEANMARIE VIRGEN MD ([id number]), subeditor MARY DOVE ([id number]) on 02/05/2018 9:59:44 AM Referred By: Confirmed By:JEANMARIE VIRGEN MD 02/05/18 0959 Date Jeanmarie Virgen MD CC: No Primary Care Physician; Lashell Lynn MD Signed EMERGENCY DEPARTMENT Observed: 02/02/2018 Status: F Source: [place] SUMMARY 3:48 AM [facility] REPOSITORY [facility] Medical Records Department [address] [place] [address] Emergency Department Summary 02/02/18 0109 MR#: [id number] Acct: [id number] Name: JESSE BLAIR Rep #: [id number] : 1955 62 From: Lashell Lynn MD [...] ill. She is [facility] [employer]. She denies blood in her emesis. Denies [...] Vomiting, resolved This note was generated with [employer] dictation software. It may contain incorrect words, [...] your Primary Care Provider. Call [facility] ([phone]) or report to the closest Emergency Room. Call 911 if necessary. 02/02/18347 <Electronically signed by Lashell Lynn MD> Date Lashell Lynn MD Cosigner Signature (If Indicated): Date CC: No Primary Care Physician DISCHARGE INSTRUCTION Observed: 02/02/2018 Status: F Source: [place] 3:20 AM [facility] REPOSITORY [facility] Medical Records Department [address] [place] [address] Discharge Instruction 02/02/188 MR#: [id number] Acct: [id number] Name: JESSE BLAIR Rep #: [id number] : 1955 62 From: Lashell Lynn MD [...] your Primary Care Provider. Call [facility] ([phone]) or report to the closest Emergency Room. Call 911 if necessary. 02/02/18 0320 <Electronically signed by Lashell Lynn MD> Date Lashell Lynn MD Cosigner Signature (If Indicated): Date CC: No Primary Care Physician CBC W/DIFF, AUTOMATED Collected: 02/02/2018 Status: F Source: [place] 12:20 AM [facility] REPOSITORY TYPE CODE TESTS RESULT OUT OF [...] 1+ Normal Performed By: #### L100.0100 #### [facility] [address] [place], [address] BASIC METABOLIC Collected: 02/02/2018 Status: F Source: [place] PROFILE (BMP) 12:20 AM [facility] REPOSITORY TYPE CODE TESTS RESULT OUT OF [...] 4 Performed By: #### L500.2500, L501.2450 #### [facility] [address] [place], [address] LIPASE Collected: 02/02/2018 Status: F Source: [place] 12:20 AM [facility] REPOSITORY TYPE CODE TESTS RESULT OUT OF RANGE REFERENCE UNITS LAB L501.2450 73-393 U/L Normal LIPASE 308 Performed By: #### L500.2500, L501.2450 #### [facility] [address] [facility] [place], [address] 12 LEAD ELECTROCARDIOGRAM Observed: 01/29/2018 Status: F Source: [place] 2:25 PM [facility] REPOSITORY [facility] Cardiovascular Services [address] [place] [address] 12 Lead EKG 01/26/18 0834 MR#: [id number] Acct: [id number] Name: JESSE BLAIR Rep #: [id number] : 1955 62 From: Jeanmarie Virgen MD [...] Sinus bradycardia Otherwise normal ECG Confirmed by JEANMARIE VIRGEN MD ([id number]), subeditor MARY DOVE ([id number]) on 01/29/2018 2:24:56 PM Referred By: HATTIE Confirmed By:JEANMARIE VIRGEN MD 01/29/18 1425 Date Jeanmarie Virgen MD CC: No Primary Care Physician; Tiny Herrera DO Signed DISCHARGE INSTRUCTION Observed: 01/26/2018 Status: F Source: [place] 2:27 PM [facility] REPOSITORY [facility] Medical Records Department [address] [place] [address] Discharge Instruction 01/26/18 1425 MR#: [id number] Acct: [id number] Name: JESSE BLAIR Rep #: [id number] : 1955 62 From: Tiny Herrera DO [...] problems, contact your Primary Care Provider. Call [facility] ([phone]) or report to the closest Emergency Room. Call 911 if necessary. 01/26/181426 <Electronically signed by Tiny Herrera DO> Date Tiny Herrera DO Cosigner Signature (If Indicated): Date CC: No Primary Care Physician EMERGENCY DEPARTMENT Observed: 01/26/2018 Status: F Source: [place] SUMMARY 2:25 PM [facility] REPOSITORY [facility] Medical Records Department [address] [place] [address] Emergency Department Summary 01/26/18 1419 MR#: [id number] Acct: [id number] Name: JESSE BLAIR Rep #: [id number] : 1955 62 From: Tiny Herrera DO [...] or head injuries. Patient apparently was [facility] and was seen on 01 23 there and admitted overnight. Patient was discharged and then came back complaining of pain in her left foot. Patient had x-rays of her foot and had venous Dopplers that were negative for DVT. On 01/22 patient was also seen in [place] at [facility]. Patient had a myriad of different complaints during her visits. Patient is from the [place] area but states that she is currently homeless and staying with friends.] Physical Examination: [HEENT-PERRLA, EOMI. Cranial nerves II through XII grossly intact. TMs clear. Mucous membranes moist. No adenopathy. Cardiovascular-regular rate and rhythm without murmur or ectopy Lungs-clear to auscultation, chest wall stable without crepitus or subcu emphysema Abdomen-normoactive bowel sounds, soft, nontender, no rebound or rigidity, no peritoneal signs. Neuro hjuh-kznuvd-usam and heel martinez testing within normal limits, [...] obtaining medical records from patient's visit to [facility] as well as [facility]. Emergency Department Course and Treatment: [I [...] her plan is to go back to [place].] Disposition: [Discharged home in stable condition] Impression: [Left foot pain acute on chronic Paresthesias-etiology uncertain] This note was generated with [employer] dictation software. It may contain incorrect words, [...] problems, contact your Primary Care Provider. Call [facility] ([phone]) or report to the closest Emergency Room. Call 911 if necessary. 01/26/18 9768 <Electronically signed by Tiny Herrera DO> Date Tiny Herrera DO Cosigner Signature (If Indicated): Date CC: No Primary Care Physician BRAIN WITHOUT Observed: 01/26/2018 Status: F Source: [place] CONTRAST 9:41 AM [facility] REPOSITORY [facility] Imaging Services [address] [address] Brain without Contrast MR#: [id number] Acct: [id number] Name: JESSE BLAIR Rep #: [id number] : 1955 F 62 From: Yony Back MD PCP: Care Physician, No Primary Status: REG ER Study: Brain without Contrast Date of Exam: 01/26/18 Exam# [id number] Ordering Dr: Tiny Herrera DO STUDY: MRI [...] No Primary Care Physician; Tiny Herrera DO C Architect: Signed CBC W/DIFF, AUTOMATED Collected: 01/26/2018 Status: F Source: [place] 8:12 AM [facility] REPOSITORY TYPE CODE TESTS RESULT OUT OF [...] Lymph 1.27 Performed By: #### L100.0100 #### [facility] [address] [place], [place], [address] BASIC METABOLIC Collected: 01/26/2018 Status: F Source: [place] PROFILE (BMP) 8:12 AM [facility] REPOSITORY TYPE CODE TESTS RESULT OUT OF [...] 7 Performed By: #### L500.2500, L501.4010 #### [facility] [address] [place], [address] TROPONIN-I Collected: 01/26/2018 Status: F Source: [place] 8:12 AM [facility] REPOSITORY TYPE CODE TESTS RESULT OUT OF RANGE REFERENCE UNITS LAB L501.4010 <0.045 ng/mL Normal < 0.015 TROPONIN-I Result Comment: TROPONIN-I EXPECTED VALUES <0.045 Negative 0.045 - 0.590 Consistent with Cardiac Damage > OR = 0.600 Critical Value Not every elevated troponin is indicative of NC. These values should be used with clinical judgement in examining the patient's clinical picture for diagnosis. To establish a diagnosis of NC versus myocardial injury, there must be a demonstrated rise and/or fall in the troponin values, in addition to ischemic symptoms, EKG changes, new regional wall motion abnormality, and/or angiographical evidence. PLEASE NOTE: REFERENCE RANGES EDITED 17 Performed By: #### L500.2500, L501.4010 #### [facility] [address] [place], [address] PROTHROMBIN TIME W/INR Collected: 01/26/2018 Status: F Source: [place] 8:12 AM [facility] REPOSITORY TYPE CODE TESTS RESULT OUT OF RANGE REFERENCE UNITS LAB L300.4150 11.7-14.9 SECONDS Normal PROTIME 13.0 LAB L300.4200 Normal INR 1.0 Performed By: #### L300.3900, L300.4310 #### [facility] [address] [place], [address] PARTIAL THROMBOPLAST Collected: 01/26/2018 Status: F Source: [place] TIME 8:12 AM [facility] REPOSITORY TYPE CODE TESTS RESULT OUT OF REFERENCE UNITS RANGE LAB L300.4310 24.1-36.2 Seconds High PTT 37.2 Performed By: #### L300.3900, L300.4310 #### [facility] [address] [place], [address] CHEST 1 VIEW Observed: 01/26/2018 Status: F Source: [place] 8:01 AM [facility] REPOSITORY [facility] Imaging Services [address] [place] [address] Chest 1 View MR#: [id number] Acct: [id number] Name: JESSE BLAIR Rep #: [id number] : 1955 F 62 From: Alexandre Tapia MD PCP: Care Physician, No Primary Status: REG ER Study: Chest 1 View Date of Exam: 01/26/18 Exam# [id number] Ordering Dr: Tiny Herrera DO STUDY: X-RAY [...] Alexandre Tapia MD at 8:24 EST Tel [phone], Service support , CC: No Primary Care Physician; Tiny Herrera DO C Architect: Signed BRAIN/HEAD WITHOUT Observed: 01/26/2018 Status: F Source: [place] CONTRAST 8:01 AM [facility] REPOSITORY [facility] Imaging Services [address] [place] [address] Brain/Head without Contrast MR#: [id number] Acct: [id number] Name: JESSE BLAIR Rep #: [id number] : 1955 F 62 From: Alexandre Tapia MD PCP: Care Physician, No Primary Status: REG ER Study: Brain/Head without Contrast Date of Exam: 01/26/18 Exam# [id number] Ordering Dr: Tiny Herrera DO STUDY: CT [...] Alexandre Tapia MD at 9:29 EST Tel [phone], Service support , CC: No Primary Care Physician; Tiny Herrera DO C Architect: Signed FOOT Observed: 01/24/2018 Status: F Source: [facility] 4:33 PM [facility] REPOSITORY Final Report Accession No: [id number] Performed: Jan 24 2018 4:33PM Examination: [...] PARTIAL THROMBOPLASTIN Collected: 01/24/2018 Status: F Source: [facility] TIME 5:51 AM [facility] REPOSITORY TYPE CODE TESTS RESULT OUT OF REFERENCE UNITS RANGE LAB PTT 23.0-34.0 Seconds Partial Normal Thromboplastin Time 34 Result Comment: Suggested therapeutic range for PTT is 68-104 sec. Performed By: #### PT, PTT #### Unless otherwise noted, all testing performed by [address] [place], [place] [address] CLIA: [id number] Nfl Player: Eduardo Philip M.D. PROTIME Collected: 01/24/2018 Status: F Source: [facility] 5:51 AM [facility] REPOSITORY TYPE CODE TESTS RESULT OUT OF RANGE REFERENCE UNITS LAB PT. 11.8-14.3 Seconds Normal Protime 12.6 LAB INR Normal INR 0.98 Result Comment: The [employer] recommended therapeutic range for Warfarin (Coumadin) therapy goals: PROPHYLAXIS/TREATMENT of: INR Venous Thrombosis, Pulmonary Embolism 2.0-3.0 Prevention of VTE (Orthopedic Surgery) 2.0-3.0 Atrial Fibrillation 2.0-3.0 Myocardial Infarction 2.0-3.0 Mechanical Prosthetic Heart Valves (Aortic position) 2.0-3.0 Mechanical Prosthetic Heart Valves (Mitral Position) 2.5-3.5 [employer] evidence-based clinical practice guidelines. CHEST. 2012 (9th ed) Performed By: #### PT, PTT #### Unless otherwise noted, all testing performed by [address] [address] CLIA: [id number] Nfl Player: Eduardo Philip M.D. CT ABDO,PELVIS IV Observed: 01/24/2018 Status: F Source: [facility] CONTRAST ONLY 1:30 AM [facility] REPOSITORY Final Report Accession No: [id number] Performed: Jan 24 2018 1:30AM Examination: [...] PE PROTOCOL Observed: 01/24/2018 Status: F Source: [facility] 1:29 AM [facility] REPOSITORY Final Report Accession No: [id number] Performed: Jan 24 2018 1:29AM Examination: [...] cc: D-DIMER Collected: 01/23/2018 Status: F Source: [facility] 11:40 PM [facility] REPOSITORY TYPE CODE TESTS RESULT [...] Unless otherwise noted, all testing performed by [address] [address] CLIA: [id number] Nfl Player: Eduardo Philip M.D. CBC WITH DIFF Collected: 01/23/2018 Status: F Source: [facility] 11:40 PM [facility] REPOSITORY TYPE CODE TESTS RESULT [...] Unless otherwise noted, all testing performed by [place] [address] CLIA: [id number] Nfl Player: Eduardo Philip M.D. ED CARDIAC TROPONIN-I Collected: 01/23/2018 Status: F Source: [facility] 11:40 PM [facility] REPOSITORY TYPE CODE TESTS RESULT [...] Unless otherwise noted, all testing performed by [place] [address] CLIA: [id number] Nfl Player: Eduardo Philip M.D. COMPREHENSIVE METABOLIC Collected: 01/23/2018 Status: F Source: [facility] 11:40 PM [facility] REPOSITORY TYPE CODE TESTS RESULT [...] with caution. LAB eGFRB ml/min/1.73sq.m eGFR, Normal -Estonian >=60 Result Comment: GFR Calc LAB CALCM [...] Unless otherwise noted, all testing performed by [place] [address] [address] [place] [id number] CLIA: [id number] Nfl Player: Eduardo Philip M.D. LIPASE Collected: 01/23/2018 Status: F Source: [facility] 11:40 PM [facility] TYPE CODE TESTS RESULT OUT OF RANGE REFERENCE UNITS LAB LIPASE 73-393 U/L Normal Lipase 246 Performed By: #### EDCTNI, CBCDIF, CMET, DDIMR, LIPASE #### Unless otherwise noted, all testing performed by [facility] [address] [place], [place] [address] CLIA: [id number] Nfl Player: Eduardo Philip M.D. FOOT Observed: 01/23/2018 Status: F Source: [facility] 11:26 PM [facility] REPOSITORY Final Report Accession No: [id number] Performed: Jan 23 2018 11:26PM Examination: [...] (ONE VIEW Observed: 01/23/2018 Status: F Source: [facility] ONLY) 11:26 PM [facility] REPOSITORY Final Report Accession No: [id number] Performed: Jan 23 2018 11:26PM Examination: [...] URINALYSIS, ROUTINE Collected: 01/23/2018 Status: F Source: [facility] 11:00 PM [facility] REPOSITORY TYPE CODE TESTS RESULT OUT OF RANGE REFERENCE UNITS LAB COLOR Normal Color, Urine Yellow LAB CHAUR Normal Character Hazy LAB SPGRUR 1.003-1.029 Normal Specific 1.014 [place],Urine LAB PHUR 4.5-8.0 Normal pH,Urine 7.0 LAB [...] Unless otherwise noted, all testing performed by [address] [place], [place] [address] CLIA: [id number] Nfl Player: Eduardo Philip M.D. COMPLETE BLOOD COUNT Collected: 01/20/2018 Status: F Source: [facility] W/DIFF 8:47 PM SYSTEM REPOSITORY TYPE CODE [...] By: #### CBCD #### [facility] [address] [place] [address], BASIC METABOLIC PANEL Collected: 01/20/2018 Status: F Source: [facility] 8:47 PM SYSTEM REPOSITORY TYPE CODE TESTS [...] CH8, LIP, HEPATIC #### [facility] [address] [place] [address], LIPASE Collected: 01/20/2018 Status: F Source: [facility] 8:47 PM SYSTEM REPOSITORY TYPE CODE TESTS RESULT OUT OF RANGE REFERENCE UNITS LAB LIP <128 IU/L LIP 81 Performed By: #### CH8, LIP, HEPATIC #### [facility] [address] [place] [address], HEPATIC FUNCTION Collected: 01/20/2018 Status: F Source: THE [facility] [facility] PANEL 8:47 PM SYSTEM REPOSITORY TYPE CODE [...] CH8, LIP, HEPATIC #### [facility] [address] [place] [address], XR CHEST PA+LAT Observed: 01/19/2018 Status: F Source: THE [facility] [facility] 8:41 PM SYSTEM REPOSITORY EXAMINATION: XR CHEST [...] PANEL Collected: 01/17/2018 Status: F Source: THE [employer] [facility] 8:15 PM SYSTEM REPOSITORY TYPE CODE TESTS [...] By: #### CH8 #### [facility] [address] [place] [address], COMPLETE BLOOD COUNT Collected: 01/17/2018 Status: F Source: [facility] 8:15 PM SYSTEM REPOSITORY TYPE CODE TESTS [...] By: #### CBC #### [facility] [address] [place] [address], URINALYSIS,AUTO-IN OFFICE Collected: Status: F Source: THE 01/15/2018 9:42 PM [facility] SYSTEM REPOSITORY Order Comment: TEST PERFORMED AT: [facility] [address] [place] [address] [place], [place] [address] TYPE CODE TESTS RESULT OUT OF RANGE [...] NITRITES, Negative URINE POC Performed By: #### [id number] #### [facility] Pathology [address] [place] [address] [place], [place] POTASSIUM, WHOLE BLOOD Collected: 01/15/2018 Status: F Source: [facility] 9:04 PM [facility] TYPE CODE TESTS RESULT OUT OF REFERENCE UNITS RANGE LAB POTWB 3.3-5.3 mmol/L 4.6 POTASSIUM, WHOLE BLOOD Performed By: #### CR K #### [facility] [address] [place] [address], LIPASE Collected: 01/15/2018 Status: F Source: [facility] 8:11 PM SYSTEM REPOSITORY TYPE CODE TESTS RESULT OUT OF RANGE REFERENCE UNITS LAB LIP <128 IU/L LIP 68 Performed By: #### RICKY, CH8 #### [facility] [address] [place] [address], BASIC METABOLIC PANEL Collected: 01/15/2018 Status: F Source: [facility] 8:11 PM SYSTEM REPOSITORY TYPE CODE TESTS [...] ESTIMATED GFR (CKD-EPI) 116 Performed By: #### RICKY, CH8 #### [facility] [address] [place] [address], COMPLETE BLOOD COUNT Collected: 01/15/2018 Status: F Source: [facility] W/DIFF 8:11 PM SYSTEM REPOSITORY TYPE CODE [...] CELLS Moderate Performed By: #### CBCD #### [facility] [address] [place] [address], [id number] URINALYSIS Collected: 01/15/2018 Status: F Source: THE 8:11 PM [employer] SYSTEM REPOSITORY Order Comment: A negative leukocyte [...] CAST 0-2 Performed By: #### UAC #### [facility] [address] [place] [address], URINALYSIS,AUTO-IN OFFICE Collected: Status: F Source: THE 01/13/2018 11:02 PM [employer] SYSTEM REPOSITORY Order Comment: TEST PERFORMED AT: [facility] [address] [place] [address] [place] [address] TYPE CODE TESTS RESULT OUT OF RANGE [...] NITRITES, Negative URINE POC Performed By: #### [id number] #### [facility] Pathology [address] [place] [address] XR CHEST PA+LAT Observed: 01/13/2018 Status: F Source: THE [employer] 10:16 PM SYSTEM REPOSITORY EXAMINATION: XR CHEST [...] Source: THE SEE W/ CONTRAST 10:03 PM [employer] SYSTEM REPOSITORY EXAMINATION: CT ABD/PELVIS ED I/V [...] per 1 lb. INTRA-PROCEDURE MEDS: Contrast Agent [id number] 100ml Bottle 100 milliliter 01/13/2018 INTRAVENOUS FINDINGS: [...] LIPASE Collected: 01/13/2018 Status: F Source: THE [employer] 7:34 PM SYSTEM REPOSITORY TYPE CODE TESTS RESULT OUT OF RANGE REFERENCE UNITS LAB LIP <128 IU/L LIP 68 Performed By: #### LIP #### [facility] [address] [place] [address], [id number] BASIC METABOLIC PANEL Collected: 01/13/2018 Status: F [facility] PM SYSTEM REPOSITORY TYPE CODE TESTS [...] #### CH8, HEPATIC #### [facility] [address] [place] [address], HEPATIC FUNCTION Collected: 01/13/2018 Status: F Source: THE [facility] 7:03 PM SYSTEM REPOSITORY TYPE CODE TESTS [...] 8.9 Performed By: #### CH8, HEPATIC #### [facility] [address] [place] [address], COMPLETE BLOOD COUNT Collected: 01/13/2018 Status: F Source: [facility] 7:03 PM SYSTEM REPOSITORY TYPE CODE TESTS [...] By: #### CBC #### [facility] [address] [place] [address], URINALYSIS Collected: 01/13/2018 Status: F Source: THE 7:03 PM [facility] Order Comment: A negative leukocyte [...] By: #### UAC #### [facility] [address] [place] [address], TROPONIN I Collected: 01/13/2018 Status: F [facility] 1:21 AM SYSTEM REPOSITORY TYPE CODE TESTS RESULT OUT OF RANGE REFERENCE UNITS LAB TROP I <0.120 ng/mL TROP I 0.010 Result Comment: NPV: 96-99% of patients with cTnI values < 0.04 ng/mL were associated with conditions other than myocardial infarction (non-NC). PPV: 65-73% of patients with cTnI values >= 0.04 ng/mL were diagnosed with NC. Performed By: #### TROP I #### [facility] [address] [place] [address], POTASSIUM, WHOLE BLOOD Collected: 01/12/2018 Status: F Source: THE 11:13 PM [facility] TYPE CODE TESTS RESULT OUT OF REFERENCE UNITS RANGE LAB POTWB 3.3-5.3 mmol/L 4.1 POTASSIUM, WHOLE BLOOD Performed By: #### CR K #### [facility] [address] [place] [address], XR CHEST AP OR PA Observed: 01/12/2018 Status: F Source: [facility] 1 VIEW 9:09 PM SYSTEM REPOSITORY EXAMINATION: [...] PANEL Collected: 01/12/2018 Status: F [facility] 8[facility] PM SYSTEM REPOSITORY TYPE CODE TESTS [...] CH8, TROP I #### [facility] [address] [place] [address], COMPLETE BLOOD COUNT Collected: 01/12/2018 Status: F [facility] W/DIFF 8:36 PM SYSTEM REPOSITORY TYPE CODE [...] By: #### CBCD #### [facility] [address] [place] [address], B TYPE NATRIURETIC Collected: 01/12/2018 Status: F Source: THE [facility] 8:36 PM [facility] REPOS[facility] TYPE CODE TESTS RESULT OUT OF RANGE REFERENCE UNITS LAB BNP <100.0 pg/mL BNP 70.0 Performed By: #### BPL #### [facility] [address] [place] [address], TROPONIN I Collected: 01/12/2018 Status: F [facility] 8:[facility] PM SYSTEM REPOSITORY TYPE CODE TESTS RESULT OUT OF RANGE REFERENCE UNITS LAB TROP I <0.120 ng/mL TROP I 0.003 Result Comment: NPV: 96-99% of patients with cTnI values < 0.04 ng/mL were associated with conditions other than myocardial infarction (non-NC). PPV: 65-73% of patients with cTnI values >= 0.04 ng/mL were diagnosed with NC. Performed By: #### CH8, TROP I #### [facility] [address] [place] [address], URINALYSIS,AUTO-IN OFFICE Collected: Status: F Source: THE 01/10/2018 10:27 PM [facility] Order Comment: TEST PERFORMED AT: [facility] [address] [place] [address] Dr [place], [place] [address] TYPE CODE TESTS RESULT OUT OF RANGE [...] NITRITES, Negative URINE POC Performed By: #### [id number] #### [facility] Pathology [address] [place] [address] [place], [place] PROTHROMBIN TIME AND Collected: 01/10/2018 Status: F Source: THE INR 9:22 PM [facility] REPOS[facility] TYPE CODE TESTS RESULT OUT OF REFERENCE UNITS RANGE LAB PT PAT 10.0-12.6 sec PROTIME 11.1 LAB INR 0.90-1.10 INR 0.98 Performed By: #### PT #### [facility] [address] [place] [address], URINALYSIS Collected: 01/10/2018 Status: F Source: THE 9:22 PM [facility] Order Comment: A negative [...] By: #### UAC #### [facility] [address] [place] [address], BASIC METABOLIC PANEL Collected: 01/10/2018 Status: F [facility] PM SYSTEM REPOSITORY TYPE CODE TESTS [...] #### CH8, HEPATIC #### [facility] [address] [place] [address], HEPATIC FUNCTION Collected: 01/10/2018 Status: F [facility] PANEL 9:22 PM SYSTEM REPOSITORY TYPE CODE [...] 7.8 Performed By: #### CH8, HEPATIC #### [facility] [address], [place], COMPLETE BLOOD COUNT Collected: 01/10/2018 Status: F Source: [facility] W/DIFF 9:22 PM SYSTEM REPOSITORY TYPE CODE [...] #### CBCD #### [facility] [address] [place], [place], UA COMPLETE Collected: 01/09/2018 Status: F Source: [facility] 12:10 AM [facility] REPOSITORY Order Comment: CONSERVATION TYPE CODE TESTS RESULT OUT OF RANGE REFERENCE UNITS LAB L600.72601 YELLOW COLOR Abnormal JANET alert LAB L600.44827 CLEAR Normal APPEARANCE CLEAR LAB L600.08524 1.005-1.030 Normal SPEC GRAV 1.029 LAB L600.81893 5.0-8.0 Normal UA PH 5.0 LAB L600.70251 NEGATIVE Normal GLUCOSE NEGATIVE LAB L600.39201 NEGATIVE Normal KETONE NEGATIVE LAB L600.47620 NEGATIVE Abnormal BILIRUBIN 2.0 mg/dL alert LAB L600.53503 NORMAL Abnormal UROBIL 4.0 mg/dL alert LAB L600.35066 NEGATIVE Normal PROTEIN NEGATIVE LAB L600.83547 NEGATIVE Normal BLOOD NEGATIVE LAB L600.94402 mg/dL Normal UA ASC ACID NEGATIVE LAB L600.11505 NEGATIVE Normal NITRITE NEGATIVE LAB L600.46219 NEGATIVE LEUK Abnormal ESTERASE 250 Kevin/uL alert LAB L600.41618 0-5 /HPF WBC Abnormal 6-10 alert LAB L600.55891 0-3 /HPF Normal RBC 0-2 LAB L600.08633 0-10 /HPF EPITH Abnormal CELLS 16-20 alert LAB L600.19714 /LPF Normal MUCUS Trace LAB L600.00665 /HPF Normal CA OXALATE CRY Trace Performed By: #### L600.31743 #### Test performed at: [place] [address] US LEG BILAT VENOUS Observed: 01/07/2018 Status: F Source: THE [employer] + DOPPLER 9:51 PM SYSTEM REPOSITORY EXAMINATION: [...] LEFT Observed: 01/03/2018 Status: F Source: THE [employer] 5:56 PM SYSTEM REPOSITORY EXAMINATION: XR FOOT [...] LEFT Observed: 12/28/2017 Status: F Source: THE [employer] [facility] 11:09 PM SYSTEM REPOSITORY EXAMINATION: XR FOOT [...] CONTRAST Observed: 12/27/2017 Status: F Source: THE [employer] 4:23 PM SYSTEM REPOSITORY EXAMINATION: CT HEAD [...] PA+LAT Observed: 12/27/2017 Status: F Source: THE [employer] 4:21 PM SYSTEM REPOSITORY EXAMINATION: XR CHEST [...] Status: F Source: THE INR 3:42 PM [facility] REPOSIT[facility] TYPE CODE TESTS RESULT OUT OF REFERENCE UNITS RANGE LAB PT PAT 10.0-12.6 sec PROTIME 11.1 LAB INR 0.90-1.10 INR 0.98 Performed By: #### PT #### [facility] [address] [place] [address], [phone] COMPLETE BLOOD COUNT Collected: 12/27/2017 Status: F [facility] W/DIFF 3:42 PM SYSTEM REPOSITORY TYPE CODE [...] #### CBCD, BPL #### [facility] [address] [place] [address], BASIC METABOLIC PANEL Collected: 12/27/2017 Status: F [facility]: [facility] 3:42 PM SYSTEM REPOSITORY TYPE CODE TESTS [...] MG, CK, GGT #### [facility] [address] [place] [address], HEPATIC FUNCTION Collected: 12/27/2017 Status: F Source: [facility] PANEL 3:42 PM SYSTEM REPOSITORY TYPE CODE [...] MG, CK, GGT #### [facility] [address] [place] [address], MAGNESIUM Collected: 12/27/2017 Status: F Source: [facility] 3:42 PM SYSTEM REPOSITORY TYPE CODE TESTS RESULT OUT OF RANGE REFERENCE UNITS LAB mag 1.6-2.8 mg/dL MG 1.8 Performed By: #### CH8, HEPATIC, MG, CK, GGT #### [facility] [address] [place] [address], B TYPE NATRIURETIC Collected: 12/27/2017 Status: F Source: THE [facility] 3:42 PM [facility] REPOSIT[facility] TYPE CODE TESTS RESULT OUT OF RANGE REFERENCE UNITS LAB BNP <100.0 pg/mL BNP 36.0 Performed By: #### CBCD, BPL #### [facility] [address] [place] [address], CREATINE KINASE Collected: 12/27/2017 Status: F Source: [facility] 3:42 PM SYSTEM REPOSITORY TYPE CODE TESTS RESULT OUT OF REFERENCE UNITS RANGE LAB dC 57-374 IU/L CREATINE 93 KINASE Performed By: #### CH8, HEPATIC, MG, CK, GGT #### [facility] [address] [place] [address], GAMMA GLUTAMYL Collected: 12/27/2017 Status: F Source: THE TRANSPEPTIDASE 3:42 PM [facility] REPOSIT[facility] TYPE CODE TESTS RESULT OUT OF RANGE REFERENCE UNITS LAB GGT 3-30 IU/L High GGT 652 Performed By: #### CH8, HEPATIC, MG, CK, GGT #### [facility] [address] [place] [address], COMPLETE BLOOD COUNT Collected: 12/20/2017 Status: F Source: [facility] W/DIFF 10:33 PM SYSTEM REPOSITORY TYPE CODE [...] # 0.02 Performed By: #### CBCD #### S [facility] [address] [place] [address], BASIC METABOLIC PANEL Collected: 12/20/2017 Status: F [facility]: [facility] 10:33 PM SYSTEM REPOSITORY TYPE CODE TESTS [...] 121 (CKD-EPI) Performed By: #### CH8 #### [facility] [address] [place] [address], XR CHEST PA+LAT Observed: 12/19/2017 Status: F Source: THE [employer] 8:23 PM SYSTEM REPOSITORY EXAMINATION: XR CHEST 2 VIEW PA+LATED 12/19/2017 8:23 PM Accession number(s) [id number] December 19, 2017 2009 hours Female 62 years TECHNOLOGISTS NOTE: 2 Additional clinical history obtained: None CLINICAL HISTORY: SOB COMPARISON: December 15, 20177 hours CORRELATION: None Presented on 12/19/2017 9:15 [...] Status: F Source: THE 12/18/2017 5:29 AM [employer] SYSTEM REPOSITORY Order Comment: TEST PERFORMED AT: Emergency [facility] POC Laboratory [address] [facility] [place] [id number] TYPE CODE TESTS RESULT OUT OF RANGE [...] NITRITES, Negative URINE POC Performed By: #### [id number] #### [facility] Pathology [address] [place] [address] [place], [place] [address] URINALYSIS Collected: 12/18/2017 Status: F Source: THE 4:36 AM [employer] SYSTEM REPOSITORY Order Comment: A negative leukocyte [...] mg/dL GLUCOSE, Negative URINE Performed By: #### UA #### S [facility] [address] [place] [address], URINALYSIS,AUTO-IN OFFICE Collected: Status: F Source: THE 12/16/2017 3:00 AM [employer] SYSTEM REPOSITORY Order Comment: TEST PERFORMED AT: [facility]OC [facility] [address] [place] [id number] TYPE CODE TESTS RESULT OUT OF RANGE [...] NITRITES, Negative URINE POC Performed By: #### [id number] #### [facility] Pathology [address] [place] [address] URINALYSIS Collected: 12/15/2017 Status: F Source: THE 10:04 PM [employer] SYSTEM REPOSITORY Order Comment: A negative leukocyte [...] By: #### UAC #### [facility] [address] [place] [address], XR CHEST PA+LAT Observed: 12/15/2017 Status: F [facility] 9[facility] PM SYSTEM REPOSITORY EXAMINATION: XR CHEST 2 VIEW PA+LATED CLINICAL HISTORY: Chest pain TECHNOLOGISTS NOTE: COMPARISON: Chest radiograph 12/05/2017 FINDINGS: Cardiomediastinal silhouette: Calcifications within the aortic arch. Trachea: No deviation Lungs/Pleura: No focal pulmonary consolidation, effusion or pneumothorax. Musculoskeletal: The osseus structures are unremarkable. IMPRESSION: No acute cardiopulmonary process. MACRO: None BASIC METABOLIC PANEL Collected: 12/15/2017 Status: F [facility]: [facility] PM SYSTEM REPOSITORY TYPE CODE TESTS [...] LIP, HEPATIC #### [facility] [address] [place], [place], LIPASE Collected: 12/15/2017 Status: F Source: [facility] 8:40 PM SYSTEM REPOSITORY TYPE CODE TESTS RESULT OUT OF RANGE REFERENCE UNITS LAB LIP <128 IU/L LIP 75 Performed By: #### CH8, LIP, HEPATIC #### [facility] [address] [place] [address], HEPATIC FUNCTION Collected: 12/15/2017 Status: F Source: [facility] PANEL 8:40 PM SYSTEM REPOSITORY TYPE CODE [...] Performed By: #### CH8, LIP, HEPATIC #### S [facility] [address] [place] [address], COMPLETE BLOOD COUNT Collected: 12/15/2017 Status: C Source: [facility] W/DIFF 8:34 PM SYSTEM REPOSITORY TYPE CODE [...] 12/15/2017 at 2131 EDT was <null> LAB QJ RBC MORPHOLOGY See Below Result Comment: This is a corrected result. Previous result on 12/15/2017 at 2131 EDT was <null> LAB HY HYPOCHROMASIA Slight Result Comment: This is a corrected result. Previous result on 12/15/2017 at 2131 EDT was <null> LAB POLYC POLYCHROMASIA Slight Result Comment: This is a corrected result. Previous result on 12/15/2017 at 2131 EDT was <null> LAB by [employer] CELLS Few Result Comment: This is a corrected result. Previous result on 12/15/2017 at 2131 EDT was <null> Performed By: #### CBCD #### [facility] [address] [place] [address], [id number] XR CHEST PA+LAT Observed: 12/05/2017 Status: F Source: [facility] 8:05 PM SYSTEM REPOSITORY EXAMINATION: XR CHEST 2 VIEW PA+LATED 12/05/2017 8:05 PM Accession number(s) [id number] December 05, 2017 1957 hours Female 62 [...] PANEL Collected: 12/05/2017 Status: F [facility] 7[facility] PM SYSTEM REPOSITORY TYPE CODE TESTS [...] (CKD-EPI) 115 Performed By: #### CH8 #### [facility] [address] [place] [address], [id number] COMPLETE BLOOD COUNT Collected: 12/05/2017 Status: F Source: [facility] W/DIFF 7:33 PM SYSTEM REPOSITORY TYPE CODE [...] # 0.00 Performed By: #### CBCD #### S [facility] LAB[facility]ATORY [address] [place] [address], INFLUENZA/RSV,RAPID PCR Collected: Status: F Source: THE 11/30/2017 10:59 PM [employer] SYSTEM REPOSITORY Order Comment: A Not Detected [...] Not Detected Performed By: #### FLRSV #### [facility] [address] [place] [address], URINALYSIS,AUTO-IN OFFICE Collected: Status: F Source: THE 11/17/2017 2:19 AM [employer] SYSTEM REPOSITORY Order Comment: TEST PERFORMED AT: [facility] [address] [place] [address] [place] [id number] TYPE CODE TESTS RESULT OUT OF RANGE [...] NITRITES, Negative URINE POC Performed By: #### [id number] #### [facility] Pathology [address] [place] [address] [place], [place] XR CHEST PA+LAT Observed: 11/16/2017 Status: F Source: THE [employer] 11:36 PM SYSTEM REPOSITORY EXAMINATION: XR CHEST [...] Status: F Source: THE INR 10:56 PM [employer] SYSTEM REPOSITORY TYPE CODE TESTS RESULT OUT OF REFERENCE UNITS RANGE LAB PT PAT 10.0-12.6 sec PROTIME 11.0 LAB INR 0.90-1.10 INR 0.97 Performed By: #### PT, APTT #### S PATHOLOGY LABORATORY [address] [place] [address], PARTIAL THROMBOPLASTIN Collected: 11/16/2017 Status: F Source: THE TIME 10:56 PM [employer] SYSTEM REPOSITORY TYPE CODE TESTS RESULT OUT OF RANGE REFERENCE UNITS LAB APTT 24-37 sec APTT 34 Performed By: #### PT, APTT #### [facility] [address] [place] [address], COMPLETE BLOOD COUNT Collected: 11/16/2017 Status: F Source: THE [employer] W/DIFF 10:56 PM SYSTEM REPOSITORY TYPE CODE [...] By: #### CBCD #### [facility] [address] [place] [address], BASIC METABOLIC PANEL Collected: 11/16/2017 Status: F Source: THE [employer] 10:56 PM SYSTEM REPOSITORY TYPE CODE TESTS [...] HEPATIC, LIP, MG #### [facility] [address] [place] [address], HEPATIC FUNCTION Collected: 11/16/2017 Status: F [facility]56 PM SYSTEM REPOSITORY TYPE CODE [...] HEPATIC, LIP, MG #### [facility] [address] [place] [address], LIPASE Collected: 11/16/2017 Status: F Source: THE [facility] 10:56 PM SYSTEM REPOSITORY TYPE CODE TESTS RESULT OUT OF RANGE REFERENCE UNITS LAB LIP <128 IU/L LIP 67 Performed By: #### CH8, HEPATIC, LIP, MG #### [facility] [address] [place] [address], MAGNESIUM Collected: 11/16/2017 Status: F Source: THE [facility] 10:56 PM SYSTEM REPOSITORY TYPE CODE TESTS RESULT OUT OF RANGE REFERENCE UNITS LAB mag 1.6-2.8 mg/dL MG 2.1 Result Comment: Hemolysis present Performed By: #### CH8, HEPATIC, LIP, MG #### [facility] [address] [place] [address], URINALYSIS Collected: 11/16/2017 Status: F Source: THE 10:56 PM [facility] Order Comment: A negative [...] /HPF SQUAMOUS 0-2 EPITHELIAL Performed By: #### UA #### S PATHOLOGY LABORATORY [address] [place], [id number] XR ABDOMEN AP Observed: 11/14/2017 Status: F Source: THE [employer] 5:27 AM SYSTEM REPOSITORY EXAMINATION: XR ABDOMEN [...] COUNT Collected: 11/14/2017 Status: F [facility] W/[facility]FF 3:11 AM SYSTEM REPOSITORY TYPE CODE [...] By: #### CBCD #### [facility] [address] [place] [address], BASIC METABOLIC PANEL Collected: 11/14/2017 Status: F [facility] AM SYSTEM REPOSITORY TYPE CODE TESTS [...] LIP, HEPATIC, MG #### [facility] [address] [place] [address], LIPASE Collected: 11/14/2017 Status: F [facility] 3[facility]11 AM SYSTEM REPOSITORY TYPE CODE TESTS RESULT OUT OF RANGE REFERENCE UNITS LAB LIP <128 IU/L LIP 68 Performed By: #### CH8, LIP, HEPATIC, MG #### [facility] [address] [place] [address], HEPATIC FUNCTION Collected: 11/14/2017 Status: F Source[facility] 3:11 AM SYSTEM REPOSITORY TYPE CODE [...] LIP, HEPATIC, MG #### [facility] [address] [place] [address], MAGNESIUM Collected: 11/14/2017 Status: F Source: THE [facility] 3:11 AM SYSTEM REPOSITORY TYPE CODE TESTS RESULT OUT OF RANGE REFERENCE UNITS LAB mag 1.6-2.8 mg/dL MG 2.0 Performed By: #### CH8, LIP, HEPATIC, MG #### [facility] [address] [place] [address], URINALYSIS,AUTO-IN OFFICE Collected: Status: F Source: THE 11/14/2017 3:08 AM [employer] SYSTEM REPOSITORY Order Comment: TEST PERFORMED AT: [facility] [address] [place] [address] [place], [place] [address] TYPE CODE TESTS RESULT OUT OF REFERENCE [...] NITRITES, Negative URINE POC Performed By: #### [id number] #### [facility] Pathology [address] [place] [address] [place], [place] URINALYSIS Collected: 11/14/2017 Status: F Source: THE 12:11 AM [employer] SYSTEM REPOSITORY Order Comment: A negative leukocyte [...] By: #### UAC #### S PATHOLOGY LABORATORY [address] [place] [address], POTASSIUM, WHOLE BLOOD Collected: 11/13/2017 Status: F Source: THE 1:09 AM [facility] TYPE CODE TESTS RESULT OUT OF REFERENCE UNITS RANGE LAB POTWB 3.3-5.3 mmol/L 4.4 POTASSIUM, WHOLE BLOOD Performed By: #### CR K #### [facility] PATH[facility]ORATORY [address] [place] [address], LACTIC ACID Collected: 11/13/2017 Status: F Source: [facility] 12:00 AM SYSTEM REPOSITORY TYPE CODE TESTS RESULT OUT OF RANGE REFERENCE UNITS LAB CR LACT 0.5-2.0 mmol/L CR LACT 1.3 Performed By: #### LACT #### S PATHOLOGY LABORATORY [address] [place] [address], HEPATIC FUNCTION Collected: 11/13/2017 Status: F Source: [facility] 12:00 AM SYSTEM REPOSITORY TYPE CODE [...] 8.2 Performed By: #### HEPATIC, CH8 #### [facility] [address] [place] [address], BASIC METABOLIC PANEL Collected: 11/13/2017 Status: F Source: THE [facility] 12:00 AM SYSTEM REPOSITORY TYPE CODE TESTS [...] 109 Performed By: #### HEPATIC, CH8 #### [facility] [address] [place] [address], COMPLETE BLOOD COUNT Collected: 11/13/2017 Status: F Source: THE [facility] 12:00 AM SYSTEM REPOSITORY TYPE CODE TESTS [...] By: #### CBC #### [facility] [address] [place] [address], B TYPE NATRIURETIC Collected: 11/13/2017 Status: F Source: THE PEPTIDE 12:00 AM [facility] TYPE CODE TESTS RESULT OUT OF RANGE REFERENCE UNITS LAB BNP <100.0 pg/mL BNP 36.0 Performed By: #### BPL #### [facility] [address] [place] [address], SMOOTH MUSC ATB Collected: 11/12/2017 Status: F Source: THE [facility] SCRN AND TITR 1:53 AM SYSTEM REPOSITORY [...] SM MU S/T #### [facility] [address] [place] [address], AUTOIMMUNE PANEL Collected: 11/12/2017 Status: F Source: THE 1:53 AM [facility] Order Comment: All antibody levels [...] Negative SCREEN Performed By: #### piotr #### S PATHOLOGY LABORATORY [address] [place] [address], LKM IGG ANTIBODY Collected: 11/12/2017 Status: F Source: THE [facility] 1:53 AM SYSTEM REPOSITORY Order Comment: Resulting Agency Address Site ID: G Name: [employer] [facility] Address: [address] [place] [address] Director: TEREZA LANE MD, PHD TYPE CODE [...] SPLEN Observed: 11/12/2017 Status: F Source: THE [employer] VEIN + DOPPLER 12:52 AM SYSTEM REPOSITORY [...] Status: F Source: THE BLADDER/PANCREAS 11:09 PM [employer] SYSTEM REPOSITORY EXAMINATION: US LIVER/GALL BLADDER/PANCREASED CLINICAL [...] Status: F Source: THE INR 10:51 PM [facility] TYPE CODE TESTS RESULT OUT OF REFERENCE UNITS RANGE LAB PT PAT 10.0-12.6 sec PROTIME 11.3 LAB INR 0.90-1.10 INR 1.00 Performed By: #### PT #### [facility] [address] [place] [address], URINALYSIS,AUTO-IN OFFICE Collected: Status: F Source: THE 11/11/2017 9:51 PM [employer] SYSTEM REPOSITORY Order Comment: TEST PERFORMED AT: Emergency [facility]OC [facility] [address] [place] [address] [place] [address] TYPE CODE TESTS RESULT OUT OF RANGE [...] NITRITES, Negative URINE POC Performed By: #### [id number] #### [facility] Pathology [address] [place] [address] [place], [place] COMPLETE BLOOD COUNT Collected: 11/11/2017 Status: F Source: [facility] W/DIFF 8:27 PM SYSTEM REPOSITORY TYPE CODE [...] By: #### CBCD #### [facility] [address] [place] [address], LIPASE Collected: 11/11/2017 Status: F Source: THE [facility] 8:27 PM SYSTEM REPOSITORY TYPE CODE TESTS RESULT OUT OF RANGE REFERENCE UNITS LAB LIP <128 IU/L LIP 71 Performed By: #### LIP, HEPATIC, CH8, ACETA, GGT, FETIBC, NITIN #### [facility] [address] [place] [address], HEPATIC FUNCTION Collected: 11/11/2017 Status: F Source: THE [facility] PANEL 8:27 PM SYSTEM REPOSITORY TYPE CODE [...] GGT, FETIBC, NITIN #### S PATHOLOGY LABORATORY [address] [place] [address], BASIC METABOLIC PANEL Collected: 11/11/2017 Status: F Source: THE [facility] 8:27 PM SYSTEM REPOSITORY TYPE CODE TESTS [...] GGT, FETIBC, NITIN #### S PATH[facility] LAB[facility]ATORY [address] [place] [address], URINALYSIS Collected: 11/11/2017 Status: F Source: THE 8:27 PM [facility] Order Comment: A negative leukocyte [...] By: #### UAC #### [facility] [address] [place] [address], ACETAMINOPHEN Collected: 11/11/2017 Status: F Source: THE 8:27 PM [facility] SYSTEM REPOSITORY TYPE CODE TESTS RESULT OUT OF REFERENCE UNITS RANGE LAB ACETA 10-20 ug/mL ACETA < 10 Performed By: #### LIP, HEPATIC, CH8, ACETA, GGT, FETIBC, NITIN #### [facility] PATH[facility] [address] [place] [address], GAMMA GLUTAMYL Collected: 11/11/2017 Status: F Source: THE TRANSPEPTIDASE 8:27 PM [facility] SYSTEM REPOSITORY TYPE CODE TESTS RESULT OUT OF RANGE REFERENCE UNITS LAB GGT 3-30 IU/L High GGT 970 Performed By: #### LIP, HEPATIC, CH8, ACETA, GGT, FETIBC, NITIN #### S PATH[facility] LABORATORY [address] [place] [address], IRON AND TIBC Collected: 11/11/2017 Status: F Source: THE [employer] 8:27 PM SYSTEM REPOSITORY TYPE CODE TESTS [...] GGT, FETIBC, NITIN #### S PATHOLOG[facility] LABORATORY [address] [place] [address], FERRITIN Collected: 11/11/2017 Status: F Source: THE [facility] 8:27 PM SYSTEM REPOSITORY TYPE CODE TESTS RESULT OUT OF RANGE REFERENCE UNITS LAB NITIN 10.3-219.0 ng/mL NITIN 17.2 Performed By: #### LIP, HEPATIC, CH8, ACETA, GGT, FETIBC, NITIN #### [facility] [address], [place], ETHANOL, SERUM Collected: 11/11/2017 Status: F Source: THE [facility] 8:27 PM SYSTEM REPOSITORY TYPE CODE TESTS RESULT OUT OF REFERENCE UNITS RANGE LAB ETHANOL None Detected mg/dL ETHANOL < 5 Performed By: #### ETOH #### [facility] [address], [place], HEMOGLOBIN A1C Collected: 11/11/2017 Status: F Source: THE 8:27 PM [facility] SYSTEM REPOSITORY Order Comment: HbA1c of 5.7-6.4% have increased risk for diabetes and CV(Source :ADA 2014 Standard of Medical Care in Diabetes) TYPE CODE TESTS RESULT OUT OF REFERENCE UNITS RANGE LAB HB A1C 4.0-5.6 % HB A1C 4.8 LAB EAG mg/dL ESTIMATED 91 AVERAGE GLUCOSE Performed By: #### HB A1C #### [facility] [address], [place], COMPLETE BLOOD COUNT Collected: 11/06/2017 Status: F Source: THE [facility] W/DIFF 12:57 AM SYSTEM REPOSITORY TYPE CODE [...] By: #### CBCD #### [facility] [address] [place] [address], BASIC METABOLIC PANEL Collected: 11/06/2017 Status: F Source: [facility] 12[facility]57 AM SYSTEM REPOSITORY TYPE CODE TESTS [...] #### CH8, HEPATIC #### [facility] [address] [place] [address], HEPATIC FUNCTION Collected: 11/06/2017 Status: F Source: [facility] PANEL 12:57 AM SYSTEM REPOSITORY TYPE CODE [...] 8.8 Performed By: #### CH8, HEPATIC #### [facility] PATH[facility] [address] [place] [address], XR KNEE RIGHT Observed: 11/02/2017 Status: F Source: [facility] AP+LAT 12:55 AM SYSTEM REPOSITORY EXAMINATION: XR [...] 11/01/2017 Status: F Source: THE 3:50 AM [employer] SYSTEM REPOSITORY TYPE CODE TESTS RESULT OUT OF REFERENCE UNITS RANGE LAB POTWB 3.3-5.3 mmol/L 4.1 POTASSIUM, WHOLE BLOOD Performed By: #### CR K #### [facility] [address] [place] [address], LACTIC ACID Collected: 11/01/2017 Status: F Source: THE [employer] 1:20 AM SYSTEM REPOSITORY TYPE CODE TESTS RESULT OUT OF RANGE REFERENCE UNITS LAB CR LACT 0.5-2.0 mmol/L CR LACT 1.3 Performed By: #### LACT #### [facility] [address] [place] [address], BASIC METABOLIC PANEL Collected: 11/01/2017 Status: F Source: THE [employer] 1:20 AM SYSTEM REPOSITORY TYPE CODE TESTS [...] CH8, LIP, HEPATIC #### [facility] [address] [place] [address], LIPASE Collected: 11/01/2017 Status: F Source: THE [facility] 1:20 AM SYSTEM REPOSITORY TYPE CODE TESTS RESULT OUT OF RANGE REFERENCE UNITS LAB LIP <128 IU/L LIP 67 Performed By: #### CH8, LIP, HEPATIC #### [facility] [address] [place] [address], HEPATIC FUNCTION Collected: 11/01/2017 Status: F Source: THE [facility] PANEL 1:20 AM SYSTEM REPOSITORY TYPE CODE [...] CH8, LIP, HEPATIC #### [facility] [address] [place] [address], COMPLETE BLOOD COUNT Collected: 11/01/2017 Status: F Source: THE [facility] W/DIFF 1:20 AM SYSTEM REPOSITORY TYPE CODE [...] By: #### CBCD #### [facility] [address] [place] [address], [id number] EKG Observed: 10/21/2017 Status: F Source: [facility] 6:08 AM [facility] REPOSITORY Acquired on 10/21/2017 0257 Vent. Rate [...] PM Referred By: Confirmed By:PATRICK RAYO MD [id number] 2017 [facility] PT NAME: JESSE BLAIR MR#: [id number] [address] [place], [place] [id number] ACCT: [id number] : 53 EKG REPORT UA COMPLETE Collected: 10/21/2017 Status: F Source: [facility] 4:45 AM [facility] REPOSITORY Order Comment: CONSERVATION TYPE CODE TESTS RESULT OUT OF RANGE REFERENCE UNITS LAB L600.69778 YELLOW Normal COLOR YELLOW LAB L600.83225 CLEAR Normal APPEARANCE CLEAR LAB L600.91721 1.005-1.030 Low SPEC GRAV 1.004 LAB L600.88660 5.0-8.0 Normal UA PH 6.0 LAB L600.13994 NEGATIVE Normal GLUCOSE NEGATIVE LAB L600.84766 NEGATIVE Normal KETONE NEGATIVE LAB L600.79183 NEGATIVE Normal BILIRUBIN NEGATIVE LAB L600.33743 NORMAL Normal UROBIL NORMAL LAB L600.62801 NEGATIVE Normal PROTEIN NEGATIVE LAB L600.51869 NEGATIVE Normal BLOOD NEGATIVE LAB L600.35017 mg/dL Normal UA ASC ACID NEGATIVE LAB L600.68647 NEGATIVE Normal NITRITE NEGATIVE LAB L600.25595 NEGATIVE LEUK ABNORMAL ESTERASE 25 Kevin/uL LAB L600.99566 0-5 /HPF Normal WBC 3-5 LAB L600.84237 0-3 /HPF Normal RBC 0-2 LAB L600.94856 0-10 /HPF Normal EPITH CELLS 3-5 Performed By: #### L600.56539 #### Test performed at: [place] [address] CBC W/DIFF Collected: 10/21/2017 Status: F Source: [facility] 4:19 AM [facility] REPOSITORY Order Comment: CONSERVATION TYPE CODE TESTS RESULT OUT OF RANGE REFERENCE UNITS LAB L200.90581 3.9-11.0 K/uL WBC Normal 4.6 LAB L200.68442 3.5-5.5 M/uL RBC Normal 3.76 LAB L200.71371 12.0-15.0 g/dL Low HGB 9.3 LAB L200.18537 36.0-48.0 % Low HCT 28.3 LAB L200.03434 79.0-98.0 fL Low MCV 75.3 LAB L200.15146 25.4-34.6 pg Low MCH 24.7 LAB L200.30910 31.5-36.5 g/dL MCHC Normal 32.9 LAB L200.44882 11.5-14.5 % High RDW 18.8 LAB L200.86008 140-440 K/uL PLT Normal 248 LAB L200.88581 8.7-12.4 fL MPV Normal 10.5 LAB L200.21234 % NEUTROPHILS Normal % 39.1 LAB L200.80593 % IG % Normal 0.2 LAB L200.17800 % LYMPH % Normal 44.5 LAB L200.29614 % MONOCYTE % Normal 10.8 LAB L200.71454 % EOSINOPHIL Normal % 4.3 LAB L200.36507 % BASOPHIL % Normal 1.1 LAB L200.55292 1.4-6.6 K/uL NEUTROPHIL Normal ABS 1.8 LAB L200.60042 0-0.05 K/uL IG ABS Normal 0.01 LAB L200.36537 1.2-3.5 K/uL LYMPH ABS Normal 2.1 LAB L200.57835 0.0-1.0 K/uL MONO ABS Normal 0.5 LAB L200.57531 0.0-0.5 K/uL EOS ABS Normal 0.2 LAB L200.35117 0.0-0.2 K/uL BASO ABS Normal 0.1 LAB L200.11152 0-0.2 /100 WBC NRBC % Normal 0.0 LAB L200.51563 0-0.012 K/uL NRBC # Normal 0.000 Performed By: #### L200.00902 #### Test performed at: [place] [address] COMP META PANEL Collected: 10/21/2017 Status: F Source: [facility] 4:19 AM [facility] REPOSITORY Order Comment: CONSERVATION TYPE CODE TESTS RESULT OUT OF RANGE REFERENCE UNITS LAB L500.97636 136-145 mmol/L Normal NA 141 LAB L500.96215 3.5-5.1 mmol/L Normal K 4.0 LAB L500.62038 98-107 mmol/L High CL 109 LAB L500.79110 21-32 mmol/L Normal CO2 24 LAB L500.41150 74-106 mg/dL Normal GLU 80 LAB L500.70816 7-18 mg/dL Normal BUN 14 LAB L500.29625 0.550-1.020 mg/dL Low CREAT 0.520 LAB L500.18118 6.4-8.2 gm/dL High TP 8.8 LAB L500.67074 3.4-5.0 gm/dL Low ALB 2.8 LAB L500.89811 8.5-10.1 mg/dL Normal CA 8.9 LAB L500.03441 0.2-1.0 mg/dL High BILI 1.4 TOTAL LAB L500.18946 15-37 U/L High AST 177 LAB L500.45732 13-61 U/L High ALT 129 LAB L500.99103 45-117 U/L High ALK PHOS 787 TOTAL Performed By: #### L500.24838, L500.98421 #### Test performed at: [place] [address] GFR ESTIMATE Collected: 10/21/2017 Status: F Source: [place] 4:19 AM [facility] REPOSITORY Order Comment: CONSERVATION TYPE CODE TESTS RESULT OUT OF RANGE REFERENCE UNITS LAB L500.28644 > 60 Normal IF non-AFR > 60 AMER LAB L500.36903 > 60 Normal IF > 60 AMER Result Comment: eGFR (Estimated GFR) Units of measure:mL/min/1.73 meters sq. *CALCULATION REVISED 12/12/2014;IDMS-traceable MDRD equation eGFR is derived from the reexpressed MDRD Study equation using the following parameters: serum creatinine, age, gender and race. An eGFR<60 mL/min/1.73m2 for >3 months is consistent with chronic kidney disease. Refer to KDOQI guidelines for clinical interpretation. Performed By: #### L500.12355, L500.93066 #### Test performed at: [place] [address] PORTABLE CHEST Observed: 10/21/2017 Status: F Source: [facility] 3:20 AM [facility] REPOSITORY STUDY: PORTABLE CHEST; 10/21/2017 3:31 am INDICATION: left sided pain. COMPARISON: None. ACCESSION NUMBER(S): [id number] ORDERING CLINICIAN: Yuri Sanchez FINDINGS: The cardiac silhouette is normal in size. Atherosclerotic calcification in the aortic arch. No evidence of pneumonia. Mild basilar subsegmental atelectasis. No significant pleural effusion. No pneumothorax. IMPRESSION: No evidence of acute cardiopulmonary process. CT ABDOMEN/PELVIS WO Observed: 10/21/2017 Status: F Source: [facility] CONT 3:20 AM [facility] REPOSITORY STUDY: CT ABDOMEN/PELVIS WO CONT; 10/21/2017 3:51 am INDICATION: left sided pain. COMPARISON: 01/06/2014 ACCESSION NUMBER(S): [id number] ORDERING CLINICIAN: Yuri Sanchez TECHNIQUE: Axial noncontrast [...] Source: THE SEE W/ CONTRAST 12:50 AM [employer] SYSTEM REPOSITORY EXAMINATION CT ABD/PELVIS ED I/V [...] material. Comments: None INTRA-PROCEDURE MEDICATION Contrast Agent [id number] 100ml Bottle 100 milliliter 10/18/2017 INTRAVENOUS FINDINGS [...] bowel is predominately in the left side, outside sales account representative of malrotation. No evidence of obstruction. The [...] PANEL Collected: 10/17/2017 Status: F Source: THE [employer] 11:18 PM SYSTEM REPOSITORY TYPE CODE TESTS [...] CH8, LIP, HEPATIC #### [facility] [address] [place] [address], LIPASE Collected: 10/17/2017 Status: F Source: THE [facility] 11:18 PM SYSTEM REPOSITORY TYPE CODE TESTS RESULT OUT OF RANGE REFERENCE UNITS LAB LIP <128 IU/L LIP 53 Performed By: #### ANA8, LIP, HEPATIC #### [facility] [address] [place] [address], HEPATIC FUNCTION Collected: 10/17/2017 Status: F Source: THE [facility] PANEL 11:18 PM SYSTEM REPOSITORY TYPE CODE [...] CH8, LIP, HEPATIC #### [facility] [address] [place] [address], COMPLETE BLOOD COUNT Collected: 10/17/2017 Status: F Source: [facility] W/DIFF 11:18 PM SYSTEM REPOSITORY TYPE CODE [...] # 0.03 Performed By: #### CBCD #### [facility] [address] [place] [address], [id number] CT T-SPINE/L-SPINE W/O Observed: 10/13/2017 Status: F Source: THE CONTRAST 6:48 AM [employer] SYSTEM REPOSITORY EXAMINATION CT T-SPINE/L-SPINE W/O/ED CLINICAL [...] SURFACE Collected: 10/07/2017 Status: F Source: THE [employer] ANTIBODY 7:42 AM SYSTEM REPOSITORY Order Comment: [...] A TOT, CORE #### S [facility]AT[facility] [address] [place] [address], HEPATITIS B SURFACE Collected: 10/07/2017 Status: F [facility] ANTIGEN 7:42 AM SYSTEM REPOSITORY TYPE CODE TESTS RESULT OUT OF REFERENCE UNITS RANGE LAB HBSAG Non-Reactive HBSAG Non-Reactive Performed By: #### ANTI-HBS, HBSAG, HEP A TOT, CORE #### [facility] [address] [place] [address], HEPATITIS A TOTAL Collected: 10/07/2017 Status: F Source: [facility] ANTIBODY 7:42 AM SYSTEM REPOSITORY TYPE CODE TESTS RESULT OUT OF REFERENCE UNITS RANGE LAB HEP A TOT Nonreactive Nonreactive HEP A TOT Performed By: #### ANTI-HBS, HBSAG, HEP A TOT, CORE #### [facility] [address] [place] [address], HEPATITIS B CORE Collected: 10/07/2017 Status: F Source: [facility] ANTIBODY 7:42 AM SYSTEM REPOSITORY TYPE CODE TESTS RESULT OUT OF REFERENCE UNITS RANGE LAB CORE Nonreactive Nonreactive CORE Performed By: #### ANTI-HBS, HBSAG, HEP A TOT, CORE #### [facility] [address] [place] [address], HEPATITIS C ANTIBODY Collected: 10/07/2017 Status: F Source: [facility] 7:42 AM SYSTEM REPOSITORY TYPE CODE TESTS RESULT OUT OF REFERENCE UNITS RANGE LAB HCV Nonreactive Nonreactive HCV Performed By: #### HCV #### [facility] [address] [place] [address], XR CHEST PA+LAT Observed: 10/07/2017 Status: F Source[facility] 6:27 AM SYSTEM REPOSITORY EXAMINATION XR CHEST [...] 10/07/2017 Status: F Source: THE 5:37 AM [employer] SYSTEM REPOSITORY TYPE CODE TESTS RESULT OUT OF REFERENCE UNITS RANGE LAB POTWB 3.3-5.3 mmol/L 3.6 POTASSIUM, WHOLE BLOOD Performed By: #### CR K #### [facility] [address] [place] [address], PROTHROMBIN TIME AND Collected: 10/07/2017 Status: F Source: THE INR 5:37 AM [employer] SYSTEM REPOSITORY TYPE CODE TESTS RESULT OUT OF REFERENCE UNITS RANGE LAB PT PAT 10.0-12.6 sec PROTIME 11.2 LAB INR 0.90-1.10 INR 0.99 Performed By: #### PT #### [facility] [address] [place] [address], COMPLETE BLOOD COUNT Collected: 10/07/2017 Status: F Source: THE [employer] W/DIFF 5:37 AM SYSTEM REPOSITORY TYPE CODE [...] By: #### CBCD #### [facility] [address] [place] [address], BASIC METABOLIC PANEL Collected: 10/07/2017 Status: F Source: THE [facility] 5:37 AM SYSTEM REPOSITORY TYPE CODE TESTS [...] #### CH8, HEPATIC #### [facility] [address] [place] [address], HEPATIC FUNCTION Collected: 10/07/2017 Status: F Source: [facility] [facility] PANEL 5:37 AM SYSTEM REPOSITORY TYPE CODE [...] #### CH8, HEPATIC #### [facility] [address] [place] [address], POTASSIUM, WHOLE BLOOD Collected: 10/06/2017 Status: F Source: THE 7:47 AM [facility] REPOSITORY TYPE CODE TESTS RESULT OUT OF REFERENCE UNITS RANGE LAB POTWB 3.3-5.3 mmol/L 4.4 POTASSIUM, WHOLE BLOOD Performed By: #### CR K #### [facility] [address] [place] [address], HEPATIC FUNCTION Collected: 10/06/2017 Status: F Source: THE [employer] PANEL 7:47 AM SYSTEM REPOSITORY TYPE CODE [...] TP 7.9 Performed By: #### HEPATIC #### [facility] [address] [place] [address], PROTHROMBIN TIME AND Collected: 10/06/2017 Status: F Source: THE INR 7:28 AM [facility] REPOSITORY TYPE CODE TESTS RESULT OUT OF REFERENCE UNITS RANGE LAB PT PAT 10.0-12.6 sec PROTIME 11.0 LAB INR 0.90-1.10 INR 0.97 Performed By: #### PT, APTT #### [facility] [address] [place] [address], PARTIAL THROMBOPLASTIN Collected: 10/06/2017 Status: F Source: THE TIME 7:28 AM [facility] REPOSITORY TYPE CODE TESTS RESULT OUT OF RANGE REFERENCE UNITS LAB APTT 24-37 sec Low APTT 20 Performed By: #### PT, APTT #### [facility] [address] [place] [address], CT ABD/PELVIS ED I/V Observed: 10/06/2017 Status: F Source: THE SEE W/ CONTRAST 7:20 AM [facility] REPOSITORY EXAMINATION CT ABD/PELVIS ED I/V [...] predominately in the left side which is outside sales account representative of malrotation. No evidence of obstruction. The [...] LIPASE Collected: 10/06/2017 Status: F Source: THE [facility] 5:47 AM SYSTEM REPOSITORY TYPE CODE TESTS RESULT OUT OF RANGE REFERENCE UNITS LAB LIP <128 IU/L LIP 64 Performed By: #### LIP, HEPATIC, CH8 #### [facility] [address] [place] [address], [id number] HEPATIC FUNCTION Collected: 10/06/2017 Status: F Source: THE [facility] PANEL 5:47 AM SYSTEM REPOSITORY TYPE CODE [...] LIP, HEPATIC, CH8 #### [facility] [address] [place] [address], [id number] BASIC METABOLIC PANEL Collected: 10/06/2017 Status: F [facility] REPOSITORY TYPE CODE TESTS [...] LIP, HEPATIC, CH8 #### [facility] [address] [place] [address], COMPLETE BLOOD COUNT Collected: 10/06/2017 Status: F Source: THE [facility] W/DIFF 5:47 AM SYSTEM REPOSITORY TYPE CODE [...] CELLS Few Performed By: #### CBCD #### [facility] [address] [place] [address], TYPE AND SCREEN Collected: 10/06/2017 Status: C [facility] AM [facility] REPOSITORY TYPE CODE TESTS RESULT OUT OF REFERENCE UNITS RANGE LAB I ABORH B ABO Positive RH TYPE LAB ABSC INT ABSC Negative INT Performed By: #### TS #### [facility] [address] [place] [address], XR CHEST PA+LAT Observed: 10/01/2017 Status: F [facility] 11:39 PM SYSTEM REPOSITORY EXAMINATION XR CHEST 2 VIEW PA+LAT/ED CLINICAL HISTORY cough Technologist Notes COMPARISON Chest radiograph 09/26/2017. FINDINGS Coarse lung markings suggesting chronic lung changes. Unremarkable cardiopericardial silhouette. Calcifications within the aortic arch IMPRESSION No significant change to suggest an acute cardiopulmonary abnormality. MACRO NONE PROTHROMBIN TIME AND Collected: 09/27/2017 Status: F Source: THE INR 2:19 AM [facility] REPOSITORY TYPE CODE TESTS RESULT OUT OF REFERENCE UNITS RANGE LAB PT PAT 10.0-12.6 sec PROTIME 10.8 LAB INR 0.90-1.10 INR 0.96 Performed By: #### PT #### [facility] [address], [place], TYPE AND SCREEN Collected: 09/27/2017 Status: F Source: THE [facility] 2:19 AM SYSTEM REPOSITORY TYPE CODE TESTS RESULT OUT OF REFERENCE UNITS RANGE LAB I ABORH B ABO Positive RH TYPE LAB ABSC INT ABSC Negative INT Performed By: #### TS #### [facility] [address], [place], COMPLETE BLOOD COUNT Collected: 09/27/2017 Status: F Source: THE [facility] 2:18 AM SYSTEM REPOSITORY TYPE CODE TESTS [...] Not Measured Performed By: #### CBC #### [facility] [address], [place], XR CHEST PA+LAT Observed: 09/26/2017 Status: F Source: THE [facility] 10:05 PM SYSTEM REPOSITORY EXAMINATION XR CHEST [...] 09/26/2017 Status: F Source: THE 9:34 PM [facility] SYSTEM REPOSITORY TYPE CODE TESTS RESULT OUT OF REFERENCE UNITS RANGE LAB POTWB 3.3-5.3 mmol/L 4.2 POTASSIUM, WHOLE BLOOD Performed By: #### CR K #### [facility] [address] [place] [address], BASIC METABOLIC PANEL Collected: 09/26/2017 Status: F [facility] PM SYSTEM REPOSITORY TYPE CODE TESTS [...] (CKD-EPI) 97 Performed By: #### CH8 #### [facility] [address] [place] [address], COMPLETE BLOOD COUNT Collected: 09/26/2017 Status: F [facility] W/DIFF 8:55 PM SYSTEM REPOSITORY TYPE CODE [...] By: #### CBCD #### [facility] [address] [place] [address], HEPATITIS C ANTIBODY Collected: 09/26/2017 Status: F [facility]: [facility] 8:50 PM SYSTEM REPOSITORY TYPE CODE TESTS RESULT OUT OF REFERENCE UNITS RANGE LAB HCV Nonreactive Nonreactive HCV Performed By: #### LIP, HEPATIC, HCV #### [facility] [address] [place] [address], LIPASE Collected: 09/26/2017 Status: F [facility] 8:50 PM SYSTEM REPOSITORY TYPE CODE TESTS RESULT OUT OF RANGE REFERENCE UNITS LAB LIP <128 IU/L LIP 52 Performed By: #### LIP, HEPATIC, HCV #### [facility] [address] [place] [address], HEPATIC FUNCTION Collected: 09/26/2017 Status: F Source: THE [facility] PANEL 8:50 PM SYSTEM REPOSITORY TYPE CODE [...] LIP, HEPATIC, HCV #### [facility] [address] [place] [address], XR CHEST PA+LAT Observed: 09/10/2017 Status: F Source: THE [facility] 2:51 PM SYSTEM REPOSITORY EXAMINATION XR CHEST [...] Status: F Source: THE INR 2:04 PM [facility] REPOSITORY TYPE CODE TESTS RESULT OUT OF REFERENCE UNITS RANGE LAB PT PAT 10.0-12.6 sec PROTIME 11.2 LAB INR 0.90-1.10 INR 0.99 Performed By: #### PT #### [facility] [address] [place] [address], BASIC METABOLIC PANEL Collected: 09/10/2017 Status: F Source: THE [facility] 2:04 PM SYSTEM REPOSITORY TYPE CODE TESTS [...] CH8, TSH HS #### [facility] [address] [place] [address], TSH, HIGH SENSITIVITY Collected: 09/10/2017 Status: F Source: THE 2:04 PM [facility] REPOSITORY TYPE CODE TESTS RESULT OUT OF RANGE REFERENCE UNITS LAB TSH HS 0.450-5.330 uIU/mL TSH HS 0.850 Result Comment: Referance range for women as applicable: First Trimester: 0. 050 to 3.700 uIU/mL Second Trimester: 0. 310 to 4.350 uIU/mL Third Trimester: 0. 410 to 5.180 uIU/mL Performed By: #### CH8, TSH HS #### [facility] [address] [place], [address] COMPLETE BLOOD COUNT Collected: 09/10/2017 Status: F Source: THE [facility] W/DIFF 2:04 PM SYSTEM REPOSITORY TYPE CODE [...] #### CBCD #### [facility] [address] [place], [address] B TYPE NATRIURETIC Collected: 09/10/2017 Status: F Source: THE [place] 2:04 PM [employer] SYSTEM REPOSITORY TYPE CODE TESTS RESULT OUT OF RANGE REFERENCE UNITS LAB BNP <100.0 pg/mL High BNP 160.0 Performed By: #### BPL #### [facility] [address] [place], [address] GLUCOSE, FINGERSTICK-IN Collected: 08/27/2017 Status: F Source: THE OFFICE 11:34 PM [facility] SYSTEM REPOSITORY TYPE CODE TESTS RESULT OUT OF RANGE REFERENCE UNITS LAB Bengali 80-116 mg/dL GLUCOSE, 106 POC Performed By: #### [id number] #### NURSING GLUCOSE PROGRAM [address] [place], [address] ED NOTE Observed: 08/27/2017 Status: COMPLETED Source: [place] 9:11 PM CLINIC OTHER CAMPUS REPOSITORY HNO ID: [id number] Author: Vilma (Rn) Sunny Martinez RN Service: [...] PROV NOTE Observed: 08/27/2017 Status: COMPLETED Source: [place] 8:54 PM [facility] [place] REPOSITORY HNO ID: [id number] Author: Hai Lion DO Service: Emergency Medicine Author Type: Physician Type: ED Provider Notes Filed: 08/28/2017 3:05 AM Note Text: ED Provider Note Patient Name: Jesse Blair SERVICE DATE: 08/27/17 History Patient presents with: Dizziness 62 YO F presents to ED for social reasons. [facility] out of money to catch a bus to [place]. Now in ED for third time today. Was complaining of dizziness, which is a chronic issue. Mediations are in suitcase at [facility]. No other complaints. History provided by: [...] ED NOTE Observed: 08/27/2017 Status: COMPLETED Source: [place] 8:45 PM CLINIC [facility] REPOSITORY HNO ID: [id number] Author: Jean Claude ChavezRn) RADHA Rodrigues Service: (none) Author Type: Registered Nurse Type: ED Notes Filed: 08/27/2017 8:54 PM Note Text: Pt came to the ED, of note, her third separate time to [facility] ED today, stating she got stuck en route from [place] (??[place] and is looking for help, I'm stuck in [place]. ED PROV NOTE Observed: 08/27/2017 Status: COMPLETED Source: [place] 5:26 PM [facility] [place] REPOSITORY HNO ID: [id number] Author: West Estrada MD Service: Emergency Medicine [...] patient is unable to get back to [place] area where she is from. She is giving different stories re how she got here and what her plan is. I asked social work to see her. They corroborate this story, she was asking for assistance to get back to [place], she was asked to get off a [...] then told nurse she wants to leave [place]. She received screening exam, stable vitals, feels [...] ED NOTE Observed: 08/27/2017 Status: COMPLETED Source: [place] 5:25 PM [facility] REPOSITORY HNO ID: [id number] Author: Maria Del Rosario Escalatne) RADHA Schuster Service: Nursing Author Type: Registered [...] ED NOTE Observed: 08/27/2017 Status: COMPLETED Source: [place] 4:00 PM [facility] REPOSITORY HNO ID: [id number] Author: Maria Del Rosario Escalante) RADHA Schuster Service: Nursing Author Type: Registered Nurse Type: ED Notes Filed: 08/27/2017 5:38 PM Note Text: Pt sitting in RW with no complaints at this time. Comfort measures offered. No distress noted, safety maintained. ED NOTE Observed: 08/27/2017 Status: COMPLETED Source: [place] 3:00 PM [facility] REPOSITORY HNO ID: [id number] Author: Maria Del Rosario Schuster RN Service: Nursing Author Type: Registered Nurse Type: ED Notes Filed: 08/27/2017 5:38 PM Note Text: Pt sitting in RW with no complaints at this time. Comfort measures offered. No distress noted, safety maintained. ED NOTE Observed: 08/27/2017 Status: COMPLETED Source: [place] 2:13 PM [facility] REPOSITORY HNO ID: [id number] Author: Yury ChavezRnCarson Bautista RN Service: (none) Author Type: Registered Nurse Type: ED Notes Filed: 08/27/2017 2:20 PM Note Text: Pt c/o dizziness, pt was at the ed this morning, brain CT, and blood work all w/in normal range, no other symptoms noted by pt. ED NOTE Observed: 08/27/2017 Status: COMPLETED Source: [place] 9:39 AM [facility] REPOSITORY HNO ID: [id number] Author: Amy ChavezRn) RADHA Angeles Service: (none) Author Type: Registered Nurse Type: ED Notes Filed: 08/27/2017 9:40 AM Note Text: Reviewed all discharge instructions with patient. Patient verbalized understanding of all discharge instructions including the need for follow up. Gait steady, no respiratory distress noted. ED NOTE Observed: 08/27/2017 Status: COMPLETED Source: [place] 9:39 AM [facility] REPOSITORY HNO ID: [id number] Author: Amy ChavezRn) RADHA [place] Service: (none) Author Type: Registered Nurse Type: ED Notes Filed: 08/27/2017 9:39 AM Note Text: Clean catch urine specimen obtained and sent. TOXICOLOGY SCREEN,UR Collected: 08/27/2017 Status: F Source: [place] 9:39 AM [facility] REPOSITORY TYPE CODE TESTS RESULT OUT OF [...] presumptive only. These tests are for med ica purposes only and should not be used [...] on the same specimen through Client Services ([phone]) if contacted within 48 hours of initial testing. [1]Substance Abuse and Mental Health Services Administration (2012). Clinical Drug Testing in Primary Care Technical Assistance Publication Series 32. Department of Health and Human Services, [place], p.10. Performed By: #### UTOX2 #### [place] [address] URINALYSIS WITH Collected: 08/27/2017 Status: F Source: [facility] 9:39 AM CLINIC OTHER [place] REPOSITORY TYPE CODE TESTS RESULT OUT OF RANGE REFERENCE UNITS LAB UCOL Yellow Color Yellow LAB [facility] Clear Clarity Abnormal Hazy Alert LAB UGLUC Negative mg/dL Glucose, Urine Negative LAB UBIL Negative Bilirubin, Urine Negative LAB UKET Negative Ketones, Urine Negative LAB USPG 1.005-1.030 Specific [place], Ur 1.020 LAB UHGB Negative Hemoglobin/Blood, Negative [...] Comment: 0 Performed By: #### UAWMIC #### [place] [address] ED NOTE Observed: 08/27/2017 Status: COMPLETED Source: [place] 9:00 AM [facility] [place] REPOSITORY HNO ID: [id number] Author: Amy Escalante) RADHA Angeles Service: (none) Author Type: Registered Nurse Type: ED Notes Filed: 08/27/2017 9:02 AM Note Text: Pt updated on all plans of care including the need for an urine specimen. Side rails up times 2 for safety. Call light with in reach. Pt falls asleep easily during conversation. ED NOTE Observed: 08/27/2017 Status: COMPLETED Source: [place] 8:40 AM [facility] REPOSITORY HNO ID: [id number] Author: Amy (Rn) RADHA Angeles Service: (none) Author Type: Registered Nurse Type: ED Notes Filed: 08/27/2017 9:02 AM Note Text: Pt resting, eyes closed. Respirations even non labored. CT BRAIN WO IVCON Observed: 08/27/2017 Status: F Source: [place] 8:38 AM [facility] REPOSITORY * * *Final Report* * * [...] No acute intracranial process seen. Chronic changes. C Architect: NANI Transcribe Date/Time: Aug 27 2017 8:43A Dictated by : DEVIN SMITH MD This examination was interpreted and the report reviewed and electronically signed by: DEVIN SMITH MD on Aug 27 2017 8:45AM EST [id number] ED NOTE Observed: 08/27/2017 Status: COMPLETED Source: [place] 8:31 AM [facility] REPOSITORY HNO ID: [id number] Author: Zackary ChavezRn) RADHA Mckenzie Service: (none) Author Type: Registered Nurse Type: ED Notes Filed: 08/27/2017 8:50 AM Note Text: Patient returned to the Emergency Department. XR CHEST 2V FRONTAL/LAT Observed: 08/27/2017 Status: F Source: [place] 7:59 AM [facility] REPOSITORY * * *Final Report* * * [...] Other: . IMPRESSION: No acute radiographic abnormality. C Architect: [employer] DB Transcribe Date/Time: Aug 27 2017 8:02A Dictated by : TO JENSEN MD This examination was interpreted and the report reviewed and electronically signed by: TO JENSEN MD on Aug 27 2017 8:03AM EST [id number] ED NOTE Observed: 08/27/2017 Status: COMPLETED Source: [place] 7:56 AM [facility] REPOSITORY HNO ID: [id number] Author: Amy ChavezRn) RADHA Angeles Service: (none) Author Type: Registered Nurse Type: ED Notes Filed: 08/27/2017 7:56 AM Note Text: Patient has an ID Band on , has an Allergy Band on, is in the bed/cart with Side Rails up x2 and has the Call Minor within reach. Pt oriented to ED room and routine. ED NOTE Observed: 08/27/2017 Status: COMPLETED Source: [place] 7:55 AM [facility] REPOSITORY HNO ID: [id number] Author: Amy ChavezRn) RADHA [place] Service: (none) Author Type: Registered Nurse Type: ED Notes Filed: 08/27/2017 7:56 AM Note Text: Patient returned to the Emergency Department. pt was instructed to remove pants. Pt doesn't wish to remove her pants. Pt checked by security. ED NOTE Observed: 08/27/2017 Status: COMPLETED Source: [place] 7:51 AM [facility] OTHER [facility]AMP[facility] REPOSITORY HNO ID: [id number] Author: Amy (Rn) RADHA Angeles Service: (none) Author Type: Registered Nurse Type: ED Notes Filed: 08/27/2017 7:51 AM Note Text: Pt not in room at this time. CBC AND DIFFERENTIAL Collected: 08/27/2017 Status: F Source: [place] 7:33 AM [facility] OTHER CAMPUS REPOSITORY TYPE CODE TESTS [...] k/uL Abs Lymph 2.12 LAB MONOS % Darke% 7.2 LAB AAMONO <0.87 k/uL Abs Darke 0.41 LAB EOS % Eosin% 3.7 LAB AAEOS <0.46 k/uL Abs Eosin 0.21 LAB BASOS % Baso% 0.9 LAB AABASO <0.11 k/uL Abs Baso 0.05 LAB ANRBC 0 /100 WBC NRBCs 0.0 Performed By: #### CBCDIF, BMP #### [place] [address] BASIC METABOLIC PANL Collected: 08/27/2017 Status: F Source: [place] 7:33 AM CLINIC OTHER CAMPUS REPOSITORY TYPE [...] >60 Performed By: #### CBCDIF, BMP #### [place] [address] TROPONIN T Collected: 08/27/2017 Status: F Source: [place] 7:33 AM [facility] [place] REPOSITORY TYPE CODE TESTS RESULT OUT OF REFERENCE UNITS RANGE LAB TROPT 0.000-0.029 ng/mL Troponin T <0.010 Performed By: #### EMMANUEL, CKCKMB #### [place] [address] CK, TOTAL AND CKMB Collected: 08/27/2017 Status: F Source: [place] 7:33 AM [facility] OTHER CAMP[facility] REPOSITORY TYPE CODE TESTS RESULT OUT OF REFERENCE UNITS RANGE LAB CK 42-196 U/L 98 CK LAB MB <4.3 ng/mL MB 3.8 LAB CKMBRI 0.0-4.0 % CK CK MB MB % not % reported with CK <100 U/L. Performed By: #### EMMANUEL, CKCKMB #### [place] [address] ED NOTE Observed: 08/27/2017 Status: COMPLETED Source: [place] 6:55 AM CLINIC OTHER CAMPUS REPOSITORY HNO ID: [id number] Author: Jessy (Rn) RADHA Desir Service: Emergency Medicine Author Type: Registered Nurse Type: ED Notes Filed: 08/27/2017 6:56 AM Note Text: Patient to ED c/o vertigo. Patient states she was seen yesterday and prescribed meclizine. Patient states she did not get the prescription filled. Patient denies any change since yesterday. No other complaints at this time. ED PROV NOTE Observed: 08/27/2017 Status: COMPLETED Source: [place] 6:55 AM CLINIC OTHER CAMPUS REPOSITORY HNO ID: [id number] Author: West Estrada MD Service: Emergency Medicine Author Type: Physician Type: ED Provider Notes Filed: 09/01/2017 10:51 PM Note Text: ED Provider Note Patient Name: Jesse Blair SERVICE DATE: 08/27/17 History Patient presents with: Dizziness HPI Jesse Blair is a 62 year old female who presents to the ED with a chief complaint of dizziness. Patient reports a medical history of vertigo, but has not been taking her meclizine as prescribed. 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 My vertigo is acting up. Neptune like I was going to pass out. [...] as of Aug 28 907 Others' Documentation [facility] Aug 27, 2017 0717 ED EKG [...] of the patient and have reviewed the PA/NCR OPERATOR note. My mendez findings include: 62-year-old female [...] Time: 10:51 PM West Estrada MD 09/01/17 6029 EKG (AK,AV,EU,FV,HL,DEBORAH,MM,SP) Observed: Status: F Source: [place] 08/27/2017 6:55 AM CLINIC OTHER CAMPUS REPOSITORY NAME : JESSE BLAIR PID : [id number] : 1955 Gender : Female Race : ORD : [id number] Procedure Date : Aug 27 2017 06:55:59 Edit Date : Aug 28 2017 07:36:34 Diagnosis:SINUS RHYTHM Normal ECG Confirmed by MD ESTRADA IBRAHIM ([id number]), subeditor LORRAINE LIVINGSTON ([id number]) on 08/28/2017 7:36:27 AM Ventricular Rate : 73 BPM Atrial Rate : 72 BPM P-R Interval : 164 ms QRS Duration : 94 ms Q-T Interval : 408 ms QTC Calculation(Bezet) : 450 ms P Brussels : 56 degrees R Brussels : -8 degrees T Brussels : 23 degrees Test Reason : Arrhythmia Location : 502 : LUED 4 Overread By : MD ESTRADA IBRAHIM Edited By : LORRAINE LIVINGSTON Referred By : , Acquired by : MG, CHEST PA AND LATERAL Observed: 07/27/2017 Status: F Source: [facility] 9:06 PM [facility] REPOSITORY Final Report Accession No: [id number] Performed: Jul 27 2017 9:06PM Examination: [...] CODE REACTION SEVERITY SOURCE CODE 02/08/2018 Drug aspirin/[id number]( Other Unknown [place] Allergy/41 RXNORM) [facility] [id number]( Hospital OMED CT) Repository 09/10/2017 DRUG EPINEPHRINE ANAPHYLACTIC [facility] INGREDI/41 System [id number]( Repository OMED CT) 08/27/2017 DRUG ASPIRIN [facility] INGREDI/41 System [id number]( Repository OMED CT) 08/27/2017 DRUG ASPIRIN OTHER: SEE C [facility] INGREDI/41 Other Filer [id number](SN Repository OMED CT) 01/03/2016 Environ/42 ENVIRONMENTAL [facility] [id number]( System OMED CT) Repository 01/01/2016 DRUG POLLEN EXTRACT [facility] INGREDI/41 System [id number]( Repository OMED CT) ENCOUNTERS ENCOUNTERS ADMIT/DISCHARGE ACCOUNT NUMBER ADMITTING ENCOUNTER LOCATION SOURCE CLASS 03/17/2018/03/17/19 [id number] Unknown Emergency [facility] [address] [facility] Repository 03/17/2018 [id number] Unknown Ambulatory [facility] Repository 02/15/2018/02/16/20 [id number] Emergency [place] [facility] ding:ED Repository 02/08/2018/02/09/20 [id number] Emergency [place] [facility] ding:ED Repository 02/02/2018/02/03/20 [id number] Emergency [place] [facility] ding:ED Repository 01/26/2018/01/27/20 [id number] Emergency [place] [facility] ding:ED Repository 01/24/2018/01/25/[id number] Ximena Emergency [facility] [address] [place] lding:[address] and Emergency [facility]: [place] [address]E [id number]: Repository A1E A1ED12 01/23/2018/01/25/[id number] Jayashree Emergency [facility] [address] [place] lding:[address] and [facility]: [place] [address]E [id number]: Repository A1E A1ED15 01/22/2018/01/24/20 [id number] Unknown Emergency [facility] [address] [facility] Repository 01/20/2018/01/21/20 [id number] Unknown Emergency [facility] [address] [facility] Repository 01/19/2018/01/20/20 [id number] Unknown Emergency [facility] [address] [facility] Repository 01/19/2018 [id number] Unknown Ambulatory [facility] Repository 01/17/2018/01/18/20 [id number] Unknown Emergency [facility] [address] [facility] Repository 01/16/2018/01/17/20 [id number] Unknown Emergency [facility] [address] [facility] Repository 01/15/2018/01/16/20 [id number] Unknown Emergency [facility] [address] [facility] Repository 01/13/2018/01/15/20 [id number] Unknown Emergency [facility] [address] [facility] Repository 01/13/2018 [id number] Unknown Ambulatory [facility] Repository 01/13/2018 [id number] Unknown Ambulatory [facility] Repository 01/12/2018/01/14/20 [id number] Unknown Emergency [facility] [address] [facility] Repository 01/12/2018 [id number] Unknown Ambulatory [facility] Repository 01/10/2018/01/12/20 [id number] Unknown Emergency [facility] [address] [facility] Repository 01/08/2018/01/10/20 [id number] Emergency [facility] 18 [facility] Repository ng:G.ED 01/07/2018/01/08/20 [id number] Unknown Emergency [facility] Repository 01/07/2018 [id number] Unknown Ambulatory [facility] Repository 01/06/2018/01/08/20 [id number] Unknown Emergency [facility] Repository 01/06/2018/01/07/20 [id number] Unknown Emergency [facility] Repository 01/05/2018/01/07/20 [id number] Unknown Emergency [facility] Repository 01/05/2018/01/06/20 [id number] Unknown Emergency [facility] Repository 01/03/2018/01/04/20 [id number] Unknown Emergency [facility] Repository 01/03/2018 [id number] Unknown Ambulatory [facility] Repository 01/01/2018/01/02/20 [id number] Unknown Emergency [facility] Repository 12/30/2017/12/31/19 [id number] Unknown Emergency [facility] Repository 12/28/2017/12/30/19 [id number] Unknown Emergency [facility] Repository 12/28/2017 [id number] Unknown Ambulatory [facility] Repository 12/28/2017 [id number] Unknown Ambulatory [facility] Repository 12/28/2017 [id number] Unknown Ambulatory [facility] Repository 12/28/2017 [id number] Unknown Ambulatory [facility] Repository 12/27/2017/12/29/19 [id number] CHRISTIANO, Inpatient [facility] 18 ZACKARY Encounter [facility] om: X128Yob: System 02 Repository 12/27/2017 [id number] Unknown Ambulatory [facility] Repository 12/27/2017 [id number] Unknown Ambulatory [facility] Repository 12/26/2017/12/27/19 [id number] Unknown Emergency [facility] Repository 12/23/2017/12/24/19 [id number] Unknown Emergency [facility] Repository 12/23/2017 [id number] Unknown Ambulatory [facility] Repository 12/21/2017 [id number] Unknown Ambulatory [facility] Repository 12/20/2017/12/22/19 [id number] Unknown Emergency [facility] Repository 12/19/2017/12/20/19 [id number] Unknown Emergency [facility] Repository 12/19/2017 [id number] Unknown Ambulatory [facility] Repository 12/18/2017/12/19/19 [id number] Unknown Emergency [facility] Repository 12/15/2017/12/17/19 [id number] Unknown Emergency [facility] Repository 12/15/2017 [id number] Unknown Ambulatory [facility] Repository 12/13/2017/12/15/19 [id number] Unknown Emergency [facility] Repository 12/05/2017/12/06/19 [id number] Unknown Emergency [facility] Repository 12/05/2017 [id number] Unknown Ambulatory [facility] Repository 11/30/2017/12/02/19 [id number] Unknown Emergency [facility] Repository 11/28/2017/11/29/19 [id number] Unknown Emergency [facility] Repository 11/26/2017/11/27/19 [id number] Unknown Emergency [facility] Repository 11/24/2017/11/25/19 [id number] Unknown Emergency [facility] Repository 11/22/2017/11/23/19 [id number] Unknown Emergency [facility] Repository 11/17/2017/11/18/19 [id number] NISSA [facility] KIRBY Encounter [facility] om: S102Vwi: System 02 Repository 11/17/2017 [id number] Unknown Ambulatory [facility] Repository 11/16/2017 [id number] Unknown Ambulatory [facility] Repository 11/14/2017 [id number] Unknown Ambulatory [facility] Repository 11/13/2017/11/15/19 [id number] Unknown Emergency [facility] Repository 11/13/2017 [id number] Unknown Ambulatory [facility] Repository 11/13/2017 [id number] Unknown Ambulatory [facility] Repository 11/12/2017/11/14/19 [id number] Unknown Emergency [facility] Repository 11/12/2017 [id number] Unknown Ambulatory [facility] Repository 11/12/2017 [id number] Unknown Ambulatory [facility] Repository 11/11/2017/11/13/19 [id number] Unknown Emergency [facility] Repository 11/06/2017/11/07/19 [id number] Unknown Emergency [facility] Repository 11/01/2017/11/03/19 [id number] Unknown Emergency [facility] Repository 11/01/2017/11/02/19 [id number] Unknown Emergency [facility] Repository 10/21/2017/10/22/19 [id number] Emergency [facility] 18 [facility] [place] [place] Repository ng:G.ED 10/21/2017 [id number] Ambulatory [address] [place] [address] Repository 10/17/2017/10/19/19 [id number] Unknown Emergency [facility] Repository 10/17/2017 [id number] Unknown Ambulatory [facility] Repository 10/13/2017/10/14/19 [id number] Unknown Emergency [facility] Repository 10/13/2017 [id number] Unknown Ambulatory [facility] Repository 10/13/2017 [id number] Unknown Ambulatory [facility] Repository 10/07/2017/10/08/19 [id number] Unknown Emergency [facility] Repository 10/07/2017 [id number] Unknown Ambulatory [facility] Repository 10/07/2017 [id number] Unknown Ambulatory [facility] Repository 10/06/2017/10/07/19 [id number] Unknown Emergency [facility] Repository 10/06/2017 [id number] Unknown Ambulatory [facility] Repository 10/06/2017 [id number] Unknown Ambulatory [facility] Repository 10/05/2017/10/06/19 [id number] Unknown Emergency [facility] Repository 10/05/2017 [id number] Unknown Ambulatory [facility] Repository 10/05/2017 [id number] Unknown Ambulatory [facility] Repository 10/01/2017/10/03/19 [id number] Unknown Emergency [facility] Repository 10/01/2017 [id number] Unknown Ambulatory [facility] Repository 09/27/2017/09/29/19 [id number] Unknown Emergency [facility] Repository 09/27/2017/09/28/19 [id number] MARY, Inpatient [facility] STEPHIE Bhatti Encounter [facility] om: G771Gmk: System 01 Repository 09/26/2017 [id number] Unknown Ambulatory [facility] Repository 09/24/2017/09/25/19 [id number] Unknown Emergency [facility] Repository 09/17/2017/09/18/19 [id number] Unknown Emergency [facility] Repository 09/10/2017/09/11/19 [id number] Unknown Emergency [facility] Repository 09/10/2017 [id number] Unknown Ambulatory [facility] Repository 09/01/2017/09/02/19 [id number] Unknown Emergency [facility] Repository 09/01/2017 [id number] Unknown Ambulatory [facility] Repository 08/28/2017/08/29/19 [id number] Unknown Emergency [facility] Repository 08/27/2017/08/28/19 [id number] Emergency [address] [place] Repository 08/27/2017/08/28/19 [id number] Emergency [address] [place] Repository 08/27/2017/08/28/19 [id number] Emergency [address] [place] Repository 08/04/2017/08/05/[id number] Jean-Claude Emergency [place] [address] Adeline Leo lding:E [facility] and [facility] [place] DeptRoom: [address] W8RRBtb: Repository [facility] A1ED04 07/31/2017/08/01/[id number] Chris Emergency [place] [address] Douglas Núñez lding:[address] and Emergency [place] DeptRoom: [address] H7YAWdm: Repository [facility] A1ED04 07/31/2017/08/01/[id number] Chris Emergency [place] [address] Douglas Núñez lding:[address] and Emergency [place] DeptRoom: [address] E2YJHax: Repository [facility] A1ED04 07/27/2017/07/28/[id number] Mireya Emergency [place] [address] Amber Sampson lding:[address] and Emergency [place] Depoo: [address] B8NVXvz: Repository [facility] A1ED41 07/27/2017/07/28/[id number] Delgado Emergency [place] [address] Manfred Potter lding:[address] and Emergency [place] Depoom: [address] V4ACRgo: Repository [facility] A1ED19 PAYERS PAYERS ENCOUNTER GUARANTOR PAYER SUBSCRIBER SOURCE 03/17/2018 JESSE MARTINEZ: Primary JESSE MARTINEZ: [facility] [id number] Insurance:PETTY [id number] System Repository [place] MEDICAIDPolicy 7 [place], Number: [facility] [address]Jsn: [id number] 90014Pdk: (216) Date:2017-08-23P.O [phone] () () [address] [place] [address] 50514OC: 03/17/2018 JESSE OLDSB: Primary JESSE OLDSDOB: [facility] Insurance:PETTY [id number] System Repository [place] MEDICAIDPolmon[facility], Number: [place], [place] [address]Nup: [id number] [id number]: (216) Date:2017-08-23P. [phone] () () [address] [place] [address] 53796EU: 02/15/2018 JESSEEDIN MARTI Primary JESSE MARTI [facility] [place] Insurance:MOLINAPolic OLDSDOB: [facility], y Number: [id number] Repository [place] [address]Qkl: [id number] Date:2067-74-58SB BOX () [address] [place] [address] 18557XM: 02/15/2018 Secondary NOT GIVENUNK [facility] Insurance:SELF PAY Hospital INSURANCEPolicy Repository Number: Effective Date:2018-02-15 02/08/2018 JESSE MARTI Primary JESSE MARTI [facility] [place] Insurance:MOLINAPolic OLDSDOB: [facility], y Number: [id number] [place]ository [place] [address]Qjk: [id number] Date:4558-38-38RV BOX () [address] [place] [address] 59504QJ: 02/08/2018 Secondary NOT GIVENUNK [facility] Insurance:SELF PAY Hospital INSURANCEPolicy Repository Number: Effective Date:2018-02-08 02/02/2018 JESSE A Primary JESSE A OLDSDOB: [facility] [place] Insurance:MOLINAPolic [id number] [facility], y Number: Repository [place] [address]Tyb: [id number] Date:0773-12-93TL BOX () [address] [place] [address] 01413BV: 02/02/2018 Secondary NOT GIVENUNK [facility] Insurance:SELF PAY Hospital INSURANCEPolicy Repository Number: Effective Date:2018-02-02 01/26/2018 JESSE A Primary [facility] [id number] [place] Insurance:[facility] [id number], Number: Repository [place] [address]Hkb: [id number] Date:4508-97-82QL BOX () [address] [place] [address] 12699VU: 01/26/2018 Secondary NOT GIVENUNK [facility] Insurance:SELF PAY Hospital INSURANCEPolicy Repository Number: Effective Date:2018-01-26 01/24/2018 Primary JESSE A JOHNNIEDOB: [facility] Insurance:Petty [id number] Post and [address] Number: [place] Repository [id number]: (216) Date:Plan [phone] () Name:[address] [address]NA: 01/23/2018 Primary JESSE A JOHNNIEDOB: [facility]:Petty [id number] Post and [address] Number: [place] Repository [id number] 34[address]Nku: (216) Date:Plan [phone] (HP) Name:[address] [address]SW: 01/22/2018 JESSE OLDSDOB: Primary JESSE OLDSDOB: [facility] Insurance:PETTY [id number] System Repository [place] MEDICAIDPolicy 7 [place], Number: [place] [address]Occ: [id number] 22582Hqt: 216) Date:2017-08-23P.O [phone] (HP) (HP) [address] [place] [address] 89331FP: 01/20/2018 JESSE OLDSDOB: Primary JESSE OLDSDOB: [facility] Insurance:PETTY [id number] System Repository [place] MEDICAIDPolicy 7 [place], Number: [place], [place] [address]Qgb: [id number]: (216) Date:2017-08-23P.O [phone] (HP) (HP) [address] [place] [address] 95675NI: 01/19/2018 JESSE OLDSDOB: Primary JESSE OLDSDOB: [facility] Insurance:[place] [id number] System Repository [place] MEDICAIDPolicy 7 [place], Number: [place] [address]Doj: [id number] 16174Ngh: (216) Date:2017-08-23P.O [phone] (HP) (HP) [address] [place] [address] 09444ZE: 01/19/2018 JESSE OLDSDOB: Primary JESSE OLDSDOB: [facility] Insurance:Two[place] [id number] System Repository [place] MEDICAIDPolicy 7 [place], Number: [place], [place] [address]Ghu: [id number] [address]48[address]Uzh: (216) Date:2017-08-23P.O [phone] (HP) (HP) [address] [place] [address] 42022FD: 01/17/2018 JESSE OLDSDOB: Primary JESSE OLDSDOB: [facility] Insurance:PETTY [id number] System Repository [place] MEDICAIDPolicy 7 [place], Number: [place], [place] [address]Rjt: [id number] [address]Fuj: (216) Date:2017-08-23P.O [phone] (HP) (HP) [address] [place] [address] 83578AD: 01/16/2018 JESSE OLDSDOB: Primary JESSE OLDSDOB: [facility] Insurance:TwoFish [id number] System Repository [place] MEDICAIDPolicy 7 [place], Number: [place] [address]Itj: [id number] 21814Irv: (216) Date:2017-08-23P.O [phone] (HP) (HP) [address] [place] [address] 85947SL: 01/15/2018 JESSE OLDSDOB: Primary JESSE OLDSDOB: [facility] Insurance:TwoFish [id number] System Repository [place] MEDICAIDPolic 7 [place], Number: [place] [address]Drc: [id number] 17[address]Ttg: (216) Date:2017-08-23P.O [phone] (HP) () [address] [place] [address] 74519JH: 01/13/2018 JESSE OLDSDOB: Primary JESSE OLDSDOB: [facility] Insurance:TwoFish [id number] System Repository [place] MEDICAIDPolicy 7 [place], Number: [place] [address]Bvg: [id number] 15788Bip: (216) Date:2017-08-23P.O [phone] (HP) (HP) [address] [place] [address] 71361HE: 01/13/2018 JESSE OLDSDOB: Primary JESSE OLDSDOB: [facility] Insurance:TwoFish [id number] System Repository [place] MEDICAIDPolicy 7 [place], Number: [place] [address]Jky: [id number] 489[address]Hmk: (216) Date:2017-08-23P.O [phone] (HP) (HP) [address] [place] [address] 12437JL: 01/13/2018 JESSE OLDSDOB: Primary JESSE OLDSDOB: [facility] Insurance:TwoFish [id number] System Repository [place] MEDICAIDPolicy [place], Number: [place] [address]Uam: [id number] 24897Kjm: 216) Date:2017-08-23P.O [phone] (HP) () [address] [place] [address] 42838JX: 01/12/2018 JESSE OLDSDOB: Primary JESSE OLDSDOB: [facility] Insurance:TwoFish [id number] System Repository [place] MEDICAIDCo[facility] Hospitalicy 7 [place], Number: [place] [address]Exr: [id number] 23587Fba: (216 Date:2017-08-23P.O [phone] (HP) () [address] [place] [address] 18772PA: 01/12/2018 JESSE OLDSDOB: Primary JESSE OLDSDOB: [facility] Insurance:TwoFish [id number] System Repository [place] MEDICAIDPolicy 7 [place], Number: [place] [address]Yit: [id number] 58[address]Qlp: (216) Date:2017-08-23P.O [phone] (HP) (HP) [address] [place] [address] 55419DM: 01/10/2018 JESSE OLDSDOB: Primary JESSE OLDSDOB: [facility] Insurance:[place] [id number] System Repository [place] MEDICAIDPolicy 7 [place], Number: [place] [address]Ogh: [id number] 40544Hzh: (216) Date:2017-08-23P.O [phone] (HP) (HP) [address] [place] [address] 82936EY: 01/08/2018 JESSE Denita GIANNI Primary JESSE HERNANDEZ [facility] Insurance:[facility] Repository [place] [address]Dbm: OPolmonroe county hospital [facility] clinics Number: [id number] (HP) Date: [address] [place] [address] 65959BI: 01/07/2018 JESSE OLDSDOB: Primary JESSE OLDSDOB: [facility] Insurance:PETTY [id number] System Repository [place] MEDICAIDPolicy 7 [place], Number: [place] [address]Yoe: [id number] 480[address]Tux: 216) Date:2017-08-23P.O [phone] (HP) (HP) [address] [place] [address] 10824LV: 01/07/2018 JESSE OLDSB: Primary JESSE OLDSDOB: [facility] Insurance:PETTY [id number] System Repository [place] MEDICAIDPolicy 7 [place], Number: [place] [address]Xzf: [id number] 04[address]Cpy: (216) Date:2017-08-23P.O [phone] (HP) (HP) [address] [place] [address] 57048DI: 01/06/2018 JESSE OLDSDOB: Primary JESSE OLDSDOB: [facility] Insurance:TwoFish [id number] System Repository [place] MEDICAIDPolicy [place], Number: [place] [address]Myz: [id number] 6[address]Umj: (216) Date:2017-08-23P.O [phone] (HP) (HP) [address] [place] [address] 23126YA: 01/06/2018 JESSE OLDSDOB: Primary JESSE OLDSDOB: [facility] Insurance:TwoFish [id number] System Repository [place] MEDICAIDCo[facility] Hospitalicy 7 [place], Number: [place] [address]Ayt: [id number] [address]Cxd: (216) Date:2017-08-23P.O [phone] (HP) (HP) [address] [place] [address] 22561XZ: 01/05/2018 JESSE OLDSDOB: Primary JESSE OLDSDOB: [facility] Insurance:TwoFish [id number] System Repository [place] MEDICAIDPolic 7 [place], Number: [place] [address]Jnd: [id number] 037[address]Kpp: 216) Date:2017-08-23P.O [phone] (HP) (HP) [address] [place] [address] 06093ED: 01/05/2018 JESSE OLDSDOB: Primary JESSE OLDSDOB: [facility] Insurance:TwoFish [id number] System Repository [place] MEDICAIDPolicy 7 [place], Number: [place] [address]Qqt: [id number] [address]Jyg: (216) Date:2017-08-23P.O [phone] (HP) (HP) [address] [place] [address] 79842RJ: 01/03/2018 JESSE OLDSDOB: Primary JESSE OLDSDOB: [facility] Insurance:PETTY [id number] System Repository [place] MEDICAIDPolicy 7 [place], Number: [place] [address]Erp: [id number] 22[address]Nvp: (216) Date:2017-08-23P.O [phone] (HP) (HP) [address] [place] [address] 47400XQ: 01/03/2018 JESSE OLDSDOB: Primary JESSE OLDSDOB: [facility] Insurance:PETTY [id number] System Repository [place] MEDICAIDPolicy 7 [place], Number: [place] [address]Isl: [id number] 455[address]Obw: (216) Date:2017-08-23P.O [phone] (HP) (HP) [address] [place] [address] 02050SP: 01/01/2018 JESSE OLDSDOB: Primary JESSE OLDSDOB: [facility] Insurance:PETTY [id number] System Repository [place] MEDICAIDPolicy 7 [place], Number: [place] [address]Lde: [id number] 974[address]Dhz: 216) Date:2017-08-23P.O [phone] (HP) (HP) [address] [place] [address] 98072VW: 12/30/2017 JESSE OLDSDOB: Primary JESSE OLDSDOB: [facility] Insurance:PETTY [id number] System Repository [place] MEDICAIDPolicy [place], Number: [place] [address]Djf: [id number] 032[address]Pum: (216 Date:2017-08-23P.O [phone] (HP) (HP) [address] [place] [address] 54030XR: 12/28/2017 JESSE OLDSDOB: Primary JESSE OLDSDOB: [facility] Insurance:PETTY [id number] System Repository [place] MEDICAIDPolicy 7 [place], Number: [place] [address]Awi: [id number] 49[address]Azb: (216 Date:2017-08-23P.O [phone] (HP) (HP) [address] [place] [address] 43132SO: 12/28/2017 JESSE OLDSDOB: Primary JESSE OLDSDOB: [facility] Insurance:PETTY [id number] System Repository [place] MEDICAIDPolicy 7 [place], Number: [place], [place] [address]Ylh: [id number] 26[address]Dfj: (216) Date:2017-08-23P.O [phone] (HP) () [address] [place] [address] 16397XM: 12/28/2017 JESSE OLDSDOB: Primary JESSE OLDSDOB: [facility] Insurance:PETTY [id number] System Repository [place] MEDICAIDPolicy [address] [place], Number: [place], [place] [address]Zge: [id number] 57453Dlo: (216) Date:2017-08-23P.O [phone] (HP) (HP) [address] [place] [address] 24773ZH: 12/28/2017 JESSE OLDSDOB: Primary JESSE OLDSDOB: [facility] Insurance:Two[place] [id number] System Repository [place] MEDICAIDPolicy [address] [place], Number: [place] [address]Uvz: [id number] [address]Ezl: (216) Date:2017-08-23P.O [phone] (HP) (HP) [address] [place] [address] 54423ME: 12/28/2017 JESSE OLDSDOB: Primary JESSE OLDSDOB: [facility] Insurance:TwoFish [id number] System Repository [place] MEDICAIDPolicy [address] [place], Number: [place] [address]Gxm: [id number] 595[address]Dij: (216) Date:2017-08-23P.O [phone] (HP) (HP) [address] [place] [address] 45764GP: 12/27/2017 JESSE OLDSDOB: Primary JESSE OLDSDOB: [facility] Insurance:TwoFish [id number] System Repository [place] MEDICAIDPolicy [address] [place] [place], Number: [place] [address]Wsu: [id number] 369[address]Kfp: 216) Date:2017-08-23P.O [phone] (HP) (HP) [address] [place] [address] 76111LJ: 12/27/2017 JESSE OLDSDOB: Primary JESSE OLDSDOB: [facility] Insurance:TwoFish [id number] System Repository [place] MEDICAIDPolicy [address] [place], Number: [place] [address]Cio: [id number] 36[address]Ypt: (216) Date:2017-08-23P.O [phone] (HP) (HP) [address] [place] [address] 47047PW: 12/27/2017 JESSE OLDSDOB: Primary JESSE OLDSDOB: [facility] Insurance:PETTY [id number] System Repository [place] MEDICAIDPolicy [address] [place], Number: [place] [address]Xcl: [id number] 50413Rbk: (216) Date:2017-08-23P.O [phone] (HP) (HP) [address] [place] [address] [id number]: 12/26/2017 JESSE OLDSDOB: Primary JESSE OLDSDOB: [facility] Insurance:[id number] System Repository [place] [employer] [address] [place], Number: [place] [id number]: [id number]: ([phone] Date:2017-08-23P.O [phone] (HP) (HP) [address] [place] [address] [id number]: 12/23/2017 JESSE OLDSDOB: Primary JESSE OLDSDOB: [facility] Insurance:[id number] System Repository [place] [employer] [address], Number: [place] [id number]: [id number]: (216) Date:2017-08-23P.O [phone] (HP) (HP) [address] [place] [address] 34932DO: 12/23/2017 JESSE OLDSDOB: Primary JESSE OLDSDOB: [facility] Insurance:PETTY [id number] System Repository [place] MEDICAIDPolicy [address] [place], Number: [place] [address]Lie: [id number] 34342Szv: (216) Date:2017-08-23P.O [phone] (HP) (HP) [address] [place] [address] 12104EU: 12/21/2017 JESSE OLDSDOB: Primary JESSE OLDSDOB: [facility] Insurance:PETTY [id number] System Repository [place] MEDICAIDPolicy [address] [place], [place]: [place], [place] [address]Lwy: [id number] 66657Mvu: (216) Date:2017-08-23P.O [phone] (HP) (HP) [address] [place] [address] 44120TB: 12/20/2017 JESSE OLDSDOB: Primary JESSE OLDSDOB: [facility] Insurance:PETTY [id number] System Repository [place] MED[place] [address] [place], [place]: [place] [address]Usq: [id number] 29589Wru: (216) Date:2017-08-23P.O [phone] (HP) () [address] [place] [address] 12445EW: 12/19/2017 JESSE OLDSDOB: Primary JESSE OLDSDOB: [facility] Insurance:PETTY [id number] System Repository [place] MEDICAIDPolicy [address] [place], Number: [place], [place] [address]Gfp: [id number] 22241Rcz: (216) Date:2017-08-23P.O [phone] (HP) (HP) [address] [place] [address] 79120OO: 12/19/2017 JESSE OLDSDOB: Primary JESSE OLDSDOB: [facility] Insurance:Two[place] [id number] System Repository [place] MED[place]Policy [address] [place], Number: [place] [address]Gwu: [id number] 09349Odx: (216) Date:2017-08-23P.O [phone] (HP) (HP) [address] [place] [address] 13332PC: 12/18/2017 JESSE OLDSDOB: Primary JESSE OLDSDOB: [facility] Insurance:[place] [id number] System Repository [place] MED[place]IDPolicy [address] [place], Number: [place] [address]Wur: [id number] 53191Uua: (216) Date:2017-08-23P.O [phone] (HP) () [address] [place] [address] 36452XS: 12/15/2017 JESSE OLDSDOB: Primary JESSE OLDSDOB: [facility] Insurance:TwoFish [id number] System Repository [place] [employer] [address] [place], Number: [place] [address]Hom: [id number] 56333Flg: (216) Date:2017-08-23P.O [phone] (HP) (HP) [address] [place] [address] 40074VY: 12/15/2017 JESSE OLDSDOB: Primary JESSE OLDSDOB: [facility] Insurance:[place] [id number] System Repository [place] MED[place]IDPolicy [address] [place], Number: [place] [address]Tzz: [id number] 10797Ppf: (216 Date:2017-08-23P.O [phone] (HP) (HP) [address] [place] [address] 64941YW: 12/13/2017 JESSE OLDSDOB: Primary JESSE OLDSDOB: [facility] [place] [id number] System Repository [place] MEDICAIDPolic [address] [place], Number: [place] [address]Uyt: [id number] 50932Htn: (216) Date:2017-08-23P.O [phone] (HP) (HP) [address] [place] [address] 19702TP: 12/05/2017 JESSE OLDSDOB: Primary JESSE OLDSDOB: [facility] Insurance:[place] [id number] System Repository [place] [employer] [address] [place], Number: [place] [address]Ftv: [id number] 56602Zhr: (216 Date:2017-08-23P.O [phone] (HP) (HP) [address] [place] [address] 24719RY: 12/05/2017 JESSE OLDSDOB: Primary JESSE OLDSDOB: [facility] [place] [id number] System Repository [place] [employer] [address] [place], Number: [place] [address]Zrr: [id number] 38768Nat: (216) Date:2017-08-23P.O [phone] (HP) (HP) [address] [place] [address] 27280VK: 11/30/2017 JESSE OLDSDOB: Primary JESSE OLDSDOB: [facility] Insurance:PETTY [id number] System Repository [place] [employer]ICA[employer]Policy [address] [place], Number: [place], [place] [address]Rhv: [id number] 15085Tzo: (216) Date:2017-08-23P.O [phone] (HP) (HP) [address] [place] [address] 47586AR: 11/28/2017 JESSE OLDSDOB: Primary JESSE OLDSDOB: [facility] Insurance:PETTY [id number] System Repository [place] MEDICAIDPolicy [address] [place], Number: [place], [place] [address]Aim: [id number] 90516Amy: (216) Date:2017-08-23P.O [phone] (HP) (HP) [address] [place] [address] 95953CG: 11/26/2017 JESSE OLDSDOB: Primary JESSE OLDSDOB: [facility] Insurance:PETTY [id number] System Repository [place] [employer]ICA[employer]Policy [address] [place], Number: [place], [place] [address]Sdc: [id number] 20513Zui: (216) Date:2017-08-23P.O [phone] (HP) (HP) [address] [place] [address] 82327OM: 11/24/2017 JESSE OLDSDOB: Primary JESSE OLDSDOB: [facility] Insurance:PETTY [id number] System Repository [place] MEDICAIDPolicy [address] [place], Number: [place], [place] [address]Gfr: [id number] 41755Wto: (216 Date:2017-08-23.O [phone] (HP) (HP) [address] [place] [address] 90827ZV: 11/22/2017 JESSE OLDSDOB: Primary JESSE OLDSDOB: [facility] Insurance:TwoFish [id number] System Repository [place] MEDICAIDPolicy [address] [place], Number: [place] [address]Heu: [id number] 757[address]Fem: (216) Date:2017-08-23.O [phone] (HP) (HP) [address] [place] [address] 28428RJ: 11/17/2017 JESSE OLDSDOB: Primary JESSE OLDSDOB: [facility] Insurance:TwoFish [id number] System Repository [place] [employer] [address] [place], Number: [place] [address]Tvx: [id number] 56259Sjz: (216) Date:2017-08-23.O [phone] (HP) (HP) [address] [place] [address] 81457KA: 11/17/2017 JESSE OLDSDOB: Primary JESSE OLDSDOB: [facility] Insurance:TwoFish [id number] System Repository [place] [employer]IDPolicy [address] [place], Number: [place] [address]Sup: [id number] 26311Epu: (216 Date:2017-08-23P.O [phone] (HP) (HP) [address] [place] [address] 14668YQ: 11/16/2017 JESSE OLDSDOB: Primary JESSE OLDSDOB: [facility] Insurance:PETTY [id number] System Repository [facility] [address] [place], Number: [place] [address]Kpk: [id number] 996[address]Gqx: (216 Date:2017-08-23P.O [phone] (HP) (HP) [address] [place] [address] 92605YS: 11/14/2017 JESSE OLDSDOB: Primary JESSE OLDSDOB: [facility] Insurance:PETTY [id number] System Repository [place] MEDICAIDPolicy [address] [place], Number: [place] [address]Yll: [id number] 82002Byy: (216) Date:2017-08-23P.O [phone] (HP) (HP) [address] [place] [address] 85479AG: 11/13/2017 JESSE OLDSDOB: Primary JESSE OLDSDOB: [facility] Insurance:TwoFish [id number] System Repository [place] [employer]ICAIDPolicy [address] [place], Number: [place] [address]Npz: [id number] 69078Qdt: (216) Date:2017-08-23P.O [phone] (HP) (HP) [address] [place] [address] 49496CK: 11/13/2017 JESSE OLDSDOB: Primary JESSE OLDSDOB: [facility] Insurance:PETTY [id number] System Repository [facility] Hospital[facility] [address] [place], Number: [place], [place] [address]Rnh: [id number] 40105Ppy: (216) Date:2017-08-23P.O [phone] (HP) (HP) [address] [place] [address] 52309IL: 11/13/2017 JESSE OLDSDOB: Primary JESSE OLDSDOB: [facility] Insurance:TwoFish [id number] System Repository [place] MEDICAIDPolicy [address] [place], Number: [place] [address]Jcx: [id number] 87846Ftp: (216) Date:2017-08-23P.O [phone] (HP) (HP) [address] [place] [address] 62277QA: 11/12/2017 EJSSE OLDSDOB: Primary JESSE OLDSDOB: [facility] Insurance:TwoFish [id number] System Repository [place] MEDICAIDPolicy [address] [place], Number: [place] [address]Lav: [id number] 51329Mcq: (216) Date:2017-08-23.O [phone] (HP) (HP) [address] [place] [address] 24534KC: 11/12/2017 JESSE OLDSDOB: Primary JESSE OLDSDOB: [facility] Insurance:TwoFish [id number] System Repository [place] MEDICAIDPolicy [address] [place], Number: [place], [place] [address]Alh: [id number] 44208Nxg: 216 Date:2017-08-23P.O [phone] (HP) (HP) [address] [place] [address] 53973QX: 11/12/2017 JESSE OLDSDOB: Primary JESSE OLDSDOB: [facility] Insurance:TwoFish [id number] System Repository [place] MEDICAIDPolicy [address] [place], Number: [place] [address]Olm: [id number] 85529Gtv: (216 Date:2017-08-23P.O [phone] (HP) (HP) [address] [place] [address] 72509VY: 11/11/2017 JESSE OLDSDOB: Primary JESSE OLDSDOB: [facility] Insurance:PETTY [id number] System Repository [place] MEDICAIDPolicy [address] [place], Number: [place] [address]Nfm: [id number] 50687Hpa: (216) Date:2017-08-23.O [phone] (HP) (HP) [address] [place] [address] 30818RH: 11/06/2017 JESSE OLDSDOB: Primary JESSE OLDSDOB: [facility] Insurance:TwoFish [id number] System Repository [place] MEDICAIDPolicy [address] [place], Number: [place] [address]Xft: [id number] 98011Mff: (216 Date:2017-08-23.O [phone] (HP) (HP) [address] [place] [address] 04285GU: 11/01/2017 JESSE OLDSDOB: Primary JESSE OLDSDOB: [facility] Insurance:PETTY [id number] System Repository [place] [employer]ICAID[employer] [address] [place], Number: [place] [address]Zgj: [id number] 59754Ijf: (216 Date:2017-08-23P.O [phone] (HP) (HP) [address] [place] [address] 81795HV: 11/01/2017 JESSE OLDSDOB: Primary JESSE OLDSDOB: [facility] Insurance:PETTY [id number] System Repository [place] MEDICAIDPolicy 7 [place], Number: [facility] [address]Xxu: [id number] 083[address]Phe: (216) Date:2017-08-23P.O [phone] (HP) (HP) [address] [place] [address] 12734UV: 10/21/2017 JESSEEDIN ARCHER Primary JESSE Denita MARY [facility] Insurance:[facility] Repository [place] [address]Ndt: HMOPolicy Number: [id number] (HP) Date: [address] [place] [address] 85774RB: 10/21/2017 JESSE TINAJEROB: Primary JESSEEDIN TINAJEROB: [place] Insurance:[place] [id number] [facility] Number: [place], [place] [address]Elu: [id number] [place] [address]Xro: Date:Plan (HP) Name:[facility] Box () [address] [place] [address] 58704TD: 10/17/2017 JESSE TINAJEROB: Primary JESSE OLDSB: [facility] [place] [id number] System Repository [place] MEDICAIDPolicy [address] [place], Number: [facility] [address]Bsy: [id number] 287[address]Jxx: (412) Date:2017-08-23P.O [phone] (HP) (HP) [address] [place] [address] 67830DT: 10/17/2017 JESSE OLDSDOB: Primary JESSE OLDSDOB: [facility] [place] [id number] System Repository [place] MEDICAIDPolicy [place], Number: [place] [address]Yet: [id number] 44099Jgx: (412) Date:2017-08-23P.O [phone] (HP) (HP) [address] [place] [address] 99388SZ: 10/13/2017 JESSE OLDSDOB: Primary JESSE OLDSDOB: [facility] Insurance:[place] [id number] System Repository [place] MEDICAIDPolicy [place], Number: [facility] [address]Jpj: [id number] 79883Tuq: (412) Date:2017-08-23P.O [phone] (HP) (HP) [address] [place] [address] 30508QH: 10/13/2017 JESSE OLDSDOB: Primary JESSE OLDSDOB: [facility] Insurance:[place] [id number] System Repository [place] MEDICAIDPolicy [place], Number: [place] [facility] [address]Owq: [id number] 08183Iwm: (412) Date:2017-08-23P.O [phone] (HP) (HP) [address] [place] [address] 50861XG: 10/13/2017 JESSE OLDSDOB: Primary JESSE OLDSDOB: [facility] Insurance:[place] [id number] System Repository [place] MEDICAIDPolicy [place], Number: [facility] [facility] [address]Dye: [id number] 91135Qms: (412) Date:2017-08-23P.O [phone] (HP) (HP) [address] [place] [address] 98250OZ: 10/07/2017 JESSE OLDSDOB: Primary JESSE OLDSDOB: [facility] Insurance:PETTY [id number] System Repository [place] MEDICAIDPolicy [place], Number: [place] [facility] [address]Lat: [id number] 52653Jku: (412) Date:2017-08-23P.O [phone] (HP) (HP) [address] [place] [address] 35611OI: 10/07/2017 JESSE OLDSDOB: Primary JESSE OLDSDOB: [facility] Insurance:PETTY [id number] System Repository [place] MEDICAIDPolicy [place], Number: [place] [facility] [address]Sqz: [id number] 17794Dsj: (412) Date:2017-08-23P.O [phone] (HP) (HP) [address] [place] [address] 96072RS: 10/07/2017 JESSE OLDSDOB: Primary JESSE OLDSDOB: [facility] Insurance:PETTY [id number] System Repository [place] MEDICAIDPolicy [place], Number: [facility] [facility] [address]Zbg: [id number] 92059Nxi: (412) Date:2017-08-23P.O [phone] (HP) (HP) [address] [place] [address] 20429HL: 10/06/2017 JESSE OLDSDOB: Primary JESSE OLDSDOB: [facility] Insurance:[place] [id number] System Repository [place] MEDICAIDPolicy [place], Number: [place] [address]Bdp: [id number] 18391Cja: (412) Date:2017-08-23P.O [phone] (HP) (HP) [address] [place] [address] 50910ON: 10/06/2017 JESSE OLDSDOB: Primary JESSE OLDSDOB: [facility] Insurance:[place] [id number] System Repository [place] MEDICA[employer], Number: [place] [address]Sja: [id number] 25357Zhq: (412) Date:2017-08-23P.O [phone] (HP) (HP) [address] [place] [address] 33980WF: 10/06/2017 JESSE OLDSDOB: Primary JESSE OLDSDOB: [facility] Insurance:[place] [id number] System Repository [place] [employer], Number: [place] [address]Mxk: [id number] 70130Shs: (412) Date:2017-08-23P.O [phone] (HP) (HP) [address] [place] [address] 14945KR: 10/05/2017 JESSE OLDSDOB: Primary JESSE OLDSDOB: [facility] Insurance:[place] [id number] System Repository [place] MED[place], Number: [place] [address]Ytw: [id number] 41761Bhz: (412) Date:2017-08-23P.O [phone] (HP) (HP) [address] [place] [address] 16059WU: 10/05/2017 JESSE OLDSDOB: Primary JESSE OLDSDOB: [facility] Insurance:[place] [id number] System Repository [place] MEDICAIDPolicy [place], Number: [facility] [address]Jws: [id number] 99292Mop: (412) Date:2017-08-23P.O [phone] (HP) (HP) [address] [place] [address] 40564FZ: 10/05/2017 JESSE OLDSDOB: Primary JESSE OLDSDOB: [facility] [place] [id number] System Repository [place] MED[place]Policy [place], Number: [facility] [address]Puh: [id number] 26422Aak: (412) Date:2017-08-23P.O [phone] (HP) (HP) [address] [place] [address] 13140RT: 10/01/2017 JESSE OLDSDOB: Primary JESSE OLDSDOB: [facility] Insurance:[place] [id number] System Repository [place] MED[place], Number: [facility] [address]Rpv: [id number] 44315Tiy: (412) Date:2017-08-23P.O [phone] (HP) (HP) [address] [place] [address] 31387NC: 10/01/2017 JESSE OLDSDOB: Primary JESSE OLDSDOB: [facility] [place] [id number] System Repository [place] MED[place], Number: [facility] [address]Pmf: [id number] 59514Dip: (412) Date:2017-08-23P.O [phone] (HP) (HP) [address] [place] [address] 67611IE: 09/27/2017 JESSE OLDSDOB: Primary JESSE OLDSDOB: [facility] [place] [id number] System Repository [place] MED[place]Policy [place], Number: [facility]ITALShahriarGE[facility] [address]Dfr: [id number] [address]Iis: (412) Date:2017-08-23P.O [phone] (HP) (HP) [address] [place] [address] 74083SZ: 09/27/2017 JESSE OLDSDOB: Primary JESSE OLDSDOB: [facility] [place] [id number] System Repository [place] MED[place]Policy [place], Number: [facility] [address]Cjc: [id number] 93117Kwu: (412) Date:2017-08-23P.O [phone] (HP) (HP) [address] [place] [address] 38036ZY: 09/26/2017 JESSE OLDSDOB: Primary JESSE OLDSDOB: [facility] [place] [id number] System Repository [place], Number: [facility]PITALShahriarWA[facility] [address]Jou: [id number] 89578Xud: (412) Date:2017-08-23P.O [phone] (HP) (HP) [address] [place] [address] 11279NE: 09/24/2017 JESSE OLDSDOB: Primary JESSE OLDSDOB: [facility] [place] [id number] System Repository [place] MED[place], Number: [place] [address]Wcm: [id number] 23989Ntl: (412) Date:2017-08-23P.O [phone] (HP) (HP) [address] [place] [address] 23348FD: 09/17/2017 JESSE OLDSDOB: Primary JESSE OLDSDOB: [facility] Insurance:PET[place] [id number] System Repository [place], Number: [place] [address]Nbj: [id number] 99953Owt: (412) Date:2017-08-23P.O [phone] (HP) (HP) [address] [place] [address] 22771OM: 09/10/2017 JESSE OLDSDOB: Primary JESSE OLDSDOB: [facility] W Insurance:[place] [id number] System Repository [address] MEDICAIDPolicy [address] Number: [facility] [place] [place] [address]Upj: (412) [id number] 62851Wyy: (HP) Date:2017-08-23P.O [phone] (HP) [address] [place] [address] 14637QO: 09/10/2017 JESSE TINAJEROB: Primary JESSE OLDSDOB: [facility] W Insurance:PET[place] [id number] System Repository [address] MEDICAIDPolicy [address] Number: [facility] [place] [facility] [place] [address]Gjt: (412) [id number] 14926Kpu: (HP) Date:2017-08-23P.O [phone] (HP) [address] [place] [address] 22568VE: 09/01/2017 JESSE OLDSDOB: Primary JESSE OLDSDOB: [facility] W Insurance:[place] [id number] System Repository [address] MEDICAIDPolicy [address] Number: [facility] [place] [place] [place] [address]Tmb: (412 [id number] 01800Uie: (HP) Date:2017-08-23P.O [phone] (HP) [address] [place] [address] 14303XS: 09/01/2017 JESSE OLDSDOB: Primary JESSE OLDSDOB: [facility] W Insurance:PETTY [id number] System Repository [address] MEDICAIDPolicy [address] Number: [facility] [place] [place] [address]Odx: (412 [id number] 95598Ijn: (HP) Date:2017-08-23P.O [phone] (HP) [address] [place] [address] 50691WY: 08/28/2017 JESSE OLDSDOB: Primary JESSE OLDSDOB: [facility] W Insurance:PETTY [id number] System Repository [address] MEDICAIDPolicy [address] Number: [place] [address]Fqn: (412 [id number] 90380Kef: (HP) Date:2017-08-23P.O [phone] (HP) [address] [place] [address] 42528PL: 08/04/2017 Primary JESSE A OLDSDOB: [facility] Insurance:MedicaidPol [id number] Juan M Number: [facility] [id number] [facility], Repository Date:[place] [address]Iim: Name:[address] [address], [place] (HP) [address]MN: 07/31/2017 Primary JESSE Denita BLAIRDOB: [facility] Insurance:MedicaidPol [id number] [place] Number: [facility] [id number], Repository Date:[place] [address]Kuk: Name:[address] [address], [place] ([place]) [address]RQ: 07/31/2017 Primary JESSE [facility] J[place]NN[place]OB[facility] [id number] [place] Number: [facility] [id number], Repository Date:[place] [address]Pds: Name:[address] [address]Bf[place]fi, [place] ([place]) [address]ZT: 07/27/2017 Primary JESSEEDIN BLAIRDOB[facility] [id number] [place] Number: [facility] [id number], Repository Date:[place] [address]Gzy: Name:[address] [address]oon[place]zk, [place] ([place]) [id number]: 07/27/2017 Primary JESSEEDIN BLAIRDOB: [facility] [place] [id number] [place] and [place] Number: [facility] [id number] [facility], Repository Date:[place] [address]Uoo: Name:[address] [address], [place] ([place]) [address]MO:
== END 2018-02-08 15:39 | disposition home or self-care (01) ==
PROVIDERS: Emergency Provider Emergency Medicine
DX: K59.00 Constipation, unspecified (principal); R10.9 Unspecified abdominal pain; R11.2 Nausea with vomiting, unspecified; R79.89 Other specified abnormal findings of blood chemistry; Z79.899 Other long term (current) drug therapy; Z90.49 Acquired absence of other specified parts of digestive tract
CPT/HCPCS: 74176; 80048; 80076; 83690; 85025; 96374; 96375; 99285; A4216; J2405

== ENCOUNTER 2018-02-15 10:07 | Emergency (ER) | payer MEDICAID, SELFPAY ==
[2018-02-15 10:08] VITALS: BP 118/57; PULSE 77; PULSE 82; RESP 18; TEMP 36.8; O2SAT 100; BMI 26.9
--- NOTE | 2018-02-15 10:22 | RAD_ITS ---
STUDY: X-RAY CHEST REASON FOR EXAM: Female, 62 years old. Shortness of breath with exertion. TECHNIQUE: Frontal and lateral views of the chest. COMPARISON: January 26, 2018 FINDINGS: There is stable mild hyperexpansion. There is no demonstrated pleural abnormality. Normal size heart. Normal mediastinum and marily. Normal visualized pulmonary arteries. Normal visualized aortic arch and descending thoracic aorta. Normal visualized thoracic spine. Normal visualized ribs, clavicles, and shoulders. There is no demonstrated abnormality of the visualized soft tissue structures of the upper abdomen. RAD/Chest PA and Lateral IMPRESSION: Stable mild hyperexpansion with no acute pathology. Electronically Signed: Rui Michel MD at 11:41 EST , Service support ,
--- NOTE | 2018-02-15 10:22 | EKG12_ITS ---
Test Reason : SOB Blood Pressure : / mmHG Vent. Rate : 072 BPM Atrial Rate : 072 BPM P-R Int : 154 ms QRS Dur : 086 ms QT Int : 396 ms P-R-T Axes : 047 -04 026 degrees QTc Int : 433 ms Normal sinus rhythm Normal ECG Confirmed by JAMILAH ZIEGLER ([id number]), non linear editor MARY DOVE ([id number]) on 03/01/2018 1:19:18 PM Referred By: MAAME Confirmed By:JAMILAH ZIEGLER
[2018-02-15 11:52] VITALS: O2SAT 100
[2018-02-15 12:20] VITALS: BP 121/64; PULSE 68; RESP 14; O2SAT 97
[2018-02-15 12:22] LABS: D-Dimer Quantitative (DVT/PE) 1.79 FEU/ug/m (0.27-0.49)
--- NOTE | 2018-02-15 12:22 | ED.RN ---
CRITICAL D DIMER [address] ISABEL NOTIFIED.
--- NOTE | 2018-02-15 12:24 | CT_ITS ---
STUDY: CTA CHEST REASON FOR EXAM: Female, 62 years old. Shortness of breath. Elevated d-dimer. COPD RADIATION DOSAGE (If Supplied By Facility): CTDIvol = ( 10.26 ) mGy, DLP = ( 265.11 ) mGycm TECHNIQUE: The examination was performed with the intravenous administration of 75 ml of Isovue 300 contrast material. Post-processing of the angiographic images was performed, with multiplanar reformation and 3D reconstruction. Individualized dose optimization techniques were used for this CT. COMPARISON: Chest x-ray. FINDINGS: Normal enhancement of the main pulmonary artery and right and left pulmonary arteries. There is limited enhancement of the bilateral peripheral pulmonary arteries. There is no demonstrated pulmonary embolism. There is atherosclerotic calcification of the aortic arch with tortuosity. There is no demonstrated aortic dissection. Normal heart and pericardium. Normal mediastinum. Normal hilar regions. Normal visualized trachea and bronchi. The lungs are well expanded. There is emphysema in the upper chest. There are mildly increased diffuse interstitial parenchymal markings. Normal pleura. Normal chest wall structures. There are degenerative changes of thoracic spine. There is hepatomegaly with diffuse hepatic enlargement. CT/CTA Chest W/WO Contrast IMPRESSION: CTA chest examination, without a demonstrated pulmonary embolism or arterial dissection. Emphysema and fibrotic densities. Electronically Signed: Wallace Beauchamp MD at 13:34 EST , Service support ,
[2018-02-15 12:26] LABS: Absolute Lymphocyte Count 1.78 X10^3/ul (0.83-4.51); Absolute Neutrophil Count 1.7 X10^3/uL (2.0-7.7); Basophil# 0.04 X10^3/uL; Basophil% 1.1 % (0-1); Differential Indicated SCAN CRITERIA MET; Eosinophil# 0.06 X10^3/uL; Eosinophils% 1.6 % (0-5); Hematocrit 33.5 % (37-47); Hemoglobin 10.3 g/dl (12.0-15.0); Lymphocyte # 1.78 X10^3/ul (4.0); Mean Corp Hgb Conc 30.7 g/gl (32-36); Mean Corpuscular Hgb 22.4 pg (27.0-32.0); Mean Corpuscular Volume 72.8 fL (81-99); Monocyte% 5.3 % (0-10); Neutrophil % 44.7 % (47-70); POSITIVE COUNT NO; POSITIVE DIFFERENTIAL NO; POSITIVE MORPHOLOGY YES; Platelet Count 174 K/mm3 (150-450); RBC Distribution Width SD 47.5 fl (35.1-43.9); White Blood Count 3.8 K/mm3 (4.4-11.0)
[2018-02-15 12:27] LABS: Anion Gap 9 (5-15); BUN 12 mg/dL (7-18); BUN/Creat Ratio 18.4 RATIO (10-20); Calcium,Total 8.5 mg/dL (8.5-10.1); Chloride 106 mmol/L (98-107); Creatinine, Serum 0.65 mg/dL (0.55-1.02); EST Glomerular Filtration Rate 97 mL/min (>60); Est Glom Filt Rate - Afr Amer 117 mL/min (>60); Estimated Creatinine Clearance 81.85 ml/min; Glucose 94 mg/dL (74-106); Potassium 3.8 mmol/L (3.5-5.1); Sodium Level 139 mmol/L (136-145)
--- NOTE | 2018-02-15 13:48 | CM.ED ---
Social Work Note Pt known to SW as she has had 4 visits to ED in the last 20 days. Introduce self and role at [facility]. Explain that the pt is overutilizing the ED and needs to seek alternative facilities based on needs. Provide with information on PCP offices and urgent cares. Also offer information on the taxi voucher program and inform pt that she will need to seek assistance through this as the hospital is not responsible for getting her back to her home and as it is [place] and she is not discharged yet cannot confirm that they will have availability to get her back today. She then asks so you guys are working on voucher thing. Again explain that this insurance underwriter sales is not and that this is something she has to coordinate with [facility]. Inquire if her time at [facility] is ending and she states that she could have it extended, but thinks that she will be moving back to [place] on . Will review chart and develop EDCP to be reviewed by physicians for approval. Donna Barnett, ELLIE, SAUL
--- NOTE | 2018-02-15 13:52 | ED.VISSUMM ---
- ER Visit Summary Date of Service: 02/15/18 Chief Complaint: Shortness of breath History of Present Illness: The patient is a 62 F presenting for evaluation secondary to shortness of breath. Patient reports that she has a underlying history of COPD as well as pulmonary emboli. She reports that her most recent pulmonary embolus was a couple months ago, but she is not currently on blood thinners. She reports that they put her on prednisone for her blood clots. Patient states that since yesterday she has been having intermittent episodes where she feels like she cannot breathe. She denies chest pain with this. She does endorse nausea denies fever cough vomiting or diarrhea. Review of systems otherwise negative. Physical Examination: Vital signs are within normal limits, patient is afebrile. General: Patient is well-nourished well-developed and in no acute distress. Head: Normocephalic, atraumatic Eyes: Pupils equal round and reactive bilaterally, extra occular motion intact bialterally ENT: Moist mucous membranes Neck: Supple, no lymphadenopathy, no JVD, no meningismus CVS: Heart regular rate and rhythm, no murmurs, rubs or gallops, radial pulses 2+ bilaterally Resp: Respirations nondistressed, lung sounds clear bilaterally Abdomen: Soft, nontender, nondistended, no palpable masses, normal bowel sounds Back: Nontender Extremities: Nontender, atraumatic, active full range of motion, no peripheral edema Skin: warm, no rashes, no petechia Neuro: Alert and oriented x 4, CN 2-12 intact, no lateralizing neurological defecits Psyc: Normal affect Test Results: EKG demonstrates sinus rhythm [address] segments normal T waves. CBC, chemistry, troponin unremarkable. D-dimer found to be positive. Chest x-ray unremarkable per radiologist. CT angiogram of the chest shows emphysematous changes but no evidence of pulmonary embolus. Emergency Department Course and Treatment: Patient presented secondary to feeling short of breath. Workup was negative as noted above. Patient does have an underlying history of COPD which I believe likely to be the etiology of her shortness of breath. Given the patient's limited access to care, patient was given Decadron for its longer half-life, will be dispensed a albuterol inhaler from the emergency department. She was given the [facility] for follow-up. Patient has been in the emergency department 5 times this month since she moved from [place]. I did contact care management to develop a care plan for the patient Disposition: Discharge Impression: 1. COPD exacerbation This note was generated with Fusion [employer] dictation software. It may contain incorrect words, spelling, and punctuation that were not noted in review of the chart prior to signing ED Disposition - Plan for ED Patient: Disposition: Home or Assisted Living Chief Complaint: Shortness of Breath Diagnosis: COPD exacerbation Instructions: ED COPD Flare Referrals: Kandis Liu [NON-STAFF] - As soon as possible
--- NOTE | 2018-02-15 14:06 | CM.ED ---
Social Work Note Pt being discharged. Placed call to hospital van who is not able to transport as they only had one parts driver today and he was finished at 12. RN to notify pt. Donna Barnett, ELLIE, SAUL
[2018-02-15 14:09] VITALS: BP 124/61; PULSE 65; RESP 16; O2SAT 97
--- NOTE | 2018-02-15 14:16 | ED.RN ---
RESIDENT CARE ASSOCIATE WORKING WITH PATIENT ON RIDE HOME. PT STATES SHE LIVES AT [facility] AND HAS NO TRANSPORTATION. PT DISCHARGED AND UNDERSTANDS IF RESIDENT CARE ASSOCIATE CANNOT FIND HER A RIDE TO [facility] SHE WILL HAVE TO WALK.
== END 2018-02-15 14:20 | disposition home or self-care (01) ==
PROVIDERS: Emergency Provider Emergency Medicine
DX: J44.1 Chronic obstructive pulmonary disease with (acute) exacerbation (principal); R74.8 Abnormal levels of other serum enzymes; R11.0 Nausea; G47.33 Obstructive sleep apnea (adult) (pediatric); Z72.0 Tobacco use; Z86.711 Personal history of pulmonary embolism; Z79.899 Other long term (current) drug therapy
CPT/HCPCS: 36415; 71046; 71275; 80048; 84484; 85025; 85379; 93005; 99285; Q9967; A4216